=== PATIENT | male | born 1940 | race Caucasian/White ===

== ENCOUNTER 2016-11-15 20:25 | Inpatient (IN) ==
[2016-11-15] MEDS ORDERED: Ipratropium/Albuterol Neb 3 ML IH ONE (20:49)
[2016-11-15] MEDS: 0.9 % Sodium Chloride 1,000 ML IVC SCH ×2 (21:07→21:18)
[2016-11-15 21:12] LABS: Basophils % 0.3 %; Eosinophils # 0.1 K/mcL (0.0-0.6); Eosinophils % 0.6 %; Hematocrit 42.2 % (37.5-50.1); Hemoglobin 14.3 g/dL (12.9-16.9); Immature Granulocytes % 0.6 % (0-4); Lymphocytes # 1.2 K/mcL (0.6-4.6); Lymphocytes % 11.3 %; Mean Corpuscular HGB Conc 33.9 g/dL (31.6-35.5); Mean Corpuscular Hemoglobin 29.7 pg (28.0-33.3); Mean Corpuscular Volume 87.6 fL (83.0-100.0); Mean Platelet Volume 9.6 fL (9.4-12.4); Monocytes # 0.1 K/mcL (0.0-1.3); Monocytes % 0.8 %; Neutrophils # 9.4 K/mcL (1.6-8.9); Platelet Count 155 K/mcL (140-400); Red Blood Count 4.82 M/mcL (4.19-5.50); Red Cell Distribution Width 13.9 % (11.5-14.5); Segmented Neutrophils % 86.4 %
[2016-11-15 21:24] LABS: INR 1.1; Prothrombin Time 12.1 Seconds (9.4-12.1)
[2016-11-15 21:26] LABS: Activated Partial Thrombo Time 27.8 Seconds (26.0-36.0); Alanine Aminotransferase 39 Units/L (0-55); Albumin 3.9 g/dL (3.5-5.0); Alkaline Phosphatase 67 Units/L (38-126); Aspartate Amino Transferase 27 Units/L (5-34); BUN/Creatinine Ratio 23 (6-26); Bilirubin,Direct 0.2 mg/dL (0.0-0.5); Bilirubin,Indirect 0.4 mg/dL (0.0-1.2); Bilirubin,Total 0.6 mg/dL (0.2-1.2); Blood Urea Nitrogen 26 mg/dL (8-26); Calcium 10.2 mg/dL (8.6-10.8); Carbon Dioxide 22 mEq/L (19-29); Chloride 101 mEq/L (98-109); Globulin 3.9 g/dL (2.4-3.5); Glucose 197 mg/dL (70-99); Magnesium 1.2 mg/dL (1.6-2.6); Osmolality,Calculated 294 (280-300); Phosphorous 1.9 mg/dL (2.3-4.7); Potassium 4.6 mEq/L (3.5-4.5); Sodium 137 mEq/L (136-145); Total Protein 7.8 g/dL (6.0-8.3); eGFR For African Americans > 60 (> 60); eGFR For Non-African Americans > 60 (> 60)
[2016-11-15 21:27] LABS: Amylase 41 Units/L (25-125); Lipase 34 Units/L (8-78)
[2016-11-15 21:27] LABS: Bilirubin,Urine Negative (Negative); Blood,Urine Moderate (Negative); Clarity,Urine Turbid (Clear); Color,Urine Yellow (Yellow); Glucose,Urine (UA) >=1000 mg/dL (Normal); Ketones,Urine Trace mg/dL (Negative); Leukocyte Esterase,Urine Large (Negative); Nitrite,Urine Positive (Negative); PH,Urine 5.5 pH Units (5.0-8.0); Protein,Urine 100 mg/dL (Neg-Trace); Specific Gravity,Urine 1.026 (1.010-1.025); Urobilinogen,Urine Normal (Normal)
[2016-11-15 21:30] LABS: Bacteria,Urine Many per hpf (None-Few); Hyaline Casts,Urine None Seen per lpf (None-Few); Squamous Epithelial Cell,Urine Many per lpf (None-Few); WBC,Urine TNTC per hpf (0-3)
[2016-11-15] MEDS ORDERED: 0.9 % Sodium Chloride 1,000 ML IVC ONE (21:35)
--- NOTE | 2016-11-15 21:39 | Emergency Department Note ---
Disposition Clinical Impression: Sepsis Qualifiers: Sepsis type: sepsis due to unspecified organism Qualified Code(s): A41.9 - Sepsis, unspecified organism UTI (urinary tract infection) Qualifiers: Urinary tract infection type: acute cystitis Hematuria presence: without hematuria Qualified Code(s): N30.00 - Acute cystitis without hematuria Pneumonia Qualifiers: Pneumonia type: due to unspecified organism Laterality: left Lung location: lower lobe of lung Qualified Code(s): J18.1 - Lobar pneumonia, unspecified organism Disposition: Admitted As Inpatient Condition: Good Referrals: Unassigned,Provider [Primary Care Provider] - Time of Disposition: 21:38 General Adult HPI - General Chief complaint: ED Altered Mental Status Stated complaint: AMS Time Seen by Provider: 11/15/16 20:27 Source: patient, family, EMS Limitations: no limitations Nursing Notes Reviewed: Yes Vital Signs Reviewed: Yes - History of Present Illness HPI Narrative: Patient reporting to the emergency department with an altered mental status. states that he has had a foul-smelling urine for the past 2 weeks. She states she is complaining of chilling tonight. This started around 4:30. She states that he then went to the bathroom inserters taking. She had attempted to help him get off the toilet but he was too heavy and they both fell to the ground. She denies striking his head on anything and states that she helped ease him to the ground. Pain Scale: 0 - Related Data Home Medications Medication Instructions Recorded Confirmed Aspirin Enteric Coated [Aspirin EC] 81 mg PO DAILY 11/15/16 11/15/16 Gabapentin [Neurontin] 600 mg PO TID 11/15/16 11/15/16 Glimepiride [Amaryl] 4 mg PO QAM 11/15/16 11/15/16 Lisinopril [Zestril] 20 mg PO DAILY 11/15/16 11/15/16 [place]-3/Dha/Epa/Fish Oil [Fish Oil 1,000 mg PO TID 11/15/16 11/15/16 1,000 mg Softgel] Pravastatin Sodium 10 mg PO HS 11/15/16 11/15/16 metFORMIN [Glucophage] 1,000 mg PO BIDWM 11/15/16 11/15/16 Allergies Allergy/AdvReac Type Severity Reaction Status Date / Time codeine Allergy See Verified 11/15/16 20:29 [From Tylenol-Codeine #3] Comments Limitations: ROS unobtainable due to patients medical condition Past Medical History - Past Medical History Medical history: Reports: cancer, diabetes, hypertension - Social History Smoking Status: Never smoker Alcohol use: Reports: none Drug use: Reports: none Physical Exam - General Limitations: altered mental status (Knows His name and where he is unaware of the month or year.) General appearance: alert - Head Head exam: atraumatic, normocephalic - Eye Eye exam: Present: normal appearance, PERRL, EOMI. Absent: scleral icterus - ENT ENT exam: normal exam, normal oropharynx, mucous membranes moist - Neck Neck exam: Present: normal inspection, full ROM, trachea midline. Absent: tenderness, meningismus, lymphadenopathy - Chest Chest inspection: Present: normal inspection, symmetric chest wall rise. Absent : tenderness, rash - Respiratory Respiratory exam: Present: wheezes (Diffusely), other (Rhonchi left lower lobe.) . Absent: respiratory distress - Cardiovascular Cardiovascular exam: Present: normal rhythm, tachycardia, normal heart sounds - Abdominal Exam Abdominal exam: Present: soft, Non-Tender, normal bowel sounds. Absent: tenderness, distention, guarding - Extremities Exam Extremities exam: Present: normal inspection, full ROM, normal capillary refill. Absent: tenderness, pedal edema - Back Exam Back exam: Present: normal inspection, full ROM. Absent: tenderness - Neurological Exam Neurological exam: Present: alert - Skin Skin exam: Present: warm, dry, intact, normal color. Absent: rash, cyanosis Course Course Narrative: Confused male patient presenting to the emergency department by EMS. states that his urine has been dark over the past couple weeks and foul- smelling. She states tonight he went to get to the bathroom and sat down on the toilet and started shaking. She states that he was then confused and too weak to get off the toilet alone. They then Called EMS. He is a diabetic and his blood sugar was greater than 200. On arrival to emergency department patient does not appear in any distress however he is confused. He knows his name and where he has however he does not know the year or the month. The states that when she tried to help him off the toilet he felt to the floor. She states that she eased him to the ground she fell with him. She denies him striking his head or any other extremity during the fall. THey state he does not have a history of confusion dementia or Alzheimer's. Patient's states that when he was on the toilet shaking he said he was very cold. We will scan patient's head as well as get a chest x-ray a urinalysis and begin patient on a fluid bolus. He does meet sepsis criteria at this time. He has no focal deficits. He is confused but there is no weakness to one side or the other. His pupils are equal and reactive to light. We will scan patient's head and get lab work. Will also get a UA. - Reevaluation(s) Reevaluation #1: Patient has urosepsis and a left lower lobe pneumonia. His lactate is elevated. Blood cultures were drawn. We will treat this with Rocephin as well as azithromycin. He has had 3 L of fluid. It is the same. The patient for urosepsis as well as pneumonia. Time: 22:56 - Consultations Consultation #1: Dr Goldsmith accepted Pt in stable condition. Time: 22:55 Vital Signs Temperature 101 F H 11/15/16 20:40 Pulse Rate 102 11/15/16 20:40 Respiratory Rate 20 11/15/16 20:40 Blood Pressure 139/66 11/15/16 20:40 O2 Sat by Pulse Oximetry 95 11/15/16 20:40 Temperature 99.0 F 11/15/16 23:37 Pulse Rate 102 11/15/16 21:08 Respiratory Rate 20 11/15/16 23:37 Blood Pressure 131/76 11/15/16 23:37 O2 Sat by Pulse Oximetry 96 11/15/16 21:13 Oxygen Delivery Oxygen Delivery Nasal Cannula Medical Decision Making - Medical Records Medical records reviewed: Yes I reviewed the patient's medical records. - Lab Data Lab results reviewed: Yes I reviewed the patient's lab results. Result diagrams: 11/15/16 21:00 11/15/16 21:00 Lab Results 11/15/16 11/15/16 11/15/16 Range/Units 21:00 21:00 21:00 WBC 10.8 (4.3-11.1) K/mcL RBC 4.82 (4.19-5.50) M/mcL Hgb 14.3 (12.9-16.9) g/dL Hct 42.2 (37.5-50.1) % MCV 87.6 (83.0-100.0) fL MCH 29.7 (28.0-33.3) pg MCHC 33.9 (31.6-35.5) g/dL RDW 13.9 (11.5-14.5) % Plt Count 155 (140-400) K/mcL MPV 9.6 (9.4-12.4) fL Immature Gran % 0.6 (0-4) % Seg Neutrophils % 86.4 % Lymphocytes % 11.3 % Monocytes % 0.8 % Eosinophils % 0.6 % Basophils % 0.3 % Neutrophils # 9.4 H (1.6-8.9) K/mcL Lymphocytes # 1.2 (0.6-4.6) K/mcL Monocytes # 0.1 (0.0-1.3) K/mcL Eosinophils # 0.1 (0.0-0.6) K/mcL Basophils # 0.0 (0.0-0.2) K/mcL PT 12.1 (9.4-12.1) Seconds INR 1.1 APTT 27.8 (26.0-36.0) Seconds Sodium (136-145) mEq/L Potassium (3.5-4.5) mEq/L Chloride (98-109) mEq/L Carbon Dioxide (19-29) mEq/L BUN (8-26) mg/dL Creatinine (0.72-1.25) mg/dL Est GFR ( Amer) (> 60) Est GFR (Non-Af Amer) (> 60) BUN/Creatinine Ratio (6-26) Glucose (70-99) mg/dL Calculated Osmolality (280-300) Lactic Acid (0.5-2.2) mmol/L Calcium (8.6-10.8) mg/dL Phosphorus (2.3-4.7) mg/dL Magnesium (1.6-2.6) mg/dL Total Bilirubin (0.2-1.2) mg/dL Direct Bilirubin (0.0-0.5) mg/dL Indirect Bilirubin (0.0-1.2) mg/dL AST (5-34) Units/L ALT (0-55) Units/L Alkaline Phosphatase (38-126) Units/L Troponin I (0-0.03) ng/mL Serum Total Protein (6.0-8.3) g/dL Albumin (3.5-5.0) g/dL Globulin (2.4-3.5) g/dL Albumin/Globulin Ratio (1.1-2.2) Amylase 41 (25-125) Units/L Lipase 34 (8-78) Units/L Urine Color (Yellow) Urine Clarity (Clear) Urine pH (5.0-8.0) pH Units Ur Specific [place] (1.010-1.025) Urine Protein (Neg-Trace) mg/dL Urine Glucose (UA) (Normal) mg/dL Urine Ketones (Negative) mg/dL Urine Blood (Negative) Urine Nitrite (Negative) Urine Bilirubin (Negative) Urine Urobilinogen (Normal) mg/dL Ur Leukocyte Esterase (Negative) Urine Microscopic RBC (0-3) per hpf Urine Microscopic WBC (0-3) per hpf Ur Squamous Epith Cells (None-Few) per lpf Urine Bacteria (None-Few) per hpf Hyaline Casts (None-Few) per lpf Ur Culture Indicated? (NO) 11/15/16 11/15/16 11/15/16 Range/Units 21:00 21:00 21:00 WBC (4.3-11.1) K/mcL RBC (4.19-5.50) M/mcL Hgb (12.9-16.9) g/dL Hct (37.5-50.1) % MCV (83.0-100.0) fL MCH (28.0-33.3) pg MCHC (31.6-35.5) g/dL RDW (11.5-14.5) % Plt Count (140-400) K/mcL MPV (9.4-12.4) fL Immature Gran % (0-4) % Seg Neutrophils % % Lymphocytes % % Monocytes % % Eosinophils % % Basophils % % Neutrophils # (1.6-8.9) K/mcL Lymphocytes # (0.6-4.6) K/mcL Monocytes # (0.0-1.3) K/mcL Eosinophils # (0.0-0.6) K/mcL Basophils # (0.0-0.2) K/mcL PT (9.4-12.1) Seconds INR APTT (26.0-36.0) Seconds Sodium 137 (136-145) mEq/L Potassium 4.6 H (3.5-4.5) mEq/L Chloride 101 (98-109) mEq/L Carbon Dioxide 22 (19-29) mEq/L BUN 26 (8-26) mg/dL Creatinine 1.12 (0.72-1.25) mg/dL Est GFR ( Amer) > 60 (> 60) Est GFR (Non-Af Amer) > 60 (> 60) BUN/Creatinine Ratio 23 (6-26) Glucose 197 H (70-99) mg/dL Calculated Osmolality 294 (280-300) Lactic Acid 5.3 H* (0.5-2.2) mmol/L Calcium 10.2 (8.6-10.8) mg/dL Phosphorus 1.9 L (2.3-4.7) mg/dL Magnesium 1.2 L (1.6-2.6) mg/dL Total Bilirubin 0.6 (0.2-1.2) mg/dL Direct Bilirubin 0.2 (0.0-0.5) mg/dL Indirect Bilirubin 0.4 (0.0-1.2) mg/dL AST 27 (5-34) Units/L ALT 39 (0-55) Units/L Alkaline Phosphatase 67 (38-126) Units/L Troponin I 0.00 (0-0.03) ng/mL Serum Total Protein 7.8 (6.0-8.3) g/dL Albumin 3.9 (3.5-5.0) g/dL Globulin 3.9 H (2.4-3.5) g/dL Albumin/Globulin Ratio 1.0 L (1.1-2.2) Amylase (25-125) Units/L Lipase (8-78) Units/L Urine Color (Yellow) Urine Clarity (Clear) Urine pH (5.0-8.0) pH Units Ur Specific [place] (1.010-1.025) Urine Protein (Neg-Trace) mg/dL Urine Glucose (UA) (Normal) mg/dL Urine Ketones (Negative) mg/dL Urine Blood (Negative) Urine Nitrite (Negative) Urine Bilirubin (Negative) Urine Urobilinogen (Normal) mg/dL Ur Leukocyte Esterase (Negative) Urine Microscopic RBC (0-3) per hpf Urine Microscopic WBC (0-3) per hpf Ur Squamous Epith Cells (None-Few) per lpf Urine Bacteria (None-Few) per hpf Hyaline Casts (None-Few) per lpf Ur Culture Indicated? (NO) 11/15/16 11/15/16 Range/Units 21:18 22:56 WBC (4.3-11.1) K/mcL RBC (4.19-5.50) M/mcL Hgb (12.9-16.9) g/dL Hct (37.5-50.1) % MCV (83.0-100.0) fL MCH (28.0-33.3) pg MCHC (31.6-35.5) g/dL RDW (11.5-14.5) % Plt Count (140-400) K/mcL MPV (9.4-12.4) fL Immature Gran % (0-4) % Seg Neutrophils % % Lymphocytes % % Monocytes % % Eosinophils % % Basophils % % Neutrophils # (1.6-8.9) K/mcL Lymphocytes # (0.6-4.6) K/mcL Monocytes # (0.0-1.3) K/mcL Eosinophils # (0.0-0.6) K/mcL Basophils # (0.0-0.2) K/mcL PT (9.4-12.1) Seconds INR APTT (26.0-36.0) Seconds Sodium (136-145) mEq/L Potassium (3.5-4.5) mEq/L Chloride (98-109) mEq/L Carbon Dioxide (19-29) mEq/L BUN (8-26) mg/dL Creatinine (0.72-1.25) mg/dL Est GFR ( Amer) (> 60) Est GFR (Non-Af Amer) (> 60) BUN/Creatinine Ratio (6-26) Glucose (70-99) mg/dL Calculated Osmolality (280-300) Lactic Acid 4.1 H* (0.5-2.2) mmol/L Calcium (8.6-10.8) mg/dL Phosphorus (2.3-4.7) mg/dL Magnesium (1.6-2.6) mg/dL Total Bilirubin (0.2-1.2) mg/dL Direct Bilirubin (0.0-0.5) mg/dL Indirect Bilirubin (0.0-1.2) mg/dL AST (5-34) Units/L ALT (0-55) Units/L Alkaline Phosphatase (38-126) Units/L Troponin I (0-0.03) ng/mL Serum Total Protein (6.0-8.3) g/dL Albumin (3.5-5.0) g/dL Globulin (2.4-3.5) g/dL Albumin/Globulin Ratio (1.1-2.2) Amylase (25-125) Units/L Lipase (8-78) Units/L Urine Color Yellow (Yellow) Urine Clarity Turbid A (Clear) Urine pH 5.5 (5.0-8.0) pH Units Ur Specific [place] 1.026 H (1.010-1.025) Urine Protein 100 H (Neg-Trace) mg/dL Urine Glucose (UA) >=1000 H (Normal) mg/dL Urine Ketones Trace H (Negative) mg/dL Urine Blood Moderate H (Negative) Urine Nitrite Positive A (Negative) Urine Bilirubin Negative (Negative) Urine Urobilinogen Normal (Normal) mg/dL Ur Leukocyte Esterase Large H (Negative) Urine Microscopic RBC 5-15 H (0-3) per hpf Urine Microscopic WBC TNTC H (0-3) per hpf Ur Squamous Epith Cells Many H (None-Few) per lpf Urine Bacteria Many H (None-Few) per hpf Hyaline Casts None Seen (None-Few) per lpf Ur Culture Indicated? YES A (NO) - Radiology Data Radiology results reviewed: Yes I reviewed the patient's radiology results. Chest X-Ray 11/15/16 20:39 IMPRESSION: Cardiomegaly and bibasilar atelectasis. D/ / 11/15/2016 21:58:01 Jaden Cintron MD / [place] Interpreting Provider: Jaden Cintron MD Head CT 11/15/16 20:40 IMPRESSION: No acute intracranial abnormality. D/ / Luis Alberto Aldrich MD / Luis Alberto Aldrich MD Interpreting Provider: Luis Alberto Aldrich MD Critical Care Time Critical Care Time: Yes Total Critical Care Time: 35 Attestation: Critical care time spent and medical management, fluid resuscitation, antimicrobial therapy, and treatment of sepsis secondary to pneumonia and urinary tract infection. Attestation Statement - Attestation Attestation: I examined this patient and my medical decision-making was reviewed with the SUPERVISOR ROLLING ROOM/PA/Advanced Practice Nurse/Resident Physician. I agree with the documented findings, disposition and treatment plan as described except to the extent set forth below. +pneumonia +uti rocephin, zithromax, sepsis present. admit. iv fluids.
[2016-11-15] MEDS ORDERED: Azithromycin 500 MG in D5% in Water 250 ML IVPB ONE (21:51)
[2016-11-16] MEDS ORDERED: Magnesium Sulfate 2 GM in D5% in Water 100 ML IVPB ONE (02:07)
[2016-11-16] MEDS ORDERED: Sodium Phosphate 15 MMOL in D5% in Water 100 ML IVPB ONE (02:08)
--- NOTE | 2016-11-16 02:12 | Internal Med History&Physical ---
Date of Encounter: 11/16/16 Time of Encounter: 02:10 Assessment and Plan (1) Diabetes mellitus type 2 in obese Current visit: Yes Status: Acute Sliding scale insulin. (2) CAD (coronary artery disease) Current visit: Yes Status: Acute No active chest pain. Continue anti-ischemic medications Qualifiers: Qualified Code(s): I25.10 - Atherosclerotic heart disease of [place] coronary artery without angina pectoris (3) Sepsis Current visit: Yes Status: Acute Lactic acid improving with hydration. Repeat lactic acid is 4.1. Patient had received 2 L bolus of normal saline Continue hydration Qualifiers: Sepsis type: sepsis due to unspecified organism Qualified Code(s): A41.9 - Sepsis, unspecified organism (4) UTI (urinary tract infection) Current visit: Yes Status: Acute Ceftriaxone. Check urine and blood culture Qualifiers: Urinary tract infection type: acute cystitis Hematuria presence: without hematuria Qualified Code(s): N30.00 - Acute cystitis without hematuria Internal Medicine - H&P: HPI Chief complaint: AMS History of present illness: Mr. Bedolla is a 76 year old male with multiple medical problems including coronary artery disease status post cabg, diabetes mellitus, hypertension, history of colon cancer in 2004 status post surgery and chemotherapy presents to emergency room today because of confusion. Today afternoon patient started having fever and rigors. He has been confused. Work up in the emergency room shows evidence of urinary tract infection. Patient denies any urinary symptoms. No loin pain or tenderness. Patient denies any cough or expectoration. Patient had received fluids and antibiotic in the emergency room. During my interview patient is alert oriented times 3. Past Med Surg Social Fam HX - Past Medical History Medical history: cancer, diabetes, hypertension Psychiatric history: depression - Past Surgical History Surgical History: cancer surgery, coronary bypass (CABG) - Social History Smoking Status: Former smoker Smokeless Tobacco Status: No Alcohol use: none Drug use: none - Family History Mother Living Status: Hx Family Cardiac Disorders: No Hx Family Endocrine Disorder: Yes (Enlarged spleen) Father Living Status: Hx Family Cancer: Yes (Colon) Internal Medicine - H&P: Meds Aspirin Enteric Coated [Aspirin EC] 81 mg PO DAILY 11/15/16 [History] Gabapentin [Neurontin] 600 mg PO TID 11/15/16 [History] Glimepiride [Amaryl] 4 mg PO QAM 11/15/16 [History] Lisinopril [Zestril] 20 mg PO DAILY 11/15/16 [History] [place]-3/Dha/Epa/Fish Oil [Fish Oil 1,000 mg Softgel] 1,000 mg PO TID 11/15/16 [ History] Pravastatin Sodium 10 mg PO HS 11/15/16 [History] metFORMIN [Glucophage] 1,000 mg PO BIDWM 11/15/16 [History] Allergies codeine [From Tylenol-Codeine #3] Allergy (Verified 11/15/16 20:29) See Comments sweats All Systems PM: A 10-system review of systems was performed and is negative for pertinent findings except as documented above in the HPI. Review of systems: 10 point review of systems is negative except for HPI. - Constitutional Vitals: Temp Pulse Resp BP Pulse Ox 98.5 F 87 15 109/65 95 11/16/16 00:59 11/16/16 00:59 11/16/16 00:59 11/16/16 00:59 11/16/16 00:59 Exam: Gen.: patient is alert oriented times 3 not in distress. Cardiac: normal S1 S2 no additional sounds or murmurs chest: fair air entry. no active wheezing. No crackles or bronchial breathing. abdomen: soft nontender nondistended normal bowel sounds neuro: no focal deficit Back: No CVA tenderness Internal Med - H&P Results - Labs CBC & Chem 7: 11/15/16 21:00 11/15/16 21:00
[2016-11-16] MEDS: 0.9 % Sodium Chloride 1,000 ML IVC SCH ×3 (02:52→21:30)
[2016-11-16 05:54] LABS: Basophils % 0.2 %; Eosinophils % 0.2 %; Hematocrit 35.1 % (37.5-50.1); Immature Granulocytes % 0.6 % (0-4); Lymphocytes # 2.3 K/mcL (0.6-4.6); Lymphocytes % 13.3 %; Mean Corpuscular Hemoglobin 29.3 pg (28.0-33.3); Mean Corpuscular Volume 88.6 fL (83.0-100.0); Mean Platelet Volume 9.7 fL (9.4-12.4); Monocytes # 0.6 K/mcL (0.0-1.3); Monocytes % 3.7 %; Platelet Count 150 K/mcL (140-400); Red Blood Count 3.96 M/mcL (4.19-5.50); Red Cell Distribution Width 14.1 % (11.5-14.5)
[2016-11-16 05:58] LABS: Hemoglobin 11.6 g/dL (12.9-16.9); Neutrophils # 13.9 K/mcL (1.6-8.9)
[2016-11-16] MEDS ORDERED: *HR* Heparin 5,000 UNIT/ML VIAL SQ SCH (06:00)
[2016-11-16 06:21] LABS: BUN/Creatinine Ratio 25 (6-26); Blood Urea Nitrogen 26 mg/dL (8-26); C-Reactive Protein 62 mg/L (Less than 5); Carbon Dioxide 23 mEq/L (19-29); Chloride 103 mEq/L (98-109); Glucose 236 mg/dL (70-99); Magnesium 1.7 mg/dL (1.6-2.6); Osmolality,Calculated 292 (280-300); Potassium 4.3 mEq/L (3.5-4.5); Sodium 135 mEq/L (136-145); eGFR For African Americans > 60 (> 60); eGFR For Non-African Americans > 60 (> 60)
[2016-11-16 06:23] LABS: Calcium 8.6 mg/dL (8.6-10.8)
[2016-11-16] MEDS ORDERED: Famotidine 20 MG/2 ML VIAL IVP SCH (09:00)
[2016-11-16] MEDS ORDERED: (Omega-3/Dha/Epa/Fish Oil [Fish Oil 1,000 Mg Softgel]) PO SCH (09:00)
[2016-11-16] MEDS: Aspirin Enteric Coated 81 MG Tablet PO SCH (09:16)
[2016-11-16] MEDS: Insulin LISPRO 300 UNITS/3 ML VIAL SQ SCH ×4 (09:16→21:37)
[2016-11-16] MEDS: Piperacillin/Tazobactam 3.375 GM in D5% in Water (Mini-Bag+) 100 ML IVPB SCH ×2 (09:16→17:29)
[2016-11-16] MEDS ORDERED: Ondansetron 4 MG/2 ML VIAL IVP PRN (12:37)
[2016-11-16] MEDS ORDERED: D5% in Water 1,000 ML IVC PRN (12:58)
[2016-11-16] MEDS ORDERED: *HR* Dextrose 50 % in Water (Syg) 50 ML SYRINGE IVP PRN (12:58)
[2016-11-16] MEDS ORDERED: Dextrose Gel 15 GM PO PRN ×2 (12:58)
--- NOTE | 2016-11-16 13:02 | Electrocardiograph Report ---
[address] [address] Test Date: 2016-11-15 Pat Name: Javy Bedolla Department: 102 Room: 2A Gender: M Assessment Nurse Practitioner: Dominic : 1940 Requested By: Marianela Mcknight Order Number: [id number] Reading MD: Sabas Brown MD Measurements Intervals [place] Rate: 102 P: 82 ID: [id number] QRS: 57 QRSD: 90 T: 8 QT: 330 QTc: 389 Interpretive Statements SINUS TACHYCARDIA Electronically Signed On 11-16-2016 13:01:18 EDT by Sabas Brown MD
--- NOTE | 2016-11-16 13:05 | Internal Med Progress Note ---
Date of Encounter: 11/16/16 Time of Encounter: 13:04 - Subjective Interval history: Pt seen and examined with family present at bedside. Resting in bed and reports of feeling significantly better since admission. States the hematuria and dysuria persists but improved from previous day. Denies any other discomfort at this time. Assessment and Plan (1) UTI (urinary tract infection) Current visit: Yes Status: Acute Noted to have worsening leukocytosis changed to Zosyn and discontinued Ceftriaxone f/u urine and blood cultures continue IV fluids Lactate trending down and patient clinically improving Ceftriaxone. Check urine and blood culture Qualifiers: Urinary tract infection type: acute cystitis Hematuria presence: without hematuria Qualified Code(s): N30.00 - Acute cystitis without hematuria (2) Sepsis Current visit: Yes Status: Acute as listed above Qualifiers: Sepsis type: sepsis due to unspecified organism Qualified Code(s): A41.9 - Sepsis, unspecified organism (3) CAD (coronary artery disease) Current visit: Yes Status: Acute No acute signs of angina present at this time continue home medications Qualifiers: Qualified Code(s): I25.10 - Atherosclerotic heart disease of [place] coronary artery without angina pectoris (4)Diabetes mellitus type 2 in obese Current visit: Yes Status: Acute Adjusted insulin regimen continue sliding scale insulin algorithm monitor FS and BG will adjust therapy as needed (5) DVT ppx Current visit: Yes Status: Acute SCDs - Constitutional Vitals: Temp Pulse Resp BP Pulse Ox 98.0 F 75 18 132/61 93 11/16/16 12:18 11/16/16 12:18 11/16/16 12:18 11/16/16 12:18 11/16/16 12:18 General appearance: Present: A&O X 3, no acute distress, obese, answers questions appropriately - Head Head exam: Present: atraumatic, normocephalic - Eye Eye exam: Present: normal appearance, conjuntiva pink, sclera anicteric - Respiratory Respiratory exam: Present: CTAB. Absent: accessory muscle use, rales, rhonchi, wheezes - Cardiovascular Cardiovascular exam: Present: RRR, +S1, +S2. Absent: diastolic murmur, gallop, rubs, systolic murmur - GI/Abdominal GI/Abdominal exam: Present: normal bowel sounds, soft, no peritoneal signs. Absent: distended, tenderness - Extremities Exam Extremities exam: Present: warm, radial pulses palpable and symetrical. Absent : calf tenderness, cyanotic, pedal edema - Neurological Exam Neurological exam: Present: alert, oriented X3 - Psychiatric Psychiatric exam: Present: normal affect, normal mood Internal Medicine: Result - Labs CBC & Chem 7: 11/16/16 05:09 11/16/16 05:09 Labs: Short CBC 11/16/16 Range/Units 05:09 WBC 16.9 H D (4.3-11.1) K/mcL Hgb 11.6 L D (12.9-16.9) g/dL Hct 35.1 L (37.5-50.1) % Plt Count 150 (140-400) K/mcL Neutrophils # 13.9 H (1.6-8.9) K/mcL BMP 11/16/16 05:09 Sodium 135 L Potassium 4.3 Chloride 103 Carbon Dioxide 23 BUN 26 Creatinine 1.04 Glucose 236 H Calcium 8.6 D - ABG Interpretation ABG results: PT/INR, D-dimer PT 12.1 Seconds (9.4-12.1) 11/15/16 21:00 Consult Discharge Plan - Plan Referrals: Unassigned,Provider [Primary Care Provider] -
[2016-11-16 15:06] LABS: Acinetobacter baumannii by PCR Not Detected (Not Detect); Enterococcus by PCR Not Detected (Not Detect); Staphylococcus aureus by PCR Not Detected (Not Detect); Streptococcus agalactiae(B)PCR Not Detected (Not Detect); Streptococcus by PCR Not Detected (Not Detect); Streptococcus pneumoniae PCR Not Detected (Not Detect); Streptococcus pyogenes (A) PCR Not Detected (Not Detect); blaKPC Carbapenem-Resist Gene Not Detected (Not Detect); mecA Methicillin-Resist Gene Not Detected (Not Detect); vanA/B Vancomycin-Resist Genes Not Detected (Not Detect)
[2016-11-16 15:07] LABS: Candida albicans by PCR Not Detected (Not Detect); Candida glabrata by PCR Not Detected (Not Detect); Candida krusei by PCR Not Detected (Not Detect); Candida parapsilosis by PCR Not Detected (Not Detect); Candida tropicalis by PCR Not Detected (Not Detect); Escherichia coli by PCR ***DETECTED*** (Not Detect); Klebsiella oxytoca by PCR Not Detected (Not Detect); Klebsiella pneumoniae by PCR Not Detected (Not Detect); Pseudomonas aeruginosa by PCR Not Detected (Not Detect); Serratia marcescens by PCR Not Detected (Not Detect)
[2016-11-16] MEDS ORDERED: Famotidine 20 MG TABLET PO SCH (21:00)
[2016-11-17] MEDS: Piperacillin/Tazobactam 3.375 GM in D5% in Water (Mini-Bag+) 100 ML IVPB SCH ×4 (01:29→23:28)
[2016-11-17 05:38] LABS: Basophils % 0.1 %; Eosinophils # 0.1 K/mcL (0.0-0.6); Eosinophils % 0.8 %; Hematocrit 32.5 % (37.5-50.1); Hemoglobin 10.8 g/dL (12.9-16.9); Immature Granulocytes % 0.7 % (0-4); Lymphocytes % 23.5 %; Mean Corpuscular HGB Conc 33.2 g/dL (31.6-35.5); Mean Corpuscular Hemoglobin 29.3 pg (28.0-33.3); Mean Corpuscular Volume 88.3 fL (83.0-100.0); Mean Platelet Volume 9.8 fL (9.4-12.4); Monocytes # 0.7 K/mcL (0.0-1.3); Monocytes % 8.3 %; Neutrophils # 5.7 K/mcL (1.6-8.9); Platelet Count 113 K/mcL (140-400); Red Blood Count 3.68 M/mcL (4.19-5.50); Segmented Neutrophils % 66.6 %
[2016-11-17 05:53] LABS: BUN/Creatinine Ratio 23 (6-26); Blood Urea Nitrogen 20 mg/dL (8-26); Calcium 8.4 mg/dL (8.6-10.8); Carbon Dioxide 24 mEq/L (19-29); Chloride 103 mEq/L (98-109); Glucose 180 mg/dL (70-99); Magnesium 1.3 mg/dL (1.6-2.6); Osmolality,Calculated 285 (280-300); Phosphorous 2.1 mg/dL (2.3-4.7); Potassium 3.9 mEq/L (3.5-4.5); Sodium 134 mEq/L (136-145); eGFR For African Americans > 60 (> 60); eGFR For Non-African Americans > 60 (> 60)
[2016-11-17] MEDS ORDERED: Sodium Phosphate 30 MMOL in D5% in Water 100 ML IVPB ONE (07:28)
[2016-11-17] MEDS ORDERED: Magnesium Sulfate 2 GM in D5% in Water 100 ML IVPB ONE (07:28)
[2016-11-17] MEDS: Insulin LISPRO 300 UNITS/3 ML VIAL SQ SCH ×4 (08:35→21:15)
[2016-11-17] MEDS: Aspirin Enteric Coated 81 MG Tablet PO SCH (08:35)
--- NOTE | 2016-11-17 11:26 | Internal Med Progress Note ---
Date of Encounter: 11/17/16 Time of Encounter: 11:24 - Subjective Interval history: Pt seen and examined with family present at bedside. Resting in bed and reports of feeling better. Reports of complete resolution of hematuria with mild dysuria remaining. Overall reports of feeling significantly better. Discharge pending culture reports Assessment and Plan (1) UTI (urinary tract infection) Current visit: Yes Status: Acute Clinically improving Continue Zosyn f/u urine and blood cultures official reports continue IV fluids Lactate normalized Qualifiers: Urinary tract infection type: acute cystitis Hematuria presence: without hematuria Qualified Code(s): N30.00 - Acute cystitis without hematuria (2) Bacteremia Current visit: Yes Status: Acute Blood cultures preliminary results positive for gram negative rods Will continue Zosyn at this time follow up repeat blood cultures and official report of the current blood cultures pt will likely need 14 days of abx after first negative blood culture Qualifiers: Sepsis type: sepsis due to unspecified organism Qualified Code(s): A41.9 - Sepsis, unspecified organism (3) CAD (coronary artery disease) Current visit: Yes Status: Acute No acute signs of angina present at this time continue home medications Qualifiers: Qualified Code(s): I25.10 - Atherosclerotic heart disease of [place] coronary artery without angina pectoris (4)Diabetes mellitus type 2 in obese Current visit: Yes Status: Acute Adjusted insulin regimen continue sliding scale insulin algorithm monitor FS and BG will adjust therapy as needed (5) DVT ppx Current visit: Yes Status: Acute Heparin SQ (6) Electrolyte abnormality Current visit: Yes Status: Acute Hypomagnesemia, hyponatreamia, and hypophosphatemia Mg, NaPhos supplemented continue to monitor electrolytes and replace as needed - Constitutional Vitals: Temp Pulse Resp BP Pulse Ox 97.7 F 65 18 119/74 95 11/17/16 10:41 11/17/16 10:41 11/17/16 10:41 11/17/16 10:41 11/17/16 10:41 General appearance: Present: A&O X 3, no acute distress, obese, answers questions appropriately - Head Head exam: Present: atraumatic, normocephalic - Eye Eye exam: Present: normal appearance, conjuntiva pink, sclera anicteric - Respiratory Respiratory exam: Present: CTAB. Absent: accessory muscle use, rales, rhonchi, wheezes - Cardiovascular Cardiovascular exam: Present: RRR, +S1, +S2. Absent: diastolic murmur, gallop, rubs, systolic murmur - GI/Abdominal GI/Abdominal exam: Present: normal bowel sounds, soft, no peritoneal signs. Absent: distended, tenderness - Extremities Exam Extremities exam: Present: warm, radial pulses palpable and symetrical. Absent : calf tenderness, pedal edema - Neurological Exam Neurological exam: Present: alert, oriented X3 - Psychiatric Psychiatric exam: Present: normal affect, normal mood Internal Medicine: Result - Labs CBC & Chem 7: 11/17/16 05:08 11/17/16 05:08 Labs: Short CBC 11/17/16 Range/Units 05:08 WBC 8.5 (4.3-11.1) K/mcL Hgb 10.8 L (12.9-16.9) g/dL Hct 32.5 L (37.5-50.1) % Plt Count 113 L (140-400) K/mcL Neutrophils # 5.7 (1.6-8.9) K/mcL BMP 11/17/16 05:08 Sodium 134 L Potassium 3.9 Chloride 103 Carbon Dioxide 24 BUN 20 Creatinine 0.86 Glucose 180 H Calcium 8.4 L - ABG Interpretation ABG results: PT/INR, D-dimer PT 12.1 Seconds (9.4-12.1) 11/15/16 21:00 Consult Discharge Plan - Plan Referrals: Unassigned,Provider [Primary Care Provider] -
[2016-11-17] MEDS: Insulin DETEMIR 100 UNIT/ML X5UNITS SQ SCH (14:04)
[2016-11-17] MEDS: 0.9 % Sodium Chloride 1,000 ML IVC SCH (16:55)
[2016-11-17] MEDS: *HR* Heparin 5,000 UNIT/ML VIAL SQ SCH (17:05)
[2016-11-18 05:14] LABS: Hematocrit 32.5 % (37.5-50.1); Hemoglobin 11.3 g/dL (12.9-16.9); Mean Corpuscular HGB Conc 34.8 g/dL (31.6-35.5); Mean Corpuscular Hemoglobin 30.5 pg (28.0-33.3); Mean Corpuscular Volume 87.8 fL (83.0-100.0); Mean Platelet Volume 9.9 fL (9.4-12.4); Platelet Count 120 K/mcL (140-400); Red Cell Distribution Width 13.9 % (11.5-14.5)
[2016-11-18 05:27] LABS: BUN/Creatinine Ratio 21 (6-26); Blood Urea Nitrogen 18 mg/dL (8-26); Calcium 8.4 mg/dL (8.6-10.8); Carbon Dioxide 24 mEq/L (19-29); Chloride 105 mEq/L (98-109); Glucose 180 mg/dL (70-99); Magnesium 1.6 mg/dL (1.6-2.6); Osmolality,Calculated 286 (280-300); Phosphorous 2.9 mg/dL (2.3-4.7); Sodium 135 mEq/L (136-145); eGFR For African Americans > 60 (> 60); eGFR For Non-African Americans > 60 (> 60)
[2016-11-18 05:34] LABS: Lymphocytes # 1.5 K/mcL (0.6-4.6); Monocytes # 0.9 K/mcL (0.0-1.3); Neutrophils # 5.1 K/mcL (1.6-8.9); Platelet Estimate Slight Decrease (Normal); Polychromasia 1+ (Not Present); Reactive Lymphocytes Present (Not Present)
[2016-11-18] MEDS: *HR* Heparin 5,000 UNIT/ML VIAL SQ SCH ×2 (08:50→17:32)
[2016-11-18] MEDS: Insulin DETEMIR 100 UNIT/ML X5UNITS SQ SCH (08:51)
[2016-11-18] MEDS: Insulin LISPRO 300 UNITS/3 ML VIAL SQ SCH ×6 (08:51→21:40)
[2016-11-18] MEDS: Piperacillin/Tazobactam 3.375 GM in D5% in Water (Mini-Bag+) 100 ML IVPB SCH ×2 (08:51→17:31)
[2016-11-18] MEDS: Aspirin Enteric Coated 81 MG Tablet PO SCH (08:52)
--- NOTE | 2016-11-18 11:35 | Internal Med Progress Note ---
Date of Encounter: 11/18/16 Time of Encounter: 11:30 - Subjective Interval history: Pt seen and examined with family present at bedside. Resting in chair and reports of feeling significantly better. No overnight issues reported. Likely d.c in am Assessment and Plan (1) UTI (urinary tract infection) Current visit: Yes Status: Acute Clinically improving Continue Zosyn urine and blood cultures positive for E.coli will continue IV abx for one more day will switch to PO abx in am and likely d/c in am discontinue IV fluids Lactate normalized Qualifiers: Urinary tract infection type: acute cystitis Hematuria presence: without hematuria Qualified Code(s): N30.00 - Acute cystitis without hematuria (2) Bacteremia Current visit: Yes Status: Acute Blood cultures positive for Ecoli Will continue Zosyn at this time pt will likely need 14 days of abx after first negative blood culture Qualifiers: Sepsis type: sepsis due to unspecified organism Qualified Code(s): A41.9 - Sepsis, unspecified organism (3) CAD (coronary artery disease) Current visit: Yes Status: Acute No acute signs of angina present at this time continue home medications Qualifiers: Qualified Code(s): I25.10 - Atherosclerotic heart disease of [place] coronary artery without angina pectoris (4)Diabetes mellitus type 2 in obese Current visit: Yes Status: Acute Noted to require 30units additional insulin coverage in the last 24 hours Changed to Levemir 15units qHS and added Humalog 5units TIDAC continue sliding scale insulin algorithm monitor FS and BG will adjust therapy as needed (5) DVT ppx Current visit: Yes Status: Acute Heparin SQ (6) Electrolyte abnormality Current visit: Yes Status: Acute REsolved continue to monitor electrolytes and replace as needed - Constitutional Vitals: Temp Pulse Resp BP Pulse Ox 98.7 F 69 16 138/71 98 11/18/16 11:25 11/18/16 11:25 11/18/16 11:25 11/18/16 11:25 11/18/16 11:25 General appearance: Present: cooperative, A&O X 3, pleasant, no acute distress, obese, answers questions appropriately - Head Head exam: Present: atraumatic, normocephalic - Eye Eye exam: Present: normal appearance, conjuntiva pink, sclera anicteric - Respiratory Respiratory exam: Present: CTAB. Absent: accessory muscle use, rales, rhonchi, wheezes - Cardiovascular Cardiovascular exam: Present: RRR, +S1, +S2. Absent: diastolic murmur, gallop, rubs, systolic murmur - GI/Abdominal GI/Abdominal exam: Present: normal bowel sounds, soft, no peritoneal signs. Absent: distended, tenderness - Extremities Exam Extremities exam: Present: warm, radial pulses palpable and symetrical. Absent : calf tenderness, pedal edema - Neurological Exam Neurological exam: Present: alert, oriented X3 - Psychiatric Psychiatric exam: Present: normal affect, normal mood Internal Medicine: Result - Labs CBC & Chem 7: 11/18/16 04:57 11/18/16 04:57 Labs: Short CBC 11/18/16 Range/Units 04:57 WBC 7.7 (4.3-11.1) K/mcL Hgb 11.3 L (12.9-16.9) g/dL Hct 32.5 L (37.5-50.1) % Plt Count 120 L (140-400) K/mcL Neutrophils # 5.1 (1.6-8.9) K/mcL BMP 11/18/16 04:57 Sodium 135 L Potassium 4.0 Chloride 105 Carbon Dioxide 24 BUN 18 Creatinine 0.85 Glucose 180 H Calcium 8.4 L - ABG Interpretation ABG results: PT/INR, D-dimer PT 12.1 Seconds (9.4-12.1) 11/15/16 21:00 Consult Discharge Plan - Plan Referrals: Alison Nolasco [employer] [Other] (Please call first thing Sunday and make a hospital follow up for 5-7 day out. Thank you !!)
[2016-11-18] MEDS ORDERED: Insulin DETEMIR 100 UNIT/ML X5UNITS SQ SCH (21:00)
[2016-11-19] MEDS: Piperacillin/Tazobactam 3.375 GM in D5% in Water (Mini-Bag+) 100 ML IVPB SCH ×2 (00:44→08:20)
[2016-11-19 04:17] LABS: Basophils # 0.1 K/mcL (0.0-0.2); Basophils % 0.6 %; Eosinophils # 0.2 K/mcL (0.0-0.6); Hematocrit 34.5 % (37.5-50.1); Hemoglobin 11.6 g/dL (12.9-16.9); Immature Granulocytes % 1.8 % (0-4); Lymphocytes # 2.9 K/mcL (0.6-4.6); Lymphocytes % 32.6 %; Mean Corpuscular HGB Conc 33.6 g/dL (31.6-35.5); Mean Corpuscular Hemoglobin 29.9 pg (28.0-33.3); Mean Corpuscular Volume 88.9 fL (83.0-100.0); Mean Platelet Volume 9.6 fL (9.4-12.4); Monocytes # 0.8 K/mcL (0.0-1.3); Monocytes % 8.9 %; Neutrophils # 4.8 K/mcL (1.6-8.9); Platelet Count 128 K/mcL (140-400); Red Blood Count 3.88 M/mcL (4.19-5.50); Red Cell Distribution Width 13.9 % (11.5-14.5); Segmented Neutrophils % 54.1 %
[2016-11-19 04:31] LABS: BUN/Creatinine Ratio 16 (6-26); Blood Urea Nitrogen 14 mg/dL (8-26); Calcium 8.9 mg/dL (8.6-10.8); Carbon Dioxide 25 mEq/L (19-29); Chloride 104 mEq/L (98-109); Glucose 158 mg/dL (70-99); Magnesium 1.8 mg/dL (1.6-2.6); Osmolality,Calculated 288 (280-300); Sodium 137 mEq/L (136-145); eGFR For African Americans > 60 (> 60); eGFR For Non-African Americans > 60 (> 60)
[2016-11-19] MEDS: *HR* Heparin 5,000 UNIT/ML VIAL SQ SCH (05:26)
[2016-11-19 07:39] VITALS: BP 139/65
[2016-11-19] MEDS: Aspirin Enteric Coated 81 MG Tablet PO SCH (08:20)
[2016-11-19] MEDS: Insulin LISPRO 300 UNITS/3 ML VIAL SQ SCH ×2 (08:21)
--- NOTE | 2016-11-19 09:22 | Discharge Summary ---
Date of Encounter: 11/19/16 Time of Encounter: 08:45 - Discharge Diagnosis (1) Sepsis Priority: Primary Status: Resolved Qualifiers: Sepsis type: sepsis due to unspecified organism Qualified Code(s): A41.9 - Sepsis, unspecified organism (2) UTI (urinary tract infection) Priority: Primary Status: Acute Qualifiers: Urinary tract infection type: acute cystitis Hematuria presence: without hematuria Qualified Code(s): N30.00 - Acute cystitis without hematuria (3) Diabetes mellitus type 2 in obese Priority: Secondary Status: Chronic (4) CAD (coronary artery disease) Priority: Secondary Status: Chronic Qualifiers: Qualified Code(s): I25.10 - Atherosclerotic heart disease of [place] coronary artery without angina pectoris - Discharge Medications Prescriptions: Levofloxacin [Levaquin] 750 mg PO DAILY #8 tablet Home Medications: Aspirin Enteric Coated [Aspirin EC] 81 mg PO DAILY 11/15/16 [History] Gabapentin [Neurontin] 600 mg PO TID 11/15/16 [History] Glimepiride [Amaryl] 4 mg PO QAM 11/15/16 [History] Lisinopril [Zestril] 20 mg PO DAILY 11/15/16 [History] Martin-3/Dha/Epa/Fish Oil [Fish Oil 1,000 mg Softgel] 1,000 mg PO TID 11/15/16 [ History] Pravastatin Sodium 10 mg PO HS 11/15/16 [History] metFORMIN [Glucophage] 1,000 mg PO BIDWM 11/15/16 [History] Levofloxacin [Levaquin] 750 mg PO DAILY #8 tablet 11/19/16 [Rx] Allergies/Adverse Reactions: Allergies codeine [From Tylenol-Codeine #3] Allergy (Verified 11/15/16 20:29) See Comments sweats Date of admission: 11/16/16 04:35 Primary care physician: Provider Unassigned Discharging clinician: Pam Nagy Anticipated date of discharge: 11/19/16 - Patient Status Disposition: Home, Self-Care Condition: Good Functional capacity at discharge: independent ambulation Overall status at discharge: patient is back to baseline - Discharge Instructions Follow Up With: Alison Nolasco CNP [Other] (Please call first thing Sunday Morning and make a hospital follow up for 5-7 day out. Thank you !!) Additional Instructions: Please follow up with your primary care physician within one week after your discharge from the hospital. Please continue oral antibiotics as prescribed. You will continue abx for 7 more days. Please resume all your other home medications as prescribed by your primary care physician. - Diet and Activity Activity: resume usual activities as tolerated, wear oxygen at all times Diet: diabetic diet, low salt diet Hospital course: Mr. Bedolla is a 76 year old male with PMH of DM, hypertension,CAD who was admitted for sepsis secondary to UTI and bacteremia. He was empirically started on IV abx and IV fluids. He responded appropriately to empiric therapy. He was evaluated by physical therapy and outpatient rehab was recommended. His repeat blood cultures were obtained 24 hours after receiving abx therapy and have shown no growth to date. He is clinically asymptomatic and back to baseline. His abx will be switched to PO and he is to continue oral abx for 7 more days. Patient will be discharged to home with follow up with PCP. Patient and demonstrate understanding of his diagnosis and agree with the discharge care and plan. - Time Spent with Patient Total time spent providing and/or coordinating discharge services: Less than 30 minutes - Constitutional Vitals: Temp Pulse Resp BP Pulse Ox 98.0 F 63 17 139/65 93 11/19/16 07:31 11/19/16 07:31 11/19/16 07:31 11/19/16 07:31 11/19/16 07:31 General appearance: Present: cooperative, A&O X 3, pleasant, no acute distress, obese, answers questions appropriately - Head Head exam: Present: atraumatic, normocephalic - Eye Eye exam: Present: normal appearance, conjuntiva pink, sclera anicteric - Respiratory Respiratory exam: Present: CTAB. Absent: accessory muscle use, rales, rhonchi, wheezes - Cardiovascular Cardiovascular exam: Present: RRR, +S1, +S2. Absent: diastolic murmur, gallop, rubs, systolic murmur - GI/Abdominal GI/Abdominal exam: Present: normal bowel sounds, soft, no peritoneal signs. Absent: distended, tenderness - Extremities Exam Extremities exam: Present: warm, radial pulses palpable and symetrical. Absent : calf tenderness - Neurological Exam Neurological exam: Present: alert, oriented X3 - Psychiatric Psychiatric exam: Present: normal affect, normal mood
== END 2016-11-19 11:18 | disposition home or self-care (01) | DRG 871 ==
LOC: 2ANU 20:25 → EMEROO 20:25 → 2ANU 23:55
PROVIDERS: ADMIT Internal Medicine; ATTEND Internal Medicine

== ENCOUNTER 2016-11-20 12:43 | Inpatient (IN) ==
[2016-11-20] MEDS ORDERED: 0.9 % Sodium Chloride 1,000 ML IVC ONE (12:49)
[2016-11-20 13:06] LABS: Basophils # 0.1 K/mcL (0.0-0.2); Basophils % 0.5 %; Eosinophils # 0.1 K/mcL (0.0-0.6); Eosinophils % 1.1 %; Immature Granulocytes % 2.1 % (0-4); Lymphocytes # 2.5 K/mcL (0.6-4.6); Mean Corpuscular HGB Conc 33.6 g/dL (31.6-35.5); Mean Corpuscular Hemoglobin 29.2 pg (28.0-33.3); Mean Platelet Volume 9.5 fL (9.4-12.4); Monocytes # 0.7 K/mcL (0.0-1.3); Monocytes % 5.8 %; Neutrophils # 8.1 K/mcL (1.6-8.9); Platelet Count 177 K/mcL (140-400); Red Blood Count 5.06 M/mcL (4.19-5.50); Red Cell Distribution Width 13.7 % (11.5-14.5); Segmented Neutrophils % 69.5 %
[2016-11-20 13:08] LABS: Hemoglobin 14.8 g/dL (12.9-16.9)
[2016-11-20 13:11] LABS: INR 1.2; Prothrombin Time 12.9 Seconds (9.4-12.1)
[2016-11-20 13:14] LABS: Activated Partial Thrombo Time 30.7 Seconds (26.0-36.0)
--- NOTE | 2016-11-20 13:16 | Emergency Department Note ---
Disposition Clinical Impression: Pulmonary embolism on right, Atrial fibrillation with RVR, Bronchitis Disposition: Admitted As Inpatient Condition: Fair Time of Disposition: 14:05 SOB HPI - General Chief Complaint: ED Shortness of Breath/Dyspnea Stated Complaint: SOB Source: patient Limitations: no limitations - History of Present Illness Patient is a 76-year-old male with past medical history significant for__who presents to the hospital with complaint of shortness of breath and chest discomfort since approximately 11 AM. Patient awoke around 11 AM, had shortness of breath, and chest discomfort isolated to the sub-sternum. Patient states that chest dyscomfort that is rated 1/10. Patient states that when the chest discomfort and shortness of breath occur, he has diaphoresis, lightheadedness, and racing heart. Patient states that he had 3 episodes of near syncope today prior to presentation to the hospital. Patient was recently hospitalized due to sepsis secondary to UTI. He was sent home on by mouth Levaquin. Denies chest pain. Denies radiation of of pain to left shoulder, right shoulder, left neck, right neck, and back. Denies nausea, vomiting, abdominal pain. - Related Data Home Medications Medication Instructions Recorded Confirmed Aspirin Enteric Coated [Aspirin EC] 81 mg PO DAILY 11/15/16 11/20/16 Gabapentin [Neurontin] 600 mg PO QAM 11/15/16 11/20/16 Glimepiride [Amaryl] 4 mg PO BID 11/15/16 11/20/16 Griffin-3/Dha/Epa/Fish Oil [Fish Oil 1,000 mg PO TID 11/15/16 11/20/16 1,000 mg Softgel] Pravastatin Sodium 10 mg PO HS 11/15/16 11/20/16 metFORMIN [Glucophage] 1,000 mg PO BIDWM 11/15/16 11/20/16 Gabapentin [Neurontin] 300 mg PO HS 11/20/16 11/20/16 Ibuprofen [Motrin] 200 - 600 mg PO Q6HR PRN 11/20/16 11/20/16 Lisinopril/Hydrochlorothiazide 1 tab PO DAILY 11/20/16 11/20/16 [Zestoretic 20-25 mg Tablet] Metoprolol XL (24 HR) Succ [Toprol 50 mg PO DAILY 11/20/16 11/20/16 XL] Previous Rx's Medication Instructions Recorded Levofloxacin [Levaquin] 750 mg PO DAILY #8 tablet 11/19/16 Allergies Allergy/AdvReac Type Severity Reaction Status Date / Time codeine Allergy See Verified 11/15/16 20:29 [From Tylenol-Codeine #3] Comments All systems ED: reviewed and negative except as stated. Constitutional: Reports: as per HPI Eyes: Reports: as per HPI ENT ED: Reports: as per HPI Cardiovascular: Reports: as per HPI Respiratory: Reports: as per HPI Gastrointestinal: Reports: as per HPI Genitourinary: Reports: as per HPI Musculoskeletal: Reports: as per HPI Integumentary: Reports: as per HPI Neurological: Reports: as per HPI Psychiatric: Reports: as per HPI Endocrine: Reports: as per HPI Hematological/Lymphatic: Reports: as per HPI Allergic/Immunologic: Reports: as per HPI Past Medical History - Past Medical History Medical history: Reports: cancer, diabetes, hypertension Surgical history: Reports: cancer surgery, coronary bypass (CABG) Psychiatric history: Reports: depression - Social History Smoking Status: Former smoker Smokeless Tobacco Status: No Alcohol use: Reports: none Drug use: Reports: none Physical Exam - General Limitations: no limitations General appearance: alert, anxious - Head Head exam: atraumatic, normocephalic, normal inspection - Eye Eye exam: Present: normal appearance, EOMI - ENT ENT exam: normal exam, normal oropharynx - Neck Neck exam: Present: normal inspection, full ROM, trachea midline - Chest Chest inspection: Present: normal inspection, symmetric chest wall rise. Absent : tenderness - Respiratory Respiratory exam: Present: wheezes (Wheezing to left lung base. Otherwise, lung sounds are normal.) - Cardiovascular Cardiovascular exam: Present: tachycardia (At a rate of 220 bpm. Rhythm demonstrates A. fib with RVR.), irregular rhythm, other - Abdominal Exam Abdominal exam: Present: soft, Non-Tender, normal bowel sounds, scar (To midline lower abdomen), other (Diastases recti appreciated.). Absent: distention, guarding, rebound, rigidity - Extremities Exam Extremities exam: Present: normal inspection, full ROM - Expanded Upper Extremity Exam Vascular exam: Normal: capillary refill, radial pulse (2+) - Expanded Lower Extremity Exam Neurovascular/Tendon exam: Present: normal capillary refill (TP pulses 1+ and DP pulses 1+ bilaterally) - Back Exam Back exam: Present: normal inspection, full ROM. Absent: tenderness - Neurological Exam Neurological exam: Present: alert, oriented X3, CN II-XII intact - Psychiatric Psychiatric exam: Present: normal affect, normal mood - Skin Skin exam: Present: warm, dry, intact Course - Reevaluation(s) Reevaluation #1: Patient's chest x-ray demonstrated no acute cardiopulmonary process. Demonstrated was stable bibasilar scarring and atelectasis. Given patient's sudden dyspnea and atrial fibrillation with RVR we obtained a d-dimer which was elevated. CTA demonstrated an acute-appearing right lower lobe posterior basilar segmental branch pulmonary embolus. There were no findings of acute right heart strain or pulmonary infarction. Also demonstrated was minimal bronchial wall thickening with central airway secretions suggesting bronchitis. On reassessment, patient is stable at this time his heart rate 105 bpm. Patient states that he feels much better. He denies chest discomfort at this time. Given patient's acute onset A. fib with RVR and pulmonary embolism, patient will be admitted for further management. I have placed patient on a therapeutic heparin drip at this time. Time: 15:20 Vital Signs Temperature 98.3 F 11/20/16 12:47 Pulse Rate 220 11/20/16 12:47 Respiratory Rate 26 11/20/16 12:47 Blood Pressure 125/85 11/20/16 12:47 O2 Sat by Pulse Oximetry 96 11/20/16 12:47 Temperature 98.3 F 11/20/16 12:47 Pulse Rate 115 11/20/16 13:05 Respiratory Rate 20 11/20/16 13:05 Blood Pressure 108/81 11/20/16 13:05 O2 Sat by Pulse Oximetry 96 11/20/16 13:05 Oxygen Delivery Oxygen Delivery Room Air Shortness of Breath/Dyspnea - [facility] Narrative Medical decision making narrative: Patient is 76-year-old male who presents with A. fib RVR at a rate of 220 bpm. Patient did convert to a rate of 110 bpm without any intervention. However, he then climbed back up to a rate 200 bpm. Patient has been given 20 mg of Cardizem IV. We will obtain a cardiac workup for this patient. - Lab Data Result diagrams: 11/20/16 12:50 11/20/16 12:50 Lab Results 11/20/16 11/20/16 11/20/16 Range/Units 12:50 12:50 12:50 WBC 11.6 H (4.3-11.1) K/mcL RBC 5.06 (4.19-5.50) M/mcL Hgb 14.8 D (12.9-16.9) g/dL Hct 44.0 (37.5-50.1) % MCV 87.0 (83.0-100.0) fL MCH 29.2 (28.0-33.3) pg MCHC 33.6 (31.6-35.5) g/dL RDW 13.7 (11.5-14.5) % Plt Count 177 (140-400) K/mcL MPV 9.5 (9.4-12.4) fL Immature Gran % 2.1 (0-4) % Seg Neutrophils % 69.5 % Lymphocytes % 21.0 % Monocytes % 5.8 % Eosinophils % 1.1 % Basophils % 0.5 % Neutrophils # 8.1 (1.6-8.9) K/mcL Lymphocytes # 2.5 (0.6-4.6) K/mcL Monocytes # 0.7 (0.0-1.3) K/mcL Eosinophils # 0.1 (0.0-0.6) K/mcL Basophils # 0.1 (0.0-0.2) K/mcL PT 12.9 H (9.4-12.1) Seconds INR 1.2 APTT 30.7 (26.0-36.0) Seconds D-Dimer 3416 H (0-500) ng/mLFEU Sodium 138 (136-145) mEq/L Potassium 4.3 (3.5-4.5) mEq/L Chloride 103 (98-109) mEq/L Carbon Dioxide 21 (19-29) mEq/L BUN 18 (8-26) mg/dL Creatinine 0.99 (0.72-1.25) mg/dL Est GFR ( Amer) > 60 (> 60) Est GFR (Non-Af Amer) > 60 (> 60) BUN/Creatinine Ratio 18 (6-26) Glucose 244 H (70-99) mg/dL Calculated Osmolality 296 (280-300) Lactic Acid (0.5-2.2) mmol/L Calcium 10.0 (8.6-10.8) mg/dL Troponin I (0-0.03) ng/mL B-Natriuretic Peptide (0-100) pg/mL 11/20/16 11/20/16 11/20/16 Range/Units 12:50 12:50 13:04 WBC (4.3-11.1) K/mcL RBC (4.19-5.50) M/mcL Hgb (12.9-16.9) g/dL Hct (37.5-50.1) % MCV (83.0-100.0) fL MCH (28.0-33.3) pg MCHC (31.6-35.5) g/dL RDW (11.5-14.5) % Plt Count (140-400) K/mcL MPV (9.4-12.4) fL Immature Gran % (0-4) % Seg Neutrophils % % Lymphocytes % % Monocytes % % Eosinophils % % Basophils % % Neutrophils # (1.6-8.9) K/mcL Lymphocytes # (0.6-4.6) K/mcL Monocytes # (0.0-1.3) K/mcL Eosinophils # (0.0-0.6) K/mcL Basophils # (0.0-0.2) K/mcL PT (9.4-12.1) Seconds INR APTT (26.0-36.0) Seconds D-Dimer (0-500) ng/mLFEU Sodium (136-145) mEq/L Potassium (3.5-4.5) mEq/L Chloride (98-109) mEq/L Carbon Dioxide (19-29) mEq/L BUN (8-26) mg/dL Creatinine (0.72-1.25) mg/dL Est GFR ( Amer) (> 60) Est GFR (Non-Af Amer) (> 60) BUN/Creatinine Ratio (6-26) Glucose (70-99) mg/dL Calculated Osmolality (280-300) Lactic Acid 1.5 (0.5-2.2) mmol/L Calcium (8.6-10.8) mg/dL Troponin I 0.00 (0-0.03) ng/mL B-Natriuretic Peptide 193 H (0-100) pg/mL - EKG Data EKG attestation: Yes I reviewed and interpreted this EKG. EKG results narrative: EKG is A. fib with RVR at a rate of [address] segment depression is present in leads II, III, aVR, V2, V3, V4, V5, V6. Critical Care Time Critical Care Time: Yes Total Critical Care Time: 35 Attestation: Critical care time managing A. fib with RVR. Attestation Statement - Attestation Attestation: Patient was seen with resident physician. I reviewed the history, physical, assessment and plan, and agree with the findings. I also personally evaluated this patient and had [id number] time with this patient. 76 showed male presents to the emergency department with a chief complaint of shortness of breath and palpitations. Patient was just discharged from the hospital yesterday having been treated for urosepsis. He is on Levaquin. He states around 11:00 he woke up did not feel right was a little bit short of breath and had palpitations. These got significantly worse once he got to the emergency department. He denies fevers or chills. He says he has had normal urination and stool. He has not had chest pain with this. On examination initial heart rate was 220 which quickly converted to the 110s. Blood pressure was stable. Pulse ox was above 90. ENT is unremarkable. Heart was tachycardic. Lungs clear. Abdomen soft and nontender. Extremities mild swelling of the lower extremities bilaterally. Neurologically patient is intact. ED course on arrival patient had a markedly elevated heart rate which was A. fib with rapid ventricular response that was seen on EKG. He spontaneously converted into the low 100s which again was seen on EKG. There is no acute ischemic changes that could be noted. Patient was given Cardizem to further reduce his heart rate he did not have additional symptoms of palpitations. He said once his heart rate was below 100 he stopped having them. Of note the d-dimer was markedly elevated CT scan of the chest was obtained rule out PE. Results of the CT scan were right lower lobe pulmonary embolism. Patient was started on heparin per protocol. Hospitalist was notified as to need for admission. Readmission was arranged to the hospital for A. fib and RVR as well as PE. Hemodynamically the patient remained stable with a heart rate in the low 100s throughout his stay. Critical care time 35 minutes. Agree with the resident physician assessment plan.
[2016-11-20 13:21] LABS: BUN/Creatinine Ratio 18 (6-26); Blood Urea Nitrogen 18 mg/dL (8-26); Carbon Dioxide 21 mEq/L (19-29); Chloride 103 mEq/L (98-109); Glucose 244 mg/dL (70-99); Osmolality,Calculated 296 (280-300); Potassium 4.3 mEq/L (3.5-4.5); Sodium 138 mEq/L (136-145); eGFR For African Americans > 60 (> 60); eGFR For Non-African Americans > 60 (> 60)
[2016-11-20] MEDS ORDERED: *HR* Heparin 5,000 UNIT/ML VIAL IVP ONE (14:41)
[2016-11-20] MEDS ORDERED: *HR* Heparin 5,000 UNIT/ML VIAL IVP PRN ×2 (14:41)
[2016-11-20] MEDS: Heparin 25,000 UNIT/500 ML D5W 25,000 UNIT/500 ML MLS IVC SCH (15:09)
--- NOTE | 2016-11-20 15:13 | Event Note ---
Date of Encounter: 11/20/16 Time of Encounter: 15:10 1. Supraventricular tachycardia likely secondary to newly diagnosed pulmonary emboli in the right lower lobe Start heparin drip Increased dose of metoprolol (the patient takes metoprolol succinate 50 mg daily ), will give metoprolol tartrate 50 mg twice a day plus IV Lopressor as needed May consult cardiology Evaluate other anticoagulation therapy once SVTs properly controlled Order echocardiogram 2. Recently discharged for sepsis due to UTI with bacteremia with Escherichia coli pansensitive Ms. Continue Levaquin 3. Hypertension, stable 4. Neuropathy, stable next 5. Diabetes type 2 not insulin-dependent, use insulin sliding scale during this hospitalization The patient will be admitted as inpatient, expected stay more than 2 midnights. Full code. Time spent on this admission 40 minutes. High risk due to uncontrolled SVT
[2016-11-20] MEDS ORDERED: *HR* Metoprolol 5 MG/5 ML VIAL IVP PRN (15:15)
[2016-11-20] MEDS ORDERED: Naloxone 0.4 MG/ML INJ IVP PRN (15:16)
--- NOTE | 2016-11-20 15:29 | Internal Med History&Physical ---
<Nemesio Bautista - Last Filed: 11/20/16 16:28> Date of Encounter: 11/20/16 Time of Encounter: 15:00 Assessment and Plan (1) Supraventricular tachycardia Current visit: Yes Status: Acute Assess: Mr. Bedolla presents with chief complaint of an irregular heart rate and subsequent SOB. Patient states this has been taking place since this morning at 11:00 am. He also reports that he has been experiencing occasional bilateral pedal edema over the past three days. Patient states he has pressure in his chest, but no pain which he says is from the racing heart rate. He also states he becomes very diaphoretic and lightheaded during the episodes. CTA of chest shows PE in right lower lobe. Plan: Begin Heaparin drip Continuous cardiac monitoring ordered Repeat EKG EV echocardiogram ordered Evaluate anticoagulation therapy after control of current SVT is achieved Cardizem administered in ED Metoprolol tartrate 50 mg BID ordered IV Lopressor PRN Monitor patient and vital signs Falls precautions/Up with assist only Consider cardiology consult (2) Hypertension Current visit: Yes Status: Chronic Assess: Patient presents with history of chronic hypertension. Plan: Hold patient's Lopressor Metoprolol tartrate 50 mg ordered BID for current SVTs IV Lopressor PRN Monitor patient and vital signs Qualifiers: Hypertension type: essential hypertension Qualified Code(s): I10 - Essential (primary) hypertension (3) Diabetes Current visit: Yes Status: Chronic Assess: Patient presents with type 2 diabetes which currently controlled with oral medications. Patient is not insulin-dependent currently. 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 Plan: Lipid panel ordered Continue statin Qualifiers: Hyperlipidemia type: unspecified Qualified Code(s): E78.5 - Hyperlipidemia , unspecified (5) DVT prophylaxis Current visit: Yes Status: Acute Assess: Patient to receive DVT prophylaxis due to current SVTs and inpatient status protocol. Plan: Heparin drip ordered for SVT status Continue aspirin therapy Internal Medicine - H&P: HPI Chief complaint: Irregular HR and SOB Admitted From: Emergency Dept Plans for Post Hospital Care: Home History of present illness: Mr. Bedolla is a 76 year old male who presents from the ED with chief complaint of an irregular heart rate and subsequent SOB. Patient states this has been taking place since this morning at 11:00 am. He also reports that he has been experiencing occasional bilateral pedal edema over the past three days. Patient states he has pressure in his chest, but no pain which he says is from the racing heart rate. He also states he becomes very diaphoretic and lightheaded during the episodes. His reports he became pre-syncopal 3x before coming to the ED but did not pass out. Patient was recently admitted to the hospital for sepsis related to a UTI. Patient was discharged home on Levaquin which he states he has taken one dose PO. Mr. Bedolla denies chest pain that radiates, nausea, vomiting, abdominal pain, fever, chills, or syncope. Patient has a history of colon cancer which resulted in partial removal of 12" of colon approximately 15 years ago, diabetes, hypertension, and hyperlipidemia. Patient is to be admitted as inpatient status for 3 days due to episodes of tachycardia with possible cardiology consult, continuous cardiac telemetry, Heparin drip, increased dosing of metoprolol tartrate, IV Lopressor PRN, and continuation of levaquin for previous infection coverage. Patient to be monitored closely. Patient is high risk due to uncontrolled SVTs. Time spent with patient on this admission 45 minutes. Past Med Surg Social Fam HX - Past Medical History Source: patient Medical history: cancer (Colon), diabetes, hypertension Psychiatric history: depression - Past Surgical History Surgical History: cancer surgery, coronary bypass (CABG) - Social History Smoking Status: Former smoker Smokeless Tobacco Status: No Alcohol use: none Drug use: none Occupational status: retired Current living situation: Home, With Family Activity Level: Independent ambulation Recent Out of Country Travel Within the Last 8 Weeks: No Exposure or Possible Exposure to Illness During Travel: No - Family History Mother Race: Family Member Ethnicity: Non- Living Status: Age at : 68 Cause of : Leukemia Hx Family Cardiac Disorders: No Hx Family Cancer: Yes (Leukemia) Father Race: Family Member Ethnicity: Non- Living Status: Age at : 68 Cause of : Colon cancer Hx Family Cancer: Yes (Colon) Internal Medicine - H&P: Meds Aspirin Enteric Coated [Aspirin EC] 81 mg PO DAILY 11/15/16 [History] Gabapentin [Neurontin] 600 mg PO QAM 11/15/16 [History] Glimepiride [Amaryl] 4 mg PO BID 11/15/16 [History] [place]-3/Dha/Epa/Fish Oil [Fish Oil 1,000 mg Softgel] 1,000 mg PO TID 11/15/16 [ History] Pravastatin Sodium 10 mg PO HS 11/15/16 [History] metFORMIN [Glucophage] 1,000 mg PO BIDWM 11/15/16 [History] Levofloxacin [Levaquin] 750 mg PO DAILY #8 tablet 11/19/16 [Rx] Gabapentin [Neurontin] 300 mg PO HS 11/20/16 [History] Ibuprofen [Motrin] 200 - 600 mg PO Q6HR PRN 11/20/16 [History] Lisinopril/Hydrochlorothiazide [Zestoretic 20-25 mg Tablet] 1 tab PO DAILY 11/20 [History] Metoprolol XL (24 HR) Succ [Toprol XL] 50 mg PO DAILY 11/20/16 [History] Allergies codeine [From Tylenol-Codeine #3] Allergy (Verified 11/15/16 20:29) See Comments sweats All Systems PM: A 10-system review of systems was performed and is negative for pertinent findings except as documented above in the HPI. - Constitutional Constitutional: no chills, no fever(s), no night sweats - EENT Eyes: no change in vision, no discharge, no pain, no photophobia Ears: no ear discharge, no ear pain, no tinnitus Nose, mouth and throat: no dysphagia, no nasal discharge, no neck pain, no sore throat - Breasts Breasts: as per HPI - Cardiovascular Cardiovascular ROS IM: as per HPI, diaphoresis, dyspnea, edema, irregular heart rhythm, lightheadedness, palpitations - Respiratory Respiratory: as per HPI, dyspnea - Gastrointestinal Gastrointestinal: no abdominal pain, no diarrhea, no hematemesis, no hematochezia, no melena, no nausea, no vomiting - Genitourinary Genitourinary ROS male: as per HPI - Musculoskeletal Musculoskeletal ROS IM: no numbness, no tingling - Integumentary Integumentary IM: no rash, no unusual bruising - Neurological Neurological ROS: no confusion, no convulsions, no focal weakness, no numbness, no tingling, no tremor(s) - Psychiatric Psychiatric: as per HPI - Endocrine Endocrine IM: as per HPI - Hematologic/Lymphatic Hematologic/Lymphatic: no easy bruising - Allergic/Immunologic Allergic/Immunologic: as per HPI - Constitutional Vitals: Temp Pulse Resp BP Pulse Ox 98.3 F 115 20 108/81 96 11/20/16 12:47 11/20/16 13:05 11/20/16 13:05 11/20/16 13:05 11/20/16 13:05 General appearance: Present: cooperative, A&O X 3, pleasant, no acute distress, obese, answers questions appropriately - Head Head exam: Present: atraumatic, normocephalic - Eye Eye exam: Present: PERRL, conjuntiva pink, sclera anicteric Pupils: Present: PERRL - ENT ENT exam: Present: normal exam, normal external ear exam - Neck Neck exam general surgery: Present: supple, trachea midline. Absent: lymphadenopathy - Respiratory Respiratory exam: Present: wheezes (Left lower lobe) - Cardiovascular Cardiovascular exam: Present: irregular rhythm - GI/Abdominal GI/Abdominal exam: Present: normal bowel sounds, soft, no peritoneal signs. Absent: distended, tenderness - Rectal Rectal exam: Present: deferred - Additional comments: exam deferred. - Extremities Exam Extremities exam: Present: normal inspection, warm, radial pulses palpable and symetrical. Absent: calf tenderness, cyanotic, pedal edema - Back Exam Back exam: Present: normal inspection - Neurological Exam Neurological exam: Present: CN II-XII intact, oriented X3, no focal deficits. Absent: pronater drift, facial droop, speech deficit - Psychiatric Psychiatric exam: Present: normal affect, normal mood - Skin Skin exam: Present: dry, intact Internal Med - H&P Results - Labs CBC & Chem 7: 11/20/16 12:50 11/20/16 12:50 - EKG Data EKG shows normal: sinus rhythm Rate: tachycardia - EKG Data Prior EKG available for review: yes When compared to previous EKG: there are significant changes EKG comments: 11/20/16 15:57 EKG dated 11/15/16 shows sinus tachycardia. EKG dated 11/20/16 [12:50:19] shows Atrial fibrillation with rapid ventricular response, marked ST depression, consider subendocardial injury [0.2+ mV ST depression] EKG dated 11/20/16 [12:52:23] shows atrial flutter/tachycardia with rapid ventricular response with aberrant conduction or ventricular premature complexes. Non-specific ST & T-wave abnormality. - Diagnostic Studies Chest x-ray Additional comments: 1-View CXR of the chest dated 11/20/16 shows: The cardiomediastinal silhouette is stable in size and contour. Stable bibasilar scarring and atelectasis is present. No pleural effusion or pneumothorax. Overall Impression: Stable chest demonstrating stable atelectasis. CT scan - chest Additional comments: CTA of the chest dated 11/20/16 shows: Acute appearing right lower lobe posterior basilar segmental branch pulmonary embolus extends into an adjacent subsegmental branch. No associated findings of right heart strain or pulmonary infarction. Critical results were called by Dr. Yifan Melgar MD to Ronny Trujillo on 11/20/16 at 14:21. Minimal bronchial wall thickening with central airway secretions, suggesting bronchitis. <Koby Vilchis H - Last Filed: 11/20/16 17:32> Date of Encounter: 11/20/16 Internal Medicine - H&P: HPI History of present illness: Mr. Bedolla is a 76 year old male All Systems PM: A 10-system review of systems was performed and is negative for pertinent findings except as documented above in the HPI. - Constitutional Vitals: Temp Pulse Resp BP Pulse Ox 98.1 F 113 16 137/85 96 11/20/16 15:47 11/20/16 15:47 11/20/16 15:47 11/20/16 15:47 11/20/16 16:38 Internal Med - H&P Results - Labs CBC & Chem 7: 11/20/16 12:50 11/20/16 15:59 Labs: BMP 11/20/16 15:59 Creatinine 0.94 - Attending Attestation 1. Supraventricular tachycardia likely secondary to newly diagnosed pulmonary emboli in the right lower lobe Start heparin drip Increased dose of metoprolol (the patient takes metoprolol succinate 50 mg daily ), will give metoprolol tartrate 50 mg twice a day plus IV Lopressor as needed May consult cardiology Evaluate other anticoagulation therapy once SVTs properly controlled Order echocardiogram 2. Recently discharged for sepsis due to UTI with bacteremia with Escherichia coli pansensitive Continue Levaquin 3. Hypertension, stable 4. Neuropathy, stable next 5. Diabetes type 2 not insulin-dependent, use insulin sliding scale during this hospitalization The patient will be admitted as inpatient, expected stay more than 2 midnights. Full code. Time spent on this admission 40 minutes. High risk due to uncontrolled SVT I examined this patient and my medical decision-making was reviewed with the YARDER PUNCHER/PA/Advanced Practice Nurse/Resident Physician. I agree with the documented findings, disposition and treatment plan as described except to the extent set forth below.
[2016-11-20] MEDS ORDERED: Ibuprofen 200 MG TABLET PO PRN (16:16)
[2016-11-20] MEDS ORDERED: D5% in Water 1,000 ML IVC PRN (16:29)
[2016-11-20] MEDS ORDERED: *HR* Dextrose 50 % in Water (Syg) 50 ML SYRINGE IVP PRN (16:29)
[2016-11-20] MEDS ORDERED: Dextrose Gel 15 GM PO PRN ×2 (16:29)
[2016-11-20 16:37] LABS: Chol/HDL Ratio 8.1 (0-4.9); Cholesterol 145 mg/dL (< 200); HDL Cholesterol 18 mg/dL (40-59); LDL Cholesterol,Calculated 60 mg/dL (0-99); Triglycerides 336 mg/dL (< 150); eGFR For African Americans > 60 (> 60); eGFR For Non-African Americans > 60 (> 60)
[2016-11-20] MEDS: Insulin LISPRO 300 UNITS/3 ML VIAL SQ SCH ×2 (16:55→20:07)
[2016-11-20 18:30] LABS: Bilirubin,Urine Negative (Negative); Blood,Urine Negative (Negative); Clarity,Urine Clear (Clear); Color,Urine Yellow (Yellow); Glucose,Urine (UA) >=1000 mg/dL (Normal); Ketones,Urine 15 mg/dL (Negative); Leukocyte Esterase,Urine Moderate (Negative); Nitrite,Urine Negative (Negative); Protein,Urine Negative (Neg-Trace); Specific Gravity,Urine > 1.030 (1.010-1.025); Urobilinogen,Urine Normal (Normal)
[2016-11-20 18:31] LABS: Bacteria,Urine None Seen per hpf (None-Few); Hyaline Casts,Urine None Seen per lpf (None-Few); RBC,Urine 0-3 per hpf (0-3); Squamous Epithelial Cell,Urine Many per lpf (None-Few); WBC,Urine 15-30 per hpf (0-3)
[2016-11-20] MEDS: Gabapentin 300 MG CAPSULE PO SCH (20:06)
[2016-11-20] MEDS: (Omega-3/Dha/Epa/Fish Oil [Fish Oil 1,000 Mg Softgel] PO SCH (20:07)
[2016-11-21 05:14] LABS: Basophils # 0.1 K/mcL (0.0-0.2); Basophils % 0.5 %; Eosinophils # 0.2 K/mcL (0.0-0.6); Eosinophils % 1.3 %; Hematocrit 35.6 % (37.5-50.1); Immature Granulocytes % 4.2 % (0-4); Lymphocytes # 4.3 K/mcL (0.6-4.6); Lymphocytes % 30.4 %; Mean Corpuscular HGB Conc 33.1 g/dL (31.6-35.5); Mean Corpuscular Hemoglobin 29.4 pg (28.0-33.3); Mean Corpuscular Volume 88.8 fL (83.0-100.0); Mean Platelet Volume 9.8 fL (9.4-12.4); Monocytes # 0.9 K/mcL (0.0-1.3); Monocytes % 6.3 %; Neutrophils # 8.1 K/mcL (1.6-8.9); Platelet Count 173 K/mcL (140-400); Red Blood Count 4.01 M/mcL (4.19-5.50); Segmented Neutrophils % 57.3 %
[2016-11-21 05:21] LABS: Hemoglobin 11.8 g/dL (12.9-16.9)
[2016-11-21 05:34] LABS: Alanine Aminotransferase 43 Units/L (0-55); Albumin/Globulin Ratio 0.9 (1.1-2.2); Alkaline Phosphatase 42 Units/L (38-126); Aspartate Amino Transferase 26 Units/L (5-34); BUN/Creatinine Ratio 23 (6-26); Bilirubin,Total 0.3 mg/dL (0.2-1.2); Blood Urea Nitrogen 21 mg/dL (8-26); Carbon Dioxide 23 mEq/L (19-29); Chloride 104 mEq/L (98-109); Globulin 3.3 g/dL (2.4-3.5); Glucose 200 mg/dL (70-99); Magnesium 1.7 mg/dL (1.6-2.6); Osmolality,Calculated 293 (280-300); Potassium 3.8 mEq/L (3.5-4.5); Sodium 137 mEq/L (136-145); Total Protein 6.3 g/dL (6.0-8.3); eGFR For African Americans > 60 (> 60); eGFR For Non-African Americans > 60 (> 60)
[2016-11-21] MEDS: Insulin LISPRO 300 UNITS/3 ML VIAL SQ SCH ×4 (07:52→21:09)
[2016-11-21] MEDS: Aspirin Enteric Coated 81 MG Tablet PO SCH (07:54)
[2016-11-21] MEDS: Gabapentin 300 MG CAPSULE PO SCH ×2 (07:54→20:21)
[2016-11-21] MEDS: Heparin 25,000 UNIT/500 ML D5W 25,000 UNIT/500 ML MLS IVC SCH ×2 (07:56→23:35)
[2016-11-21] MEDS: (Omega-3/Dha/Epa/Fish Oil [Fish Oil 1,000 Mg Softgel] PO SCH (08:19)
[2016-11-21] MEDS ORDERED: Levofloxacin 750 MG/150 ML 750 MG/150 ML BAG IVPB SCH (09:00)
--- NOTE | 2016-11-21 09:28 | Cardiology Consult Note ---
Date of Encounter: 11/21/16 Time of Encounter: 09:23 Assessment and Plan (1) Supraventricular tachycardia Current Visit: Yes Status: Acute Presented in SVT. Likely secondary to PE. Resolved with IV cardizem. Continue BB. 24 hour telemetry review shows SR with PAC, there was a 13 beat run of SVT seen. Avg HR 58 bpm. TTE pending. We will follow with you. (2) CAD (coronary artery disease) Current Visit: No Status: Chronic H/o 3V CABG. Troponin negative. Now chest pain free. Continue asa, statin, and bb. Qualifiers: Coronary Disease-Associated Artery/Lesion type: [place] artery [place] vs. transplanted heart: [place] heart Associated angina: without angina Qualified Code(s): I25.10 - Atherosclerotic heart disease of [place] coronary artery without angina pectoris (3) Pulmonary embolism on right Current Visit: Yes Status: Acute CTA showed acute RLL posterior basilar segmental branch pulmonary emboli. On heparin gtt. Hospitalist following. Discussion w patient/family: The assessment and plan as outlined above was discussed with the patient and/or family members who expressed understanding and agreement. All questions were answered. Thank you for involving us in the care of your patient. Please call with any questions. History of Present Illness Consult date: 11/21/16 Consult reason: SVT Chief complaint: Chest discomfort, SOB, palpitations History of present illness: Mr. Bedolla is a 76 year old male with a history of 3V CABG in 2004, DM type II , HTN, and colon concer s/p resention who presented with chest tightness and palpitations. He also c/o increasing SOB for the past two days. He was found to be in SVT HR 220's. D-dimer elevated up to 6190. CTA of the chest was positive for RLL PE. Cardiology consulted for SVT. He was initially given IV cardizem with resolution of his SVT. He denies recurrent chest tightness or palpitations. He was recently hospitalized for UTI/ sepsis. He also recently traveled to [place] by car. Past Med Surg Social Fam HX - Past Medical History Attestation: Yes The following information was validated with the patient. Medical history: cancer (Colon), coronary artery disease, diabetes, hypertension Psychiatric history: depression - Past Surgical History Surgical History: cancer surgery, coronary bypass (CABG) - Social History Smoking Status: Former smoker Smokeless Tobacco Status: No Alcohol use: none Drug use: none - Family History Mother Race: Family Member Ethnicity: Non- Living Status: Age at : 68 Cause of : Leukemia Hx Family Cardiac Disorders: No Hx Family Cancer: Yes (Leukemia) Hx Family Endocrine Disorder: Yes (Enlarged spleen) Father Race: Family Member Ethnicity: Non- Living Status: Age at : 68 Cause of : Colon cancer Hx Family Cancer: Yes (Colon) Medications and Allergies Aspirin Enteric Coated [Aspirin EC] 81 mg PO DAILY 11/15/16 [History] Gabapentin [Neurontin] 600 mg PO QAM 11/15/16 [History] Glimepiride [Amaryl] 4 mg PO BID 11/15/16 [History] [place]-3/Dha/Epa/Fish Oil [Fish Oil 1,000 mg Softgel] 1,000 mg PO TID 11/15/16 [ History] Pravastatin Sodium 10 mg PO HS 11/15/16 [History] metFORMIN [Glucophage] 1,000 mg PO BIDWM 11/15/16 [History] Levofloxacin [Levaquin] 750 mg PO DAILY #8 tablet 11/19/16 [Rx] Gabapentin [Neurontin] 300 mg PO HS 11/20/16 [History] Ibuprofen [Motrin] 200 - 600 mg PO Q6HR PRN 11/20/16 [History] Lisinopril/Hydrochlorothiazide [Zestoretic 20-25 mg Tablet] 1 tab PO DAILY 11/20 [History] Metoprolol XL (24 HR) Succ [Toprol XL] 50 mg PO DAILY 11/20/16 [History] Allergies codeine [From Tylenol-Codeine #3] Allergy (Verified 11/15/16 20:29) See Comments sweats All Systems Review: A 10-system review of systems was performed and is negative for pertinent findings except as documented above in the HPI. Physical Examination Vital Signs, Last 4 Hours Temp Pulse Resp BP Pulse Ox 11/21/16 07:32 97.7 F 61 17 119/69 94 General: Conversant, No Apparent Distress HEENT: Atraumatic, Normocephaly, Mucus Membranes Moist Neck: No JVD, Normal carotid pulses Cardiac: Reg Rate and Rhythm, Normal S1 and S2, No Murmur Lungs: Normal Breath Sounds, No Wheeze, Rales, Rhonchi Neuro: Alert and responsive, No focal deficits noted Abdomen: Soft, Non-Tender Skin: No rashes noted on visualized skin Musculoskeletal: No Chest Wall Tenderness Extremities: No Clubbing, No Cyanosis, No Edema, Normal Pulses Results 11/21/16 04:18 11/21/16 04:18 Lab Results 11/20/16 11/20/16 11/20/16 15:59 15:59 15:59 WBC Hgb Hct Plt Count APTT D-Dimer 6190 H Sodium Potassium Chloride Carbon Dioxide BUN Creatinine 0.94 Glucose Calcium Magnesium Total Bilirubin AST ALT Alkaline Phosphatase Troponin I B-Natriuretic Peptide 181 H 11/20/16 11/20/16 11/21/16 18:31 20:58 00:42 WBC Hgb Hct Plt Count APTT 47.8 H D D-Dimer Sodium Potassium Chloride Carbon Dioxide BUN Creatinine Glucose Calcium Magnesium Total Bilirubin AST ALT Alkaline Phosphatase Troponin I 0.01 0.00 B-Natriuretic Peptide 11/21/16 11/21/16 11/21/16 04:18 04:18 04:18 WBC 14.2 H Hgb 11.8 L D Hct 35.6 L Plt Count 173 APTT 74.9 H D D-Dimer Sodium 137 Potassium 3.8 Chloride 104 Carbon Dioxide 23 BUN 21 Creatinine 0.93 Glucose 200 H Calcium 9.0 Magnesium 1.7 Total Bilirubin 0.3 AST 26 ALT 43 Alkaline Phosphatase 42 Troponin I B-Natriuretic Peptide Chest X-Ray 11/20/16 12:49 IMPRESSION: Stable chest, demonstrating stable atelectasis. D/ / 11/20/2016 13:22:45 Jaden Cintron MD / bcarter Interpreting Provider: Jaden Cintron MD Chest CTA 11/20/16 13:28 IMPRESSION: 1. Acute appearing right lower lobe posterior basilar segmental branch pulmonary embolus extends into an adjacent subsegmental branch. No associated findings of right heart strain or pulmonary infarction. Critical results were called by Dr. Yifan Melgar MD to Ronny Trujillo on 11/20/2016 at 14:21. 2. Minimal bronchial wall thickening with central airway secretions, suggesting bronchitis. D/ / Yifan Melgar MD / Yifan Melgar MD Interpreting Provider: Yifan Melgar MD - Imaging and Cardiology Echo: pending - EKG Interpretation EKG results cardiology: personally reviewed (SVT, HR 221 bm, diffuse ST depression.) Consult Discharge Plan - Plan Referrals: Alison Nolasco, [employer]ADER [Primary Care Provider] -
[2016-11-21] MEDS ORDERED: Acetaminophen 325 MG TABLET PO PRN (11:53)
--- NOTE | 2016-11-21 13:45 | Internal Med Progress Note ---
Date of Encounter: 11/21/16 Time of Encounter: 08:35 - Assessment and plan (1) Pulmonary embolism on right Current Visit: Yes Status: Acute Assessment and plan: CTA showed acute RLL posterior basilar segmental branch PE continue Heparin gtt Hematology consulted for [facility] anticoagulation f/u 2D echo and bilateral LE venous dopplers pt currently asymptomatic monitor O2 sat O2 supplementation as needed (2) Supraventricular tachycardia Current Visit: Yes Status: Acute Assessment and plan: resolved rate controlled Cardiology consultation appreciated (3) Diabetes mellitus type 2 in obese Current Visit: No Status: Chronic (4) CAD (coronary artery disease) Current Visit: No Status: Chronic Assessment and plan: continue home meds asa, statin, bb Qualifiers: Coronary Disease-Associated Artery/Lesion type: [place] artery [place] vs. transplanted heart: [place] heart Associated angina: without angina Qualified Code(s): I25.10 - Atherosclerotic heart disease of [place] coronary artery without angina pectoris (5) Hypertension Current Visit: Yes Status: Chronic Assessment and plan: BP within acceptable range continue home meds Qualifiers: Hypertension type: essential hypertension Qualified Code(s): I10 - Essential (primary) hypertension (6) DVT prophylaxis Current Visit: Yes Status: Acute Assessment and plan: anticoagulated with Heparin gtt (7) Bacteremia Current Visit: Yes Status: Resolved Assessment and plan: Pt was recently discharged after being treated for Sepsis/bacteremia secondary to UTI He is to continue oral abx for a total of 8 days will continue PO abx (Day 3/8), last dose: November 26, 2016. - Subjective Interval history: Patient seen and examined with present at bedside. Resting comfortably in bed and reports of feeling significantly better since hospitalization. Reports of recently traveling to [place] prior to his last hospitalization. Denies any discomfort or distress at this time. - Constitutional Vitals: Temp Pulse Resp BP Pulse Ox 97.7 F 58 16 102/56 97 11/21/16 11:00 11/21/16 11:00 11/21/16 11:00 11/21/16 11:11/21/16 11:00 General appearance: Present: cooperative, A&O X 3, pleasant, no acute distress, obese, answers questions appropriately - Head Head exam: Present: atraumatic, normocephalic - Eye Eye exam: Present: normal appearance, conjuntiva pink, sclera anicteric - Respiratory Respiratory exam: Present: CTAB. Absent: respiratory distress, wheezes - Cardiovascular Cardiovascular exam: Present: RRR, +S1, +S2. Absent: diastolic murmur, gallop, rubs, systolic murmur - GI/Abdominal GI/Abdominal exam: Present: normal bowel sounds, soft, no peritoneal signs. Absent: distended, tenderness - Extremities Exam Extremities exam: Present: warm, radial pulses palpable and symetrical. Absent : calf tenderness, pedal edema - Neurological Exam Neurological exam: Present: alert, oriented X3 - Psychiatric Psychiatric exam: Present: normal affect, normal mood Internal Medicine: Result - Labs CBC & Chem 7: 11/21/16 04:18 11/21/16 04:18 Labs: Short CBC 11/21/16 Range/Units 04:18 WBC 14.2 H (4.3-11.1) K/mcL Hgb 11.8 L D (12.9-16.9) g/dL Hct 35.6 L (37.5-50.1) % Plt Count 173 (140-400) K/mcL Neutrophils # 8.1 (1.6-8.9) K/mcL BMP 11/20/16 11/21/16 15:59 04:18 Sodium 137 Potassium 3.8 Chloride 104 Carbon Dioxide 23 BUN 21 Creatinine 0.94 0.93 Glucose 200 H Calcium 9.0 Cardiac Enzymes 11/20/16 11/21/16 Range/Units 18:31 00:42 Troponin I 0.01 0.00 (0-0.03) ng/mL Liver Function 11/21/16 Range/Units 04:18 Total Bilirubin 0.3 (0.2-1.2) mg/dL AST 26 (5-34) Units/L ALT 43 (0-55) Units/L Alkaline Phosphatase 42 (38-126) Units/L Albumin 3.0 L (3.5-5.0) g/dL Urine 11/20/16 Range/Units 18:25 Urine Color Yellow (Yellow) Urine Clarity Clear (Clear) Urine pH 6.0 (5.0-8.0) pH Units Ur Specific [place] > 1.030 H (1.010-1.025) Urine Protein Negative (Neg-Trace) mg/dL Urine Glucose (UA) >=1000 H (Normal) mg/dL - ABG Interpretation ABG results: PT/INR, D-dimer PT 12.9 Seconds (9.4-12.1) H 11/20/16 12:50 D-Dimer 6190 ng/mLFEU (0-500) H 11/20/16 15:59 Consult Discharge Plan - Plan Referrals: Alison Nolasco, CONSULTING SERVICES ASSOCIATE [Primary Care Provider] - (Please call office at discharge. Office will not schedule until order is placed into the system)
--- NOTE | 2016-11-21 17:02 | Oncology Inp Consult Note ---
<Etelvina Jefferson E - Last Filed: 11/21/16 16:48> Date of Encounter: 11/21/16 Time of Encounter: 16:00 Assessment and Plan (1) Pulmonary embolism on right Status: Acute Assessment and plan: Dr Alan will see patient with recommedation for long tern anticoagulation - Data of Consult Patient: new to practice Consult date: 11/21/16 Requesting Physician: Pam Nagy MD Primary Care Provider: Alison Nolasco CNP - Consult Narrative Reason for consult: PE- recommendation for long tern anticoagulation History of present illness: Mr. Bedolla is a 76 year old male who was recently admitted through the ED with shortness of breath, tachycardia and chest discomfort. He was discharged the previous day secondary to urosepsis. He has a CTA of chest what demonstrated pulmonary embolism in RLL. He was started on heparin drip. He was also found to have SVT- given metroprolol. Is seeing cardiology. Most recent D-dimer 6190. He denies having previous thrombus or pulmonary embolism. He states his sister has had blood clots. Denies other family history of clots. He does have history of colon cancer Stage IIa . S/P colectomy in 2004. He also received 6 months of 5FU/Leucovorin treatment. He continues to see Dr Elise regarding colonsocopies. Does not recall exactly when next scope is due. He also has history of quadruple cardiac bypass in 2004, hypertension, diabetes and diabetic neuropathy. Patient seen and examined at bedside. Denies shortness of breath, chest discomfort, palpitations, bowel or urinary symptoms, musculoskeletal symptoms. Reports having edema in bilateral lower legs that is greater than normal, and peripheral neuropathy. We were asked to see him regarding recommendation for halfway anticoagulation. He will be seen later today by Dr Alan. Past Med Surg Social Fam HX - Past Medical History Medical history: cancer (Colon), coronary artery disease (S/p 4 way bypass in 2004), diabetes, hypertension, other (diabetic peripheral neuropathy) Psychiatric history: depression - Past Surgical History Surgical History: cancer surgery, coronary bypass (CABG) - Social History Smoking Status: Former smoker Smokeless Tobacco Status: No Alcohol use: none Drug use: none Occupational status: retired (from [employer]) Current living situation: Home - Family History Mother Race: Family Member Ethnicity: Non- Living Status: Age at : 68 Cause of : Leukemia Hx Family Cardiac Disorders: No Hx Family Cancer: Yes (Leukemia) Hx Family Endocrine Disorder: Yes (Enlarged spleen) Father Race: Family Member Ethnicity: Non- Living Status: Age at : 68 Cause of : Colon cancer Hx Family Cancer: Yes (Colon) Medications and Allergies Aspirin Enteric Coated [Aspirin EC] 81 mg PO DAILY 11/15/16 [History] Gabapentin [Neurontin] 600 mg PO QAM 11/15/16 [History] Glimepiride [Amaryl] 4 mg PO BID 11/15/16 [History] [place]-3/Dha/Epa/Fish Oil [Fish Oil 1,000 mg Softgel] 1,000 mg PO TID 11/15/16 [ History] Pravastatin Sodium 10 mg PO HS 11/15/16 [History] metFORMIN [Glucophage] 1,000 mg PO BIDWM 11/15/16 [History] Levofloxacin [Levaquin] 750 mg PO DAILY #8 tablet 11/19/16 [Rx] Gabapentin [Neurontin] 300 mg PO HS 11/20/16 [History] Ibuprofen [Motrin] 200 - 600 mg PO Q6HR PRN 11/20/16 [History] Lisinopril/Hydrochlorothiazide [Zestoretic 20-25 mg Tablet] 1 tab PO DAILY 11/20 [History] Metoprolol XL (24 HR) Succ [Toprol XL] 50 mg PO DAILY 11/20/16 [History] Allergies codeine [From Tylenol-Codeine #3] Allergy (Verified 11/15/16 20:29) See Comments sweats All systems: reviewed and no additional remarkable complaints except as stated Cardiovascular: Present: edema (bilatral lower extremities.) Respiratory: Present: as per HPI Gastrointestinal: Present: as per HPI Musculoskeletal: Present: as per HPI Neurological: Present: numbness, tingling (bilateral lower extremities) Oncology - Exam - Constitutional Vitals: Temp Pulse Resp BP Pulse Ox 97.7 F 58 16 102/56 97 11/21/16 11:00 11/21/16 11:00 11/21/16 11:00 11/21/16 11:00 11/21/16 11:00 General appearance: cooperative, no acute distress - Head Head exam: Present: normal inspection - ENT ENT exam: Present: mucous membranes moist - Neck Neck exam: Present: normal inspection - Respiratory Respiratory exam: Present: CTAB - Cardiovascular Cardiovascular exam: Present: RRR - GI/Abdominal GI/Abdominal exam: Present: soft ( nontender) - Extremities Exam Extremities exam: Present: normal capillary refill, pedal edema - Neurological Exam Neurological exam: Present: alert, oriented X3 Oncology - Results - Labs Labs: Short CBC 11/21/16 Range/Units 04:18 WBC 14.2 H (4.3-11.1) K/mcL Hgb 11.8 L D (12.9-16.9) g/dL Hct 35.6 L (37.5-50.1) % Plt Count 173 (140-400) K/mcL Neutrophils # 8.1 (1.6-8.9) K/mcL BMP 11/21/16 04:18 Sodium 137 Potassium 3.8 Chloride 104 Carbon Dioxide 23 BUN 21 Creatinine 0.93 Glucose 200 H Calcium 9.0 Cardiac Enzymes 11/20/16 11/21/16 Range/Units 18:31 00:42 Troponin I 0.01 0.00 (0-0.03) ng/mL Liver Function 11/21/16 Range/Units 04:18 Total Bilirubin 0.3 (0.2-1.2) mg/dL AST 26 (5-34) Units/L ALT 43 (0-55) Units/L Alkaline Phosphatase 42 (38-126) Units/L Albumin 3.0 L (3.5-5.0) g/dL Urine 11/20/16 Range/Units 18:25 Urine Color Yellow (Yellow) Urine Clarity Clear (Clear) Urine pH 6.0 (5.0-8.0) pH Units Ur Specific [place] > 1.030 H (1.010-1.025) Urine Protein Negative (Neg-Trace) mg/dL Urine Glucose (UA) >=1000 H (Normal) mg/dL Consult Discharge Plan - Plan Referrals: Alison Nolasco, EMPLOYEE ADVISER [Primary Care Provider] - (Please call office at discharge. Office will not schedule until order is placed into the system) <Ranji Alna S - Last Filed: 11/21/16 20:08> Date of Encounter: 11/21/16 - Data of Consult Requesting Physician: Pam Nagy MD Primary Care Provider: Alison Nolasco CNP - Consult Narrative History of present illness: Mr. Bedolla is a 76 year old male Oncology - Exam - Constitutional Vitals: Temp Pulse Resp BP Pulse Ox 98.8 F 60 16 126/70 95 11/21/16 17:59 11/21/16 17:59 11/21/16 17:59 11/21/16 17:59 11/21/16 17:59 Oncology - Results - Labs Labs: Short CBC 11/21/16 Range/Units 04:18 WBC 14.2 H (4.3-11.1) K/mcL Hgb 11.8 L D (12.9-16.9) g/dL Hct 35.6 L (37.5-50.1) % Plt Count 173 (140-400) K/mcL Neutrophils # 8.1 (1.6-8.9) K/mcL BMP 11/21/16 04:18 Sodium 137 Potassium 3.8 Chloride 104 Carbon Dioxide 23 BUN 21 Creatinine 0.93 Glucose 200 H Calcium 9.0 Cardiac Enzymes 11/21/16 Range/Units 00:42 Troponin I 0.00 (0-0.03) ng/mL Liver Function 11/21/16 Range/Units 04:18 Total Bilirubin 0.3 (0.2-1.2) mg/dL AST 26 (5-34) Units/L ALT 43 (0-55) Units/L Alkaline Phosphatase 42 (38-126) Units/L Albumin 3.0 L (3.5-5.0) g/dL - Attending Attestation 1. Right lower quadrant acute PE with elevated d-dimer 6190. Alvino with echocardiogram and lower extremity Dopplers 2. SVT likely aggravated by PE. Cardiology involved. Patient on beta marquise and aspirin 81 mg a day She would need anticoagulation for minimum of one year. Would evaluate the need for long-term anticoagulation as an outpatient Renal function normal. Would recommend Elequis 5 mg by mouth twice a day 3. Coronary artery disease status post CABG 4. History of colon cancer diagnosed and treated in 2004. He gets colonoscopies through Dr. Deal
--- NOTE | 2016-11-21 18:16 | Electrocardiograph Report ---
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
[2016-11-22 04:21] LABS: Basophils # 0.1 K/mcL (0.0-0.2); Basophils % 0.5 %; Eosinophils # 0.2 K/mcL (0.0-0.6); Eosinophils % 1.4 %; Hematocrit 34.5 % (37.5-50.1); Hemoglobin 11.8 g/dL (12.9-16.9); Immature Granulocytes % 5.4 % (0-4); Immature Platelets 4.2 % (1.1-6.1); Lymphocytes # 4.6 K/mcL (0.6-4.6); Lymphocytes % 34.9 %; Mean Corpuscular HGB Conc 34.2 g/dL (31.6-35.5); Mean Corpuscular Hemoglobin 30.3 pg (28.0-33.3); Mean Corpuscular Volume 88.5 fL (83.0-100.0); Mean Platelet Volume 10.1 fL (9.4-12.4); Monocytes # 0.7 K/mcL (0.0-1.3); Monocytes % 5.1 %; Platelet Count 196 K/mcL (140-400); Red Cell Distribution Width 14.2 % (11.5-14.5); Segmented Neutrophils % 52.7 %
[2016-11-22 04:44] LABS: BUN/Creatinine Ratio 23 (6-26); Blood Urea Nitrogen 22 mg/dL (8-26); Calcium 9.7 mg/dL (8.6-10.8); Carbon Dioxide 23 mEq/L (19-29); Chloride 104 mEq/L (98-109); Glucose 227 mg/dL (70-99); Magnesium 1.8 mg/dL (1.6-2.6); Osmolality,Calculated 296 (280-300); Phosphorous 4.2 mg/dL (2.3-4.7); Potassium 4.2 mEq/L (3.5-4.5); Sodium 138 mEq/L (136-145); eGFR For African Americans > 60 (> 60); eGFR For Non-African Americans > 60 (> 60)
[2016-11-22 04:52] LABS: Platelet Estimate Normal (Normal); Polychromasia 1+ (Not Present)
[2016-11-22] MEDS: Gabapentin 300 MG CAPSULE PO SCH (07:41)
[2016-11-22] MEDS: Aspirin Enteric Coated 81 MG Tablet PO SCH (07:41)
[2016-11-22] MEDS: Insulin LISPRO 300 UNITS/3 ML VIAL SQ SCH ×2 (07:42→11:50)
[2016-11-22 08:18] LABS: Hemoglobin A1C 8.5 %
[2016-11-22] MEDS ORDERED: Lactobacillus 1 EACH CAP.SPRINK PO SCH (09:00)
[2016-11-22] MEDS ORDERED: APIXABAN 5 MG TABLET PO SCH (09:00)
[2016-11-22] MEDS ORDERED: levoFLOXacin 750 MG TABLET PO SCH (09:00)
[2016-11-22 11:22] VITALS: BP 115/58
--- NOTE | 2016-11-22 11:26 | Cardiology Progress Note ---
Date of Encounter: 11/22/16 Time of Encounter: 11:17 Assessment and Plan (1) Supraventricular tachycardia Current Visit: Yes Status: Acute Presented in SVT. Likely secondary to PE. Resolved with IV cardizem. Continue home dose of beta-marquise. 24 hour telemetry review shows SR with PAC, there was no recurrent SVT. Avg HR 59 bpm. TTE : preserved LV EF, normal RV size and function. Mildly dilated RA. no significant valvular disease. No further cardiac testing indicated. Patient would like to follow with [facility] . 2-3 week f/u with Dr. Curiel will be made. Cardiology signing off. Call with questions. (2) CAD (coronary artery disease) Current Visit: No Status: Chronic H/o 3V CABG. Troponin negative. Now chest pain free. Continue asa, statin, and bb. Qualifiers: Coronary Disease-Associated Artery/Lesion type: [place] artery [place] vs. transplanted heart: [place] heart Associated angina: without angina Qualified Code(s): I25.10 - Atherosclerotic heart disease of [place] coronary artery without angina pectoris (3) Pulmonary embolism on right Current Visit: Yes Status: Acute CTA showed acute RLL posterior basilar segmental branch pulmonary emboli. Hospitalist following with hematology consult. Patient now on eliquis. Discussion w patient/family: The assessment and plan as outlined above was discussed with the patient and/or family members who expressed understanding and agreement. All questions were answered. Thank you for involving us in the care of your patient. Please call with any questions. Subjective Principal diagnosis: PE, SVT Interval history: No new complaints. Denies chest pain or SOB. Objective Vital Signs Temp Pulse Resp BP Pulse Ox 11/22/16 11:18 97.8 F 56 15 115/58 95 11/22/16 06:51 98.3 F 55 16 129/71 94 11/22/16 05:26 97.9 F 57 16 127/68 94 11/22/16 00:07 98.2 F 56 16 111/68 91 11/21/16 20:38 97.9 F 67 16 81/49 90 11/21/16 17:59 98.8 F 60 16 126/70 95 Intake and Output 11/21/16 11/22/16 11/22/16 23:59 07:59 15:59 Intake Total 0 / 0 120 / 120 Output Total 300 / 300 Balance -300 / -300 120 / 120 Intake: IV Fluids 0 / 0 Heparin 25,000 UNIT/500 0 / 0 ML D5W 25,000 unit In 500 ml @ 14 UNIT/KG/HR 29. 211 mls/hr IVC .[id number] DONTRELL Rx#:[id number] Oral 120 / 120 Output: Urine 300 / 300 Other: Meal Breakfast Percent of Meal Consumed 100% # Voids 2 Weight 104.2 kg Blood Glucose* 320 240 Patient Weight 11/22/16 23:59 Weight 104.2 kg General: Conversant, No Apparent Distress HEENT: Atraumatic, Normocephaly, Mucus Membranes Moist Neck: No JVD, Normal carotid pulses Cardiac: Reg Rate and Rhythm, Normal S1 and S2, No Murmur Lungs: Normal Breath Sounds, No Wheeze, Rales, Rhonchi Neuro: Alert and responsive, No focal deficits noted Abdomen: Soft, Non-Tender Skin: No rashes noted on visualized skin Musculoskeletal: No Chest Wall Tenderness Extremities: No Clubbing, No Cyanosis, No Edema, Normal Pulses Results 11/22/16 04:04 11/22/16 04:04 Lab Results 11/21/16 11/22/16 11/22/16 11:02 04:04 04:04 WBC 13.2 H Hgb 11.8 L Hct 34.5 L Plt Count 196 APTT 69.4 H Sodium 138 Potassium 4.2 Chloride 104 Carbon Dioxide 23 BUN 22 Creatinine 0.96 Glucose 227 H Calcium 9.7 Magnesium 1.8 - Imaging and Cardiology Echo: report reviewed - EKG Interpretation EKG results cardiology: other (24 hour telemetry review completed.) Consult Discharge Plan - Plan Referrals: Alison Nolasco, NUMEROLOGIST [Primary Care Provider] - (Please call office at discharge. Office will not schedule until order is placed into the system)
--- NOTE | 2016-11-22 13:41 | Venous Imaging Report ---
LE Venous Duplex Patient Name:Javy Bedolla Order Number:[id number] Procedure Date:11/21/2016 Date:1940ge:76 yrs Gender:Male Location:[facility] Room #: 2A31 Automotive Professional:Falguni Espinoza Referring MD:Pam Nagy MD cotton candy maker:Alison Nolasco, CAREER COORDINATOR Reading MD:Jose Noriega MD Primary Indications:PE diagnosis Secondary Indications: Risk Factors Yes/No Anticoagulants Yes Impressions: Bilateral lower extremity: normal deep exam.Lower extremity abnormal superficial exam: left great saphenousvein demonstrates acute thrombosis. Recommendations: After imaging the patient returned to their room. Gave vascular perliminary results to 2A31 nurse, Lashonda SHAHID on 11/21/2016 at 17:45. Test completed on 11/21/2016 at 4:43:00 pm. Critical findings reported to Lashonda SHAHID 2A31 in person at 5:45:00 pm on 11/21/2016 by Falguni Espinoza. Findings Venous Duplex Results: Right: Venous imaging of the lower extremity reveals full patency and normal vessel compressibility of the right distal iliac, right common femoral, right superficial femoral, right popliteal, right posterior tibial, right peroneal, right great saphenous and right lesser saphenous. Doppler signals in the evaluated veins were normal. Left: Venous imaging of the lower extremity reveals full patency and normal vessel compressibility of the left distal iliac, left common femoral, left superficial femoral, left popliteal, left posterior tibial, left peroneal, left great saphenous above knee and left lesser saphenous. Doppler signals in the evaluated veins were normal. The left great saphenous below knee demonstrates an incompressible vein. Flow was absent and it did not augment. Prior Study: No prior study available for comparison. Lower Extremity Venous Duplex Side Vein Compress Spontaneous Flow Augment Diameter (cm) Depth (cm) Right Distal Iliac Normal yes Phasic yes Right Common Femoral Normal yes Phasic yes Right Superficial Femoral Normal yes Phasic yes Right Popliteal Normal yes Phasic yes Right Posterior Tibial Normal yes Phasic yes Right Peroneal Normal yes Phasic yes Right Great Saphenous Normal yes Phasic yes Right Lesser Saphenous Normal yes Phasic yes Left Distal Iliac Normal yes Phasic yes Left Common Femoral Normal yes Phasic yes Left Superficial Femoral Normal yes Phasic yes Left Popliteal Normal yes Phasic yes Left Posterior Tibial Normal yes Phasic yes Left Peroneal Normal yes Phasic yes Left Great Saphenous AK Normal yes Phasic yes Left Great Saphenous BK None no Absent no Left Lesser Saphenous Normal yes Phasic yes Updated by Jose Noriega MD on 11/22/2016 1:34:28 PM electronically signed on 11/22/2016 1:34:39 PM with status of Final
--- NOTE | 2016-11-22 13:50 | Discharge Summary ---
Date of Encounter: 11/22/16 Time of Encounter: 09:15 - Discharge Diagnosis (1) Pulmonary embolism on right Priority: Primary Status: Acute (2) Supraventricular tachycardia Priority: Secondary Status: Resolved (3) Diabetes mellitus type 2 in obese Priority: Secondary Status: Chronic (4) CAD (coronary artery disease) Priority: Secondary Status: Chronic Qualifiers: Coronary Disease-Associated Artery/Lesion type: [place] artery [place] vs. transplanted heart: [place] heart Associated angina: without angina Qualified Code(s): I25.10 - Atherosclerotic heart disease of [place] coronary artery without angina pectoris (5) Hypertension Priority: Secondary Status: Chronic Qualifiers: Hypertension type: essential hypertension Qualified Code(s): I10 - Essential (primary) hypertension (6) DVT prophylaxis Priority: Secondary Status: Acute (7) Bacteremia Priority: Secondary Status: Resolved - Discharge Medications Prescriptions: Rivaroxaban [Xarelto] 15 mg PO BID #42 tablet Home Medications: Aspirin Enteric Coated [Aspirin EC] 81 mg PO DAILY 11/15/16 [History] Gabapentin [Neurontin] 600 mg PO QAM 11/15/16 [History] Glimepiride [Amaryl] 4 mg PO BID 11/15/16 [History] [place]-3/Dha/Epa/Fish Oil [Fish Oil 1,000 mg Softgel] 1,000 mg PO TID 11/15/16 [ History] Pravastatin Sodium 10 mg PO HS 11/15/16 [History] metFORMIN [Glucophage] 1,000 mg PO BIDWM 11/15/16 [History] Levofloxacin [Levaquin] 750 mg PO DAILY #8 tablet 11/19/16 [Rx] Gabapentin [Neurontin] 300 mg PO HS 11/20/16 [History] Ibuprofen [Motrin] 200 - 600 mg PO Q6HR PRN 11/20/16 [History] Lisinopril/Hydrochlorothiazide [Zestoretic 20-25 mg Tablet] 1 tab PO DAILY 11/20 [History] Metoprolol XL (24 HR) Succ [Toprol Xl] 50 mg PO DAILY 11/20/16 [History] Rivaroxaban [Xarelto] 15 mg PO BID #42 tablet 11/22/16 [Rx] Allergies/Adverse Reactions: Allergies codeine [From Tylenol-Codeine #3] Allergy (Verified 11/15/16 20:29) See Comments sweats Procedures/tests Complete & Pending: Procedures Performed prior 72 hours Category Date Time Status EV echocardiogram Stat Y 11/21/16 15:17 Completed Venous Doppler [EV venous imaging LE BI] Routine Y 11/21/16 10:05 Completed Date of admission: 11/20/16 15:16 Primary care physician: Alison Nolasco CNP Consults: 11/20/16 17:32 Consult to Cardiology [CONS] Routine Comment: Consulting Provider: Cardiology Porsche Reason for Consult: Patient has SVTs and PE of right lower lobe of lung Call Completed: Yes 11/21/16 08:15 Consult to Oncology Hematology [CONS] Routine Consulting Provider: Rajni Alan Reason for Consult: acute PE Call Completed: Yes Discharging clinician: Pam Nagy Anticipated date of discharge: 11/22/16 - Patient Status Disposition: Home, Self-Care Condition: Good Functional capacity at discharge: independent ambulation Overall status at discharge: patient is back to baseline - Discharge Instructions Instructions: Atrial Fibrillation (DC), Pulmonary Embolism (DC), Rivaroxaban ( By mouth) Follow Up With: Alison Nolasco CNP [Primary Care Provider] - (Please call office at discharge. Office will not schedule until order is placed into the system) Additional Instructions: PLease follow up with your primary care physician within five days after your discharge from the hospital. Please follow up with your enroller and electric wheelchair repairer within one to two weeks after your discharge from the hospital. Xarelto has been added to your home medications. Please take Xarelto 15mg twice a day for the first 21 days. First dose this evening (11/22/16). Please continue Xarelto 20mg once a day after. Continue oral antibiotics. Last day of antibiotics will be November. Resume all other home medications prescribed by your primary care physician If you experience any acute bleeding episode, please seek medical help immediately. - Diet and Activity Activity: increase activity as tolerated Diet: diabetic diet, low salt diet Hospital course: Mr. Bedolla is a 76 year old male PMH of DM, hypertension,CAD who was admitted for tachycardia secondary to acute PE. Patient was started on IV heparin gtt and cardiology was consulted for SVT. Pt responded appropriately to therapy with complete resolution of his SVT. He was followed by cardiology throughout the course of the admission. 2D echo was done. Pt's HR has been controlled with his home dose of BB. Siene Maker was consulted for laborer marine terminal anticoagulation. Eliquis was recommended however due to cost issues, Xarelto was preferred. Siene Maker in agreement with continuation of Xarelto. Pt is hemodynamically stable and will be discharged to home with follow up with PCP, cardio, and hematology. Patient and demonstrate understanding of his diagnosis and agree with the discharge care and plan. - Time Spent with Patient Total time spent providing and/or coordinating discharge services: Greater than 30 minutes - Constitutional Vitals: Temp Pulse Resp BP Pulse Ox 97.8 F 56 15 115/58 95 11/22/16 11:18 11/22/16 11:18 11/22/16 11:18 11/22/16 11:18 11/22/16 11:18 General appearance: Present: cooperative, A&O X 3, pleasant, no acute distress, obese, answers questions appropriately - Head Head exam: Present: atraumatic, normocephalic - Eye Eye exam: Present: normal appearance, conjuntiva pink, sclera anicteric - Respiratory Respiratory exam: Present: CTAB. Absent: accessory muscle use, rales, rhonchi, wheezes - Cardiovascular Cardiovascular exam: Present: RRR, +S1, +S2. Absent: diastolic murmur, gallop, rubs, systolic murmur - GI/Abdominal GI/Abdominal exam: Present: normal bowel sounds, soft, no peritoneal signs. Absent: distended, tenderness - Extremities Exam Extremities exam: Present: warm, radial pulses palpable and symetrical. Absent : calf tenderness, pedal edema - Neurological Exam Neurological exam: Present: alert, oriented X3 - Psychiatric Psychiatric exam: Present: normal affect, normal mood
[2016-11-29] MEDS ORDERED: APIXABAN 5 MG TABLET PO SCH (09:00)
== END 2016-11-22 15:10 | disposition home or self-care (01) | DRG 176 ==
LOC: EMEROO 12:43 → 2ANU 12:43
PROVIDERS: ADMIT Internal Medicine; ATTEND Internal Medicine

== ENCOUNTER 2017-01-06 00:25 | Inpatient (IN) ==
--- NOTE | 2017-01-06 01:08 | Emergency Department Note ---
Disposition Clinical Impression: Community acquired pneumonia Disposition: Admitted As Inpatient Condition: Fair Referrals: NO,PCP [Non-Partnered Physician] - Forms: ED Satisfaction Letter Time of Disposition: 03:35 SOB HPI - General Chief Complaint: ED Shortness of Breath/Dyspnea Stated Complaint: williams had pneumonia Time Seen by Provider: 01/06/17 00:59 Source: patient Limitations: no limitations Nursing Notes Reviewed: Yes Vital Signs Reviewed: Yes - History of Present Illness Alert and oriented nontoxic appearing 76-year-old male presents for evaluation of shortness of breath and "a rattly cough". The patient states symptoms began at approximately 1930 hrs. yesterday evening and it gradually worsened. He denies any fever, chills, nausea, vomiting, abdominal pain, diarrhea, chest pain , or pain with inspiration. He was treated at this facility 2 months ago for pneumonia as an inpatient. He states that the day after he was discharged, he made a return trip here, where he was diagnosed with a pulmonary embolism. He was placed on Xarelto so for this. He denies any palpitations, or swelling of the lower extremities. He denies any pain in his lower extremities. Pt Subjective Complaint: shortness of breath, cough Onset (ago): hour(s) (Approximately 1930 hrs. yesterday evening) Severity: mild Consistency/Duration: gradually worsening Improves with: nothing Worsens with: nothing Known history of: PE Associated symptoms: Reports: cough, sputum production (Unable to describe the characteristics). Denies: chest pain, pain with inspiration, fever, wheezing, orthopnea, lower extremity pain, palpitations, nausea/vomiting, abdominal pain Treatment prior to arrival: none Cough Description: Involuntary, Rattling - Related Data Home Medications Medication Instructions Recorded Confirmed Aspirin Enteric Coated [Aspirin EC] 81 mg PO DAILY 11/15/16 12/11/16 Gabapentin [Neurontin] 600 mg PO QAM 11/15/16 12/11/16 Glimepiride [Amaryl] 4 mg PO BID 11/15/16 12/11/16 [place]-3/Dha/Epa/Fish Oil [Fish Oil 1,000 mg PO TID 11/15/16 12/11/16 1,000 mg Softgel] Pravastatin Sodium 10 mg PO HS 11/15/16 12/11/16 metFORMIN [Glucophage] 1,000 mg PO BIDWM 11/15/16 12/11/16 Gabapentin [Neurontin] 300 mg PO HS 11/20/16 12/11/16 Ibuprofen [Motrin] 200 - 600 mg PO Q6HR PRN 11/20/16 12/11/16 Lisinopril/Hydrochlorothiazide 1 tab PO DAILY 11/20/16 12/11/16 [Zestoretic 20-25 mg Tablet] Metoprolol XL (24 HR) Succ [Toprol 50 mg PO DAILY 11/20/16 12/11/16 Xl] Previous Rx's Medication Instructions Recorded Levofloxacin [Levaquin] 750 mg PO DAILY #8 tablet 11/19/16 Rivaroxaban [Xarelto] 20 mg PO DAILY #30 tablet 12/11/16 Allergies Allergy/AdvReac Type Severity Reaction Status Date / Time codeine Allergy See Verified 01/06/17 00:32 [From Tylenol-Codeine #3] Comments All systems ED: reviewed and negative except as stated. Constitutional: Denies: fever, chills, weakness, weight change Eyes: Denies: eye pain, eye discharge, vision change ENT ED: Denies: ear pain, throat pain, dental pain, hearing loss, epistaxis, congestion, dysphagia Cardiovascular: Denies: chest pain, palpitations, dyspnea on exertion, edema, syncope Respiratory: Reports: as per HPI, cough, dyspnea, sputum production. Denies: wheezes, hemoptysis, stridor Gastrointestinal: Denies: abdominal pain, nausea, vomiting, diarrhea, constipation, hematemesis, melena, hematochezia Genitourinary: Denies: urgency, dysuria, frequency, hematuria Musculoskeletal: Denies: back pain, neck pain, arthralgia, myalgia Integumentary: Denies: rash, abrasion, lesions Neurological: Denies: headache, weakness, numbness, paresthesias, confusion, abnormal gait, vertigo Psychiatric: Denies: anxiety, depression, suicidal thoughts, homicidal thoughts , auditory hallucinations, visual hallucinations Endocrine: Denies: fatigue Hematological/Lymphatic: Denies: easy bleeding, easy bruising Allergic/Immunologic: Denies: facial swelling, urticaria Past Medical History - Past Medical History Attestation: Yes The following information was validated with the patient. Source: patient, nursing notes reviewed Medical history: Reports: cancer, coronary artery disease, diabetes, hypertension, other Surgical history: Reports: cancer surgery, coronary bypass (CABG) Psychiatric history: Reports: depression - Social History Smoking Status: Former smoker Smokeless Tobacco Status: No Alcohol use: Reports: none Drug use: Reports: none Physical Exam - General Limitations: no limitations General appearance: alert, in no apparent distress - Head Head exam: atraumatic, normocephalic, normal inspection - Eye Eye exam: Present: normal appearance, PERRL, EOMI. Absent: nystagmus - ENT ENT exam: mucous membranes moist - Neck Neck exam: Present: normal inspection, full ROM, trachea midline - Chest Chest inspection: Present: normal inspection, symmetric chest wall rise - Respiratory Respiratory exam: Absent: respiratory distress, wheezes, stridor, accessory muscle use, prolonged expiratory phase - Expanded Respiratory Exam Location: rhonchi: Right, Upper - Cardiovascular Cardiovascular exam: Present: regular rate, normal rhythm, normal heart sounds - Abdominal Exam Abdominal exam: Present: soft, Non-Tender, normal bowel sounds. Absent: tenderness, distention, guarding, rebound, rigidity - Extremities Exam Extremities exam: Present: normal inspection, full ROM. Absent: tenderness, pedal edema - Neurological Exam Neurological exam: Present: alert, oriented X3 - Psychiatric Psychiatric exam: Present: normal affect, normal mood - Skin Skin exam: Present: warm, dry, intact, normal color Course Course Narrative: I have discussed this patient's case with Dr. Eduardo. Dr. Eduardo has had a [id number] evaluation with patient. [id number]: I have spoken with Dr. James, the hospitalist service who has accepted the patient under care of the hospitalist. Vital Signs Temperature 98.3 F 01/06/17 00:32 Pulse Rate 86 01/06/17 00:32 Respiratory Rate 18 01/06/17 00:32 Blood Pressure 175/91 01/06/17 00:32 O2 Sat by Pulse Oximetry 89 01/06/17 00:32 Temperature 98.3 F 01/06/17 00:32 Pulse Rate 86 01/06/17 00:32 Respiratory Rate 18 01/06/17 00:32 Blood Pressure 175/91 01/06/17 00:32 O2 Sat by Pulse Oximetry 92 01/06/17 01:19 Oxygen Delivery Oxygen Delivery Room Air Shortness of Breath/Dyspnea - Medical Records Medical records reviewed: Yes I reviewed the patient's medical records. - Lab Data Lab results reviewed: Yes I reviewed the patient's lab results. Result diagrams: 01/06/17 01:10 01/06/17 01:10 Lab Results 01/06/17 01/06/17 01/06/17 Range/Units 01:10 01:10 01:10 WBC 9.2 (4.3-11.1) K/mcL RBC 4.76 (4.19-5.50) M/mcL Hgb 14.1 (12.9-16.9) g/dL Hct 41.9 (37.5-50.1) % MCV 88.0 (83.0-100.0) fL MCH 29.6 (28.0-33.3) pg MCHC 33.7 (31.6-35.5) g/dL RDW 13.8 (11.5-14.5) % Plt Count 187 (140-400) K/mcL MPV 9.7 (9.4-12.4) fL Immature Gran % 0.7 (0-4) % Seg Neutrophils % 53.5 % Lymphocytes % 37.6 % Monocytes % 6.3 % Eosinophils % 1.6 % Basophils % 0.3 % Neutrophils # 4.9 (1.6-8.9) K/mcL Lymphocytes # 3.4 (0.6-4.6) K/mcL Monocytes # 0.6 (0.0-1.3) K/mcL Eosinophils # 0.2 (0.0-0.6) K/mcL Basophils # 0.0 (0.0-0.2) K/mcL Immature Plt Fraction 3.2 (1.1-6.1) % PT 19.5 H (9.4-12.1) Seconds INR 1.8 APTT 43.8 H (26.0-36.0) Seconds Sodium 139 (136-145) mEq/L Potassium 4.2 (3.5-4.5) mEq/L Chloride 103 (98-109) mEq/L Carbon Dioxide 27 (19-29) mEq/L BUN 21 (8-26) mg/dL Creatinine 1.06 (0.72-1.25) mg/dL Est GFR ( Amer) > 60 (> 60) Est GFR (Non-Af Amer) > 60 (> 60) BUN/Creatinine Ratio 20 (6-26) Glucose 182 H (70-99) mg/dL Calculated Osmolality 296 (280-300) Lactic Acid (0.5-2.2) mmol/L Calcium 9.9 (8.6-10.8) mg/dL Troponin I (0-0.03) ng/mL B-Natriuretic Peptide (0-100) pg/mL 01/06/17 01/06/17 01/06/17 Range/Units 01:10 01:10 01:10 WBC (4.3-11.1) K/mcL RBC (4.19-5.50) M/mcL Hgb (12.9-16.9) g/dL Hct (37.5-50.1) % MCV (83.0-100.0) fL MCH (28.0-33.3) pg MCHC (31.6-35.5) g/dL RDW (11.5-14.5) % Plt Count (140-400) K/mcL MPV (9.4-12.4) fL Immature Gran % (0-4) % Seg Neutrophils % % Lymphocytes % % Monocytes % % Eosinophils % % Basophils % % Neutrophils # (1.6-8.9) K/mcL Lymphocytes # (0.6-4.6) K/mcL Monocytes # (0.0-1.3) K/mcL Eosinophils # (0.0-0.6) K/mcL Basophils # (0.0-0.2) K/mcL Immature Plt Fraction (1.1-6.1) % PT (9.4-12.1) Seconds INR APTT (26.0-36.0) Seconds Sodium (136-145) mEq/L Potassium (3.5-4.5) mEq/L Chloride (98-109) mEq/L Carbon Dioxide (19-29) mEq/L BUN (8-26) mg/dL Creatinine (0.72-1.25) mg/dL Est GFR ( Amer) (> 60) Est GFR (Non-Af Amer) (> 60) BUN/Creatinine Ratio (6-26) Glucose (70-99) mg/dL Calculated Osmolality (280-300) Lactic Acid 2.6 H (0.5-2.2) mmol/L Calcium (8.6-10.8) mg/dL Troponin I 0.01 (0-0.03) ng/mL B-Natriuretic Peptide 69 (0-100) pg/mL - Radiology Data Radiology results reviewed: Yes I reviewed the patient's radiology results. - EKG Data EKG attestation: Yes I reviewed and interpreted this EKG. EKG results narrative: EKG shows a sinus rhythm with first-degree AV block and nonspecific T wave abnormality at a rate of 74 bpm. AR interval 221, QRS duration 90, QT/QTc interval 401/49. No ectopy noted. No STEMI. Attestation Statement - Attestation Attestation: I, Maykel Eduardo DO have provided [id number] time during the care of this patient. Detailed review the presentation, symptoms, medical history were discussed and reviewed with the mid-level provider ( ) VAN-C/WELDING TESTER. Medical intervention labs and imaging studies were reviewed in detail. See full documentation of physical exam and course of care in the mid-level provider's note. I agree with the determined course of care, medical interventio,n and disposition put forth by the mid-level provider. See below documentation for changes or alterations in documentation. 76-year-old male presents emergency room with cough that felt worse today. Patient was just discharged from the hospital after being treated for pneumonia. Patient does require oxygen on presentation. Detailed laboratory workup including CT imaging of the chest was completed. Patient did have known clot in the right lung during previous evaluation was started on some relative. Patient today has new consolidation in the right lung that appears to be stable. The imaging done previously by chest x-ray did not show this acute consolidation. Symptoms appear to be consistent with pneumonia is refractory to outpatient management. Discussed the findings with the patient and family. Dillon Villafana is evaluated during well as the treatment course. Recommendation for admission completed this time. Antibiotics within the realm of previous treatment course to be started this time. Patient is otherwise stable resting in the bed at this point. See detailed documentation.
[2017-01-06 01:22] LABS: Basophils % 0.3 %; Eosinophils # 0.2 K/mcL (0.0-0.6); Eosinophils % 1.6 %; Hematocrit 41.9 % (37.5-50.1); Hemoglobin 14.1 g/dL (12.9-16.9); Immature Granulocytes % 0.7 % (0-4); Immature Platelets 3.2 % (1.1-6.1); Lymphocytes # 3.4 K/mcL (0.6-4.6); Lymphocytes % 37.6 %; Mean Corpuscular HGB Conc 33.7 g/dL (31.6-35.5); Mean Corpuscular Hemoglobin 29.6 pg (28.0-33.3); Mean Platelet Volume 9.7 fL (9.4-12.4); Monocytes # 0.6 K/mcL (0.0-1.3); Monocytes % 6.3 %; Neutrophils # 4.9 K/mcL (1.6-8.9); Platelet Count 187 K/mcL (140-400); Red Blood Count 4.76 M/mcL (4.19-5.50); Red Cell Distribution Width 13.8 % (11.5-14.5); Segmented Neutrophils % 53.5 %
[2017-01-06 01:26] LABS: INR 1.8; Prothrombin Time 19.5 Seconds (9.4-12.1)
[2017-01-06 01:28] LABS: Activated Partial Thrombo Time 43.8 Seconds (26.0-36.0)
[2017-01-06 01:33] LABS: BUN/Creatinine Ratio 20 (6-26); Blood Urea Nitrogen 21 mg/dL (8-26); Calcium 9.9 mg/dL (8.6-10.8); Carbon Dioxide 27 mEq/L (19-29); Chloride 103 mEq/L (98-109); Glucose 182 mg/dL (70-99); Osmolality,Calculated 296 (280-300); Potassium 4.2 mEq/L (3.5-4.5); Sodium 139 mEq/L (136-145); eGFR For African Americans > 60 (> 60); eGFR For Non-African Americans > 60 (> 60)
[2017-01-06] MEDS ORDERED: Levofloxacin 500 MG/100 ML 500 MG/100 ML BAG IVPB ONE (03:06)
--- NOTE | 2017-01-06 04:28 | Internal Med History&Physical ---
Date of Encounter: 01/06/17 Time of Encounter: 04:25 Assessment and Plan (1) Acute hypoxemic respiratory failure Current visit: Yes Status: Acute Likely secondary to infectious process: PNA vs. bronchitis He does have mild consolidation in RML as demonstrated on CTA; currently on Zosyn Will support with supplemental oxygen, breathing treatments, and Robittusin Obtain sputum culture/gram stain if possible Given lactic acidosis and recent contrast with CTA, will start on maintenance IVF for renal protection (2) Pneumonia Current visit: No Status: Acute Since he was recently admitted to the hospital within 2 months, we will start on him Zosyn He was discharged at time with Levaquin and received one dose today in the ED Blood cultures have been collected, await result sensitivities prior to de- escalation of antibiotics Qualifiers: Pneumonia type: due to unspecified organism Laterality: right Lung location: middle lobe of lung Qualified Code(s): J18.1 - Lobar pneumonia, unspecified organism (3) History of pulmonary embolus (PE) Current visit: Yes Status: Chronic Continue on patient's Xarelto dose CTA performed today did not show clot (4) Non-insulin dependent type 2 diabetes mellitus Current visit: Yes Status: Chronic Start on low dose SSI ACHS accuchecks Holding home anti-diabetic medication while inpatient A1c checked in October was 8.5 (5) CAD (coronary artery disease) of artery bypass graft Current visit: Yes Status: Chronic No chest pain at this time and initial troponins negative Continue home ASA, Statin, BB Qualifiers: Qualified Code(s): I25.810 - Atherosclerosis of coronary artery bypass graft( s) without angina pectoris (6) Hypertension Current visit: No Status: Chronic Blood pressure stable upon admission Continue home Lisinopril/HCTZ, BB Qualifiers: Hypertension type: essential hypertension Qualified Code(s): I10 - Essential (primary) hypertension (7) DVT prophylaxis Current visit: No Status: Acute Continue home Xarelto Internal Medicine - H&P: HPI Chief complaint: SOB, rattling cough Admitted From: Home Plans for Post Hospital Care: Home History of present illness: Mr. Bedolla is a 76 year old male who presents with sores of breath and rattling cough that started last night around 9 PM. Patient states that he was not overexerting himself and was only playing card games with his when the symptoms started. Of note, patient was hospitalized one half months ago with sepsis secondary to UTI and pneumonia. He was discharged with one week of Levaquin. He also developed a right-sided pulmonary embolism shortly after being discharged and is currently on Xarelto. He denies any hemoptysis but states that he did cough up sputum but is on sure of the characteristics. He denies any significant pulmonary history other than the blood clot, and is not on any breathing treatments or oxygen at home. At this point, patient denies any chest pain, nausea, vomiting, fever, constipation. He claims that after being started on oxygen in the ED, he feels his breathing is slightly better, although he is unable to cough up sputum. Past Med Surg Social Fam HX - Past Medical History Medical history: cancer, coronary artery disease, diabetes, hypertension, other Psychiatric history: depression - Past Surgical History Surgical History: cancer surgery, coronary bypass (CABG) - Social History Smoking Status: Former smoker Smokeless Tobacco Status: No Alcohol use: none Drug use: none - Family History Mother Family Member Ethnicity: Non- Living Status: Hx Family Cardiac Disorders: No Hx Family Cancer: Yes (Leukemia) Hx Family Endocrine Disorder: Yes (Enlarged spleen) Father Family Member Ethnicity: Non- Living Status: Hx Family Cancer: Yes (Colon) Internal Medicine - H&P: Meds Aspirin Enteric Coated [Aspirin EC] 81 mg PO DAILY 11/15/16 [History] Gabapentin [Neurontin] 600 mg PO QAM 11/15/16 [History] Glimepiride [Amaryl] 4 mg PO BID 11/15/16 [History] [place]-3/Dha/Epa/Fish Oil [Fish Oil 1,000 mg Softgel] 1,000 mg PO TID 11/15/16 [ History] Pravastatin Sodium 10 mg PO HS 11/15/16 [History] metFORMIN [Glucophage] 1,000 mg PO BIDWM 11/15/16 [History] Gabapentin [Neurontin] 300 mg PO HS 11/20/16 [History] Ibuprofen [Motrin] 200 - 600 mg PO Q6HR PRN 11/20/16 [History] Lisinopril/Hydrochlorothiazide [Zestoretic 20-25 mg Tablet] 1 tab PO DAILY 11/20 [History] Metoprolol XL (24 HR) Succ [Toprol Xl] 50 mg PO DAILY 11/20/16 [History] Rivaroxaban [Xarelto] 20 mg PO DAILY #30 tablet 12/11/16 [Rx] Allergies codeine [From Tylenol-Codeine #3] Allergy (Verified 01/06/17 00:32) See Comments sweats All Systems PM: A 10-system review of systems was performed and is negative for pertinent findings except as documented above in the HPI. - Constitutional Constitutional: no chills, no fever(s), no night sweats - EENT Eyes: no change in vision, no discharge, no pain, no photophobia Ears: no ear discharge, no ear pain, no tinnitus Nose, mouth and throat: no dysphagia, no nasal discharge, no neck pain, no sore throat - Cardiovascular Cardiovascular ROS IM: dyspnea, irregular heart rhythm, no chest pain, no diaphoresis, no lightheadedness, no palpitations, no syncope - Respiratory Respiratory: cough, no dyspnea, no wheezing, no excessive phlegm production, no pain with cough - Gastrointestinal Gastrointestinal: diarrhea, no abdominal pain, no hematemesis, no hematochezia, no melena, no nausea, no vomiting - Musculoskeletal Musculoskeletal ROS IM: no numbness, no tingling - Integumentary Integumentary IM: no rash, no unusual bruising - Neurological Neurological ROS: no confusion, no convulsions, no focal weakness, no numbness, no tingling, no tremor(s) - Hematologic/Lymphatic Hematologic/Lymphatic: easy bruising - Constitutional Vitals: Temp Pulse Resp BP Pulse Ox 0 F L 84 18 136/84 95 01/06/17 04:11 01/06/17 03:45 01/06/17 04:11 01/06/17 04:11 01/06/17 03:45 General appearance: Present: cooperative, pleasant, no acute distress, answers questions appropriately - Head Head exam: Present: atraumatic, normocephalic - Eye Eye exam: Present: PERRL, conjuntiva pink, sclera anicteric - Neck Neck exam general surgery: Present: supple, trachea midline. Absent: lymphadenopathy - Respiratory Respiratory exam: Present: rhonchi (right sided). Absent: accessory muscle use , rales, wheezes - Cardiovascular Cardiovascular exam: Present: irregular rhythm (regular rate), +S1, +S2. Absent : diastolic murmur, gallop, rubs, systolic murmur - GI/Abdominal GI/Abdominal exam: Present: normal bowel sounds, soft, no peritoneal signs. Absent: distended, tenderness - Extremities Exam Extremities exam: Present: pedal edema (trace pitting, chronic), warm, radial pulses palpable and symetrical. Absent: calf tenderness, cyanotic - Neurological Exam Neurological exam: Present: alert, oriented X3, no focal deficits. Absent: facial droop, speech deficit - Skin Skin exam: Present: dry, intact Internal Med - H&P Results - Labs CBC & Chem 7: 01/06/17 01:10 01/06/17 01:10 Labs: Short CBC 01/06/17 Range/Units 01:10 WBC 9.2 (4.3-11.1) K/mcL Hgb 14.1 (12.9-16.9) g/dL Hct 41.9 (37.5-50.1) % Plt Count 187 (140-400) K/mcL Neutrophils # 4.9 (1.6-8.9) K/mcL BMP 01/06/17 01:10 Sodium 139 Potassium 4.2 Chloride 103 Carbon Dioxide 27 BUN 21 Creatinine 1.06 Glucose 182 H Calcium 9.9 Cardiac Enzymes 01/06/17 Range/Units 01:10 Troponin I 0.01 (0-0.03) ng/mL - Impressions ITS Impressions Chest X-Ray 01/06/17 01:00 IMPRESSION: No acute pulmonary process. D/ / Farooq Ndiaye MD / Farooq Ndiaye MD Interpreting Provider: Farooq Ndiaye MD Chest CTA 01/06/17 01:50 IMPRESSION: 1. No evidence of pulmonary embolism or acute pulmonary abnormality. 2. Mild right middle lobe atelectasis or consolidation. D/ / Harsh Mercado MD / Harsh Mercado MD Interpreting Provider: Harsh Mercado MD
[2017-01-06] MEDS ORDERED: Dextrose Gel 15 GM PO PRN ×2 (04:42)
[2017-01-06] MEDS ORDERED: Acetaminophen 325 MG TABLET PO PRN (04:42)
[2017-01-06] MEDS ORDERED: Naloxone 0.4 MG/ML INJ IVP PRN (04:42)
[2017-01-06] MEDS ORDERED: D5% in Water 1,000 ML IVC PRN (04:42)
[2017-01-06] MEDS ORDERED: *HR* Dextrose 50 % in Water (Syg) 50 ML SYRINGE IVP PRN (04:42)
[2017-01-06] MEDS ORDERED: Ondansetron ODT 4 MG TAB.RAPDIS SL PRN (04:42)
[2017-01-06] MEDS ORDERED: 0.9 % Sodium Chloride 1,000 ML IVC SCH (04:45)
[2017-01-06] MEDS ORDERED: Ipratropium/Albuterol Neb 3 ML IH PRN (04:52)
[2017-01-06 06:07] LABS: Bilirubin,Urine Negative (Negative); Blood,Urine Negative (Negative); Clarity,Urine Clear (Clear); Color,Urine Yellow (Yellow); Glucose,Urine (UA) Normal (Normal); Ketones,Urine Negative (Negative); Leukocyte Esterase,Urine Small (Negative); Nitrite,Urine Negative (Negative); Protein,Urine Negative (Neg-Trace); Specific Gravity,Urine > 1.030 (1.010-1.025); Urobilinogen,Urine Normal (Normal)
[2017-01-06 06:17] LABS: RBC,Urine 0-3 per hpf (0-3)
[2017-01-06] MEDS: Gabapentin 300 MG CAPSULE PO SCH ×2 (08:09→20:25)
[2017-01-06] MEDS: Aspirin Enteric Coated 81 MG Tablet PO SCH (08:10)
[2017-01-06] MEDS: *HR* Rivaroxaban 10 MG TABLET PO SCH (08:10)
[2017-01-06] MEDS: Metoprolol XL (24 HR) Succ 50 MG TAB.ER.24H PO SCH (08:10)
[2017-01-06] MEDS: Piperacillin/Tazobactam 3.375 GM in D5% in Water (Mini-Bag+) 100 ML IVPB SCH ×3 (08:11→23:31)
[2017-01-06] MEDS: Insulin LISPRO 300 UNITS/3 ML VIAL SQ SCH ×4 (08:12→20:26)
[2017-01-06] MEDS ORDERED: Albuterol 2.5 MG/3 ML NEBULIZER IH PRN (11:06)
[2017-01-06] MEDS: Ipratropium/Albuterol Neb 3 ML IH SCH ×4 (11:49→23:50)
[2017-01-06] MEDS: 0.9 % Sodium Chloride 1,000 ML IVC SCH ×2 (14:54→23:35)
--- NOTE | 2017-01-06 15:19 | Event Note ---
Date of Encounter: 01/06/17 Time of Encounter: 13:00 76-year-old male with past medical history of diabetes mellitus, CAD, hypertension, and prior PE. Not oxygen dependent. He presented with a chief complaint of progressive shortness of breath and cough. Visit examination reveals right lower lung rhonchi. No wheezes. CTA of chest revealed right median lobe consolidation, centrilobular emphysematous changes in the apices, no PE. a/p 1. Acute respiratory failure secondary to pneumonia. 2. bacterial PNA. Continue empiric antibiotics with IV Zosyn, 3. suspected COPD. former smoker with emphysematous changes in CT chest. add nebulizations, and Robitussin. 4. DM. ISS. diabetic diet. 5. prior PE. home dose Xarelto
[2017-01-07] MEDS: Ipratropium/Albuterol Neb 3 ML IH SCH ×5 (03:47→20:51)
[2017-01-07 04:35] LABS: Basophils % 0.3 %; Eosinophils # 0.1 K/mcL (0.0-0.6); Hematocrit 34.9 % (37.5-50.1); Immature Granulocytes % 0.5 % (0-4); Lymphocytes # 3.7 K/mcL (0.6-4.6); Lymphocytes % 29.7 %; Mean Corpuscular HGB Conc 34.1 g/dL (31.6-35.5); Mean Corpuscular Hemoglobin 30.1 pg (28.0-33.3); Mean Corpuscular Volume 88.1 fL (83.0-100.0); Mean Platelet Volume 9.9 fL (9.4-12.4); Monocytes # 0.8 K/mcL (0.0-1.3); Monocytes % 6.4 %; Neutrophils # 7.7 K/mcL (1.6-8.9); Platelet Count 139 K/mcL (140-400); Red Blood Count 3.96 M/mcL (4.19-5.50); Red Cell Distribution Width 14.1 % (11.5-14.5); Segmented Neutrophils % 62.1 %
[2017-01-07 04:40] LABS: Hemoglobin 11.9 g/dL (12.9-16.9)
[2017-01-07 04:47] LABS: BUN/Creatinine Ratio 21 (6-26); Blood Urea Nitrogen 23 mg/dL (8-26); Calcium 8.9 mg/dL (8.6-10.8); Carbon Dioxide 23 mEq/L (19-29); Chloride 102 mEq/L (98-109); Glucose 193 mg/dL (70-99); Magnesium 1.5 mg/dL (1.6-2.6); Osmolality,Calculated 289 (280-300); Phosphorous 3.5 mg/dL (2.3-4.7); Potassium 3.9 mEq/L (3.5-4.5); Sodium 135 mEq/L (136-145); eGFR For African Americans > 60 (> 60); eGFR For Non-African Americans > 60 (> 60)
[2017-01-07] MEDS: Metoprolol XL (24 HR) Succ 50 MG TAB.ER.24H PO SCH (08:15)
[2017-01-07] MEDS: *HR* Rivaroxaban 10 MG TABLET PO SCH (08:15)
[2017-01-07] MEDS: Piperacillin/Tazobactam 3.375 GM in D5% in Water (Mini-Bag+) 100 ML IVPB SCH (08:15)
[2017-01-07] MEDS: Gabapentin 300 MG CAPSULE PO SCH ×2 (08:15→19:57)
[2017-01-07] MEDS: Aspirin Enteric Coated 81 MG Tablet PO SCH (08:15)
[2017-01-07] MEDS: Insulin LISPRO 300 UNITS/3 ML VIAL SQ SCH ×4 (08:16→21:15)
[2017-01-07] MEDS ORDERED: Magnesium Sulfate 1 GM in D5% in Water 100 ML IVPB ONE (10:21)
--- NOTE | 2017-01-07 13:29 | Internal Med Progress Note ---
Date of Encounter: 01/07/17 Time of Encounter: 11:45 - Assessment and plan (1) Acute hypoxemic respiratory failure Current Visit: Yes Status: Acute Assessment and plan: Secondary to pneumonia and suspected COPD. Required 2 L of oxygen on admission. Clinically improving. Tolerating well room air. Continue nebs (2) Pneumonia Current Visit: No Status: Acute Assessment and plan: Bacterial pneumonia. Urine and blood cultures are negative. Stop Zosyn. Start IV Levaquin. Slowly improving. Qualifiers: Pneumonia type: due to unspecified organism Laterality: right Lung location: middle lobe of lung Qualified Code(s): J18.1 - Lobar pneumonia, unspecified organism (3) Diabetes Current Visit: No Status: Chronic Assessment and plan: Fasting glucose is 187. Diabetic diet. Sliding scale insulin. Qualifiers: Diabetes mellitus type: type 2 Diabetes mellitus complication status: with unspecified complications Diabetes mellitus usp insulin use: without rat exterminator use Qualified Code(s): E11.8 - Type 2 diabetes mellitus with unspecified complications (4) Pulmonary embolism on right Current Visit: No Status: Chronic Assessment and plan: Prior PE. Continue home dose of xarelto (5) Hypomagnesemia Current Visit: Yes Status: Acute Assessment and plan: Replete. - Subjective Interval history: Patient reports improvement in shortness of breath. Dry cough. - Constitutional Vitals: Temp Pulse Resp BP Pulse Ox 98.0 F 69 16 120/61 93 01/07/17 11:43 01/07/17 11:43 01/07/17 11:43 01/07/17 11:43 01/07/17 11:43 General appearance: Present: cooperative, pleasant, no acute distress, answers questions appropriately - Eye Eye exam: Present: PERRL, sclera anicteric - Neck Neck exam general surgery: Present: supple, trachea midline. Absent: lymphadenopathy - Respiratory Respiratory exam: Present: rhonchi - Cardiovascular Cardiovascular exam: Present: RRR - GI/Abdominal GI/Abdominal exam: Present: normal bowel sounds, soft. Absent: distended, tenderness - Extremities Exam Extremities exam: Absent: pedal edema - Back Exam Back exam: Absent: CVA tenderness (L), CVA tenderness (R) - Neurological Exam Neurological exam: Present: alert, oriented X3, no focal deficits, strengths equal and symetr throughout. Absent: facial droop, speech deficit - Skin Skin exam: Absent: rash Internal Medicine: Result - Labs CBC & Chem 7: 01/07/17 04:19 01/07/17 04:19 Labs: Short CBC 01/07/17 Range/Units 04:19 WBC 12.3 H (4.3-11.1) K/mcL Hgb 11.9 L D (12.9-16.9) g/dL Hct 34.9 L (37.5-50.1) % Plt Count 139 L (140-400) K/mcL Neutrophils # 7.7 (1.6-8.9) K/mcL BMP 01/07/17 04:19 Sodium 135 L Potassium 3.9 Chloride 102 Carbon Dioxide 23 BUN 23 Creatinine 1.12 Glucose 193 H Calcium 8.9 - ABG Interpretation ABG results: PT/INR, D-dimer PT 19.5 Seconds (9.4-12.1) H 01/06/17 01:10 - VTE Reasons for not Prescribing Prophylaxis: Not indicated-Anticoagulated or INR therapeutic Consult Discharge Plan - Plan Referrals: Alison Nolasco, STENCILER [Primary Care Provider] -
[2017-01-07] MEDS ORDERED: Levofloxacin 500 MG/100 ML 500 MG/100 ML BAG IVPB SCH (16:00)
[2017-01-08] MEDS: Ipratropium/Albuterol Neb 3 ML IH SCH ×3 (00:26→08:06)
[2017-01-08 05:48] LABS: Basophils # 0.1 K/mcL (0.0-0.2); Basophils % 0.5 %; Eosinophils # 0.1 K/mcL (0.0-0.6); Eosinophils % 1.5 %; Hematocrit 34.9 % (37.5-50.1); Hemoglobin 11.9 g/dL (12.9-16.9); Lymphocytes # 3.3 K/mcL (0.6-4.6); Lymphocytes % 34.6 %; Mean Corpuscular HGB Conc 34.1 g/dL (31.6-35.5); Mean Corpuscular Hemoglobin 30.2 pg (28.0-33.3); Mean Corpuscular Volume 88.6 fL (83.0-100.0); Mean Platelet Volume 10.4 fL (9.4-12.4); Monocytes # 0.6 K/mcL (0.0-1.3); Monocytes % 6.2 %; Neutrophils # 5.3 K/mcL (1.6-8.9); Platelet Count 136 K/mcL (140-400); Red Blood Count 3.94 M/mcL (4.19-5.50); Red Cell Distribution Width 13.9 % (11.5-14.5); Segmented Neutrophils % 56.2 %
[2017-01-08 06:14] LABS: BUN/Creatinine Ratio 24 (6-26); Blood Urea Nitrogen 21 mg/dL (8-26); Calcium 8.8 mg/dL (8.6-10.8); Carbon Dioxide 28 mEq/L (19-29); Chloride 105 mEq/L (98-109); Glucose 177 mg/dL (70-99); Magnesium 1.5 mg/dL (1.6-2.6); Osmolality,Calculated 293 (280-300); Potassium 4.2 mEq/L (3.5-4.5); Sodium 138 mEq/L (136-145); eGFR For African Americans > 60 (> 60); eGFR For Non-African Americans > 60 (> 60)
[2017-01-08] MEDS ORDERED: Magnesium Sulfate 1 GM in D5% in Water 100 ML IVPB ONE (07:25)
--- NOTE | 2017-01-08 07:50 | Discharge Summary ---
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 use Qualified Code(s): E11.8 - Type 2 diabetes mellitus with unspecified complications (4) Pulmonary embolism on right Priority: Secondary Status: Chronic (5) Hypomagnesemia Priority: Primary Status: Acute - Discharge Medications Prescriptions: Albuterol Sulfate [Albuterol Inhaler] 1 puff IH Q4HR PRN #1 hfa.aer.ad PRN Reason: Shortness Of Breath/Wheezing GuaiFENesin/Dextromethorphan [Robitussin/Dm] 5 ml PO TID PRN #60 PRN Reason: Cough levoFLOXacin [Levaquin] 500 mg PO DAILY #3 tablet Magnesium Oxide [Mag-Ox] 400 mg PO BID #60 tab Home Medications: Aspirin Enteric Coated [Aspirin EC] 81 mg PO DAILY 11/15/16 [History] Gabapentin [Neurontin] 600 mg PO QAM 11/15/16 [History] Glimepiride [Amaryl] 4 mg PO BID 11/15/16 [History] [place]-3/Dha/Epa/Fish Oil [Fish Oil 1,000 mg Softgel] 1,000 mg PO TID 11/15/16 [ History] Pravastatin Sodium 10 mg PO HS 11/15/16 [History] metFORMIN [Glucophage] 1,000 mg PO BIDWM 11/15/16 [History] Gabapentin [Neurontin] 300 mg PO HS 11/20/16 [History] Ibuprofen [Motrin] 200 - 600 mg PO Q6HR PRN 11/20/16 [History] Lisinopril/Hydrochlorothiazide [Zestoretic 20-25 mg Tablet] 1 tab PO DAILY 11/20 [History] Metoprolol XL (24 HR) Succ [Toprol Xl] 50 mg PO DAILY 11/20/16 [History] Rivaroxaban [Xarelto] 20 mg PO DAILY #30 tablet 12/11/16 [Rx] Albuterol Sulfate [Albuterol Inhaler] 1 puff IH Q4HR PRN #1 hfa.aer.ad 01/08/17 [Rx] GuaiFENesin/Dextromethorphan [Robitussin/Dm] 5 ml PO TID PRN #60 01/08/17 [Rx] Magnesium Oxide [Mag-Ox] 400 mg PO BID #60 tab 01/08/17 [Rx] levoFLOXacin [Levaquin] 500 mg PO DAILY #3 tablet 01/08/17 [Rx] Allergies/Adverse Reactions: Allergies codeine [From Tylenol-Codeine #3] Allergy (Verified 01/06/17 00:32) See Comments sweats Date of admission: 01/06/17 05:01 Primary care physician: Alison Nolasco CNP - Patient Status Disposition: Home, Self-Care Condition: Good Functional capacity at discharge: independent ambulation Overall status at discharge: patient is progressing back to baseline - Discharge Instructions Instructions: Albuterol (By breathing), Dextromethorphan (By mouth), Levofloxacin (By mouth), Magnesium Oxide (By mouth), Diabetic Foot Care (DC), Pneumonia, Senior Behavioral Scientist (GEN) Follow Up With: Alison Nolasco CNP [Primary Care Provider] - 01/22/17 9:20 am () Additional Instructions: check your blood pressure twice daily, same time in the morning and evening. write down numbers and bring record to doctor's appointment. Follow-up appointments: If there is not an appointment listed below, please call your physician and schedule a follow-up appointment. If you have congestive heart failure and your symptoms return, make an appointment with your physician. Medication List: Carry an up to date list of medications you are taking at all time. We have given you an updated medication list including any new medications that you have been prescribed. Please provide that list to your primary provider Symptoms: If your condition changes or you experience any of the following symptoms, notify your physician immediately: Unusual or worsening pain, fever, persistent nausea and vomiting, bleeding, increase in swelling (especially in your legs), sudden weight gain, extreme dizziness, chest pain, increased drainage or redness from a wound or incision. Go to the emergency department if you experience a problem with breathing. Weights: If you have a history of swelling or shortness of breath, weigh yourself daily and notify your physician if you have a weight gain of two or more pounds in one day or 5 or more pounds in a week. If you experience any of the warning signs for stroke: Sudden numbness or weakness of the face, arm or leg; especially on one side of the body, sudden confusion, trouble speaking or understanding, sudden trouble seeing in one or both eyes, sudden trouble walking, dizziness, loss of balance or coordination, sudden sever headache with no cause; Call 911 or go to the emergency room. Stroke is a medical emergency. Some risk factors for stroke: Age, cigarette smoking, diabetes, excessive alcohol consumption, family history , high blood pressure, overweight, physical inactivity, prior stroke, heart attack, diagnosis of carotid artery stenosis or other artery disease. If you smoke, STOP: Smoking or tobacco use significantly increases your risk of heart and lung disease. Your chance of disease greatly increases if you continue to smoke. For more information, call the [employer] tobacco quit line for smoking cessation 9-847 QUIT-NOW ( ) - Diet and Activity Activity: resume usual activities as tolerated Diet: diabetic diet, low fat, low cholesterol, low salt diet Interval History: Patient feels better. No shortness of breath. He is eager to go home. Hospital course: Mr. Bedolla is a 76 year old male with past medical history of diabetes, right PE on xarelto, and hypertension who presented with a chief complaint of shortness of breath and productive cough. CTA chest showed no PE, right middle lobe consolidation. He was started on Zosyn and then the escalated after negative cultures to Levaquin. Initially he required oxygen but this was weaned off at discharge. His magnesium was low and he was started on oral magnesium supplementation. Plan: Repeat chest x-ray in 4-6 weeks. Recheck magnesium in 1 week. - Time Spent with Patient Total time spent providing and/or coordinating discharge services: - Constitutional Vitals: Temp Pulse Resp BP Pulse Ox 98.3 F 74 14 128/69 96 01/08/17 07:12 01/08/17 07:12 01/08/17 07:12 01/08/17 07:12 01/08/17 07:12 General appearance: Present: cooperative, pleasant, no acute distress, answers questions appropriately - Eye Eye exam: Present: PERRL, sclera anicteric - Neck Neck exam general surgery: Present: supple, trachea midline. Absent: lymphadenopathy - Respiratory Respiratory exam: Present: CTAB - Cardiovascular Cardiovascular exam: Present: RRR - GI/Abdominal GI/Abdominal exam: Present: normal bowel sounds, soft. Absent: distended, tenderness - Extremities Exam Extremities exam: Absent: pedal edema - Neurological Exam Neurological exam: Present: alert, oriented X3, no focal deficits, strengths equal and symetr throughout. Absent: facial droop, speech deficit - Skin Skin exam: Absent: rash - VTE Reasons for not Prescribing Prophylaxis: Not indicated-Anticoagulated or INR therapeutic
[2017-01-08] MEDS: Aspirin Enteric Coated 81 MG Tablet PO SCH (08:17)
[2017-01-08] MEDS: *HR* Rivaroxaban 10 MG TABLET PO SCH (08:17)
[2017-01-08] MEDS: Metoprolol XL (24 HR) Succ 50 MG TAB.ER.24H PO SCH (08:18)
[2017-01-08] MEDS: Insulin LISPRO 300 UNITS/3 ML VIAL SQ SCH (08:18)
[2017-01-08] MEDS: Gabapentin 300 MG CAPSULE PO SCH (08:18)
[2017-01-08 08:30] VITALS: BP 128/68
[2017-01-08] MEDS ORDERED: Magnesium Oxide 400 MG TABLET PO SCH (09:00)
--- NOTE | 2017-01-08 10:09 | Electrocardiograph Report ---
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
== END 2017-01-08 10:15 | disposition home or self-care (01) | DRG 193 ==
LOC: 3BNU 00:25 → EMEROO 00:25 → 3BNU 04:34 → SUATTDRO 05:01
PROVIDERS: ADMIT Internal Medicine; ATTEND Internal Medicine

== ENCOUNTER 2018-05-19 21:25 | Inpatient (IN) ==
[2018-05-19] MEDS ORDERED: Cefepime HCl 2,000 MG in Water for inj. (sterile) 20 ML 20 ML IVP ONE (21:32)
[2018-05-19] MEDS ORDERED: Isovue-370 500 ML INFUS..BTL IV ONE ×2 (21:34→22:32)
--- NOTE | 2018-05-19 21:37 | Emergency Department Note ---
Disposition Clinical Impression: Lower extremity edema, Diabetic foot infection Disposition: Still a Patient Condition: Good Referrals: Alison Nolasco, [facility] APPRENTICE [Non-Partnered Physician] - Time of Disposition: 23:06 General Adult HPI - General Stated complaint: fall, toe injury, Urinary problem Time Seen by Provider: 05/19/18 21:32 Source: patient, EMS Mode of arrival: EMS Limitations: no limitations Nursing Notes Reviewed: Yes Vital Signs Reviewed: Yes - History of Present Illness HPI Narrative: Patient presenting to emergency department by EMS for sliding off the edge of his bed. States he got his toe stuck and was concerned that he averages toenail off. Patient is a diabetic. He denies striking his head he denies any syncope. Patient denies any shortness of breath and he does have history of COPD he wears oxygen intermittently at home. However EMS reports initial oxygen saturation was in the low 90s and is present over the placed on 2 L of oxygen. Patient denies a cough or shortness of breath. He denies any chest pain nausea vomiting or diarrhea. He does report some dysuria. Also follow odor to his urine. He also reports a foot wound to his right foot that he has been seeing wound care for. He reports that it did get a foul smell for the past 3 days. Patient patient states that he stepped on something possibly a nail approximately 2 weeks ago. - Related Data Home Medications Medication Instructions Recorded Confirmed Aspirin Enteric Coated [Aspirin EC] 81 mg PO DAILY 11/15/16 10/31/17 Gabapentin [Neurontin] 600 mg PO QAM 11/15/16 10/31/17 Glimepiride [Amaryl] 4 mg PO BID 11/15/16 10/31/17 [place]-3/Dha/Epa/Fish Oil [Fish Oil 1,000 mg PO TID 11/15/16 10/31/17 1,000 mg Softgel] Pravastatin Sodium 10 mg PO HS 11/15/16 10/31/17 metFORMIN [Glucophage] 1,000 mg PO BIDWM 11/15/16 10/31/17 Gabapentin [Neurontin] 300 mg PO HS 11/20/16 10/31/17 Ibuprofen [Motrin] 200 - 600 mg PO Q6HR PRN 11/20/16 10/31/17 Lisinopril/Hydrochlorothiazide 1 tab PO DAILY 11/20/16 10/31/17 [Zestoretic 20-25 mg Tablet] Metoprolol XL (24 HR) Succ [Toprol 50 mg PO DAILY 11/20/16 10/31/17 Xl] Previous Rx's Medication Instructions Recorded Albuterol Sulfate [Albuterol 1 puff IH Q4HR PRN #1 hfa.aer.ad 01/08/17 Inhaler] GuaiFENesin/Dextromethorphan 5 ml PO TID PRN #60 01/08/17 [Robitussin/Dm] Rivaroxaban [Xarelto] 20 mg PO DAILY #30 tablet 09/20/17 Allergies Allergy/AdvReac Type Severity Reaction Status Date / Time codeine Allergy See Verified 10/31/17 11:48 [From Tylenol-Codeine #3] Comments All systems ED: reviewed and negative except as stated. Review of Systems: As Per HPI Constitutional: Denies: fever, chills Cardiovascular: Denies: chest pain, syncope Respiratory: Denies: cough, dyspnea Gastrointestinal: Denies: abdominal pain, nausea, vomiting, diarrhea Genitourinary: Reports: dysuria. Denies: urgency Musculoskeletal: Reports: other (right foot pain and injury from slipping out of bed). Denies: back pain, neck pain Integumentary: Reports: lesions (to bottom of right foot). Denies: rash Past Medical History - Past Medical History Attestation: Yes The following information was validated with the patient. Source: patient Medical history: Reports: cancer, coronary artery disease, diabetes, hypertension, other Surgical history: Reports: cancer surgery, coronary bypass (CABG) Psychiatric history: Reports: no psych history - Social History Smoking Status: Former smoker Smokeless Tobacco Status: No Alcohol use: Reports: none Drug use: Reports: none Physical Exam - General Limitations: no limitations General appearance: alert, in no apparent distress - Head Head exam: atraumatic, normocephalic, normal inspection - Eye Eye exam: Present: normal appearance, PERRL, EOMI - ENT ENT exam: normal exam, normal oropharynx, mucous membranes moist - Neck Neck exam: Present: normal inspection, full ROM, trachea midline - Chest Chest inspection: Present: normal inspection, symmetric chest wall rise - Respiratory Respiratory exam: Present: normal lung sounds bilaterally. Absent: respiratory distress, accessory muscle use - Cardiovascular Cardiovascular exam: Present: regular rate, normal rhythm, normal heart sounds - Abdominal Exam Abdominal exam: Present: soft, Non-Tender. Absent: tenderness, distention, guarding, rebound, rigidity, organomegaly, Bliss's sign, Rovsing's sign, tende [facility]ness at [facility] - Expanded Upper Extremity Exam Shoulder exam: Present: normal inspection, full ROM Arm exam: Present: normal inspection, full ROM Elbow exam: Present: normal inspection, full ROM Forearm/Wrist exam: Present: normal inspection, full ROM Hand exam: Present: normal inspection, full ROM Vascular exam: Normal: capillary refill, radial pulse - Expanded Lower Extremity Exam Hip/Pelvis exam: Present: normal inspection, full ROM Upper leg exam: Present: normal inspection, full ROM Knee exam: Present: normal inspection, full ROM Lower leg exam: Present: normal inspection, full ROM Ankle exam: Present: normal inspection, full ROM Foot/toe exam: Present: other (Necrotic fourth toe to the right foot. Also nonhealing wound to the ball of the right foot. Does have purulent drainage. Erythema and warmth as well as swelling and edema to the right lower extremity to around mid calf.) Neurovascular/Tendon exam: Absent: motor deficit, sensory deficit, tendon deficit - Back Exam Back exam: Present: normal inspection, full ROM. Absent: tenderness - Neurological Exam Neurological exam: Present: alert, oriented X3 - Psychiatric Psychiatric exam: Present: normal affect, normal mood - Skin Skin exam: Present: warm, dry. Absent: rash Course Course Narrative: Patient has foul odor to right lower extremity as well as cellulitic changes to his mid tibia area. Necrotic appearing fourth toe on the right as well. Patient has an ulcerated lesion to the bottom of his right foot. Does have a purulent discharge. Patient is well-appearing and does not appear to be in any distress. He states that he did just fly off the edge of the bed. No syncope. He states he is in the floor for approximately 25 minutes. We will get a CT of patient's right lower extremity with IV contrast basic labs including a CK level and a UA. We will get a chest x-ray secondary to his hypoxia and an EKG as well. We will place patient on vancomycin and cefepime for Pseudomonas coverage admit to the hospital. Of note we did do a CT with contrast so the patient's metformin will need to be help for the next 48 hours. Vital Signs Temperature 100.2 F H 05/19/18 21:34 Pulse Rate 92 05/19/18 21:34 Respiratory Rate 22 05/19/18 21:34 Blood Pressure 138/65 05/19/18 21:34 O2 Sat by Pulse Oximetry 98 05/19/18 21:34 Temperature 100.2 F H 05/19/18 21:34 Pulse Rate 92 05/19/18 21:34 Respiratory Rate 22 05/19/18 21:34 Blood Pressure 138/65 05/19/18 21:34 O2 Sat by Pulse Oximetry 99 05/19/18 21:41 Oxygen Delivery Oxygen Delivery Nasal Cannula Medical Decision Making - Medical Records Medical records reviewed: Yes I reviewed the patient's medical records. - Lab Data Lab results reviewed: Yes I reviewed the patient's lab results. Result diagrams: 05/19/18 21:55 05/19/18 21:55 Lab Results 05/19/18 05/19/18 05/19/18 Range/Units 21:55 21:55 21:55 WBC 17.4 H (4.3-11.1) K/mcL RBC 4.32 (4.19-5.50) M/mcL Hgb 12.9 (12.9-16.9) g/dL Hct 38.9 (37.5-50.1) % MCV 90.0 (83.0-100.0) fL MCH 29.9 (28.0-33.3) pg MCHC 33.2 (31.6-35.5) g/dL RDW 13.2 (11.5-14.5) % Plt Count 202 (140-400) K/mcL MPV 9.5 (9.4-12.4) fL Immature Gran % 0.7 (0-4) % Seg Neutrophils % 82.6 % Lymphocytes % 12.7 % Monocytes % 3.7 % Eosinophils % 0.1 % Basophils % 0.2 % Neutrophils # 14.4 H (1.6-8.9) K/mcL Lymphocytes # 2.2 (0.6-4.6) K/mcL Monocytes # 0.7 (0.0-1.3) K/mcL Eosinophils # 0.0 (0.0-0.6) K/mcL Basophils # 0.0 (0.0-0.2) K/mcL PT 14.6 H (9.4-12.1) Seconds INR 1.3 APTT 32.0 (26.0-36.0) Seconds Sodium 135 L (136-145) mEq/L Potassium 4.5 (3.5-5.1) mEq/L Chloride 99 (98-107) mEq/L Carbon Dioxide 26 (23-29) mEq/L BUN 22 (8-23) mg/dL Creatinine 1.02 (0.70-1.30) mg/dL Est GFR ( Amer) > 60 (> 60) Est GFR (Non-Af Amer) > 60 (> 60) BUN/Creatinine Ratio 22 (6-26) Glucose 173 H (70-105) mg/dL Calculated Osmolality 287 (280-300) Lactic Acid (0.5-2.2) mmol/L Calcium 9.7 (8.6-10.3) mg/dL Phosphorus 1.6 L (2.7-4.5) mg/dL Magnesium 1.4 L (1.6-2.6) mg/dL Total Bilirubin 0.7 (0.3-1.0) mg/dL Direct Bilirubin 0.2 (0.0-0.2) mg/dL Indirect Bilirubin 0.5 (0.0-1.2) mg/dL AST 11 L (13-39) Units/L ALT 14 (7-52) Units/L Alkaline Phosphatase 49 (34-104) Units/L Creatine Kinase 49 (30-223) Units/L Troponin I < 0.03 (< 0.04) ng/mL Serum Total Protein 7.6 (6.4-8.9) g/dL Albumin 4.0 (3.5-5.7) g/dL Globulin 3.6 H (2.4-3.5) g/dL Albumin/Globulin Ratio 1.1 (1.1-2.2) Urine Color (Yellow) Urine Clarity (Clear) Urine pH (5.0-8.0) pH Units Ur Specific [place] (1.010-1.025) Urine Protein (Neg-Trace) mg/dL Urine Glucose (UA) (Normal) mg/dL Urine Ketones (Negative) mg/dL Urine Blood (Negative) Urine Nitrite (Negative) Urine Bilirubin (Negative) Urine Urobilinogen (Normal) mg/dL Ur Leukocyte Esterase (Negative) Urine Microscopic RBC (0-3) per hpf Urine Microscopic WBC (0-3) per hpf Ur Squamous Epith Cells (None-Few) per lpf Urine Bacteria (None-Few) per hpf Hyaline Casts (None-Few) per lpf Ur Culture Indicated? (NO) 05/19/18 05/19/18 Range/Units 21:55 22:27 WBC (4.3-11.1) K/mcL RBC (4.19-5.50) M/mcL Hgb (12.9-16.9) g/dL Hct (37.5-50.1) % MCV (83.0-100.0) fL MCH (28.0-33.3) pg MCHC (31.6-35.5) g/dL RDW (11.5-14.5) % Plt Count (140-400) K/mcL MPV (9.4-12.4) fL Immature Gran % (0-4) % Seg Neutrophils % % Lymphocytes % % Monocytes % % Eosinophils % % Basophils % % Neutrophils # (1.6-8.9) K/mcL Lymphocytes # (0.6-4.6) K/mcL Monocytes # (0.0-1.3) K/mcL Eosinophils # (0.0-0.6) K/mcL Basophils # (0.0-0.2) K/mcL PT (9.4-12.1) Seconds INR APTT (26.0-36.0) Seconds Sodium (136-145) mEq/L Potassium (3.5-5.1) mEq/L Chloride (98-107) mEq/L Carbon Dioxide (23-29) mEq/L BUN (8-23) mg/dL Creatinine (0.70-1.30) mg/dL Est GFR ( Amer) (> 60) Est GFR (Non-Af Amer) (> 60) BUN/Creatinine Ratio (6-26) Glucose (70-105) mg/dL Calculated Osmolality (280-300) Lactic Acid 2.8 H (0.5-2.2) mmol/L Calcium (8.6-10.3) mg/dL Phosphorus (2.7-4.5) mg/dL Magnesium (1.6-2.6) mg/dL Total Bilirubin (0.3-1.0) mg/dL Direct Bilirubin (0.0-0.2) mg/dL Indirect Bilirubin (0.0-1.2) mg/dL AST (13-39) Units/L ALT (7-52) Units/L Alkaline Phosphatase (34-104) Units/L Creatine Kinase (30-223) Units/L Troponin I (< 0.04) ng/mL Serum Total Protein (6.4-8.9) g/dL Albumin (3.5-5.7) g/dL Globulin (2.4-3.5) g/dL Albumin/Globulin Ratio (1.1-2.2) Urine Color Yellow (Yellow) Urine Clarity Turbid A (Clear) Urine pH 5.5 (5.0-8.0) pH Units Ur Specific [place] 1.012 (1.010-1.025) Urine Protein 30 H (Neg-Trace) mg/dL Urine Glucose (UA) 100 H (Normal) mg/dL Urine Ketones Trace H (Negative) mg/dL Urine Blood Small H (Negative) Urine Nitrite Positive A (Negative) Urine Bilirubin Negative (Negative) Urine Urobilinogen Normal (Normal) mg/dL Ur Leukocyte Esterase Large H (Negative) Urine Microscopic RBC 5-15 H (0-3) per hpf Urine Microscopic WBC TNTC H (0-3) per hpf Ur Squamous Epith Cells Moderate H (None-Few) per lpf Urine Bacteria Many H (None-Few) per hpf Hyaline Casts None Seen (None-Few) per lpf Ur Culture Indicated? YES A (NO) - EKG Data EKG #1 EKG attestation: Yes I reviewed and interpreted this EKG. EKG results narrative: Normal sinus rhythm at a rate of 92. ND interval is 145. QRS duration is 101. QT is 346. QTC is 428. No signs of acute ischemia. Good R-wave progression. No signs of Brugada or WPW. No significant change from previous EKG dated 01/06/2017. Critical Care Time Critical Care Time: Yes Total Critical Care Time: 35 Attestation: Critical care time 35 minutes managing patient's multiple medical problems. Attestation Statement - Attestation Attestation: Patient was seen with resident physician. I reviewed the history, physical, assessment and plan, and agree with the findings. I also personally evaluated this patient and had [id number] time with this patient. 77-year-old male presents to the emergency department via EMS chief complaint of sliding out of bed and damaging his toenails on the right foot. Patient family also notes he is had foul-smelling urine and thinks he might have a urinary tract infection. Patient notes that approximately 2 weeks ago he stepped on a nail of some sort says he has been seen but has not been started on antibiotics. He notes that his foot has been get an redder and more swollen through that time. And also a foul smell has started to appear the last 3 days. Denies fevers. No vomiting or diarrhea. Review of systems as above remainder negative. Physical exam. Vital signs are stable he is slightly febrile. ENT is unremarkable. Heart regular rhythm and rate. Lungs clear. Abdomen is soft obese nontender. Extremities patient has a nickel-sized hole in the bottom of his right foot which is a nonhealing ulcer likely where he stepped on something. Patient also has erythematous changes consistent with cellulitis of the anterior tibia of the right foot and more concerning he has what appears to be necrotic fourth toe as well as infection generally in the in the right foot as well. Pulses are intact. Neurologically he is alert and oriented. Skin as noted on the right lower extremity. Psych normal. ED course patient is given need a workup for sepsis. He is got a nonhealing diabetic foot ulcer were concerned about osteo-. We will get a CTA of the right lower extremity to determine extent of his disease. We will also check labs and urine. We will start him on antibiotics with pseudomonas coverage. Patient will be admitted to the hospitalist service for further evaluation and treatment when his workup is complete. However the workup was not completed time of shift change. Labs did not indicate a elevated white blood cell count as well as a u rinary tract infection. He was given antibiotics which should cover that. Patient was signed out to Dr. Hager for final disposition with the plan on admission I once a CT scan of the foot is available for review. Critical care time 35 minutes.
[2018-05-19 22:05] LABS: Basophils % 0.2 %; Eosinophils % 0.1 %; Hematocrit 38.9 % (37.5-50.1); Hemoglobin 12.9 g/dL (12.9-16.9); Immature Granulocytes % 0.7 % (0-4); Lymphocytes # 2.2 K/mcL (0.6-4.6); Lymphocytes % 12.7 %; Mean Corpuscular HGB Conc 33.2 g/dL (31.6-35.5); Mean Corpuscular Hemoglobin 29.9 pg (28.0-33.3); Mean Platelet Volume 9.5 fL (9.4-12.4); Monocytes # 0.7 K/mcL (0.0-1.3); Monocytes % 3.7 %; Neutrophils # 14.4 K/mcL (1.6-8.9); Platelet Count 202 K/mcL (140-400); Red Blood Count 4.32 M/mcL (4.19-5.50); Red Cell Distribution Width 13.2 % (11.5-14.5); Segmented Neutrophils % 82.6 %
[2018-05-19 22:14] LABS: INR 1.3
[2018-05-19 22:27] LABS: Troponin I < 0.03 ng/mL (< 0.04)
[2018-05-19 22:28] LABS: Alanine Aminotransferase 14 Units/L (7-52); Albumin/Globulin Ratio 1.1 (1.1-2.2); Alkaline Phosphatase 49 Units/L (34-104); Aspartate Amino Transferase 11 Units/L (13-39); BUN/Creatinine Ratio 22 (6-26); Bilirubin,Direct 0.2 mg/dL (0.0-0.2); Bilirubin,Indirect 0.5 mg/dL (0.0-1.2); Bilirubin,Total 0.7 mg/dL (0.3-1.0); Blood Urea Nitrogen 22 mg/dL (8-23); Calcium 9.7 mg/dL (8.6-10.3); Carbon Dioxide 26 mEq/L (23-29); Chloride 99 mEq/L (98-107); Creatine Kinase 49 Units/L (30-223); Globulin 3.6 g/dL (2.4-3.5); Glucose 173 mg/dL (70-105); Magnesium 1.4 mg/dL (1.6-2.6); Osmolality,Calculated 287 (280-300); Phosphorous 1.6 mg/dL (2.7-4.5); Potassium 4.5 mEq/L (3.5-5.1); Sodium 135 mEq/L (136-145); Total Protein 7.6 g/dL (6.4-8.9); eGFR For Non-African Americans > 60 (> 60)
[2018-05-19 22:38] LABS: Bilirubin,Urine Negative (Negative); Blood,Urine Small (Negative); Clarity,Urine Turbid (Clear); Color,Urine Yellow (Yellow); Glucose,Urine (UA) 100 mg/dL (Normal); Ketones,Urine Trace mg/dL (Negative); Leukocyte Esterase,Urine Large (Negative); Nitrite,Urine Positive (Negative); PH,Urine 5.5 pH Units (5.0-8.0); Protein,Urine 30 mg/dL (Neg-Trace); Specific Gravity,Urine 1.012 (1.010-1.025); Urobilinogen,Urine Normal (Normal)
[2018-05-19 22:40] LABS: Bacteria,Urine Many per hpf (None-Few); Hyaline Casts,Urine None Seen per lpf (None-Few); Squamous Epithelial Cell,Urine Moderate per lpf (None-Few); WBC,Urine TNTC per hpf (0-3)
[2018-05-19 22:52] LABS: Prothrombin Time 14.6 Seconds (9.4-12.1)
--- NOTE | 2018-05-19 23:38 | Emergency Department Note ---
Disposition Clinical Impression: Lower extremity edema, Diabetic foot infection Leukocytosis Qualifiers: Leukocytosis type: unspecified Qualified Code(s): D72.829 - Elevated white blood cell count, unspecified UTI (urinary tract infection) Qualifiers: Urinary tract infection type: site unspecified Hematuria presence: with hematuria Qualified Code(s): N39.0 - Urinary tract infection, site not specified; R31.9 - Hematuria, unspecified Disposition: Admitted As Inpatient Condition: Fair Referrals: Alison Nolasco CNP [Primary Care Provider] - Time of Disposition: 04:17 General Adult HPI - General Chief complaint: ED Extremity Problem,Nontraumatic Stated complaint: fall, toe injury, Urinary problem Time Seen by Provider: 05/19/18 21:32 Source: patient, EMS Mode of arrival: EMS Limitations: no limitations - History of Present Illness Pain Scale: 0 - Related Data Home Medications Medication Instructions Recorded Confirmed Aspirin Enteric Coated [Aspirin EC] 81 mg PO DAILY 11/15/16 10/31/17 Gabapentin [Neurontin] 600 mg PO QAM 11/15/16 10/31/17 Glimepiride [Amaryl] 4 mg PO BID 11/15/16 10/31/17 [place]-3/Dha/Epa/Fish Oil [Fish Oil 1,000 mg PO TID 11/15/16 10/31/17 1,000 mg Softgel] Pravastatin Sodium 10 mg PO HS 11/15/16 10/31/17 metFORMIN [Glucophage] 1,000 mg PO BIDWM 11/15/16 10/31/17 Gabapentin [Neurontin] 300 mg PO HS 11/20/16 10/31/17 Ibuprofen [Motrin] 200 - 600 mg PO Q6HR PRN 11/20/16 10/31/17 Lisinopril/Hydrochlorothiazide 1 tab PO DAILY 11/20/16 10/31/17 [Zestoretic 20-25 mg Tablet] Metoprolol XL (24 HR) Succ [Toprol 50 mg PO DAILY 11/20/16 10/31/17 Xl] Previous Rx's Medication Instructions Recorded Albuterol Sulfate [Albuterol 1 puff IH Q4HR PRN #1 hfa.aer.ad 01/08/17 Inhaler] GuaiFENesin/Dextromethorphan 5 ml PO TID PRN #60 01/08/17 [Robitussin/Dm] Rivaroxaban [Xarelto] 20 mg PO DAILY #30 tablet 09/20/17 Allergies Allergy/AdvReac Type Severity Reaction Status Date / Time codeine Allergy See Verified 10/31/17 11:48 [From Tylenol-Codeine #3] Comments Constitutional: Denies: fever, chills Cardiovascular: Denies: chest pain, syncope Respiratory: Denies: cough, dyspnea Gastrointestinal: Denies: abdominal pain, nausea, vomiting, diarrhea Genitourinary: Reports: dysuria. Denies: urgency Musculoskeletal: Reports: other (right foot pain and injury from slipping out of bed). Denies: back pain, neck pain Integumentary: Reports: lesions (to bottom of right foot). Denies: rash Past Medical History - Past Medical History Medical history: Reports: cancer, coronary artery disease, diabetes, hypertension, other Surgical history: Reports: cancer surgery, coronary bypass (CABG) Psychiatric history: Reports: no psych history - Social History Smoking Status: Former smoker Smokeless Tobacco Status: No Alcohol use: Reports: none Drug use: Reports: none Physical Exam - General Limitations: no limitations General appearance: alert, in no apparent distress Course Vital Signs Temperature 100.2 F H 05/19/18 21:34 Pulse Rate 92 05/19/18 21:34 Respiratory Rate 22 05/19/18 21:34 Blood Pressure 138/65 05/19/18 21:34 O2 Sat by Pulse Oximetry 98 05/19/18 21:34 Temperature 100.2 F H 05/19/18 21:34 Pulse Rate 78 05/20/18 01:00 Respiratory Rate 18 05/20/18 01:00 Blood Pressure 108/52 05/20/18 01:00 O2 Sat by Pulse Oximetry 100 05/20/18 01:00 Oxygen Delivery Oxygen Delivery Room Air Medical Decision Making - [facility] Narrative Medical decision making narrative: Patient was received in signout from Dr. Trujillo and Dr. Mcknight. Please see their documentation for history of presenting illness, physical exam and initial medical decision making. The CT scan of the patient's right lower extremity did show evidence of gas within the foot. There is ulceration and what appears to be a necrotic fourth toe on the right foot. I did call and speak to Dr. Tuttle the on-call nurse coordinator due to there being concerned for possible necrotizing fasciitis. There is gas in the foot on the radiology read. Patient does have a ulceration in the right foot was a necrotic fourth digit on the right foot. Patient has no sensation to the foot however this is chronic due to the patient having diabetic neuropathy. Dr. Tuttle recommended the patient be admitted to the medical service with a podiatry consult. Podiatry will see this patient and recommended that we also add Zosyn for additional anaerobic coverage. This was done at the request of the nurse coordinator. I called and spoke with the admitting hospitalist Dr. Johnson and he has accepted the patient to their service. Patient will be admitted to the hospital at this time for further evaluation and management. - Medical Records Medical records reviewed: Yes I reviewed the patient's medical records. - Lab Data Lab results reviewed: Yes I reviewed the patient's lab results. Result diagrams: 05/19/18 21:55 05/19/18 21:55 Lab Results 05/19/18 05/19/18 05/19/18 Range/Units 21:55 21:55 21:55 WBC 17.4 H (4.3-11.1) K/mcL RBC 4.32 (4.19-5.50) M/mcL Hgb 12.9 (12.9-16.9) g/dL Hct 38.9 (37.5-50.1) % MCV 90.0 (83.0-100.0) fL MCH 29.9 (28.0-33.3) pg MCHC 33.2 (31.6-35.5) g/dL RDW 13.2 (11.5-14.5) % Plt Count 202 (140-400) K/mcL MPV 9.5 (9.4-12.4) fL Immature Gran % 0.7 (0-4) % Seg Neutrophils % 82.6 % Lymphocytes % 12.7 % Monocytes % 3.7 % Eosinophils % 0.1 % Basophils % 0.2 % Neutrophils # 14.4 H (1.6-8.9) K/mcL Lymphocytes # 2.2 (0.6-4.6) K/mcL Monocytes # 0.7 (0.0-1.3) K/mcL Eosinophils # 0.0 (0.0-0.6) K/mcL Basophils # 0.0 (0.0-0.2) K/mcL PT 14.6 H (9.4-12.1) Seconds INR 1.3 APTT 32.0 (26.0-36.0) Seconds Sodium 135 L (136-145) mEq/L Potassium 4.5 (3.5-5.1) mEq/L Chloride 99 (98-107) mEq/L Carbon Dioxide 26 (23-29) mEq/L BUN 22 (8-23) mg/dL Creatinine 1.02 (0.70-1.30) mg/dL Est GFR ( Amer) > 60 (> 60) Est GFR (Non-Af Amer) > 60 (> 60) BUN/Creatinine Ratio 22 (6-26) Glucose 173 H (70-105) mg/dL Calculated Osmolality 287 (280-300) Lactic Acid (0.5-2.2) mmol/L Calcium 9.7 (8.6-10.3) mg/dL Phosphorus 1.6 L (2.7-4.5) mg/dL Magnesium 1.4 L (1.6-2.6) mg/dL Total Bilirubin 0.7 (0.3-1.0) mg/dL Direct Bilirubin 0.2 (0.0-0.2) mg/dL Indirect Bilirubin 0.5 (0.0-1.2) mg/dL AST 11 L (13-39) Units/L ALT 14 (7-52) Units/L Alkaline Phosphatase 49 (34-104) Units/L Creatine Kinase 49 (30-223) Units/L Troponin I < 0.03 (< 0.04) ng/mL Serum Total Protein 7.6 (6.4-8.9) g/dL Albumin 4.0 (3.5-5.7) g/dL Globulin 3.6 H (2.4-3.5) g/dL Albumin/Globulin Ratio 1.1 (1.1-2.2) Urine Color (Yellow) Urine Clarity (Clear) Urine pH (5.0-8.0) pH Units Ur Specific [place] (1.010-1.025) Urine Protein (Neg-Trace) mg/dL Urine Glucose (UA) (Normal) mg/dL Urine Ketones (Negative) mg/dL Urine Blood (Negative) Urine Nitrite (Negative) Urine Bilirubin (Negative) Urine Urobilinogen (Normal) mg/dL Ur Leukocyte Esterase (Negative) Urine Microscopic RBC (0-3) per hpf Urine Microscopic WBC (0-3) per hpf Ur Squamous Epith Cells (None-Few) per lpf Urine Bacteria (None-Few) per hpf Hyaline Casts (None-Few) per lpf Ur Culture Indicated? (NO) 05/19/18 05/19/18 05/20/18 Range/Units 21:55 22:27 02:43 WBC (4.3-11.1) K/mcL RBC (4.19-5.50) M/mcL Hgb (12.9-16.9) g/dL Hct (37.5-50.1) % MCV (83.0-100.0) fL MCH (28.0-33.3) pg MCHC (31.6-35.5) g/dL RDW (11.5-14.5) % Plt Count (140-400) K/mcL MPV (9.4-12.4) fL Immature Gran % (0-4) % Seg Neutrophils % % Lymphocytes % % Monocytes % % Eosinophils % % Basophils % % Neutrophils # (1.6-8.9) K/mcL Lymphocytes # (0.6-4.6) K/mcL Monocytes # (0.0-1.3) K/mcL Eosinophils # (0.0-0.6) K/mcL Basophils # (0.0-0.2) K/mcL PT (9.4-12.1) Seconds INR APTT (26.0-36.0) Seconds Sodium (136-145) mEq/L Potassium (3.5-5.1) mEq/L Chloride (98-107) mEq/L Carbon Dioxide (23-29) mEq/L BUN (8-23) mg/dL Creatinine (0.70-1.30) mg/dL Est GFR ( Amer) (> 60) Est GFR (Non-Af Amer) (> 60) BUN/Creatinine Ratio (6-26) Glucose (70-105) mg/dL Calculated Osmolality (280-300) Lactic Acid 2.8 H 1.5 (0.5-2.2) mmol/L Calcium (8.6-10.3) mg/dL Phosphorus (2.7-4.5) mg/dL Magnesium (1.6-2.6) mg/dL Total Bilirubin (0.3-1.0) mg/dL Direct Bilirubin (0.0-0.2) mg/dL Indirect Bilirubin (0.0-1.2) mg/dL AST (13-39) Units/L ALT (7-52) Units/L Alkaline Phosphatase (34-104) Units/L Creatine Kinase (30-223) Units/L Troponin I (< 0.04) ng/mL Serum Total Protein (6.4-8.9) g/dL Albumin (3.5-5.7) g/dL Globulin (2.4-3.5) g/dL Albumin/Globulin Ratio (1.1-2.2) Urine Color Yellow (Yellow) Urine Clarity Turbid A (Clear) Urine pH 5.5 (5.0-8.0) pH Units Ur Specific [place] 1.012 (1.010-1.025) Urine Protein 30 H (Neg-Trace) mg/dL Urine Glucose (UA) 100 H (Normal) mg/dL Urine Ketones Trace H (Negative) mg/dL Urine Blood Small H (Negative) Urine Nitrite Positive A (Negative) Urine Bilirubin Negative (Negative) Urine Urobilinogen Normal (Normal) mg/dL Ur Leukocyte Esterase Large H (Negative) Urine Microscopic RBC 5-15 H (0-3) per hpf Urine Microscopic WBC TNTC H (0-3) per hpf Ur Squamous Epith Cells Moderate H (None-Few) per lpf Urine Bacteria Many H (None-Few) per hpf Hyaline Casts None Seen (None-Few) per lpf Ur Culture Indicated? YES A (NO) - Radiology Data Radiology results reviewed: Yes I reviewed the patient's radiology results. Chest X-Ray 05/19/18 21:33 IMPRESSION: No acute cardiopulmonary findings. D/ / Harsh Bobby / Harsh Bobby Interpreting Provider: Harsh Bobby Chest CTA 05/20/18 00:01 IMPRESSION: Negative for acute pulmonary embolism. Postsurgical changes of CABG without evidence of heart failure. Mild centrilobular emphysema and central airway thickening/inflammation. D/ / Harsh Bobby / Harsh Bobby Interpreting Provider: Harhs Bobby Lower Extremity CT 05/20/18 00:01 IMPRESSION: Plantar surface soft tissue ulceration underneath the 4th toe with soft tissue gas extending into the interspace between the 3rd and 4th toes into the dorsal foot. No drainable fluid collection or rim enhancing abscess however this is concerning for necrotizing fasciitis. Phlegmonous changes along the right 5th ray. No osseous destruction to suggest osteomyelitis. MRI with contrast is more sensitive. Critical results were called by Dr. Harsh Bobby to Marianela Mcknight on 05/20/2018 at 03:52. D/ / Harsh Bobby / Harsh Bobby Interpreting Provider: Harsh Bobby
--- NOTE | 2018-05-20 01:37 | Emergency Department Note ---
Disposition Clinical Impression: Lower extremity edema, Diabetic foot infection Leukocytosis Qualifiers: Leukocytosis type: unspecified Qualified Code(s): D72.829 - Elevated white blood cell count, unspecified UTI (urinary tract infection) Qualifiers: Urinary tract infection type: site unspecified Hematuria presence: with hematuria Qualified Code(s): N39.0 - Urinary tract infection, site not specified Disposition: Admitted As Inpatient Condition: Serious General Adult HPI - General Chief complaint: ED Extremity Problem,Nontraumatic Stated complaint: fall, toe injury, Urinary problem Time Seen by Provider: 05/19/18 21:32 Source: patient, EMS Mode of arrival: EMS Limitations: no limitations Nursing Notes Reviewed: Yes Vital Signs Reviewed: Yes - History of Present Illness Pain Scale: 0 - Related Data Home Medications Medication Instructions Recorded Confirmed Aspirin Enteric Coated [Aspirin EC] 81 mg PO DAILY 11/15/16 10/31/17 Gabapentin [Neurontin] 600 mg PO QAM 11/15/16 10/31/17 Glimepiride [Amaryl] 4 mg PO BID 11/15/16 10/31/17 [place]-3/Dha/Epa/Fish Oil [Fish Oil 1,000 mg PO TID 11/15/16 10/31/17 1,000 mg Softgel] Pravastatin Sodium 10 mg PO HS 11/15/16 10/31/17 metFORMIN [Glucophage] 1,000 mg PO BIDWM 11/15/16 10/31/17 Gabapentin [Neurontin] 300 mg PO HS 11/20/16 10/31/17 Ibuprofen [Motrin] 200 - 600 mg PO Q6HR PRN 11/20/16 10/31/17 Lisinopril/Hydrochlorothiazide 1 tab PO DAILY 11/20/16 10/31/17 [Zestoretic 20-25 mg Tablet] Metoprolol XL (24 HR) Succ [Toprol 50 mg PO DAILY 11/20/16 10/31/17 Xl] Previous Rx's Medication Instructions Recorded Albuterol Sulfate [Albuterol 1 puff IH Q4HR PRN #1 hfa.aer.ad 01/08/17 Inhaler] GuaiFENesin/Dextromethorphan 5 ml PO TID PRN #60 01/08/17 [Robitussin/Dm] Rivaroxaban [Xarelto] 20 mg PO DAILY #30 tablet 09/20/17 Allergies Allergy/AdvReac Type Severity Reaction Status Date / Time codeine Allergy See Verified 10/31/17 11:48 [From Tylenol-Codeine #3] Comments Constitutional: Denies: fever, chills Cardiovascular: Denies: chest pain, syncope Respiratory: Denies: cough, dyspnea Gastrointestinal: Denies: abdominal pain, nausea, vomiting, diarrhea Genitourinary: Reports: dysuria. Denies: urgency Musculoskeletal: Reports: other (right foot pain and injury from slipping out of bed). Denies: back pain, neck pain Integumentary: Reports: lesions (to bottom of right foot). Denies: rash Past Medical History - Past Medical History Medical history: Reports: cancer, coronary artery disease, diabetes, hypertension, other Surgical history: Reports: cancer surgery, coronary bypass (CABG) Psychiatric history: Reports: no psych history - Social History Smoking Status: Former smoker Smokeless Tobacco Status: No Alcohol use: Reports: none Drug use: Reports: none Physical Exam - General Limitations: no limitations General appearance: alert, in no apparent distress Course Vital Signs Temperature 100.2 F H 05/19/18 21:34 Pulse Rate 92 05/19/18 21:34 Respiratory Rate 22 05/19/18 21:34 Blood Pressure 138/65 05/19/18 21:34 O2 Sat by Pulse Oximetry 98 05/19/18 21:34 Temperature 100.2 F H 05/20/18 04:14 Pulse Rate 86 05/20/18 04:29 Respiratory Rate 16 05/20/18 04:29 Blood Pressure 102/54 05/20/18 04:29 O2 Sat by Pulse Oximetry 98 05/20/18 04:29 Oxygen Delivery Oxygen Delivery Nasal Cannula Medical Decision Making - Medical Records Medical records reviewed: Yes I reviewed the patient's medical records. - Lab Data Lab results reviewed: Yes I reviewed the patient's lab results. Result diagrams: 05/19/18 21:55 05/19/18 21:55 Lab Results 05/19/18 05/19/18 05/19/18 Range/Units 21:55 21:55 21:55 WBC 17.4 H (4.3-11.1) K/mcL RBC 4.32 (4.19-5.50) M/mcL Hgb 12.9 (12.9-16.9) g/dL Hct 38.9 (37.5-50.1) % MCV 90.0 (83.0-100.0) fL MCH 29.9 (28.0-33.3) pg MCHC 33.2 (31.6-35.5) g/dL RDW 13.2 (11.5-14.5) % Plt Count 202 (140-400) K/mcL MPV 9.5 (9.4-12.4) fL Immature Gran % 0.7 (0-4) % Seg Neutrophils % 82.6 % Lymphocytes % 12.7 % Monocytes % 3.7 % Eosinophils % 0.1 % Basophils % 0.2 % Neutrophils # 14.4 H (1.6-8.9) K/mcL Lymphocytes # 2.2 (0.6-4.6) K/mcL Monocytes # 0.7 (0.0-1.3) K/mcL Eosinophils # 0.0 (0.0-0.6) K/mcL Basophils # 0.0 (0.0-0.2) K/mcL PT 14.6 H (9.4-12.1) Seconds INR 1.3 APTT 32.0 (26.0-36.0) Seconds Sodium 135 L (136-145) mEq/L Potassium 4.5 (3.5-5.1) mEq/L Chloride 99 (98-107) mEq/L Carbon Dioxide 26 (23-29) mEq/L BUN 22 (8-23) mg/dL Creatinine 1.02 (0.70-1.30) mg/dL Est GFR ( Amer) > 60 (> 60) Est GFR (Non-Af Amer) > 60 (> 60) BUN/Creatinine Ratio 22 (6-26) Glucose 173 H (70-105) mg/dL Calculated Osmolality 287 (280-300) Lactic Acid (0.5-2.2) mmol/L Calcium 9.7 (8.6-10.3) mg/dL Phosphorus 1.6 L (2.7-4.5) mg/dL Magnesium 1.4 L (1.6-2.6) mg/dL Total Bilirubin 0.7 (0.3-1.0) mg/dL Direct Bilirubin 0.2 (0.0-0.2) mg/dL Indirect Bilirubin 0.5 (0.0-1.2) mg/dL AST 11 L (13-39) Units/L ALT 14 (7-52) Units/L Alkaline Phosphatase 49 (34-104) Units/L Creatine Kinase 49 (30-223) Units/L Troponin I < 0.03 (< 0.04) ng/mL Serum Total Protein 7.6 (6.4-8.9) g/dL Albumin 4.0 (3.5-5.7) g/dL Globulin 3.6 H (2.4-3.5) g/dL Albumin/Globulin Ratio 1.1 (1.1-2.2) Urine Color (Yellow) Urine Clarity (Clear) Urine pH (5.0-8.0) pH Units Ur Specific [place] (1.010-1.025) Urine Protein (Neg-Trace) mg/dL Urine Glucose (UA) (Normal) mg/dL Urine Ketones (Negative) mg/dL Urine Blood (Negative) Urine Nitrite (Negative) Urine Bilirubin (Negative) Urine Urobilinogen (Normal) mg/dL Ur Leukocyte Esterase (Negative) Urine Microscopic RBC (0-3) per hpf Urine Microscopic WBC (0-3) per hpf Ur Squamous Epith Cells (None-Few) per lpf Urine Bacteria (None-Few) per hpf Hyaline Casts (None-Few) per lpf Ur Culture Indicated? (NO) 05/19/18 05/19/18 05/20/18 Range/Units 21:55 22:27 02:43 WBC (4.3-11.1) K/mcL RBC (4.19-5.50) M/mcL Hgb (12.9-16.9) g/dL Hct (37.5-50.1) % MCV (83.0-100.0) fL MCH (28.0-33.3) pg MCHC (31.6-35.5) g/dL RDW (11.5-14.5) % Plt Count (140-400) K/mcL MPV (9.4-12.4) fL Immature Gran % (0-4) % Seg Neutrophils % % Lymphocytes % % Monocytes % % Eosinophils % % Basophils % % Neutrophils # (1.6-8.9) K/mcL Lymphocytes # (0.6-4.6) K/mcL Monocytes # (0.0-1.3) K/mcL Eosinophils # (0.0-0.6) K/mcL Basophils # (0.0-0.2) K/mcL PT (9.4-12.1) Seconds INR APTT (26.0-36.0) Seconds Sodium (136-145) mEq/L Potassium (3.5-5.1) mEq/L Chloride (98-107) mEq/L Carbon Dioxide (23-29) mEq/L BUN (8-23) mg/dL Creatinine (0.70-1.30) mg/dL Est GFR ( Amer) (> 60) Est GFR (Non-Af Amer) (> 60) BUN/Creatinine Ratio (6-26) Glucose (70-105) mg/dL Calculated Osmolality (280-300) Lactic Acid 2.8 H 1.5 (0.5-2.2) mmol/L Calcium (8.6-10.3) mg/dL Phosphorus (2.7-4.5) mg/dL Magnesium (1.6-2.6) mg/dL Total Bilirubin (0.3-1.0) mg/dL Direct Bilirubin (0.0-0.2) mg/dL Indirect Bilirubin (0.0-1.2) mg/dL AST (13-39) Units/L ALT (7-52) Units/L Alkaline Phosphatase (34-104) Units/L Creatine Kinase (30-223) Units/L Troponin I (< 0.04) ng/mL Serum Total Protein (6.4-8.9) g/dL Albumin (3.5-5.7) g/dL Globulin (2.4-3.5) g/dL Albumin/Globulin Ratio (1.1-2.2) Urine Color Yellow (Yellow) Urine Clarity Turbid A (Clear) Urine pH 5.5 (5.0-8.0) pH Units Ur Specific [place] 1.012 (1.010-1.025) Urine Protein 30 H (Neg-Trace) mg/dL Urine Glucose (UA) 100 H (Normal) mg/dL Urine Ketones Trace H (Negative) mg/dL Urine Blood Small H (Negative) Urine Nitrite Positive A (Negative) Urine Bilirubin Negative (Negative) Urine Urobilinogen Normal (Normal) mg/dL Ur Leukocyte Esterase Large H (Negative) Urine Microscopic RBC 5-15 H (0-3) per hpf Urine Microscopic WBC TNTC H (0-3) per hpf Ur Squamous Epith Cells Moderate H (None-Few) per lpf Urine Bacteria Many H (None-Few) per hpf Hyaline Casts None Seen (None-Few) per lpf Ur Culture Indicated? YES A (NO) - Radiology Data Radiology results reviewed: Yes I reviewed the patient's radiology results. Chest X-Ray 05/19/18 21:33 IMPRESSION: No acute cardiopulmonary findings. D/ / Harsh Bobby / Harsh Bobby Interpreting Provider: Harsh Bobby Chest CTA 05/20/18 00:01 IMPRESSION: Negative for acute pulmonary embolism. Postsurgical changes of CABG without evidence of heart failure. Mild centrilobular emphysema and central airway thickening/inflammation. D/ / Harsh Bobby / Harsh Bobby Interpreting Provider: Harsh Bobby Lower Extremity CT 05/20/18 00:01 IMPRESSION: Plantar surface soft tissue ulceration underneath the 4th toe with soft tissue gas extending into the interspace between the 3rd and 4th toes into the dorsal foot. No drainable fluid collection or rim enhancing abscess however this is concerning for necrotizing fasciitis. Phlegmonous changes along the right 5th ray. No osseous destruction to suggest osteomyelitis. MRI with contrast is more sensitive. Critical results were called by Dr. Harsh Bobby to Marianela Mcknight on 05/20/2018 at 03:52. D/ / Harsh Bobby / Harsh Bobby Interpreting Provider: Harsh Bobby Critical Care Time Critical Care Time: Yes Total Critical Care Time: 45 Attestation: Critical care performed: Time is exclusive of separately billable procedures. Time includes: direct patient care, patient reassessment, coordination of patient care, interpretation of data (laboratory data, radiology data, and respiratory data), review of patient's medical records, medical consultation and documentation of patient care. Procedures included in critical care time: Procedures excluded from critical care time: Attestation Statement - Attestation Attestation: I, Collins Hager MD, personally evaluated this patient and discussed their management with the resident physician. I reviewed the resident's note and agree with the documented findings, medical decision making, and plan of care. This patient was signed out at shift change from Dr. Mcknight and Dr. Trujillo. Please refer to their notes for complete details of history and physical examination. At shift change patient is awaiting a CTA of the chest as well as a CT of the lower extremity prior to consult during the hospitalist for admission. CTA of the chest showed no evidence of pulmonary embolism. CT of the lower extremities showed an ulceration with gas within the tissues of the distal foot. On examination patient is a well-developed well-nourished elderly male in no acute distress. He is alert and oriented 3. There is no cyanosis or diaphoresis. Breath sounds are clear and equal bilaterally. Heart regular rate and rhythm. The right foot is swollen and erythematous and warm to touch. There is very foul odor coming from the foot. Large ulceration to the plantar aspect of the distal foot. The fourth toe is necrotic. The entire foot is nontender because patient has severe peripheral neuropathy and has no feeling in his feet. Patient already had antibiotics initiated earlier. Dr. Patel discussed the case with the animal hospital clerk on-call, Dr. Bae, and he recommended medical admission and he will follow-up with the patient this morning in the hospital. The hospitalist, Dr. [place], was consulted and accepted admission of the patient.
[2018-05-20] MEDS ORDERED: Piperacillin/Tazobactam 3.375 GM in 0.9 % Sodium Chloride Mini Bag 100 ML IVPB ONE (04:12)
--- NOTE | 2018-05-20 05:21 | Podiatry Consult Note ---
Date of Encounter: 05/20/18 Time of Encounter: 04:45 Assessment and Plan (1) Gas gangrene Current visit: Yes Status: Acute gas gangrene right foot foot, DM foot ulcer right foot I had a thorough review with the patient and his regarding his condition, my findings, and recommendations for treatment. We discussed the severe gas- forming infection which the patient has and his CT scan as well as lab results. Patient emergently being brought to the operating room for incision and drainage and partial right foot amputation. Nature of the procedure, risks versus benefits potential complications consequences of surgery and his condition discussed at length including but not limited to infection bleeding swelling numbness tingling heart attack blood clot pulmonary embolism loss of leg wound healing loss of functionality lack of procedure to produce desired outcome need to wear a brace problems need for further surgery etc. it was discussed with him that he is high risk for limb loss and despite having surgery he could still lose his leg. We discussed this is a staged procedure and he will likely require multiple trips to the operating room in an effort to try to save his foot and even then he could still lose all or part of his foot with this severe infection. All of his questions were answered and informed consent was signed. Patient emergently being brought to the operating room. History of Present Illness HPI: Mr. Bedolla is a 77 year old diabetic male who saw Dr. Whyte a few weeks ago and has been soaking his foot in epsom salts says this last week his foot turned worse and his with him says his right foot started smelling on Sunday and the ulcer on the bottom of the foot turned black. Over the weekend he also says he banged his right foot and he thought that is why his 4th toe was turning black. He reports chills. Denies fever, nausea, vomiting, shortness of breath, chest pain. Called by the emergency room for patient with gas gangrene extending into the foot and concern for necrotizing infection. Came to the hospital to evaluate the patient. Past Med Surg Social Fam HX - Past Medical History Medical history: cancer, coronary artery disease, diabetes, hypertension, other Additional medical history: colon CA Psychiatric history: no psych history - Past Surgical History Surgical History: cancer surgery, coronary bypass (CABG) Additional surgical history: colon cancer - Social History Smoking Status: Former smoker Smokeless Tobacco Status: No Alcohol use: none Drug use: none - Family History Mother Family Member Ethnicity: Non- Living Status: Hx Family Cardiac Disorders: No Hx Family Cancer: Yes (Leukemia) Hx Family Endocrine Disorder: Yes (Enlarged spleen) Father Adopted: No Family Member Ethnicity: Non- Living Status: Hx Family Cardiac Disorders: No Hx Family Respiratory Disorders: No Hx Family Cancer: Yes Hx Family GI Disorders: No Hx Family Endocrine Disorder: No Hx Family Neuromuscular Disorders: No Hx Family Neurologic Disorders: No Hx Family HEENT Disorders: No Hx Family Autoimmune Disorders: No Medications and Allergies Aspirin Enteric Coated [Aspirin EC] 81 mg PO DAILY 11/15/16 [History] Gabapentin [Neurontin] 600 mg PO QAM 11/15/16 [History] Glimepiride [Amaryl] 4 mg PO BID 11/15/16 [History] [place]-3/Dha/Epa/Fish Oil [Fish Oil 1,000 mg Softgel] 1,000 mg PO TID 11/15/16 [History] Pravastatin Sodium 10 mg PO HS 11/15/16 [History] metFORMIN [Glucophage] 1,000 mg PO BIDWM 11/15/16 [History] Gabapentin [Neurontin] 300 mg PO HS 11/20/16 [History] Ibuprofen [Motrin] 200 - 600 mg PO Q6HR PRN 11/20/16 [History] Lisinopril/Hydrochlorothiazide [Zestoretic 20-25 mg Tablet] 1 tab PO DAILY [History] Metoprolol XL (24 HR) Succ [Toprol Xl] 50 mg PO DAILY 11/20/16 [History] Albuterol Sulfate [Albuterol Inhaler] 1 puff IH Q4HR PRN #1 [id number] 01/08/17 [Rx] GuaiFENesin/Dextromethorphan [Robitussin/Dm] 5 ml PO TID PRN #60 01/08/17 [Rx] Rivaroxaban [Xarelto] 20 mg PO DAILY #30 tablet 09/20/17 [Rx] Allergy/AdvReac Type Severity Reaction Status Date / Time codeine Allergy See Verified 10/31/17 11:48 [From Tylenol-Codeine #3] Comments All Systems Reviewed: The remainder of the systems were reviewed and are negative - Constitutional Constitutional: no fever(s) - Cardiovascular Cardiovascular: no chest pain, no dyspnea - Respiratory Respiratory: no cough - Musculoskeletal Musculoskeletal: no numbness Physical Exam - Constitutional Vitals: Temp Pulse Resp BP Pulse Ox 100.2 F H 86 16 102/54 98 05/20/18 04:14 05/20/18 04:29 05/20/18 04:29 05/20/18 04:29 05/20/18 04:29 Exam: Well developed obese male in no acute distress Right foot is warm to touch. There is moderate edema of the right foot. There is erythema on the plantar and dorsal aspect of the foot. Lanter foot ulceration as necrotic tissue and measures 1.5 cm x 1.5 cm x 0.4 cm. Does not probe to bone. Purulence is able to be expressed between the third and the fourth toe with compression of the forefoot. There is crepitus present. there is necrosis of the right 4th digit. Absent protective sensation. Squeezing his foot does cause pain. CT right foot: Abscess with subcutaneous gas extending from the dorsal and plantar aspect of the forefoot in the region of the fourth toe and metatarsal Results - Labs Result Diagrams: 05/19/18 21:55 05/19/18 21:55 Labs: Abnormal lab results WBC 17.4 K/mcL (4.3-11.1) H 05/19/18 21:55 Neutrophils # 14.4 K/mcL (1.6-8.9) H 05/19/18 21:55 PT 14.6 Seconds (9.4-12.1) H 05/19/18 21:55 Sodium 135 mEq/L (136-145) L 05/19/18 21:55 Glucose 173 mg/dL (70-105) H 05/19/18 21:55 Phosphorus 1.6 mg/dL (2.7-4.5) L 05/19/18 21:55 Magnesium 1.4 mg/dL (1.6-2.6) L 05/19/18 21:55 AST 11 Units/L (13-39) L 05/19/18 21:55 Globulin 3.6 g/dL (2.4-3.5) H 05/19/18 21:55 Urine Clarity Turbid (Clear) A 05/19/18 22: Urine Protein 30 mg/dL (Neg-Trace) H 05/19/18 22:27 Urine Glucose (UA) 100 mg/dL (Normal) H 05/19/18 22:27 Urine Ketones Trace mg/dL (Negative) H 05/19/18 22: Urine Blood Small (Negative) H 05/19/18 22:27 Urine Nitrite Positive (Negative) A 05/19/18 22:27 Ur Leukocyte Esterase Large (Negative) H 05/19/18 22:27 Urine Microscopic RBC 5-15 per hpf (0-3) H 05/19/18 22: Urine Microscopic WBC TNTC per hpf (0-3) H 05/19/18 22:27 Ur Squamous Epith Cells Moderate per lpf (None-Few) H 05/19/18 22: Urine Bacteria Many per hpf (None-Few) H 05/19/18 22:27 Ur Culture Indicated? YES (NO) A 05/19/18 22:27 H & H 05/19/18 Range/Units 21:55 Hgb 12.9 (12.9-16.9) g/dL Hct 38.9 (37.5-50.1) % All other labs normal. Consult Discharge Plan - Plan Referrals: Alison Nolasco, ADJ[employer]CT FACULTY INSTRUCTOR [Primary Care Provider] -
--- NOTE | 2018-05-20 05:29 | Anesthesia Evaluation PreOp ---
Date of Encounter: 05/20/18 Time of Encounter: 05:53 - Past History Planned Operation: RIGHT FOOT PARTIAL AMPUTATION Cardiac History: HTN, Hyperlipidemia, Cardiac Surgery (CABG 2004), Other (DVT, PE 2016, NORMAL EF) Pulmonary History: Former smoker, COPD [place] History: Denies Any Significant HX Other Medical History: Diabetes Type II, Other (INFECTED, GANGRENOUS RIGHT FOOT, COLON CA, POST COLECTOMY 2004) Anesthesia History: No Prior Anesthetic Complications, Past Anesthesia Alcohol Use: none Drug use: none Medications and Allergies Aspirin Enteric Coated [Aspirin EC] 81 mg PO DAILY 11/15/16 [History] Gabapentin [Neurontin] 600 mg PO QAM 11/15/16 [History] Glimepiride [Amaryl] 4 mg PO BID 11/15/16 [History] [place]-3/Dha/Epa/Fish Oil [Fish Oil 1,000 mg Softgel] 1,000 mg PO TID 11/15/16 [History] Pravastatin Sodium 10 mg PO HS 11/15/16 [History] metFORMIN [Glucophage] 1,000 mg PO BIDWM 11/15/16 [History] Gabapentin [Neurontin] 300 mg PO HS 11/20/16 [History] Ibuprofen [Motrin] 200 - 600 mg PO Q6HR PRN 11/20/16 [History] Lisinopril/Hydrochlorothiazide [Zestoretic 20-25 mg Tablet] 1 tab PO DAILY 11/20/16 [History] Metoprolol XL (24 HR) Succ [Toprol Xl] 50 mg PO DAILY 11/20/16 [History] Allergy/AdvReac Type Severity Reaction Status Date / Time codeine Allergy See Verified 10/31/17 11:48 [From Tylenol-Codeine #3] Comments - Meds/Allergy Pre-op Review Medications Reviewed: Yes Allergies Reviewed: Yes Beta Blockers on Current Med List: Yes Anesthesia Results - Labs 05/19/18 21:55 05/19/18 21:55 Laboratory Tests 05/19/18 05/19/18 05/19/18 21:55 21:55 21:55 PT 14.6 H INR 1.3 APTT 32.0 Lactic Acid 2.8 H Calcium 9.7 Phosphorus 1.6 L Magnesium 1.4 L Troponin I < 0.03 Serum Total Protein 7.6 Albumin 4.0 11/26/18 02:43 PT INR APTT Lactic Acid 1.5 Calcium Phosphorus Magnesium Troponin I Serum Total Protein Albumin Anesthesia Exam Vital Signs/O2 Sat/Glucose, Most Recent Temp Pulse Resp BP Pulse Ox 100.2 F H 86 16 102/54 98 05/20/18 04:14 05/20/18 04:29 05/20/18 04:29 05/20/18 04:29 05/20/18 04:29 Weight: 103 KG - BMI 31 NPO (# of Hours): 17 HRS, SIPS OF COFFEE 5 HRS - HEENT Mallampati: I Teeth: Edentulous Oral Opening: Greater than 3 - Cardiac Rhythm: Regular - Pulmonary Breath Sounds: bilateral Clear Respiratory Effort: Symmetrical Anesthesia Assess/Plan ASA Score: 4, E Anesthetic Plan: General, MAC Monitoring Plan: Standard Monitors Recovery Plan: PACU
[2018-05-20] MEDS ORDERED: Vancomycin 1,000 MG VIAL ONE (05:38)
[2018-05-20] MEDS ORDERED: Lidocaine 1% 20 ML MDV ONE (05:38)
[2018-05-20] MEDS ORDERED: *HR* FentaNYL (PF) 100 MCG/2 ML VIAL ONE (05:41)
[2018-05-20] MEDS ORDERED: Propofol 500 MG/50 ML INFUS..BTL ONE (05:42)
[2018-05-20] MEDS ORDERED: *HR* Midazolam HCl 2 MG/2 ML VIAL ONE (05:42)
--- NOTE | 2018-05-20 05:55 | Operative Note ---
Date of procedure: 05/20/18 Pre-op diagnosis: right foot gas gangrene Post-op diagnosis: same Procedure: Incision and drainage right foot right 4th partial ray amputation Implants: none Complications: none Anesthesia: MAC Local Anesthetics: 1% Lidocaine HCL SubQ (cc) Surgeon: Vargas Bae Was there an dietetic assistant present: No Estimated blood loss (cc): 25 Specimen: none Condition: stable Disposition: PACU Procedure in Detail: Indications: Right diabetic foot infection with gas gangrene being emergently brought to the operating room. The right lower extremity was scrubbed prepped and draped in the usual sterile fashion. 1% lidocaine plain was injected into the patient's right foot. Tourniquet was applied with not inflated during the entire procedure. The following procedures then began. Right foot incision and drainage and partial right fourth ray amputation. Attention was directed to the patient's right foot #15 blade used to make an incision over the fourth metatarsal and purulent drainage was expressed. Purulent drainage was cultured and tissue was sent to microbiology. Extensive devitalized tissue was present the dorsal aspect of the foot. Incision was also made on the plantar aspect of the foot underneath the fourth metatarsal in the area of the ulceration and devitalized tissue was present there as well. #15 blade was used to excise devitalized tissue. The sagittal saw was used to resect to the fourth ray at the level of the mid shaft of the metatarsal. Bone was sent to pathology and microbiology. The extensor and flexor tendons were traced as far proximal as possible and cut. The site was irrigated with saline and vancomycin using the pulse lavage. Adequate hemostasis was present. The areas were probed and explored and no further purulence could be expressed. Retention sutures placed plantar and dorsal aspect of right foot. No devitalized tissue was present upon further reinspection. Iodoform packing was placed and sterile bandage consisting of 4 x 4 gauze, ABD, Kerlix and an Marcelo wrap. Patient admitted to the floor where he will continue IV antibiotics.
[2018-05-20] MEDS ORDERED: *HR* PHENYLEPHRINE 1,000 MCG/10 ML SYRINGE IVP ONE (06:32)
[2018-05-20] MEDS ORDERED: *HR* OxyCODONE Immed Rel 5 MG TABLET PO PRN (06:33)
[2018-05-20] MEDS ORDERED: *HR* HYDROmorphone (PF) 1 MG/ML SYRINGE IVP PRN (06:33)
[2018-05-20] MEDS ORDERED: Vancomycin 1,000 MG, 0.9 % Sodium Chloride 1,000 ML IR ONE (07:00)
[2018-05-20] MEDS ORDERED: Naloxone 0.4 MG/ML INJ IVP PRN (09:33)
[2018-05-20] MEDS ORDERED: *HR* Dextrose 50 % in Water (Syg) 50 ML SYRINGE IVP PRN (09:36)
[2018-05-20] MEDS ORDERED: D5% in Water 1,000 ML IVC PRN (09:36)
[2018-05-20] MEDS ORDERED: Dextrose Gel 15 GM/37.5 ML TUBE PO PRN ×2 (09:36)
[2018-05-20] MEDS ORDERED: Ibuprofen 200 MG TABLET PO PRN (09:36)
--- NOTE | 2018-05-20 10:41 | Infectious Disease Consult ---
Date of Encounter: 05/20/18 Time of Encounter: 10:39 Assessment and Plan (1) Sepsis Status: Resolved Assessment and plan: The patient had the SIRS criteria plus lactic acidosis on admission. Likely secondary to right foot infection and UTI. Blood cultures drawn 05/19/18 are pending x 2 sets. Recommendations: - Repeat labs (CBC and BMP). - Check ESR and CRP. - Await cultures (blood and surgery). - Wound care per the podiatry team. - Strict glucose control per the primary team. - Continue Vancomycin IV. Pharmacy to dose. Goal trough ~15. - Continue Zosyn 3.375 grams IV Q8H. - Duration of treatment depends on the clinical picture. - Monitor renal function and for drug toxicity and dose-adjust antibiotics. Qualifiers: Sepsis type: Escherichia coli Qualified Code(s): A41.51 - Sepsis due to Escherichia coli [E. coli] (2) Diabetic foot infection Status: Acute Assessment and plan: Location: Right foot. Likely secondary to recent puncture wound to the foot. Causative organism: Unclear. Podiatry consulted and following. 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 Bae. Operative note reviewed. Purulence noted intra-op. Cultures and pathology are pending. Antibiotic recommendations as above. (3) Gas gangrene Status: Acute (4) UTI (urinary tract infection) Status: Acute Assessment and plan: Causative organism unclear. Urinalysis positive for pyuria. Culture is pending. Antibiotic recommendations as above. Qualifiers: Urinary tract infection type: site unspecified Hematuria presence: with hematuria Qualified Code(s): N39.0 - Urinary tract infection, site not specified; R31.9 - Hematuria, unspecified (5) Non-insulin dependent type 2 diabetes mellitus Status: Chronic Assessment and plan: Strict glucose control. (6) CAD (coronary artery disease) of artery bypass graft Status: Chronic Qualifiers: Qualified Code(s): I25.810 - Atherosclerosis of coronary artery bypass graft(s) without angina pectoris Infectious Disease HPI - Data of Consult Patient: new to practice Consult date: 05/20/18 Requesting Physician: Evelyn Birmingham MD Primary Care Provider: Alison Nolasco CNP - Consult Narrative Reason for consult: Right foot infection History of present illness: Mr. Bedolla is a 77 year old male with a past medical history of CAD, diabetes, hypertension, and chronic right foot wound. The patient was admitted to the hospital 05/19/18 for leukocytosis, UTI, and diabetic foot infection. We are consulted 05/20/18 for antibiotic recommendations for diabetic foot infection. Briefly, the patient is a 77-year-old male with past medical history as stated above. The patient presented to the emergency department on the day of admission with complaints of weakness, falling out of bed and dysuria. Upon arrival, the patient had a low-grade fever with a MAXIMUM TEMPERATURE of 100.2. Tachycardic and tachypneic. Laboratory studies revealed leukocytosis with neutrophilic predominance and lactic acidosis. Renal function, LFTs, and troponin were normal. Urinalysis was positive for nitrites, leukocyte esterase, and white cells. Urine culture is pending. Blood cultures were obtained 2 sets. Chest x-ray was negative for acute process. He did undergo a CTA of the chest that was negative for PE as well as a lower extremity CT scan that showed plantar surface soft tissue ulceration underneath the fourth toe with soft tissue gas extending into the interspace between the third and fourth toes into the dorsal foot with no drainable fluid collection or rim-enhancing abscess noted, however the findings were concerning for necrotizing fasciitis. There were phlegmonous changes along the fifth ray, but no osseous destruction to suggest osteomyelitis. Podiatry was consulted in the emergency department who recommended IV antibiotic therapy and admission to the hospitalist service. He was started on Vanco and Zosyn and admitted to the hospital for further evaluation. Since admission, the patient's labs have not been repeated. He was evaluated by podiatry this morning and took emergently to the operating room and underwent an I&D of the right foot with right fourth ray partial amputation. Reviewed the operative note indicates that there was purulence intra-op. Cultures and pathology are pending. Currently, the patient is on IV vancomycin and Zosyn. We have asked to evaluate and make further recommendations. During my exam today, the patient endorses a history as stated above. He states he stepped on a nail about 3 weeks [address] Whyte in the clinic. States she has not been treated with any antibiotics since then. He states that over the past couple of days he noticed increased redness and swelling of the foot with purulent drainage from the ulceration. He states that the redness is now spreading up his leg. He denies any fevers, but does report chills and rigors. Denies any headache or neck pain. Denies any chest pain or shortness of breath, but does report a cough productive of yellow/green sputum. Denies any nausea, vomiting, diarrhea, or constipation. He reported dysuria on admission and tells me that he has urinary frequency at night. He denies any changes in his ap petite. He denies any pain in his joints or extremities. He denies any oral thrush or other skin lesions. He states he had a tetanus shot within the past 5 years. The patient lives at home with his and daughter. He denies any tobacco, alcohol, or illicit drug use. He is retired from the local [employer]. He states he traveled to [place] about a month ago. Denies any prolonged exposur e to water. Denies any pet or animal exposures. Denies any chronic infectious diseases. CC: Evelyn Birmingham MD Past Med Surg Social Fam HX - Past Medical History Attestation: Yes The following information was validated with the patient. Source: patient, old records reviewed, nursing notes reviewed Medical history: cancer, coronary artery disease, diabetes, hypertension, other Additional medical history: colon CA Psychiatric history: no psych history - Past Surgical History Surgical History: cancer surgery, coronary bypass (CABG) Additional surgical history: colon cancer - Social History Smoking Status: Former smoker Smokeless Tobacco Status: No Alcohol use: none Drug use: none Occupational status: retired Current living situation: Home, With Family Activity Level: Independent ambulation Recent Out of Country Travel Within the Last 8 Weeks: No Exposure or Possible Exposure to Illness During Travel: No - Family History Father Adopted: No Family Member Ethnicity: Non- Living Status: Hx Family Cardiac Disorders: No Hx Family Respiratory Disorders: No Hx Family Cancer: Yes Hx Family GI Disorders: No Hx Family Endocrine Disorder: No Hx Family Neuromuscular Disorders: No Hx Family Neurologic Disorders: No Hx Family HEENT Disorders: No Hx Family Autoimmune Disorders: No Mother Family Member Ethnicity: Non- Living Status: Hx Family Cardiac Disorders: No Hx Family Cancer: Yes (Leukemia) Hx Family Endocrine Disorder: Yes (Enlarged spleen) Infectious Disease-CN:Meds RX: Aspirin Enteric Coated [Aspirin EC] 81 mg PO DAILY 11/15/16 [History] RX: Gabapentin [Neurontin] 600 mg PO QAM 11/15/16 [History] RX: Glimepiride [Amaryl] 4 mg PO BID 11/15/16 [History] RX: [place]-3/Dha/Epa/Fish Oil [Fish Oil 1,000 mg Softgel] 1,000 mg PO TID 11/15/16 [History] RX: Pravastatin Sodium 10 mg PO HS 11/15/16 [History] RX: metFORMIN [Glucophage] 1,000 mg PO BIDWM 11/15/16 [History] RX: Gabapentin [Neurontin] 300 mg PO HS 11/20/16 [History] RX: Ibuprofen [Motrin] 200 - 600 mg PO Q6HR PRN 11/20/16 [History] RX: Lisinopril/Hydrochlorothiazide [Zestoretic 20-25 mg Tablet] 1 tab PO DAILY 0 11/20/16 [History] RX: Metoprolol XL (24 HR) Succ [Toprol Xl] 50 mg PO DAILY 11/20/16 [History] Allergy/AdvReac Type Severity Reaction Status Date / Time codeine Allergy See Verified 10/31/17 11:48 [From Tylenol-Codeine #3] Comments All systems: reviewed and no additional remarkable complaints except as stated Exam - Constitutional Vitals: Temp Pulse Resp BP Pulse Ox 100.2 F H 86 16 102/54 98 05/20/18 04:14 05/20/18 04:29 05/20/18 04:29 05/20/18 04:29 05/20/18 04:29 General appearance: cooperative, no acute distress, obese - Head Head exam: Present: atraumatic, normal inspection, normocephalic - Eye Eye exam: Present: EOMI, normal appearance, PERRL Pupils: Present: normal accommodation - ENT ENT exam: Present: mucous membranes moist - Neck Neck exam: Present: normal inspection - Respiratory Respiratory exam: Present: CTAB. Absent: rales, respiratory distress, rhonchi, wheezes - Cardiovascular Cardiovascular exam: Present: RRR, +S1, +S2 - GI/Abdominal GI/Abdominal exam: Present: distended (obese), normal bowel sounds, soft. Absent: tenderness - Extremities Exam Extremities exam: Absent: normal inspection (Right foot postop dressing with small amount shattered drainage noted. Erythema noted to the right lower extremity to the middle colón), pedal edema, tenderness - Neurological Exam Neurological exam: Present: alert, oriented X3, no focal deficits - Psychiatric Psychiatric exam: Present: normal affect, normal mood - Skin Skin exam: Present: dry, intact, normal color, warm Infectious Disease CN: Results - Labs CBC & Chem 7: 05/21/18 06:09 05/21/18 06:09 Cultures: Cultures 05/20/18 06:45 Gram Stain - Final Right Foot 05/20/18 06:45 Surgical Biopsy Culture - Preliminary Right Fourth Toe 05/20/18 06:45 Surgical Biopsy Culture - Preliminary Right Fourth Toe 05/19/18 21:46 Blood Culture - Preliminary Peripheral Venipuncture Culture is incubating and being continuously monitored for growth. Final report to follow. 05/19/18 21:55 Blood Culture - Preliminary Peripheral Venipuncture Culture is incubating and being continuously monitored for growth. Final report to follow. Serology: Serology 05/19/18 Range/Units 22:27 Urine Color Yellow (Yellow) Urine Clarity Turbid A (Clear) Urine pH 5.5 (5.0-8.0) pH Units Ur Specific [place] 1.012 (1.010-1.025) Urine Protein 30 H (Neg-Trace) mg/dL Urine Glucose (UA) 100 H (Normal) mg/dL Urine Ketones Trace H (Negative) mg/dL Urine Blood Small H (Negative) Urine Nitrite Positive A (Negative) Urine Bilirubin Negative (Negative) Urine Urobilinogen Normal (Normal) mg/dL Ur Leukocyte Esterase Large H (Negative) Urine Microscopic RBC 5-15 H (0-3) per hpf Urine Microscopic WBC TNTC H (0-3) per hpf Ur Squamous Epith Cells Moderate H (None-Few) per lpf Urine Bacteria Many H (None-Few) per hpf Hyaline Casts None Seen (None-Few) per lpf Ur Culture Indicated? YES A (NO) Consult Discharge Plan - Plan Referrals: Alison Nolasco FITNESS CENTRE MANAGER [Primary Care Provider] - - Attending Attestation I examined this patient and my medical decision-making was reviewed with the Resident Physician. I agree with the documented findings, disposition and treatment plan as described except to the extent set forth below. This is an addendum to original report dictated by Silvina Mcginnis CNP. Please refer to Silvina's note for full detail. Patient is a 77-year-old gentleman who presented to [facility] on 05/19/2018 for leukocytosis, UTI and diabetic foot infection. We are consulted for antibiotics recommendation. Currently patient laying in bed appears comfortable. Review of system unremarkable. He is awake alert oriented daughter is at bedside. Assessment and plan: Sepsis Diabetic foot infection Gas gangrene UTI Status post right foot surgery I&D with fourth right partial amputation on May 20 with thousand [address] Bae. Intra-Op cultures are pending. Recommendations: - Repeat labs (CBC and BMP). - Check ESR and CRP. - Await cultures (blood and surgery). - Wound care per the podiatry team. - Strict glucose control per the primary team. - Continue Vancomycin IV. Pharmacy to dose. Goal trough ~15. - Continue Zosyn 3.375 grams IV Q8H. - Duration of treatment depends on the clinical picture. - Monitor renal function and for drug toxicity and dose-adjust antibiotics.
[2018-05-20] MEDS: Insulin LISPRO 300 UNITS/3 ML VIAL SQ SCH ×2 (12:09→16:48)
[2018-05-20] MEDS: Piperacillin/Tazobactam 3.375 GM in 0.9 % Sodium Chloride Mini Bag 100 ML IVPB SCH ×2 (12:24→20:53)
--- NOTE | 2018-05-20 16:40 | Internal Med History&Physical ---
Date of Encounter: 05/20/18 Time of Encounter: 11:00 Internal Medicine - H&P: HPI Chief complaint: Right foot drainage Admitted From: Home History of present illness: Patient is a 77-year-old male with past medical history significant for CABG X 4, history of pulmonary embolism, history of colon cancer status post colectomy in 2004, hypertension, hyperlipidemia and diabetes who presents to ER due to right foot drainage. Patient is a very poor historian and family at the bedside not much help but per EMR records and some information from family, apparently patient has had drainage from right foot with a foul smell recently and was concerned so they brought him into the ER for evaluation. Podiatry was consulted from the ER and patient was taken straight to the OR for incision and drainage of right foot with right 4th partial ray amputation. Patient has been admitted to the medical surgical floor for IV antibiotics and infectious disease has been consulted for recommendations. Past Med Surg Social Fam HX - Past Medical History Medical history: cancer, coronary artery disease, diabetes, hypertension, other Additional medical history: colon CA Psychiatric history: no psych history - Past Surgical History Surgical History: cancer surgery, coronary bypass (CABG) Additional surgical history: colon cancer - Social History Smoking Status: Former smoker Smokeless Tobacco Status: No Alcohol use: none Drug use: none - Family History Mother Family Member Ethnicity: Non- Living Status: Hx Family Cardiac Disorders: No Hx Family Cancer: Yes (Leukemia) Hx Family Endocrine Disorder: Yes (Enlarged spleen) Father Adopted: No Family Member Ethnicity: Non- Living Status: Hx Family Cardiac Disorders: No Hx Family Respiratory Disorders: No Hx Family Cancer: Yes Hx Family GI Disorders: No Hx Family Endocrine Disorder: No Hx Family Neuromuscular Disorders: No Hx Family Neurologic Disorders: No Hx Family HEENT Disorders: No Hx Family Autoimmune Disorders: No Internal Medicine - H&P: Meds Aspirin Enteric Coated [Aspirin EC] 81 mg PO DAILY 11/15/16 [History] Gabapentin [Neurontin] 600 mg PO QAM 11/15/16 [History] Glimepiride [Amaryl] 4 mg PO BID 11/15/16 [History] [place]-3/Dha/Epa/Fish Oil [Fish Oil 1,000 mg Softgel] 1,000 mg PO TID 11/15/16 [History] Pravastatin Sodium 10 mg PO HS 11/15/16 [History] metFORMIN [Glucophage] 1,000 mg PO BIDWM 11/15/16 [History] Gabapentin [Neurontin] 300 mg PO HS 11/20/16 [History] Ibuprofen [Motrin] 200 - 600 mg PO Q6HR PRN 11/20/16 [History] Lisinopril/Hydrochlorothiazide [Zestoretic 20-25 mg Tablet] 1 tab PO DAILY 11/20/16 [History] Metoprolol XL (24 HR) Succ [Toprol Xl] 50 mg PO DAILY 11/20/16 [History] Allergy/AdvReac Type Severity Reaction Status Date / Time codeine Allergy See Verified 10/31/17 11:48 [From Tylenol-Codeine #3] Comments All Systems PM: A 10-system review of systems was performed and is negative for pertinent findings except as documented above in the HPI. - Constitutional Vitals: Temp Pulse Resp BP Pulse Ox 99.9 F H 91 18 101/62 95 05/20/18 14:05 05/20/18 14:05 05/20/18 14:05 05/20/18 14:05 05/20/18 14:05 General appearance: Present: A&O X 3, no acute distress Exam: As above - Eye Eye exam: Present: normal appearance Pupils: Present: PERRL - ENT ENT exam: Present: mucous membranes moist - Respiratory Respiratory exam: Present: CTAB. Absent: accessory muscle use, rales, rhonchi, wheezes - Cardiovascular Cardiovascular exam: Present: RRR, +S1, +S2. Absent: diastolic murmur, gallop, rubs, systolic murmur - GI/Abdominal GI/Abdominal exam: Present: normal bowel sounds, soft, no peritoneal signs. Absent: distended, tenderness - Extremities Exam Extremities exam: Absent: pedal edema - Neurological Exam Neurological exam: Present: oriented X3 - Psychiatric Psychiatric exam: Present: normal mood - Skin Skin exam: Present: normal color Internal Med - H&P Results - Labs CBC & Chem 7: 05/19/18 21:55 05/19/18 21:55 Labs: Short CBC 05/19/18 Range/Units 21:55 WBC 17.4 H (4.3-11.1) K/mcL Hgb 12.9 (12.9-16.9) g/dL Hct 38.9 (37.5-50.1) % Plt Count 202 (140-400) K/mcL Neutrophils # 14.4 H (1.6-8.9) K/mcL BMP 05/19/18 21:55 Sodium 135 L Potassium 4.5 Chloride 99 Carbon Dioxide 26 BUN 22 Creatinine 1.02 Glucose 173 H Calcium 9.7 Cardiac Enzymes 05/19/18 Range/Units 21:55 Troponin I < 0.03 (< 0.04) ng/mL Liver Function 05/19/18 Range/Units 21:55 Total Bilirubin 0.7 (0.3-1.0) mg/dL Direct Bilirubin 0.2 (0.0-0.2) mg/dL AST 11 L (13-39) Units/L ALT 14 (7-52) Units/L Alkaline Phosphatase 49 (34-104) Units/L Albumin 4.0 (3.5-5.7) g/dL Urine 05/19/18 Range/Units 22:27 Urine Color Yellow (Yellow) Urine Clarity Turbid A (Clear) Urine pH 5.5 (5.0-8.0) pH Units Ur Specific [place] 1.012 (1.010-1.025) Urine Protein 30 H (Neg-Trace) mg/dL Urine Glucose (UA) 100 H (Normal) mg/dL - Impressions ITS Impressions Chest X-Ray 05/19/18 21:33 IMPRESSION: No acute cardiopulmonary findings. D/ / Harsh Bobby / Harsh Bobby Interpreting Provider: Harsh Bobby Chest CTA 05/20/18 00:01 IMPRESSION: Negative for acute pulmonary embolism. Postsurgical changes of CABG without evidence of heart failure. Mild centrilobular emphysema and central airway thickening/inflammation. D/ / Harsh Bobby / Harsh Bobby Interpreting Provider: Harsh Bobby Lower Extremity CT 05/20/18 00:01 IMPRESSION: Plantar surface soft tissue ulceration underneath the 4th toe with soft tissue gas extending into the interspace between the 3rd and 4th toes into the dorsal foot. No drainable fluid collection or rim enhancing abscess however this is concerning for necrotizing fasciitis. Phlegmonous changes along the right 5th ray. No osseous destruction to suggest osteomyelitis. MRI with contrast is more sensitive. Critical results were called by Dr. Harsh Bobby to Marianela Mcknight on 05/20/2018 at 03:52. D/ / Harsh Bobby / Harsh Bobby Interpreting Provider: Harsh Bobby - Assessment and plan (1) Gas gangrene Current Visit: Yes Status: Acute Assessment and plan: CT of the foot showed plantar surface soft tissue ulceration underneath the fourth toe with soft tissue gas extending into the interspace between the third and fourth toes into the dorsal foot Podiatry consulted and patient was taken to the OR for Incision and drainage right foot right 4th partial ray amputation (2) Diabetic foot infection Current Visit: Yes Status: Acute Assessment and plan: Patient with reported foul drainage of foot Podiatry consulted and patient taken to the ER for incision and drainage and cultures pending Continue IV vancomycin and IV Zosyn Infectious disease following and appreciate recommendations (3) Sepsis Current Visit: No Status: Resolved Assessment and plan: Patient met SIRS criteria on admission with low-grade fever, tachypnea and leukocytosis with a source of infection. Patient also had an elevated lactic acid which is now resolved. Continue IV fluids and IV antibiotics as above Qualifiers: Sepsis type: Escherichia coli Qualified Code(s): A41.51 - Sepsis due to Escherichia coli [E. coli] (4) CAD (coronary artery disease) of artery bypass graft Current Visit: No Status: Chronic Assessment and plan: Patient with history of CABG 4 vessels Continue beta marquise, MARCELINA inhibitor, statin and aspirin Qualifiers: Qualified Code(s): I25.810 - Atherosclerosis of coronary artery bypass graft(s) without angina pectoris (5) History of pulmonary embolus (PE) Current Visit: No Status: Chronic Assessment and plan: Patient with past medical history of pulmonary embolism and has finished course of oral anticoagulation (6) Hyperlipidemia Current Visit: No Status: Chronic Assessment and plan: Continue statin Qualifiers: Hyperlipidemia type: unspecified Qualified Code(s): E78.5 - Hyperlipidemia, unspecified (7) Hypertension Current Visit: No Status: Chronic Assessment and plan: Continue lisinopril/HCTZ and beta marquise Qualifiers: Hypertension type: essential hypertension Qualified Code(s): I10 - Essential (primary) hypertension (8) Non-insulin dependent type 2 diabetes mellitus Current Visit: No Status: Chronic Assessment and plan: Will hold patient's metformin and glimepiride and cover with slight scale in sulin (9) DVT prophylaxis Current Visit: No Status: Acute Assessment and plan: Subcutaneous heparin - Time Spent With Patient Total time spent is greater than 50% in coordination of care (as documented) at patient's floor/unit and/or counseling patient:
[2018-05-20] MEDS: (Omega-3/Dha/Epa/Fish Oil [Fish Oil 1,000 Mg Softgel]) PO SCH ×2 (16:46→21:08)
[2018-05-20] MEDS: Gabapentin 300 MG CAPSULE PO SCH (20:53)
[2018-05-21] MEDS: Piperacillin/Tazobactam 3.375 GM in 0.9 % Sodium Chloride Mini Bag 100 ML IVPB SCH ×3 (04:15→20:20)
[2018-05-21 06:48] LABS: Basophils % 0.2 %; Eosinophils # 0.1 K/mcL (0.0-0.6); Eosinophils % 0.4 %; Immature Granulocytes % 0.8 % (0-4); Lymphocytes % 21.9 %; Mean Corpuscular Hemoglobin 30.4 pg (28.0-33.3); Mean Corpuscular Volume 89.3 fL (83.0-100.0); Mean Platelet Volume 9.7 fL (9.4-12.4); Monocytes # 1.1 K/mcL (0.0-1.3); Monocytes % 7.9 %; Neutrophils # 9.3 K/mcL (1.6-8.9); Platelet Count 169 K/mcL (140-400); Red Blood Count 3.36 M/mcL (4.19-5.50); Red Cell Distribution Width 13.1 % (11.5-14.5); Segmented Neutrophils % 68.8 %
[2018-05-21 06:56] LABS: BUN/Creatinine Ratio 25 (6-26); Blood Urea Nitrogen 26 mg/dL (8-23); Calcium 8.4 mg/dL (8.6-10.3); Carbon Dioxide 25 mEq/L (23-29); Chloride 101 mEq/L (98-107); Glucose 168 mg/dL (70-105); Osmolality,Calculated 287 (280-300); Potassium 3.7 mEq/L (3.5-5.1); Sodium 134 mEq/L (136-145); eGFR For Non-African Americans > 60 (> 60)
[2018-05-21 07:03] LABS: Hemoglobin 10.2 g/dL (12.9-16.9)
[2018-05-21] MEDS: Aspirin Enteric Coated 81 MG Tablet PO SCH (08:07)
[2018-05-21] MEDS: Gabapentin 300 MG CAPSULE PO SCH ×2 (08:07→20:20)
[2018-05-21] MEDS: Metoprolol XL (24 HR) Succ 50 MG TAB.ER.24H PO SCH (08:08)
[2018-05-21] MEDS: (Omega-3/Dha/Epa/Fish Oil [Fish Oil 1,000 Mg Softgel]) PO SCH (08:08)
[2018-05-21] MEDS: Insulin LISPRO 300 UNITS/3 ML VIAL SQ SCH ×4 (08:08→20:53)
--- NOTE | 2018-05-21 09:50 | Internal Med Progress Note ---
Hospitalist Progress Note - Encounter Date of Encounter: 05/21/18 Time of Encounter: 09:49 - Exam Vitals: Temp Pulse Resp BP Pulse Ox 98.5 F 73 16 96/58 93 05/21/18 08:02 05/21/18 08:02 05/21/18 08:02 05/21/18 08:02 05/21/18 08:02 - Assessment and Plan (1) Sepsis Current Visit: No Status: Resolved (2) Hypertension Current Visit: No Status: Chronic (3) Hyperlipidemia Current Visit: No Status: Chronic (4) DVT prophylaxis Current Visit: No Status: Acute (5) History of pulmonary embolus (PE) Current Visit: No Status: Chronic (6) Non-insulin dependent type 2 diabetes mellitus Current Visit: No Status: Chronic (7) CAD (coronary artery disease) of artery bypass graft Current Visit: No Status: Chronic (8) Diabetic foot infection Current Visit: Yes Status: Acute (9) Gas gangrene Current Visit: Yes Status: Acute - Time Spent with Patient Total time spent is greater than 50% in coordination of care (as documented) at patient's floor/unit and/or counseling patient: Internal Medicine: Result - Labs CBC & Chem 7: 05/21/18 06:09 05/21/18 06:09 Labs: Short CBC 05/21/18 Range/Units 06:09 WBC 13.5 H (4.3-11.1) K/mcL Hgb 10.2 L D (12.9-16.9) g/dL Hct 30.0 L (37.5-50.1) % Plt Count 169 (140-400) K/mcL Neutrophils # 9.3 H (1.6-8.9) K/mcL BMP 05/21/18 06:09 Sodium 134 L Potassium 3.7 Chloride 101 Carbon Dioxide 25 BUN 26 H Creatinine 1.05 Glucose 168 H Calcium 8.4 L - ABG Interpretation ABG results: PT/INR, D-dimer PT 14.6 Seconds (9.4-12.1) H 05/19/18 21:55 Consult Discharge Plan - Plan Referrals: Alison Nolasco, LOGISTICS INTERN [Primary Care Provider] - (1) Sepsis Qualifiers: Sepsis type: Escherichia coli Qualified Code(s): A41.51 - Sepsis due to Escherichia coli [E. coli] (2) Hypertension Qualifiers: Hypertension type: essential hypertension Qualified Code(s): I10 - Essential (primary) hypertension (3) Hyperlipidemia Qualifiers: Hyperlipidemia type: unspecified Qualified Code(s): E78.5 - Hyperlipidemia, unspecified (7) CAD (coronary artery disease) of artery bypass graft Qualifiers: Qualified Code(s): I25.810 - Atherosclerosis of coronary artery bypass graft(s) without angina pectoris
--- NOTE | 2018-05-21 13:21 | Podiatry Progress Note ---
Date of Encounter: 05/21/18 Time of Encounter: 12:00 - Assessment and Plan (1) Diabetic foot infection Current Visit: Yes Status: Acute s/p Dressing removed, packing removed, wound flushed, painted with skin prep, repacked and bulk dressing replaced at bedside Continue current antibiotic therapy- ID on board- blood and surgical cultures pending Preliminary wound cultures showing group B strep Per ID Continue Vancomycin IV. Pharmacy to dose. Goal trough ~15. - Continue Zosyn 3.375 grams IV Q8H. Will plan for return to OR with on for re-washout and possible closure of surgical wound Discussed plan with patient-verbalized understanding Patient will be NPO after midnight on Sunday Elevate RLE, NWB to RLE at this time, limited pivot to heel only if patient unstable Tight glucose control to promote healing and limit complications. (2) Gas gangrene Current Visit: Yes Status: Acute Subjective Interval history: POD #1 s/p Incision and drainage right foot right 4th partial ray amputation per Patient resting comfortably in bed on arrival. Family at bedside Denies any pain- patient is neuropathic Denies any fevers, chills, n/v or fls Dressing to LLE CDI Patient denies any calf pain or sob Objective - Vital Signs Vital Signs: Vital Signs Temp Pulse Resp BP Pulse Ox 05/21/18 10:39 98.5 F 86 16 113/53 95 05/21/18 08:02 98.5 F 73 16 96/58 93 05/21/18 04:37 97/62 05/21/18 03:49 98.4 F 73 15 78/44 95 05/20/18 19:24 99.3 F 86 15 102/58 93 05/20/18 14:05 99.9 F H 91 18 101/62 95 Intake and Output 05/20/18 05/21/18 05/21/18 23:59 07:59 15:59 Intake Total 340 / 340 100 / 100 710 / 710 Output Total 0 / 0 150 / 150 350 / 350 Balance 340 / 340 -50 / -50 360 / 360 Intake: IV Fluids 100 / 100 100 / 100 350 / 350 Zosyn 3.375 GM In 0.9 % Sodium 100 / 100 100 / 100 100 / 100 Chloride (Mini-Bag +) 100 ML @ 25 mls/hr IVPB Q8H [facility] Rx#: [id number] Vancocin 1,500 MG In 0.9 % 250 / 250 Sodium Chloride 250 ML @ 166.67 mls/hr IVPB Q24H [facility] Rx#: [id number] Oral 240 / 240 0 / 0 360 / 360 Output: Urine 0 / 0 150 / 150 350 / 350 Other: Meal Dinner Breakfast Percent of Meal Consumed 100% 50% Weight 103.3 kg Blood Glucose* 253 175 Patient Weight 05/21/18 23:59 Weight 103.3 kg - Exam Exam: Awake alert and oriented Pulses palpable DP/PT Warm toes to tibia No calf pain with manual compression Edema, erythema and warmth remain consistent with cellulitis of the right foot, dorsal aspect S/p I&D right foot and amputation of 4th digit Packing removed Retention sutures in place scant bloody drainage noted on packing No purulent drainage No odor Appears to be healing as expected Will need closure at a later date There is slight maceration surrounding surgical incision of the plantar aspect of the foot No necrosis of tissue noted Muscle strength4/5 patient has minimal dorsalflexion of the right foot- reports it has been that way for years Patient is neuropathic- no sensation to light or moderate touch - Lab Result Diagrams: 05/23/18 09:51 05/23/18 09:51 Labs: Abnormal lab results WBC 13.5 K/mcL (4.3-11.1) H 05/21/18 06:09 RBC 3.36 M/mcL (4.19-5.50) L 05/21/18 06:09 Hgb 10.2 g/dL (12.9-16.9) L D 05/21/18 06:09 Hct 30.0 % (37.5-50.1) L 05/21/18 06:09 Neutrophils # 9.3 K/mcL (1.6-8.9) H 05/21/18 06:09 PT 14.6 Seconds (9.4-12.1) H 05/19/18 21:55 Sodium 134 mEq/L (136-145) L 05/21/18 06:09 BUN 26 mg/dL (8-23) H 05/21/18 06:09 Glucose 168 mg/dL (70-105) H 05/21/18 06:09 POC Glucose 253 mg/dL (70-99) H 05/20/18 20:50 Calcium 8.4 mg/dL (8.6-10.3) L 05/21/18 06:09 Phosphorus 1.6 mg/dL (2.7-4.5) L 05/19/18 21:55 Magnesium 1.4 mg/dL (1.6-2.6) L 05/19/18 21:55 AST 11 Units/L (13-39) L 05/19/18 21:55 Globulin 3.6 g/dL (2.4-3.5) H 05/19/18 21:55 Urine Clarity Turbid (Clear) A 05/19/18 22: Urine Protein 30 mg/dL (Neg-Trace) H 05/19/18 22: Urine Glucose (UA) 100 mg/dL (Normal) H 05/19/18 22: Urine Ketones Trace mg/dL (Negative) H 05/19/18 22:27 Urine Blood Small (Negative) H 05/19/18 22:27 Urine Nitrite Positive (Negative) A 05/19/18 22:27 Ur Leukocyte Esterase Large (Negative) H 05/19/18 22:27 Urine Microscopic RBC 5-15 per hpf (0-3) H 05/19/18 22:27 Urine Microscopic WBC TNTC per hpf (0-3) H 05/19/18 22:27 Ur Squamous Epith Cells Moderate per lpf (None-Few) H 05/19/18 22:27 Urine Bacteria Many per hpf (None-Few) H 05/19/18 22:27 Ur Culture Indicated? YES (NO) A 05/19/18 22:27 Microbiology, Last 48 Hours 05/20/18 06:45 Surgical Biopsy Culture - Preliminary Right Fourth Toe Strep agalactiae - (Group B) 05/20/18 06:45 Wound Culture - Preliminary Right Foot Strep agalactiae - (Group B) 05/20/18 06:45 Surgical Biopsy Culture - Preliminary Right Fourth Toe Strep agalactiae - (Group B) 05/19/18 22:27 Urine Culture - Preliminary Urine,Clean Catch Gram Negative Antonio 05/20/18 06:45 Gram Stain - Final Right Foot 05/19/18 21:46 Blood Culture - Preliminary Peripheral Venipuncture Culture is incubating and being continuously monitored for growth. Final report to follow. 11/25/18 21:55 Blood Culture - Preliminary Peripheral Venipuncture Culture is incubating and being continuously monitored for growth. Final report to follow. Consult Discharge Plan - Plan Referrals: Alison Nolasco CNP [Primary Care Provider] -
[2018-05-21 13:52] LABS: Acinetobacter baumannii by PCR Not Detected (Not Detect); Candida albicans by PCR Not Detected (Not Detect); Candida glabrata by PCR Not Detected (Not Detect); Candida krusei by PCR Not Detected (Not Detect); Candida parapsilosis by PCR Not Detected (Not Detect); Candida tropicalis by PCR Not Detected (Not Detect); Enterobacter cloacae Cmplx PCR Not Detected (Not Detect); Enterobacteriaceae by PCR Not Detected (Not Detect); Enterococcus by PCR Not Detected (Not Detect); Escherichia coli by PCR Not Detected (Not Detect); Klebsiella oxytoca by PCR Not Detected (Not Detect); Klebsiella pneumoniae by PCR Not Detected (Not Detect); Proteus by PCR Not Detected (Not Detect); Pseudomonas aeruginosa by PCR Not Detected (Not Detect); Serratia marcescens by PCR Not Detected (Not Detect); Staphylococcus aureus by PCR Not Detected (Not Detect); Staphylococcus by PCR Not Detected (Not Detect); Streptococcus agalactiae(B)PCR Not Detected (Not Detect); Streptococcus by PCR Not Detected (Not Detect); Streptococcus pneumoniae PCR Not Detected (Not Detect); Streptococcus pyogenes (A) PCR Not Detected (Not Detect)
--- NOTE | 2018-05-21 14:17 | Internal Med Progress Note ---
<Jodi Yeager - Last Filed: 05/21/18 14:37> Hospitalist Progress Note - Encounter Date of Encounter: 05/21/18 Time of Encounter: 09:25 - Exam Vitals: Temp Pulse Resp BP Pulse Ox 98.5 F 86 16 113/53 95 05/21/18 10:39 05/21/18 10:39 05/21/18 10:39 05/21/18 10:39 05/21/18 10:39 - Assessment and Plan (1) Sepsis Current Visit: No Status: Resolved (2) Hypertension Current Visit: No Status: Chronic (3) Hyperlipidemia Current Visit: No Status: Chronic (4) DVT prophylaxis Current Visit: No Status: Acute (5) History of pulmonary embolus (PE) Current Visit: No Status: Chronic (6) Non-insulin dependent type 2 diabetes mellitus Current Visit: No Status: Chronic (7) CAD (coronary artery disease) of artery bypass graft Current Visit: No Status: Chronic (8) Diabetic foot infection Current Visit: Yes Status: Acute (9) Gas gangrene Current Visit: Yes Status: Acute - Time Spent with Patient Total time spent is greater than 50% in coordination of care (as documented) at patient's floor/unit and/or counseling patient: Internal Medicine: Result - Labs CBC & Chem 7: 05/21/18 06:09 05/21/18 06:09 Labs: Short CBC 05/21/18 Range/Units 06:09 WBC 13.5 H (4.3-11.1) K/mcL Hgb 10.2 L D (12.9-16.9) g/dL Hct 30.0 L (37.5-50.1) % Plt Count 169 (140-400) K/mcL Neutrophils # 9.3 H (1.6-8.9) K/mcL BMP 05/21/18 06:09 Sodium 134 L Potassium 3.7 Chloride 101 Carbon Dioxide 25 BUN 26 H Creatinine 1.05 Glucose 168 H Calcium 8.4 L - ABG Interpretation ABG results: PT/INR, D-dimer PT 14.6 Seconds (9.4-12.1) H 05/19/18 21:55 Consult Discharge Plan - Plan Referrals: Alison Nolasco, [employer]ANCH OFFICE MANAGER [Primary Care Provider] - - Attending Attestation I saw evaluated and examined this patient and my medical decision-making was reviewed with the Resident Physician, Yelena Vargas. I agree with the documented findings, disposition and treatment plan as described except to any changes set forth below. We independently had [id number] contact with the patient. Patient is sitting up in bed. Feels better overall. Pain is controlled in right foot. Underwent surgery with right fourth partial ray amputation yesterday. No fevers or chills reported overnight. No other new complaints reported. Patient is awake and alert and oriented 3. S1 and S2 normal. Abdomen is soft, nontender. Breath sounds are normal. Right foot is currently bandaged. 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 Postop day 1. Wound cultures growing group B strep. One set of blood culture also positive for gram-positive cocci. Urine culture positive for gram-negative rods. Patient is on Zosyn and vancomycin at this time. We will repeat blood cultures. Follow infectious disease and podiatry recommendations. Patient may need echocardiogram prior to discharge. Diabetes mellitus type 2: Blood sugars are better controlled. Continue current insulin regimen and diabetic diet. Coronary artery disease status post bypass graft: Continue aspirin, metoprolol and Zocor. Moderate risk for complications. <Yelena Vargas P - Last Filed: 05/21/18 16:36> Hospitalist Progress Note - Encounter Date of Encounter: 05/21/18 Time of Encounter: 10:00 - Subjective Interval History: This 77 years old male with past medical history of hypertension, diabetes, hyperlipidemia stay up for CABG x4, post colectomy admitted to our facility yesterday for discharging right foot ulcer. Today is of 2nd day of admission. The patient was taken to the OR for incision and drainage of infected and tyrese grenous foot, partial Ray amputation of right 4th digit was done and admitted with IV antibiotics. During my bedside visit today, this and was lying comfortably on the bed, he stated that the pain is most less than before, he does not have fresh complaints today. He admitted swelling, redness and pain in right foot but it has been better than before. He is on Zosyn and vancomycin, we will review our antibiotic after receive of pus c/s report. The patient will undergo debridement on coming by podiatric doctor. His today's vital signs temperature 98.4, blood pressure 96/58, pulse 73 His latest lab reports WBC 13.5 and neutrophil 9.3( it was 17.4 and 14.4 respectively yesterday), sodium 134, potassium 4.4, lactic acid 1.5, glucose 168, calcium 8.4, lactate 1.5, The wound culture/ pus culture report shows Streptococcus agalactie. The sensitivity report has been awaited. - Exam Vitals: Temp Pulse Resp BP Pulse Ox 98.5 F 86 16 113/53 95 05/21/18 10:39 05/21/18 10:39 05/21/18 10:39 05/21/18 10:39 05/21/18 10:39 Exam: General appearance: cooperative, no acute distress, obese - Head Head exam: Present: atraumatic, normal inspection, normocephalic - Eye Eye exam: Present: EOMI, normal appearance, PERRL Pupils: Present: normal accommodation - ENT ENT exam: Present: mucous membranes moist - Neck Neck exam: Present: normal inspection - Respiratory Respiratory exam: Present: CTAB. Absent: rales, respiratory distress, rhonchi, wheezes - Cardiovascular Cardiovascular exam: Present: RRR, +S1, +S2 - GI/Abdominal GI/Abdominal exam: Present: distended (obese), normal bowel sounds, soft. Absent: tenderness - Extremities Exam Extremities exam: Absent: normal inspection (Right foot postop dressing with small amount shattered drainage noted. Erythema noted to the right lower extremity to the middle colón), pedal edema, tenderness - Neurological Exam Neurological exam: Present: alert, oriented X3, no focal deficits - Psychiatric Psychiatric exam: Present: normal affect, normal mood - Skin Skin exam: Present: dry, intact, normal color, warm - Assessment and Plan (1) Diabetic foot infection Current Visit: Yes Status: Acute Assessment and Plan: Patient with reported foul drainage of foot , he is a patient of diabetes for long time. Podiatry consulted and patient was taken to the OR for incision and drainage and cultures pending The podiatric doctor did partial ray amputation of fourth digit right foot. Continue IV vancomycin and IV Zosyn, we will follow-up pulse culture report and will revise antibiotic is per culture sensitivity report and infectious disease opinion. Infectious disease following and appreciate recommendations Revision debridement surgery by podiatric doctor has been planned for . The wound culture report shows Streptococcus agalactie an sensitivity awaited. (2) Sepsis Current Visit: No Status: Resolved Assessment and Plan: Patient met SIRS criteria on admission with low-grade fever, tachypnea and leukocytosis with a source of infection. Patient also had an elevated lactic acid which is now resolved. His lactate level is 1.5, leukocyte count has been dropped to 13.5, pulse 73, temperature 98.4. Continue IV fluids and IV antibiotics as above He is not septic after admission. (3) Non-insulin dependent type 2 diabetes mellitus Current Visit: No Status: Chronic Assessment and Plan: Will hold patient's metformin and glimepiride and cover with slight scale insulin We are closely monitoring his blood sugar level with insulin. His latest blood sugar is 168, POC glucose 287. He is on detemir and Humalog insulin. (4) Hypertension Current Visit: No Status: Chronic Assessment and Plan: Continue lisinopril/HCTZ and beta marquise The latest blood pressure is 96 /58 We will hold blood pressure medication if blood pressures drops to below 90. (5) Hyperlipidemia Current Visit: No Status: Chronic (6) DVT prophylaxis Current Visit: No Status: Acute (7) History of pulmonary embolus (PE) Current Visit: No Status: Chronic (8) CAD (coronary artery disease) of artery bypass graft Current Visit: No Status: Chronic (9) Gas gangrene Current Visit: Yes Status: Acute - Time Spent with Patient Total time spent is greater than 50% in coordination of care (as documented) at patient's floor/unit and/or counseling patient: Internal Medicine: Result - Labs CBC & Chem 7: 05/21/18 06:09 05/21/18 06:09 Labs: Short CBC 05/21/18 Range/Units 06:09 WBC 13.5 H (4.3-11.1) K/mcL Hgb 10.2 L D (12.9-16.9) g/dL Hct 30.0 L (37.5-50.1) % Plt Count 169 (140-400) K/mcL Neutrophils # 9.3 H (1.6-8.9) K/mcL BMP 05/21/18 06:09 Sodium 134 L Potassium 3.7 Chloride 101 Carbon Dioxide 25 BUN 26 H Creatinine 1.05 Glucose 168 H Calcium 8.4 L - ABG Interpretation ABG results: PT/INR, D-dimer PT 14.6 Seconds (9.4-12.1) H 05/19/18 21:55 <Jodi Yeager - Last Filed: 05/21/18 14:37> (1) Sepsis Qualifiers: Sepsis type: Escherichia coli Qualified Code(s): A41.51 - Sepsis due to Escherichia coli [E. coli] (2) Hypertension Qualifiers: Hypertension type: essential hypertension Qualified Code(s): I10 - Essential (primary) hypertension (3) Hyperlipidemia Qualifiers: Hyperlipidemia type: unspecified Qualified Code(s): E78.5 - Hyperlipidemia, unspecified (7) CAD (coronary artery disease) of artery bypass graft Qualifiers: Qualified Code(s): I25.810 - Atherosclerosis of coronary artery bypass graft(s) without angina pectoris <Yelena Vargas - Last Filed: 05/21/18 16:36> (2) Sepsis Qualifiers: Sepsis type: Escherichia coli Qualified Code(s): A41.51 - Sepsis due to Escherichia coli [E. coli] (4) Hypertension Qualifiers: Hypertension type: essential hypertension Qualified Code(s): I10 - Essential (primary) hypertension (5) Hyperlipidemia Qualifiers: Hyperlipidemia type: unspecified Qualified Code(s): E78.5 - Hyperlipidemia, unspecified (8) CAD (coronary artery disease) of artery bypass graft Qualifiers: Qualified Code(s): I25.810 - Atherosclerosis of coronary artery bypass graft(s) without angina pectoris
[2018-05-21 17:32] LABS: BUN/Creatinine Ratio 23 (6-26); Blood Urea Nitrogen 26 mg/dL (8-23); Calcium 8.4 mg/dL (8.6-10.3); Carbon Dioxide 27 mEq/L (23-29); Chloride 102 mEq/L (98-107); Glucose 308 mg/dL (70-105); Osmolality,Calculated 296 (280-300); Potassium 4.2 mEq/L (3.5-5.1); Sodium 135 mEq/L (136-145); eGFR For Non-African Americans > 60 (> 60)
--- NOTE | 2018-05-21 17:35 | Infectious Disease Progress No ---
Date of Encounter: 05/21/18 Time of Encounter: 17:33 - Assessment and Plan (1) Sepsis Current Visit: No Status: Resolved he patient had the SIRS criteria plus lactic acidosis on admission. Likely secondary to right foot infection and UTI. Blood cultures drawn 05/19/18 are pending x 2 sets. Recommendations: - Repeat labs (CBC and BMP). - Check ESR and CRP. - Await cultures (blood and surgery). - Wound care per the podiatry team. - Strict glucose control per the primary team. - Continue Vancomycin IV. Pharmacy to dose. Goal trough ~15. - Continue Zosyn 3.375 grams IV Q8H. - Duration of treatment depends on the clinical picture. - Monitor renal function and for drug toxicity and dose-adjust antibiotics. Qualifiers: Sepsis type: Escherichia coli Qualified Code(s): A41.51 - Sepsis due to Escherichia coli [E. coli] (2) Diabetic foot infection Current Visit: Yes Status: Acute Location: Right foot. Likely secondary to recent puncture wound to the foot. Causative organism: Unclear. Podiatry consulted and following. 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 Bae. Operative note reviewed. Purulence noted intra-op. Cultures growing group B streptococcus from 3 different sites right foot right fourth toe. Tomorrow if cultures do not change, consider switching the patient to penicillin or Rocephin. Antibiotic recommendations as above. (3) Gas gangrene Current Visit: Yes Status: Acute (4) UTI (urinary tract infection) Current Visit: Yes Status: Acute Cultures revealing gram-negative rods final ID pending. Qualifiers: Urinary tract infection type: site unspecified Hematuria presence: with hematuria Qualified Code(s): N39.0 - Urinary tract infection, site not sp ecified; R31.9 - Hematuria, unspecified (5) Non-insulin dependent type 2 diabetes mellitus Current Visit: No Status: Chronic (6) CAD (coronary artery disease) of artery bypass graft Current Visit: No Status: Chronic Qualifiers: Qualified Code(s): I25.810 - Atherosclerosis of coronary artery bypass graft(s) without angina pectoris (7) Bacteremia due to Gram-positive bacteria Current Visit: Yes Status: Acute 1 out of 2 sets from 05/19/2018 PCR did not medicinal plant picker any organisms so I am not sure if this is a contaminant Await cultures to finalize - Subjective Interval history: patient seen and examined. doing well clinically No chest pain no shortness of breath no cough. No diarrhea. No urinary symptoms good appetite. Had small bowel movement today. Vital signs reviewed afebrile and not tachycardic labs reviewed WBC continues to improve Infect Dis PN-Objective Data - Labs CBC & Chem 7: 05/21/18 06:09 05/21/18 16:50 Labs: Laboratory Results - last 24 hr 05/19/18 05/20/18 05/21/18 21:46 20:50 06:09 WBC 13.5 H RBC 3.36 L Hgb 10.2 L D Hct 30.0 L MCV 89.3 MCH 30.4 MCHC 34.0 RDW 13.1 Plt Count 169 MPV 9.7 Immature Gran % 0.8 Seg Neutrophils % 68.8 Lymphocytes % 21.9 Monocytes % 7.9 Eosinophils % 0.4 Basophils % 0.2 Neutrophils # 9.3 H Lymphocytes # 3.0 Monocytes # 1.1 Eosinophils # 0.1 Basophils # 0.0 Sodium Potassium Chloride Carbon Dioxide BUN Creatinine Est GFR ( Amer) Est GFR (Non-Af Amer) BUN/Creatinine Ratio Glucose POC Glucose 253 H Calculated Osmolality Calcium A. baumannii (PCR) Not Detected Clarissa albicans (PCR) Not Detected C. glabrata (PCR) Not Detected C. krusei (PCR) Not Detected C. parapsilosis (PCR) Not Detected C. tropicalis (PCR) Not Detected Enterobacteriac sp PCR Not Detected E. cloacae complex PCR Not Detected Enterococcus sp PCR Not Detected E. coli (PCR) Not Detected H. influenzae (PCR) Not Detected Klebsiella oxytoca PCR Not Detected Klebsiella pneumoniae Not Detected List. monocytogenes PCR Not Detected N. meningitidis (PCR) Not Detected Proteus species (PCR) Not Detected Serratia marcescens PCR Not Detected Staphylococcus sp PCR Not Detected Staph aureus (PCR) Not Detected mecA-Methicil Res Gene N/A Streptococcus sp PCR Not Detected Group A Strep DNA Not Detected Group B Strep (PCR) Not Detected Strep pneumoniae (PCR) Not Detected P. aeruginosa (PCR) Not Detected Catia/B-Vanco Res Genes N/A KPC (blaKPC) Detect PCR N/A 05/21/18 05/21/18 06:09 16:50 WBC RBC Hgb Hct MCV MCH MCHC RDW Plt Count MPV Immature Gran % Seg Neutrophils % Lymphocytes % Monocytes % Eosinophils % Basophils % Neutrophils # Lymphocytes # Monocytes # Eosinophils # Basophils # Sodium 134 L 135 L Potassium 3.7 4.2 Chloride 101 102 Carbon Dioxide 25 27 BUN 26 H 26 H Creatinine 1.05 1.11 Est GFR ( Amer) > 60 > 60 Est GFR (Non-Af Amer) > 60 > 60 BUN/Creatinine Ratio 25 23 Glucose 168 H 308 H POC Glucose Calculated Osmolality 287 296 Calcium 8.4 L 8.4 L A. baumannii (PCR) Clarissa albicans (PCR) C. glabrata (PCR) C. krusei (PCR) C. parapsilosis (PCR) C. tropicalis (PCR) Enterobacteriac sp PCR E. cloacae complex PCR Enterococcus sp PCR E. coli (PCR) H. influenzae (PCR) Klebsiella oxytoca PCR Klebsiella pneumoniae List. monocytogenes PCR N. meningitidis (PCR) Proteus species (PCR) Serratia marcescens PCR Staphylococcus sp PCR Staph aureus (PCR) mecA-Methicil Res Gene Streptococcus sp PCR Group A Strep DNA Group B Strep (PCR) Strep pneumoniae (PCR) P. aeruginosa (PCR) Catia/B-Vanco Res Genes KPC (blaKPC) Detect PCR Cultures: Cultures 05/21/18 15:21 Blood Culture - Preliminary Peripheral Venipuncture Culture is incubating and being continuously monitored for growth. Final report to follow. 05/21/18 15:24 Blood Culture - Preliminary Peripheral Venipuncture Culture is incubating and being continuously monitored for growth. Final report to follow. 05/19/18 21:46 Blood Culture - Preliminary Peripheral Venipuncture Gram Positive Cocci 05/19/18 21:55 Blood Culture - Preliminary Peripheral Venipuncture Culture is incubating and being continuously monitored for growth. Final report to follow. 05/20/18 06:45 Surgical Biopsy Culture - Preliminary Right Fourth Toe Strep agalactiae - (Group B) 05/20/18 06:45 Wound Culture - Preliminary Right Foot Strep agalactiae - (Group B) 05/20/18 06:45 Surgical Biopsy Culture - Preliminary Right Fourth Toe Strep agalactiae - (Group B) 05/19/18 22:27 Urine Culture - Preliminary Urine,Clean Catch Gram Negative Antonio 05/20/18 06:45 Gram Stain - Final Right Foot Serology 05/19/18 05/19/18 Range/Units 22:27 21:46 Urine Color Yellow (Yellow) Urine Clarity Turbid A (Clear) Urine pH 5.5 (5.0-8.0) pH Units Ur Specific [place] 1.012 (1.010-1.025) Urine Protein 30 H (Neg-Trace) mg/dL Urine Glucose (UA) 100 H (Normal) mg/dL Urine Ketones Trace H (Negative) mg/dL Urine Blood Small H (Negative) Urine Nitrite Positive A (Negative) Urine Bilirubin Negative (Negative) Urine Urobilinogen Normal (Normal) mg/dL Ur Leukocyte Esterase Large H (Negative) Urine Microscopic RBC 5-15 H (0-3) per hpf Urine Microscopic WBC TNTC H (0-3) per hpf Ur Squamous Epith Cells Moderate H (None-Few) per lpf Urine Bacteria Many H (None-Few) per hpf Hyaline Casts None Seen (None-Few) per lpf Ur Culture Indicated? YES A (NO) A. baumannii (PCR) Not Detected (Not Detect) Clarissa albicans (PCR) Not Detected (Not Detect) C. glabrata (PCR) Not Detected (Not Detect) C. krusei (PCR) Not Detected (Not Detect) C. parapsilosis (PCR) Not Detected (Not Detect) C. tropicalis (PCR) Not Detected (Not Detect) Enterobacteriac sp PCR Not Detected (Not Detect) E. cloacae complex PCR Not Detected (Not Detect) Enterococcus sp PCR Not Detected (Not Detect) E. coli (PCR) Not Detected (Not Detect) H. influenzae (PCR) Not Detected (Not Detect) Klebsiella oxytoca PCR Not Detected (Not Detect) Klebsiella pneumoniae Not Detected (Not Detect) List. monocytogenes PCR Not Detected (Not Detect) N. meningitidis (PCR) Not Detected (Not Detect) Proteus species (PCR) Not Detected (Not Detect) Serratia marcescens PCR Not Detected (Not Detect) Staphylococcus sp PCR Not Detected (Not Detect) Staph aureus (PCR) Not Detected (Not Detect) mecA-Methicil Res Gene N/A (Not Detect) Streptococcus sp PCR Not Detected (Not Detect) Group A Strep DNA Not Detected (Not Detect) Group B Strep (PCR) Not Detected (Not Detect) Strep pneumoniae (PCR) Not Detected (Not Detect) P. aeruginosa (PCR) Not Detected (Not Detect) Catia/B-Vanco Res Genes N/A (Not Detect) KPC (blaKPC) Detect PCR N/A (Not Detect) Exam - Constitutional Vitals: Temp Pulse Resp BP Pulse Ox 98.7 F 88 15 109/62 95 05/21/18 15:37 05/21/18 15:37 05/21/18 15:37 05/21/18 15:37 05/21/18 15:37 General appearance: no acute distress, no febrile - Head Head exam: Present: atraumatic, normocephalic - Cardiovascular Cardiovascular exam: Present: RRR, +S1 - GI/Abdominal GI/Abdominal exam: Present: normal bowel sounds, soft. Absent: tenderness - Extremities Exam Extremities exam: Present: normal inspection - Neurological Exam Neurological exam: Present: alert, oriented X3 - Skin Skin exam: Present: normal color. Absent: rash Consult Discharge Plan - Plan Referrals: Ailson Nolasco, FREIGHT ASSOCIATE [Primary Care Provider] -
[2018-05-22] MEDS: Piperacillin/Tazobactam 3.375 GM in 0.9 % Sodium Chloride Mini Bag 100 ML IVPB SCH ×3 (04:28→20:03)
[2018-05-22] MEDS: Gabapentin 300 MG CAPSULE PO SCH ×2 (08:41→21:11)
[2018-05-22] MEDS: Metoprolol XL (24 HR) Succ 50 MG TAB.ER.24H PO SCH (08:41)
[2018-05-22] MEDS: Aspirin Enteric Coated 81 MG Tablet PO SCH (08:41)
--- NOTE | 2018-05-22 08:44 | Internal Med Progress Note ---
<Jodi Yeager - Last Filed: 05/22/18 10:21> Hospitalist Progress Note - Encounter Date of Encounter: 05/22/18 Time of Encounter: 09:25 - Exam Vitals: Temp Pulse Resp BP Pulse Ox 98.0 F 83 18 110/63 94 05/22/18 10:08 05/22/18 10:08 05/22/18 10:08 05/22/18 10:08 05/22/18 10:08 - Assessment and Plan (1) Hypertension Current Visit: No Status: Chronic (2) Hyperlipidemia Current Visit: No Status: Chronic (3) DVT prophylaxis Current Visit: No Status: Acute (4) History of pulmonary embolus (PE) Current Visit: No Status: Chronic (5) Non-insulin dependent type 2 diabetes mellitus Current Visit: No Status: Chronic (6) CAD (coronary artery disease) of artery bypass graft Current Visit: No Status: Chronic (7) Diabetic foot infection Current Visit: Yes Status: Acute (8) Gas gangrene Current Visit: Yes Status: Acute - Time Spent with Patient Total time spent is greater than 50% in coordination of care (as documented) at patient's floor/unit and/or counseling patient: Internal Medicine: Result - Labs CBC & Chem 7: 05/22/18 08:55 05/22/18 08:55 Labs: Short CBC 05/22/18 Range/Units 08:55 WBC 11.6 H (4.3-11.1) K/mcL Hgb 11.1 L (12.9-16.9) g/dL Hct 32.4 L (37.5-50.1) % Plt Count 194 (140-400) K/mcL Neutrophils # 7.6 (1.6-8.9) K/mcL BMP 05/21/18 05/22/18 16:50 08:55 Sodium 135 L 134 L Potassium 4.2 4.2 Chloride 102 102 Carbon Dioxide 27 24 BUN 26 H 21 Creatinine 1.11 0.88 Glucose 308 H 246 H Calcium 8.4 L 9.0 - ABG Interpretation ABG results: PT/INR, D-dimer PT 14.6 Seconds (9.4-12.1) H 05/19/18 21:55 Consult Discharge Plan - Plan Referrals: Alison Nolasco, SHIPPING CLERK [Primary Care Provider] - - Attending Attestation I saw evaluated and examined this patient and my medical decision-making was reviewed with the Resident Physician, Yelena Vargas. I agree with the documented findings, disposition and treatment plan as described except to any changes set forth below. We independently had [id number] contact with the patient. Patient is lying down in bed. Denies any new complaints. Right foot pain is well controlled. No fevers or chills reported overnight. Tolerating diet well. Patient is awake and alert and oriented 3. S1 and S2 normal. Abdomen is soft, nontender. Breath sounds are normal. Right foot is currently bandaged. No. 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 Postop day 2. Wound cultures growing strep group B and also staph aureus presumed to be MRSA. 2 sets of blood cultures are positive for gram-positive cocci. Serology not positive. Continue Zosyn and vancomycin. Will get 2-D echocardiogram. Infectious diseases and podiatry following. Plan for repeat washout tomorrow in the OR. Repeat blood cultures have been sent yesterday. Acute urinary tract infection: Continue Zosyn. Urine cultures positive for gram-negative rods. Diabetes mellitus type 2: Blood sugars remain elevated. Placed patient on long- acting insulin. Continue to monitor closely. Coronary artery disease status post bypass graft: Continue aspirin, metoprolol and Zocor. Moderate risk for complications. <Yelena Vargas P - Last Filed: 05/22/18 14:49> Hospitalist Progress Note - Encounter Date of Encounter: 05/22/18 - Subjective Interval History: This 77 years old male with past medical history of hypertension, diabetes, hyperlipidemia stay up for CABG x4, post colectomy admitted to our facility yesterday for discharging right foot ulcer. Today is of 2nd day of admission. The patient was taken to the OR for incision and drainage of infected and gangrenous foot, partial Ray amputation of right 4th digit was done and admitted with IV antibiotics on 05/20/2018 . During my bedside visit today, this and was lying comfortably on the bed, he stated that the pain is less than before, he does not have any fresh complaints today. He admitted swelling, redness and pain in right foot but it has been better than before. He is on Zosyn and vancomycin on 3rd day . The patient will undergo debridement on coming by podiatric doctor. He will be on nothing by mouth by today's midnight. His today's vital signs temperature 99.2 blood pressure 121/66, pulse 77 His latest lab reports WBC 13.5 and neutrophil 9.3( it was 17.4 and 14.4 respectively yesterday), sodium 154, potassium 4.2, lactic acid 1.5, glucose 308, calcium 8.4, lactate 1.5. The wound culture/ pus culture report shows Streptococcus agalactie and MRSA . The sensitivity report has been awaited. - Exam Vitals: Temp Pulse Resp BP Pulse Ox 99.2 F 77 15 121/66 95 05/22/18 03:23 05/22/18 03:23 05/22/18 03:23 05/22/18 03:23 05/22/18 03:23 Exam: General appearance: cooperative, no acute distress, obese - Head Head exam: Present: atraumatic, normal inspection, normocephalic - Eye Eye exam: Present: EOMI, normal appearance, PERRL Pupils: Present: normal accommodation - ENT ENT exam: Present: mucous membranes moist - Neck Neck exam: Present: normal inspection - Respiratory Respiratory exam: Present: CTAB. Absent: rales, respiratory distress, rhonchi, wheezes - Cardiovascular Cardiovascular exam: Present: RRR, +S1, +S2 - GI/Abdominal GI/Abdominal exam: Present: distended (obese), normal bowel sounds, soft. Absent: tenderness - Extremities Exam Extremities exam: Absent: normal inspection (Right foot postop dressing with small amount shattered drainage noted. Erythema noted to the right lower extremity to the middle colón), pedal edema, tenderness - Neurological Exam Neurological exam: Present: alert, oriented X3, no focal deficits - Psychiatric Psychiatric exam: Present: normal affect, normal mood - Skin Skin exam: Present: dry, intact, normal color, warm - Assessment and Plan (1) Diabetic foot infection Current Visit: Yes Status: Acute Assessment and Plan: Patient with reported foul drainage of foot , he is a patient of diabetes for long time. Podiatry consulted and patient was taken to the OR for incision and drainage and cultures pending The podiatric doctor did partial ray amputation of fourth digit right foot. Continue IV vancomycin and IV Zosyn day . Wound culture report shows streptococcus atelectatic and will revise antibiotic is per culture sensitivity report and infectious disease opinion. Infectious disease following up him and appreciate recommendations Revision debridement surgery by podiatric doctor has been planned for . The wound culture report shows Streptococcus agalactie an sensitivity awaited. (2) Non-insulin dependent type 2 diabetes mellitus Current Visit: No Status: Chronic Assessment and Plan: Will hold patient's metformin and glimepiride and cover with slight scale insulin We are closely monitoring his blood sugar level with insulin. His latest blood sugar is 308, POC glucose 348. He is on detemir and Humalog insulin. We will adjust the dose of an insulin according to his blood sugar level today. (3) Hypertension Current Visit: No Status: Chronic Assessment and Plan: Continue lisinopril/HCTZ and beta marquise The latest blood pressure is 121/66 We will hold blood pressure medication if blood pressures drops to below 90. We will resume blood pressure medication after monitoring his blood pressure (4) Hyperlipidemia Current Visit: No Status: Chronic (5) DVT prophylaxis Current Visit: No Status: Acute Assessment and Plan: He is on Levonox 40 mg (6) History of pulmonary embolus (PE) Current Visit: No Status: Chronic (7) CAD (coronary artery disease) of artery bypass graft Current Visit: No Status: Chronic (8) Gas gangrene Current Visit: Yes Status: Acute - Time Spent with Patient Total time spent is greater than 50% in coordination of care (as documented) at patient's floor/unit and/or counseling patient: Internal Medicine: Result - Labs CBC & Chem 7: 05/22/18 08:55 05/22/18 08:55 Labs: BMP 05/21/18 16:50 Sodium 135 L Potassium 4.2 Chloride 102 Carbon Dioxide 27 BUN 26 H Creatinine 1.11 Glucose 308 H Calcium 8.4 L - ABG Interpretation ABG results: PT/INR, D-dimer PT 14.6 Seconds (9.4-12.1) H 05/19/18 21:55 <ShobhaJodi - Last Filed: 05/22/18 10:21> (1) Hypertension Qualifiers: Hypertension type: essential hypertension Qualified Code(s): I10 - Essential (primary) hypertension (2) Hyperlipidemia Qualifiers: Hyperlipidemia type: unspecified Qualified Code(s): E78.5 - Hyperlipidemia, unspecified (6) CAD (coronary artery disease) of artery bypass graft Qualifiers: Qualified Code(s): I25.810 - Atherosclerosis of coronary artery bypass graft(s) without angina pectoris <Yelena Vargas - Last Filed: 05/22/18 14:49> (3) Hypertension Qualifiers: Hypertension type: essential hypertension Qualified Code(s): I10 - Essential (primary) hypertension (4) Hyperlipidemia Qualifiers: Hyperlipidemia type: unspecified Qualified Code(s): E78.5 - Hyperlipidemia, unspecified (7) CAD (coronary artery disease) of artery bypass graft Qualifiers: Qualified Code(s): I25.810 - Atherosclerosis of coronary artery bypass graft(s) without angina pectoris
[2018-05-22] MEDS: Insulin LISPRO 300 UNITS/3 ML VIAL SQ SCH ×4 (08:45→21:12)
[2018-05-22 09:08] LABS: Basophils % 0.3 %; Eosinophils # 0.2 K/mcL (0.0-0.6); Eosinophils % 1.6 %; Hematocrit 32.4 % (37.5-50.1); Hemoglobin 11.1 g/dL (12.9-16.9); Lymphocytes # 2.7 K/mcL (0.6-4.6); Lymphocytes % 23.4 %; Mean Corpuscular HGB Conc 34.3 g/dL (31.6-35.5); Mean Corpuscular Hemoglobin 29.8 pg (28.0-33.3); Mean Corpuscular Volume 87.1 fL (83.0-100.0); Mean Platelet Volume 9.4 fL (9.4-12.4); Monocytes # 0.9 K/mcL (0.0-1.3); Monocytes % 8.1 %; Neutrophils # 7.6 K/mcL (1.6-8.9); Platelet Count 194 K/mcL (140-400); Red Blood Count 3.72 M/mcL (4.19-5.50); Red Cell Distribution Width 13.2 % (11.5-14.5); Segmented Neutrophils % 65.6 %
[2018-05-22 09:27] LABS: BUN/Creatinine Ratio 24 (6-26); Blood Urea Nitrogen 21 mg/dL (8-23); Carbon Dioxide 24 mEq/L (23-29); Chloride 102 mEq/L (98-107); Glucose 246 mg/dL (70-105); Osmolality,Calculated 289 (280-300); Potassium 4.2 mEq/L (3.5-5.1); Sodium 134 mEq/L (136-145); eGFR For Non-African Americans > 60 (> 60)
[2018-05-22] MEDS: Insulin DETEMIR 100 UNIT/ML X5UNITS SQ SCH ×2 (10:02→21:11)
[2018-05-22] MEDS: *HR* Enoxaparin 40 MG/0.4 ML SYRINGE SQ SCH (12:28)
--- NOTE | 2018-05-22 13:42 | Electrocardiograph Report ---
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
--- NOTE | 2018-05-22 14:18 | Podiatry Progress Note ---
Date of Encounter: 05/22/18 Time of Encounter: 12:00 - Assessment and Plan (1) Diabetic foot infection Current Visit: Yes Status: Acute s/p Dressing removed, packing removed, wound flushed, painted with skin prep, repacked and bulk dressing replaced at bedside Continue current antibiotic therapy- ID on board- blood and surgical cultures pending Preliminary wound cultures showing group B strep, MRSA and another gram positive cocci Patient has been placed in contact isolation Per ID Continue Vancomycin IV. Pharmacy to dose. Goal trough ~15. - Continue Zosyn 3.375 grams IV Q8H. Will plan for return to OR with on for re-washout and possible closure of surgical wound Discussed plan with patient-verbalized understanding Patient will be NPO after midnight on Sunday Elevate RLE, NWB to RLE at this time, limited pivot to heel only if patient unstable Tight glucose control to promote healing and limit complications. (2) Gas gangrene Current Visit: Yes Status: Acute Subjective Interval history: POD #2 s/p Incision and drainage right foot right 4th partial ray amputation per Patient resting comfortably in bed on arrival. Family at bedside Denies any pain- patient is neuropathic Denies any fevers, chills, n/v or fls Dressing to LLE CDI Patient denies any calf pain or sob Objective - Vital Signs Vital Signs: Vital Signs Temp Pulse Resp BP Pulse Ox 05/22/18 10:08 98.0 F 83 18 110/63 94 05/22/18 03:23 99.2 F 77 15 121/66 95 05/21/18 23:45 99.4 F 82 16 115/68 94 05/21/18 19:35 99 F 88 14 121/68 96 05/21/18 15:37 98.7 F 88 15 109/62 95 Intake and Output 05/21/18 05/22/18 05/22/18 23:59 07:59 15:59 Intake Total 720 / 720 100 / 100 760 / 760 Output Total 850 / 850 0 / 0 350 / 350 Balance -130 / -130 100 / 100 410 / 410 Intake: IV Fluids 100 / 100 100 / 100 Zosyn 3.375 GM In 0.9 % Sodium 100 / 100 100 / 100 Chloride (Mini-Bag +) 100 ML @ 25 mls/hr IVPB Q8H [facility] Rx#: [id number] Oral 720 / 720 0 / 0 660 / 660 Output: Urine 850 / 850 0 / 0 350 / 350 Other: Meal Dinner Lunch Percent of Meal Consumed 100% 85% # Bowel Movements 0 0 Weight 103.7 kg Blood Glucose* 348 330 Patient Weight 05/22/18 23:59 Weight 103.7 kg - Exam Exam: Awake alert and oriented Pulses palpable DP/PT Warm toes to tibia No calf pain with manual compression Edema, erythema and warmth remain consistent with cellulitis of the right foot, dorsal aspect however there is improvement in appearance of foot. S/p I&D right foot and amputation of 4th digit Packing removed Retention sutures in place scant bloody drainage noted on packing No purulent drainage No odor Appears to be healing as expected Will need closure pending surgical intervention tomorrow There is slight maceration surrounding surgical incision of the plantar aspect of the foot No necrosis of tissue noted Muscle strength4/5 patient has minimal dorsalflexion of the right foot- reports it has been that way for years Patient is neuropathic- no sensation to light or moderate touch - Lab Result Diagrams: 05/23/18 09:51 05/23/18 09:51 Labs: Abnormal lab results WBC 11.6 K/mcL (4.3-11.1) H 05/22/18 08:55 RBC 3.72 M/mcL (4.19-5.50) L 05/22/18 08:55 Hgb 11.1 g/dL (12.9-16.9) L 05/22/18 08:55 Hct 32.4 % (37.5-50.1) L 05/22/18 08:55 PT 14.6 Seconds (9.4-12.1) H 05/19/18 21:55 Sodium 134 mEq/L (136-145) L 05/22/18 08:55 Glucose 246 mg/dL (70-105) H 05/22/18 08:55 POC Glucose 210 mg/dL (70-99) H 05/22/18 08:39 Phosphorus 1.6 mg/dL (2.7-4.5) L 05/19/18 21:55 Magnesium 1.4 mg/dL (1.6-2.6) L 05/19/18 21:55 AST 11 Units/L (13-39) L 05/19/18 21:55 Globulin 3.6 g/dL (2.4-3.5) H 05/19/18 21:55 Urine Clarity Turbid (Clear) A 05/19/18 22: Urine Protein 30 mg/dL (Neg-Trace) H 05/19/18 22:27 Urine Glucose (UA) 100 mg/dL (Normal) H 05/19/18 22:27 Urine Ketones Trace mg/dL (Negative) H 05/19/18 22: Urine Blood Small (Negative) H 05/19/18 22: Urine Nitrite Positive (Negative) A 05/19/18 22:27 Ur Leukocyte Esterase Large (Negative) H 05/19/18 22:27 Urine Microscopic RBC 5-15 per hpf (0-3) H 05/19/18 22: Urine Microscopic WBC TNTC per hpf (0-3) H 05/19/18 22:27 Ur Squamous Epith Cells Moderate per lpf (None-Few) H 05/19/18 22: Urine Bacteria Many per hpf (None-Few) H 05/19/18 22:27 Ur Culture Indicated? YES (NO) A 05/19/18 22:27 Microbiology, Last 48 Hours 05/20/18 06:45 Surgical Biopsy Culture - Preliminary Right Fourth Toe Strep agalactiae - (Group B) Staphylococcus aureus Gram Positive Cocci 05/20/18 06:45 Wound Culture - Preliminary Right Foot Strep agalactiae - (Group B) Staphylococcus aureus Gram Positive Cocci 05/20/18 06:45 Surgical Biopsy Culture - Preliminary Right Fourth Toe Strep agalactiae - (Group B) Staphylococcus aureus Gram Positive Cocci 05/19/18 22:27 Urine Culture - Preliminary Urine,Clean Catch Escherichia coli 05/19/18 21:46 Blood Culture - Preliminary Peripheral Venipuncture Gram Positive Cocci 05/19/18 21:55 Blood Culture - Preliminary Peripheral Venipuncture Gram Positive Cocci 05/21/18 15:21 Blood Culture - Preliminary Peripheral Venipuncture Culture is incubating and being continuously monitored for growth. Final report to follow. 05/21/18 15:24 Blood Culture - Preliminary Peripheral Venipuncture Culture is incubating and being continuously monitored for growth. Final report to follow. 05/20/18 06:45 Gram Stain - Final Right Foot Consult Discharge Plan - Plan Referrals: Alison Nolasco, ENTRY REP [Primary Care Provider] -
[2018-05-22 17:00] LABS: BUN/Creatinine Ratio 20 (6-26); Blood Urea Nitrogen 21 mg/dL (8-23); Calcium 8.6 mg/dL (8.6-10.3); Carbon Dioxide 28 mEq/L (23-29); Chloride 102 mEq/L (98-107); Glucose 318 mg/dL (70-105); Osmolality,Calculated 299 (280-300); Potassium 4.4 mEq/L (3.5-5.1); Sodium 137 mEq/L (136-145); eGFR For Non-African Americans > 60 (> 60)
--- NOTE | 2018-05-22 17:13 | Infectious Disease Progress No ---
Date of Encounter: 05/22/18 Time of Encounter: 17:12 - Assessment and Plan (1) Sepsis Current Visit: No Status: Resolved he patient had the SIRS criteria plus lactic acidosis on admission. Likely secondary to right foot infection and UTI. Blood cultures drawn 05/19/18 are pending x 2 sets. Recommendations: - Repeat labs (CBC and BMP). - Check ESR and CRP. - Await cultures (blood and surgery). Blood cultures noted. I called Dr. aleman and they said that it is likely growing in the anaerobic culture Wound culture reviewed susceptibilities pending Urine culture reviewed - Wound care per the podiatry team. - Strict glucose control per the primary team. - Continue Vancomycin IV. Pharmacy to dose. Goal trough ~15. - Continue Zosyn 3.375 grams IV Q8H. - Duration of treatment depends on the clinical picture. - Monitor renal function and for drug toxicity and dose-adjust antibiotics. Qualifiers: Sepsis type: Escherichia coli Qualified Code(s): A41.51 - Sepsis due to Escherichia coli [E. coli] (2) Diabetic foot infection Current Visit: Yes Status: Acute Location: Right foot. Likely secondary to recent puncture wound to the foot. Causative organism: Unclear. Podiatry consulted and following. 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 Bae. Operative note reviewed. Purulence noted intra-op. Cultures growing group B streptococcus from 3 different sites right foot right fourth toe. Tomorrow if cultures do not change, consider switching the patient to penicillin or Rocephin. Antibiotic recommendations as above. (3) Gas gangrene Current Visit: Yes Status: Acute (4) UTI (urinary tract infection) Current Visit: Yes Status: Acute Cultures revealing gram-negative rods final ID pending. Qualifiers: Urinary tract infection type: site unspecified Hematuria presence: with hematuria Qualified Code(s): N39.0 - Urinary tract infection, site not specified; R31.9 - Hematuria, unspecified (5) Non-insulin dependent type 2 diabetes mellitus Current Visit: No Status: Chronic (6) CAD (coronary artery disease) of artery bypass graft Current Visit: No Status: Chronic Qualifiers: Qualified Code(s): I25.810 - Atherosclerosis of coronary artery bypass graft(s) without angina pectoris (7) Bacteremia due to Gram-positive bacteria Current Visit: Yes Status: Acute 1 out of 2 sets from 05/19/2018 PCR did not sisal picker any organisms so I am not sure if this is a contaminant Await cultures to finalize - Subjective Interval history: patient seen and examined. doing well clinically No chest pain no shortness of breath no cough. No diarrhea. No urinary symptoms good appetite. at bedside. Patient was transferred to get cleaned up. Vital signs reviewed afebrile and not tachycardic labs reviewed WBC continues to improve Blood cultures noted. I called Dr. aleman and they said that it is likely growing in the anaerobic culture Wound culture reviewed susceptibilities pending Urine culture reviewed Infect Dis PN-Objective Data - Labs CBC & Chem 7: 05/22/18 08:55 05/22/18 16:19 Labs: Laboratory Results - last 24 hr 05/20/18 05/21/18 05/21/18 16:12 08:04 11:21 WBC RBC Hgb Hct MCV MCH MCHC RDW Plt Count MPV Immature Gran % Seg Neutrophils % Lymphocytes % Monocytes % Eosinophils % Basophils % Neutrophils # Lymphocytes # Monocytes # Eosinophils # Basophils # Sodium Potassium Chloride Carbon Dioxide BUN Creatinine Est GFR ( Amer) Est GFR (Non-Af Amer) BUN/Creatinine Ratio Glucose POC Glucose 295 H 175 H 275 H Calculated Osmolality Calcium Vancomycin Trough 05/21/18 05/21/18 05/22/18 16:50 20:00 08:39 WBC RBC Hgb Hct MCV MCH MCHC RDW Plt Count MPV Immature Gran % Seg Neutrophils % Lymphocytes % Monocytes % Eosinophils % Basophils % Neutrophils # Lymphocytes # Monocytes # Eosinophils # Basophils # Sodium 135 L Potassium 4.2 Chloride 102 Carbon Dioxide 27 BUN 26 H Creatinine 1.11 Est GFR ( Amer) > 60 Est GFR (Non-Af Amer) > 60 BUN/Creatinine Ratio 23 Glucose 308 H POC Glucose 348 H 210 H Calculated Osmolality 296 Calcium 8.4 L Vancomycin Trough 05/22/18 05/22/18 05/22/18 08:55 08:55 08:55 WBC 11.6 H RBC 3.72 L Hgb 11.1 L Hct 32.4 L MCV 87.1 MCH 29.8 MCHC 34.3 RDW 13.2 Plt Count 194 MPV 9.4 Immature Gran % 1.0 Seg Neutrophils % 65.6 Lymphocytes % 23.4 Monocytes % 8.1 Eosinophils % 1.6 Basophils % 0.3 Neutrophils # 7.6 Lymphocytes # 2.7 Monocytes # 0.9 Eosinophils # 0.2 Basophils # 0.0 Sodium 134 L Potassium 4.2 Chloride 102 Carbon Dioxide 24 BUN 21 Creatinine 0.88 Est GFR ( Amer) > 60 Est GFR (Non-Af Amer) > 60 BUN/Creatinine Ratio 24 Glucose 246 H POC Glucose Calculated Osmolality 289 Calcium 9.0 Vancomycin Trough 8 05/22/18 16:19 WBC RBC Hgb Hct MCV MCH MCHC RDW Plt Count MPV Immature Gran % Seg Neutrophils % Lymphocytes % Monocytes % Eosinophils % Basophils % Neutrophils # Lymphocytes # Monocytes # Eosinophils # Basophils # Sodium 137 Potassium 4.4 Chloride 102 Carbon Dioxide 28 BUN 21 Creatinine 1.03 Est GFR ( Amer) > 60 Est GFR (Non-Af Amer) > 60 BUN/Creatinine Ratio 20 Glucose 318 H POC Glucose Calculated Osmolality 299 Calcium 8.6 Vancomycin Trough Cultures: Cultures 05/19/18 22:27 Urine Culture - Final Urine,Clean Catch Escherichia coli Strep agalactiae - (Group B) 05/20/18 06:45 Surgical Biopsy Culture - Preliminary Right Fourth Toe Strep agalactiae - (Group B) Staphylococcus aureus Gram Positive Cocci 05/20/18 06:45 Wound Culture - Preliminary Right Foot Strep agalactiae - (Group B) Staphylococcus aureus Gram Positive Cocci 05/20/18 06:45 Surgical Biopsy Culture - Preliminary Right Fourth Toe Strep agalactiae - (Group B) Staphylococcus aureus Gram Positive Cocci 05/19/18 21:46 Blood Culture - Preliminary Peripheral Venipuncture Gram Positive Cocci 05/19/18 21:55 Blood Culture - Preliminary Peripheral Venipuncture Gram Positive Cocci 05/21/18 15:21 Blood Culture - Preliminary Peripheral Venipuncture Culture is incubating and being continuously monitored for growth. Final report to follow. 05/21/18 15:24 Blood Culture - Preliminary Peripheral Venipuncture Culture is incubating and being continuously monitored for growth. Final report to follow. 05/20/18 06:45 Gram Stain - Final Right Foot Serology 05/19/18 05/19/18 Range/Units 22:27 21:46 Urine Color Yellow (Yellow) Urine Clarity Turbid A (Clear) Urine pH 5.5 (5.0-8.0) pH Units Ur Specific [place] 1.012 (1.010-1.025) Urine Protein 30 H (Neg-Trace) mg/dL Urine Glucose (UA) 100 H (Normal) mg/dL Urine Ketones Trace H (Negative) mg/dL Urine Blood Small H (Negative) Urine Nitrite Positive A (Negative) Urine Bilirubin Negative (Negative) Urine Urobilinogen Normal (Normal) mg/dL Ur Leukocyte Esterase Large H (Negative) Urine Microscopic RBC 5-15 H (0-3) per hpf Urine Microscopic WBC TNTC H (0-3) per hpf Ur Squamous Epith Cells Moderate H (None-Few) per lpf Urine Bacteria Many H (None-Few) per hpf Hyaline Casts None Seen (None-Few) per lpf Ur Culture Indicated? YES A (NO) A. baumannii (PCR) Not Detected (Not Detect) Clarissa albicans (PCR) Not Detected (Not Detect) C. glabrata (PCR) Not Detected (Not Detect) C. krusei (PCR) Not Detected (Not Detect) C. parapsilosis (PCR) Not Detected (Not Detect) C. tropicalis (PCR) Not Detected (Not Detect) Enterobacteriac sp PCR Not Detected (Not Detect) E. cloacae complex PCR Not Detected (Not Detect) Enterococcus sp PCR Not Detected (Not Detect) E. coli (PCR) Not Detected (Not Detect) H. influenzae (PCR) Not Detected (Not Detect) Klebsiella oxytoca PCR Not Detected (Not Detect) Klebsiella pneumoniae Not Detected (Not Detect) List. monocytogenes PCR Not Detected (Not Detect) N. meningitidis (PCR) Not Detected (Not Detect) Proteus species (PCR) Not Detected (Not Detect) Serratia marcescens PCR Not Detected (Not Detect) Staphylococcus sp PCR Not Detected (Not Detect) Staph aureus (PCR) Not Detected (Not Detect) mecA-Methicil Res Gene N/A (Not Detect) Streptococcus sp PCR Not Detected (Not Detect) Group A Strep DNA Not Detected (Not Detect) Group B Strep (PCR) Not Detected (Not Detect) Strep pneumoniae (PCR) Not Detected (Not Detect) P. aeruginosa (PCR) Not Detected (Not Detect) Catia/B-Vanco Res Genes N/A (Not Detect) KPC (blaKPC) Detect PCR N/A (Not Detect) - Impressions Impressions Echocardiogram 05/22/18 09:20 Impressions: Technically sub-optimal due to poor echocardiographic windows. LVEF 55%. Normal LV chamber size, wall thickness and function. Normal right ventricular structure and function. Indeterminate diastolic function. No evidence of pulmonary hypertension. No obvious significant valvular dysfunction. Left Ventricular Wall Motion: Rest Echo Findings All wall segments showed normal motion. Findings: Study Quality * Technically sub-optimal due to poor echocardiographic windows. ECG Findings * Atrial fibrillation. Left Ventricle * LVEF 55%. * Normal LV chamber size, wall thickness and function. * Indeterminate diastolic function. Right Ventricle * Normal right ventricular structure and function. Left Atrium * Mildly dilated left atrium. Right Atrium * Mildly dilated right atrium. Aortic Valve * Aortic valve not well visualized. * No aortic regurgitation. * No aortic stenosis. Mitral Valve * Mildly thickened mitral valve leaflets. * No mitral regurgitation. * No mitral stenosis. Tricuspid Valve * Normal tricuspid valve structure and function. * Trace tricuspid regurgitation. * No evidence of pulmonary hypertension. Pulmonic Valve * Pulmonic valve not well visualized. Aorta * Normally sized aortic root. Pericardium * The pericardium appears normal. IVC * Normal IVC dimensions and inspiratory collapse. Pulmonary Artery * Pulmonary artery not well visualized. Foot X-Ray 05/22/18 14:44 IMPRESSION: Interval amputation of the 4th metatarsal. D/ / Abhay Feng MD / Abhay Feng MD Interpreting Provider: Abhay Feng MD Exam - Constitutional Vitals: Temp Pulse Resp BP Pulse Ox 98.0 F 69 20 126/65 95 05/22/18 14:10 05/22/18 14:10 05/22/18 14:10 05/22/18 14:10 05/22/18 14:10 General appearance: cooperative, no acute distress, no febrile - Respiratory Respiratory exam: Present: CTAB. Absent: wheezes - Cardiovascular Cardiovascular exam: Present: RRR, +S1, +S2 - GI/Abdominal GI/Abdominal exam: Present: normal bowel sounds, soft. Absent: tenderness - Extremities Exam Extremities exam: Present: normal inspection. Absent: pedal edema Consult Discharge Plan - Plan Referrals: Alison Nolasco, CONTENT DEVELOPER [Primary Care Provider] -
[2018-05-23] MEDS: Piperacillin/Tazobactam 3.375 GM in 0.9 % Sodium Chloride Mini Bag 100 ML IVPB SCH ×3 (04:40→19:41)
[2018-05-23] MEDS: *HR* Enoxaparin 40 MG/0.4 ML SYRINGE SQ SCH (05:00)
[2018-05-23] MEDS ORDERED: Insulin DETEMIR 100 UNIT/ML X5UNITS SQ ONE (08:39)
[2018-05-23] MEDS: Metoprolol XL (24 HR) Succ 50 MG TAB.ER.24H PO SCH (08:55)
[2018-05-23] MEDS: Gabapentin 300 MG CAPSULE PO SCH ×2 (08:55→21:08)
[2018-05-23] MEDS: Aspirin Enteric Coated 81 MG Tablet PO SCH (08:55)
[2018-05-23] MEDS ORDERED: Insulin DETEMIR 100 UNIT/ML X5UNITS SQ SCH ×2 (09:00→21:00)
--- NOTE | 2018-05-23 09:28 | Infectious Disease Progress No ---
Date of Encounter: 05/23/18 Time of Encounter: 09:24 (.) - Assessment and Plan (1) Sepsis Current Visit: No Status: Resolved The patient had three SIRS criteria plus lactic acidosis on admission. Likely secondary to right foot infection and UTI. Blood cultures drawn 05/19/18 are positive x 2 sets for GPC, but PCR negative. Repeat blood cultures drawn 05/21/18 are NGTD x 2 sets. Recommendations: - Repeat labs (CBC and BMP). - Check ESR and CRP. - Await repeat blood cultures. - Await intra-op cultures to finalize. - Wound care per the podiatry team. - Strict glucose control per the primary team. - Continue Vancomycin IV. Pharmacy to dose. Goal trough ~15. - Continue Zosyn 3.375 grams IV Q8H. - Duration of treatment depends on the clinical picture. - Monitor renal function and for drug toxicity and dose-adjust antibiotics. - Contact precautions per protocol. - Consider bowel regimen since the patient has not had a BM since admission. Qualifiers: Sepsis type: Escherichia coli Qualified Code(s): A41.51 - Sepsis due to Escherichia coli [E. coli] (2) Bacteremia due to Gram-positive bacteria Current Visit: Yes Status: Acute Causative organism: Unclear. Blood cultures drawn 05/19/18 are positive 2/2 sets for GPC, but the PCR did not pickling grader anything. Likely anaerobic. Repeat blood cultures drawn 05/21/18 are NGTD. Continue antibiotics as above. (3) Diabetic foot infection Current Visit: Yes Status: Acute Location: Right foot. Likely secondary to recent puncture wound to the foot. Causative organism: MRSA, GBS, and GPC (pending identification). Podiatry consulted and following. 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 Bae. Operative note reviewed. Purulence noted intra-op. Planning for repeat washout today. Antibiotic recommendations as above. (4) Gas gangrene Current Visit: Yes Status: Acute (5) UTI (urinary tract infection) Current Visit: Yes Status: Acute Culture positive for E. coli and GBS. Antibiotic recommendations as above. Qualifiers: Urinary tract infection type: site unspecified Hematuria presence: with hematuria Qualified Code(s): N39.0 - Urinary tract infection, site not specified; R31.9 - Hematuria, unspecified (6) Non-insulin dependent type 2 diabetes mellitus Current Visit: No Status: Chronic (7) CAD (coronary artery disease) of artery bypass graft Current Visit: No Status: Chronic Qualifiers: Qualified Code(s): I25.810 - Atherosclerosis of coronary artery bypass graft(s) without angina pectoris - Subjective Interval history: Patient seen and examined. No acute events noted overnight. Patient is postop day 3 from I&D of the right foot and partial fourth ray amputation. Per the patient, he is going back to the operating room later today for repeat washout. He denies any acute complaints. Denies any fevers or chills or rigors. Denies chest pain, shortness of breath, or cough. Denies nausea, vomiting, diarrhea. He does report that he has not had a bowel movement since admission 4 days ago. He denies any abdominal pain or urinary complaints. States overall his appetite is good, but he is nothing by mouth at this time for surgery. He denies any pain at the surgical site or in his other joints or extremities. He denies any oral thrush or new skin lesions. Infect Dis PN-Objective Data - Labs CBC & Chem 7: 05/24/18 07:46 05/23/18 09:51 Labs: Laboratory Results - last 24 hr 05/21/18 05/22/18 05/22/18 15:47 08:55 08:55 Sodium 134 L Potassium 4.2 Chloride 102 Carbon Dioxide 24 BUN 21 Creatinine 0.88 Est GFR ( Amer) > 60 Est GFR (Non-Af Amer) > 60 BUN/Creatinine Ratio 24 Glucose 246 H POC Glucose 333 H Calculated Osmolality 289 Calcium 9.0 Vancomycin Trough 8 05/22/18 05/22/18 05/22/18 11:30 16:09 16:19 Sodium 137 Potassium 4.4 Chloride 102 Carbon Dioxide 28 BUN 21 Creatinine 1.03 Est GFR ( Amer) > 60 Est GFR (Non-Af Amer) > 60 BUN/Creatinine Ratio 20 Glucose 318 H POC Glucose 330 H 311 H Calculated Osmolality 299 Calcium 8.6 Vancomycin Trough Cultures: Cultures 05/19/18 21:55 Blood Culture - Preliminary Peripheral Venipuncture Gram Positive Cocci 05/19/18 21:46 Blood Culture - Preliminary Peripheral Venipuncture Gram Positive Cocci 05/20/18 06:45 Surgical Biopsy Culture - Preliminary Right Fourth Toe Strep agalactiae - (Group B) Staphylococcus aureus Gram Positive Cocci 05/19/18 22:27 Urine Culture - Final Urine,Clean Catch Escherichia coli Strep agalactiae - (Group B) 05/20/18 06:45 Surgical Biopsy Culture - Preliminary Right Fourth Toe Strep agalactiae - (Group B) Staphylococcus aureus Gram Positive Cocci 05/20/18 06:45 Wound Culture - Preliminary Right Foot Strep agalactiae - (Group B) Staphylococcus aureus Gram Positive Cocci 05/21/18 15:21 Blood Culture - Preliminary Peripheral Venipuncture Culture is incubating and being continuously monitored for growth. Final report to follow. 05/21/18 15:24 Blood Culture - Preliminary Peripheral Venipuncture Culture is incubating and being continuously monitored for growth. Final report to follow. 05/20/18 06:45 Gram Stain - Final Right Foot Serology 05/19/18 05/19/18 Range/Units 22:27 21:46 Urine Color Yellow (Yellow) Urine Clarity Turbid A (Clear) Urine pH 5.5 (5.0-8.0) pH Units Ur Specific [place] 1.012 (1.010-1.025) Urine Protein 30 H (Neg-Trace) mg/dL Urine Glucose (UA) 100 H (Normal) mg/dL Urine Ketones Trace H (Negative) mg/dL Urine Blood Small H (Negative) Urine Nitrite Positive A (Negative) Urine Bilirubin Negative (Negative) Urine Urobilinogen Normal (Normal) mg/dL Ur Leukocyte Esterase Large H (Negative) Urine Microscopic RBC 5-15 H (0-3) per hpf Urine Microscopic WBC TNTC H (0-3) per hpf Ur Squamous Epith Cells Moderate H (None-Few) per lpf Urine Bacteria Many H (None-Few) per hpf Hyaline Casts None Seen (None-Few) per lpf Ur Culture Indicated? YES A (NO) A. baumannii (PCR) Not Detected (Not Detect) Clarissa albicans (PCR) Not Detected (Not Detect) C. glabrata (PCR) Not Detected (Not Detect) C. krusei (PCR) Not Detected (Not Detect) C. parapsilosis (PCR) Not Detected (Not Detect) C. tropicalis (PCR) Not Detected (Not Detect) Enterobacteriac sp PCR Not Detected (Not Detect) E. cloacae complex PCR Not Detected (Not Detect) Enterococcus sp PCR Not Detected (Not Detect) E. coli (PCR) Not Detected (Not Detect) H. influenzae (PCR) Not Detected (Not Detect) Klebsiella oxytoca PCR Not Detected (Not Detect) Klebsiella pneumoniae Not Detected (Not Detect) List. monocytogenes PCR Not Detected (Not Detect) N. meningitidis (PCR) Not Detected (Not Detect) Proteus species (PCR) Not Detected (Not Detect) Serratia marcescens PCR Not Detected (Not Detect) Staphylococcus sp PCR Not Detected (Not Detect) Staph aureus (PCR) Not Detected (Not Detect) mecA-Methicil Res Gene N/A (Not Detect) Streptococcus sp PCR Not Detected (Not Detect) Group A Strep DNA Not Detected (Not Detect) Group B Strep (PCR) Not Detected (Not Detect) Strep pneumoniae (PCR) Not Detected (Not Detect) P. aeruginosa (PCR) Not Detected (Not Detect) Catia/B-Vanco Res Genes N/A (Not Detect) KPC (blaKPC) Detect PCR N/A (Not Detect) - Impressions Impressions Echocardiogram 05/22/18 09:20 Impressions: Technically sub-optimal due to poor echocardiographic windows. LVEF 55%. Normal LV chamber size, wall thickness and function. Normal right ventricular structure and function. Indeterminate diastolic function. No evidence of pulmonary hypertension. No obvious significant valvular dysfunction. Left Ventricular Wall Motion: Rest Echo Findings All wall segments showed normal motion. Findings: Study Quality * Technically sub-optimal due to poor echocardiographic windows. ECG Findings * Atrial fibrillation. Left Ventricle * LVEF 55%. * Normal LV chamber size, wall thickness and function. * Indeterminate diastolic function. Right Ventricle * Normal right ventricular structure and function. Left Atrium * Mildly dilated left atrium. Right Atrium * Mildly dilated right atrium. Aortic Valve * Aortic valve not well visualized. * No aortic regurgitation. * No aortic stenosis. Mitral Valve * Mildly thickened mitral valve leaflets. * No mitral regurgitation. * No mitral stenosis. Tricuspid Valve * Normal tricuspid valve structure and function. * Trace tricuspid regurgitation. * No evidence of pulmonary hypertension. Pulmonic Valve * Pulmonic valve not well visualized. Aorta * Normally sized aortic root. Pericardium * The pericardium appears normal. IVC * Normal IVC dimensions and inspiratory collapse. Pulmonary Artery * Pulmonary artery not well visualized. Foot X-Ray 05/22/18 14:44 IMPRESSION: Interval amputation of the 4th metatarsal. D/ / Abhay Feng MD / Abhay Feng MD Interpreting Provider: Abhay Feng MD Exam - Constitutional Vitals: Temp Pulse Resp BP Pulse Ox 98.1 F 64 16 104/68 95 05/23/18 06:41 05/23/18 06:41 05/23/18 06:41 05/23/18 06:41 05/23/18 06:41 General appearance: average body habitus, cooperative, no acute distress - Head Head exam: Present: atraumatic, normal inspection, normocephalic - Eye Eye exam: Present: EOMI, normal appearance, PERRL Pupils: Present: normal accommodation - ENT ENT exam: Present: mucous membranes moist - Neck Neck exam: Present: normal inspection - Respiratory Respiratory exam: Present: CTAB. Absent: rales, respiratory distress, rhonchi, wheezes - Cardiovascular Cardiovascular exam: Present: RRR, +S1, +S2 - GI/Abdominal GI/Abdominal exam: Present: normal bowel sounds, soft. Absent: distended, tenderness - Extremities Exam Extremities exam: Absent: joint swelling, normal inspection (Right foot dressing is clean, dry, and intact.), pedal edema, tenderness - Neurological Exam Neurological exam: Present: alert, oriented X3, no focal deficits - Psychiatric Psychiatric exam: Present: normal affect, normal mood - Skin Skin exam: Present: dry, intact, normal color, warm Consult Discharge Plan - Plan Referrals: Alison Nolasco, COMMISSION[employer]ICE OFFICER [Primary Care Provider] - - Attending Attestation I examined this patient and my medical decision-making was reviewed with the Resident Physician. I agree with the documented findings, disposition and treatment plan as described except to the extent set forth below.
--- NOTE | 2018-05-23 09:47 | Internal Med Progress Note ---
<Jodi Yeager - Last Filed: 05/23/18 14:00> Hospitalist Progress Note - Encounter Date of Encounter: 05/23/18 Time of Encounter: 08:45 - Exam Vitals: Temp Pulse Resp BP Pulse Ox 98.0 F 80 16 98/52 95 05/23/18 10:11 05/23/18 10:11 05/23/18 10:11 05/23/18 10:11 05/23/18 10:11 - Assessment and Plan (1) Hypertension Current Visit: No Status: Chronic (2) Hyperlipidemia Current Visit: No Status: Chronic (3) DVT prophylaxis Current Visit: No Status: Acute (4) History of pulmonary embolus (PE) Current Visit: No Status: Chronic (5) Non-insulin dependent type 2 diabetes mellitus Current Visit: No Status: Chronic (6) CAD (coronary artery disease) of artery bypass graft Current Visit: No Status: Chronic (7) Diabetic foot infection Current Visit: Yes Status: Acute (8) Gas gangrene Current Visit: Yes Status: Acute - Time Spent with Patient Total time spent is greater than 50% in coordination of care (as documented) at patient's floor/unit and/or counseling patient: Internal Medicine: Result - Labs CBC & Chem 7: 05/23/18 09:51 05/23/18 09:51 Labs: Short CBC 05/23/18 Range/Units 09:51 WBC 12.1 H (4.3-11.1) K/mcL Hgb 10.5 L (12.9-16.9) g/dL Hct 31.5 L (37.5-50.1) % Plt Count 235 (140-400) K/mcL Neutrophils # 7.8 (1.6-8.9) K/mcL BMP 05/22/18 05/23/18 16:19 09:51 Sodium 137 138 Potassium 4.4 4.0 Chloride 102 104 Carbon Dioxide 28 27 BUN 21 18 Creatinine 1.03 0.84 Glucose 318 H 126 H Calcium 8.6 8.6 - ABG Interpretation ABG results: PT/INR, D-dimer PT 14.6 Seconds (9.4-12.1) H 05/19/18 21:55 - Impressions Impressions Echocardiogram 05/22/18 09:20 Impressions: Technically sub-optimal due to poor echocardiographic windows. LVEF 55%. Normal LV chamber size, wall thickness and function. Normal right ventricular structure and function. Indeterminate diastolic function. No evidence of pulmonary hypertension. No obvious significant valvular dysfunction. Left Ventricular Wall Motion: Rest Echo Findings All wall segments showed normal motion. Findings: Study Quality * Technically sub-optimal due to poor echocardiographic windows. ECG Findings * Atrial fibrillation. Left Ventricle * LVEF 55%. * Normal LV chamber size, wall thickness and function. * Indeterminate diastolic function. Right Ventricle * Normal right ventricular structure and function. Left Atrium * Mildly dilated left atrium. Right Atrium * Mildly dilated right atrium. Aortic Valve * Aortic valve not well visualized. * No aortic regurgitation. * No aortic stenosis. Mitral Valve * Mildly thickened mitral valve leaflets. * No mitral regurgitation. * No mitral stenosis. Tricuspid Valve * Normal tricuspid valve structure and function. * Trace tricuspid regurgitation. * No evidence of pulmonary hypertension. Pulmonic Valve * Pulmonic valve not well visualized. Aorta * Normally sized aortic root. Pericardium * The pericardium appears normal. IVC * Normal IVC dimensions and inspiratory collapse. Pulmonary Artery * Pulmonary artery not well visualized. Foot X-Ray 05/22/18 14:44 IMPRESSION: Interval amputation of the 4th metatarsal. D/ / Abhay Feng MD / Abhay Feng MD Interpreting Provider: Abhay Feng MD Consult Discharge Plan - Plan Referrals: Alison Nolasco, TAILOR APPRENTICE [Primary Care Provider] - - Attending Attestation I saw evaluated and examined this patient and my medical decision-making was reviewed with the Resident Physician, Yelena Vargas. I agree with the documented findings, disposition and treatment plan as described except to any changes set forth below. We independently had [id number] contact with the patient. Patient is awake and alert. No new complaints at this time tolerating diet well but is nothing by mouth for planned surgery later today. No fevers or chills reported overnight. No nausea or vomiting. On exam, S1 and S2 normal. Abdomen is soft, nontender. Breath sounds are normal. Right foot is currently bandaged. No pedal edema. 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 Postop day 3. Scheduled for repeat washout today. Wound cultures growing MRSA, group B strep and another gram-positive cocci. Repeat blood cultures so far have not shown any growth. Initial set of blood cultures growing gram-positive cocci. Sero logy negative. Acute urinary tract infection: Urine culture growing Escherichia coli. Patient is currently on Zosyn. Diabetes mellitus type 2: Blood sugars remained elevated yesterday. We will inc rease insulin regimen. Continue diabetic diet after surgery. Coronary artery disease status post bypass graft: Continue aspirin, metoprolol and Zocor. Moderate risk for complications. <Yelena Vargas P - Last Filed: 05/23/18 14:39> Hospitalist Progress Note - Encounter Date of Encounter: 05/23/18 Time of Encounter: 09:00 - Subjective Interval History: This 77 years old male was admitted on 05/20/2018 for discharging right foot ulcer, he is patient of diabetes mellitus under insulin from long time. The podiatric doctor did partial ray amputation of right foot fourth digit. He is on Zyosin and vancomycin IV antibiotics x 4th day. The pus culture was positive for group B streptococci, Staphylococcus MRSA. The blood culture was positive for group B streptococci, the urine was positive for group B streptococci and gram-negative kavin. We have received culture and sensitivity report. Echocardiography done yesterday didn't show vegetation and valvular diseases, the ejection fraction was 55%. During my bedside visit just today, the patient was lying comfortably on the bed. He stated that he has been improved symptomatically, the pain is less, the swelling is less, no fever, no chest pain, no nausea and vomiting, no bowel or bladder problem. His vitals are stable: Blood pressure 104/68, temperature 98.1, pulse 95 His latest lab report: WBC 11.6, hemoglobin 11.1, sodium 137, potassium 4.4, BUN 21, creatinine 1.03, blood glucose 318, lactate 1.6. The podiatric doctor has planned to do revision debridement surgery at today evening. The infectious disease is on board. - Exam Vitals: Temp Pulse Resp BP Pulse Ox 98.1 F 64 16 104/68 95 05/23/18 06:41 05/23/18 06:41 05/23/18 06:41 05/23/18 06:41 05/23/18 06:41 Exam: General appearance: cooperative, no acute distress, obese - Head Head exam: Present: atraumatic, normal inspection, normocephalic - Eye Eye exam: Present: EOMI, normal appearance, PERRL Pupils: Present: normal accommodation - ENT ENT exam: Present: mucous membranes moist - Neck Neck exam: Present: normal inspection - Respiratory Respiratory exam: Present: CTAB. Absent: rales, respiratory distress, rhonchi, wheezes - Cardiovascular Cardiovascular exam: Present: RRR, +S1, +S2 - GI/Abdominal GI/Abdominal exam: Present: distended (obese), normal bowel sounds, soft. Absent: tenderness - Extremities Exam Extremities exam: Absent: normal inspection (Right foot postop dressing with small amount shattered drainage noted. Erythema noted to the right lower extremity to the middle colón), pedal edema, tenderness - Neurological Exam Neurological exam: Present: alert, oriented X3, no focal deficits - Psychiatric Psychiatric exam: Present: normal affect, normal mood - Skin Skin exam: Present: dry, intact, normal color, warm - Assessment and Plan (1) Diabetic foot infection Current Visit: Yes Status: Acute Assessment and Plan: Patient with reported foul drainage of foot , he is a patient of diabetes for long time. Podiatry consulted and patient was taken to the OR for incision and drainage The podiatric doctor did partial ray amputation of fourth digit right foot05/20 Continue IV vancomycin and IV Zosyn day Wound culture report shows streptococcus atelectatic and Staphylococcus /MRSA :will revise antibiotic is per infectious disease opinion. Other culture and sensitivity reports including anaerobic are still awaited. Infectious disease following up him and appreciate recommendations Revision debridement surgery by podiatric doctor has been planned for today. We have received culture sensitivity report, the antibiotic we are using is sensitive to organism. (2) Non-insulin dependent type 2 diabetes mellitus Current Visit: No Status: Chronic Assessment and Plan: Will hold patient's metformin and glimepiride and cover with slight scale insulin We are closely monitoring his blood sugar level with insulin. His latest blood sugar is 318, POC glucose 311. He is on detemir 30 BID and Humalog insulin. We will adjust the dose of an insulin according to his blood sugar level today. (3) Hypertension Current Visit: No Status: Chronic Assessment and Plan: Continue lisinopril/HCTZ and beta marquise The latest blood pressure is 104/68 We will hold blood pressure medication if blood pressures drops to below 90. We will resume blood pressure medication after monitoring his blood pressure (4) Hyperlipidemia Current Visit: No Status: Chronic (5) DVT prophylaxis Current Visit: No Status: Acute (6) History of pulmonary embolus (PE) Current Visit: No Status: Chronic (7) CAD (coronary artery disease) of artery bypass graft Current Visit: No Status: Chronic (8) Gas gangrene Current Visit: Yes Status: Acute - Time Spent with Patient Total time spent is greater than 50% in coordination of care (as documented) at patient's floor/unit and/or counseling patient: Internal Medicine: Result - Labs CBC & Chem 7: 05/23/18 09:51 05/23/18 09:51 Labs: BMP 05/22/18 16:19 Sodium 137 Potassium 4.4 Chloride 102 Carbon Dioxide 28 BUN 21 Creatinine 1.03 Glucose 318 H Calcium 8.6 - ABG Interpretation ABG results: PT/INR, D-dimer PT 14.6 Seconds (9.4-12.1) H 05/19/18 21:55 - Impressions Impressions Echocardiogram 05/22/18 09:20 Impressions: Technically sub-optimal due to poor echocardiographic windows. LVEF 55%. Normal LV chamber size, wall thickness and function. Normal right ventricular structure and function. Indeterminate diastolic function. No evidence of pulmonary hypertension. No obvious significant valvular dysfunction. Left Ventricular Wall Motion: Rest Echo Findings All wall segments showed normal motion. Findings: Study Quality * Technically sub-optimal due to poor echocardiographic windows. ECG Findings * Atrial fibrillation. Left Ventricle * LVEF 55%. * Normal LV chamber size, wall thickness and function. * Indeterminate diastolic function. Right Ventricle * Normal right ventricular structure and function. Left Atrium * Mildly dilated left atrium. Right Atrium * Mildly dilated right atrium. Aortic Valve * Aortic valve not well visualized. * No aortic regurgitation. * No aortic stenosis. Mitral Valve * Mildly thickened mitral valve leaflets. * No mitral regurgitation. * No mitral stenosis. Tricuspid Valve * Normal tricuspid valve structure and function. * Trace tricuspid regurgitation. * No evidence of pulmonary hypertension. Pulmonic Valve * Pulmonic valve not well visualized. Aorta * Normally sized aortic root. Pericardium * The pericardium appears normal. IVC * Normal IVC dimensions and inspiratory collapse. Pulmonary Artery * Pulmonary artery not well visualized. Foot X-Ray 05/22/18 14:44 IMPRESSION: Interval amputation of the 4th metatarsal. D/ / Abhay Feng MD / Abhay Feng MD Interpreting Provider: Abhay Feng MD <Jodi Yeager - Last Filed: 05/23/18 14:00> (1) Hypertension Qualifiers: Hypertension type: essential hypertension Qualified Code(s): I10 - Essential (primary) hypertension (2) Hyperlipidemia Qualifiers: Hyperlipidemia type: unspecified Qualified Code(s): E78.5 - Hyperlipidemia, unspecified (6) CAD (coronary artery disease) of artery bypass graft Qualifiers: Qualified Code(s): I25.810 - Atherosclerosis of coronary artery bypass graft(s) without angina pectoris <Yelena Vargas P - Last Filed: 05/23/18 14:39> (3) Hypertension Qualifiers: Hypertension type: essential hypertension Qualified Code(s): I10 - Essential (primary) hypertension (4) Hyperlipidemia Qualifiers: Hyperlipidemia type: unspecified Qualified Code(s): E78.5 - Hyperlipidemia, unspecified (7) CAD (coronary artery disease) of artery bypass graft Qualifiers: Qualified Code(s): I25.810 - Atherosclerosis of coronary artery bypass graft(s) without angina pectoris
[2018-05-23 10:18] LABS: Basophils % 0.2 %; Eosinophils # 0.3 K/mcL (0.0-0.6); Eosinophils % 2.1 %; Hematocrit 31.5 % (37.5-50.1); Hemoglobin 10.5 g/dL (12.9-16.9); Immature Granulocytes % 1.7 % (0-4); Lymphocytes # 2.9 K/mcL (0.6-4.6); Lymphocytes % 23.8 %; Mean Corpuscular HGB Conc 33.3 g/dL (31.6-35.5); Mean Corpuscular Hemoglobin 29.7 pg (28.0-33.3); Mean Platelet Volume 9.6 fL (9.4-12.4); Monocytes # 0.9 K/mcL (0.0-1.3); Monocytes % 7.5 %; Neutrophils # 7.8 K/mcL (1.6-8.9); Platelet Count 235 K/mcL (140-400); Red Blood Count 3.54 M/mcL (4.19-5.50); Red Cell Distribution Width 13.2 % (11.5-14.5); Segmented Neutrophils % 64.7 %
[2018-05-23 10:21] LABS: BUN/Creatinine Ratio 21 (6-26); Blood Urea Nitrogen 18 mg/dL (8-23); C-Reactive Protein 99 mg/L (Less than 10); Calcium 8.6 mg/dL (8.6-10.3); Carbon Dioxide 27 mEq/L (23-29); Chloride 104 mEq/L (98-107); Glucose 126 mg/dL (70-105); Osmolality,Calculated 289 (280-300); Sodium 138 mEq/L (136-145); eGFR For Non-African Americans > 60 (> 60)
[2018-05-23] MEDS ORDERED: Insulin LISPRO 300 UNITS/3 ML VIAL SQ SCH ×2 (12:00→18:00)
[2018-05-23] MEDS ORDERED: *HR* FentaNYL (PF) 100 MCG/2 ML VIAL ONE (14:27)
[2018-05-23] MEDS ORDERED: *HR* Propofol 200 MG/20 ML VIAL IVP ONE ×2 (14:28)
[2018-05-23] MEDS ORDERED: Lidocaine -MPF 2% 2 ML VIAL ONE (14:30)
[2018-05-23] MEDS ORDERED: Vancomycin 1,000 MG, 0.9 % Sodium Chloride 1,000 ML IR ONE ×2 (14:40→16:42)
--- NOTE | 2018-05-23 14:43 | Anesthesia Evaluation PreOp ---
Date of Encounter: 05/23/18 Time of Encounter: 14:45 - Past History Planned Operation: Rt Foot Washout/Closure Cardiac History: HTN, Hyperlipidemia, Cardiac Surgery (CABG 2004), Other (DVT PE 2016) Pulmonary History: Former smoker, COPD EHS SPECIALIST History: Denies Any Significant HX Other Medical History: Diabetes Type II Anesthesia History: No Prior Anesthetic Complications Alcohol Use: none Drug use: none Medications and Allergies Aspirin Enteric Coated [Aspirin EC] 81 mg PO DAILY 11/15/16 [History] Gabapentin [Neurontin] 600 mg PO QAM 11/15/16 [History] Glimepiride [Amaryl] 4 mg PO BID 11/15/16 [History] [place]-3/Dha/Epa/Fish Oil [Fish Oil 1,000 mg Softgel] 1,000 mg PO TID 11/15/16 [History] Pravastatin Sodium 10 mg PO HS 11/15/16 [History] metFORMIN [Glucophage] 1,000 mg PO BIDWM 11/15/16 [History] Gabapentin [Neurontin] 300 mg PO HS 11/20/16 [History] Ibuprofen [Motrin] 200 - 600 mg PO Q6HR PRN 11/20/16 [History] Lisinopril/Hydrochlorothiazide [Zestoretic 20-25 mg Tablet] 1 tab PO DAILY 11/20/16 [History] Metoprolol XL (24 HR) Succ [Toprol Xl] 50 mg PO DAILY 11/20/16 [History] Allergy/AdvReac Type Severity Reaction Status Date / Time codeine Allergy See Verified 10/31/17 11:48 [From Tylenol-Codeine #3] Comments - Meds/Allergy Pre-op Review Medications Reviewed: Yes Allergies Reviewed: Yes Beta Blockers on Current Med List: Yes (Metoprolol today 0855) Anesthesia Results - Labs 05/23/18 09:51 05/23/18 09:51 - Imaging EKG: report reviewed (SR) Additional studies: ECHO EF 55% Anesthesia Exam Height: 6'0 Weight: 227 lbs NPO (# of Hours): MN Pain Scale: 0 - HEENT Pupil (Motor): Pupils equal, EOMI Mallampati: II Teeth: Edentulous - EHS SPECIALIST LOC: Oriented EHS SPECIALIST Motor: Normal RUE, Normal LUE, Normal RLE, Normal LLE, Normal Face EHS SPECIALIST Sensory: Normal: RUE, LUE, RLE, LLE, Face - Cardiac Rhythm: Regular Murmur: None JVD: No Carotid Bruit: No - Pulmonary Breath Sounds: bilateral Clear Respiratory Effort: Symmetrical Anesthesia Assess/Plan ASA Score: 4 Level of consciousness: Cooperative Anesthetic Plan: MAC Autologous Blood: No Recovery Plan: PACU (Discussed MAC, possible GA, agrees to proceed)
[2018-05-23] MEDS ORDERED: *HR* Succinylcholine 200 MG/10 ML VIAL IVP ONE (15:16)
--- NOTE | 2018-05-23 16:14 | Operative Note ---
Date of procedure: 05/23/18 Pre-op diagnosis: right foot wound [id number] Post-op diagnosis: same Procedure: Repair of right foot wound washout of right foot wound application of PRP Implants: none Complications: none Anesthesia: MAC Surgeon: Vargas Bae Was there an delivery assistant present: No Estimated blood loss (cc): 20 Specimen: none Condition: stable Disposition: PACU Procedure in Detail: Indications: 77-year-old diabetic male who previously underwent incision and drainage of the right foot and partial right fourth ray amputation for gas gangrene being brought back to the operating room for washout and repair of ri ght foot surgical wound after having the nature of the procedure, risks versus benefits potential complications consequences of surgery and his condition. No guarantees made as to the outcome of any procedure or that he would not have a wound to heal. All of his questions have been answered and informed consent was signed patient was taken to the preoperative area to the operating room pleasant operating room table in supine position. No tourniquet was utilized during the entire procedure. Patient has neuropathy and no local anesthetic was required. The following procedure began after the right foot was scrubbed prepped and draped in the usual sterile fashion. Wash out of right foot, intermediate repair of right foot wound, application of PRP. Attention was directed to the patient's right foot where the pulse lavage with vancomycin in normal sterile saline was used to irrigate the right foot wound. A curet was then taken to debride the right foot wound until the internal base was completely granular. The site was irrigated again with the pulse lavage and upon reinspection no devitalized tissue was present. No purulence could be expressed, the patient's cellulitis had resolved and the wound was deemed adequate for closure. 2-0 Vicryl was used to close the subcutaneous and deep tissue and 0 Prolene and 2-0 Prolene was used to reapproximate the skin along the wound. PRP was injected into the right foot. The patient tolerated the anesthesia and the procedure well. Vital signs were stable and capillary refill time is intact to the remaining digits of the right foot. Xeroform placed over the closure and 4 x 4 in the interspace between the third and fifth digit. Sterile bandage was also applied and a loosely applied Marcelo wrap. Dorsum of the foot was adequately padded with an ABD and 4 x 4 gauze. Patient will return to the floor where he will continue IV antibiotics.
[2018-05-23] MEDS ORDERED: D5% in Water 1,000 ML IVC PRN (16:42)
[2018-05-23] MEDS ORDERED: Naloxone 0.4 MG/ML INJ IVP PRN (16:42)
[2018-05-23] MEDS ORDERED: Dextrose Gel 15 GM/37.5 ML TUBE PO PRN ×2 (16:42)
[2018-05-23] MEDS ORDERED: *HR* Dextrose 50 % in Water (Syg) 50 ML SYRINGE IVP PRN (16:42)
[2018-05-23] MEDS ORDERED: Lidocaine -MPF 1% 5 ML AMPUL INFILT ONE (16:57)
[2018-05-23] MEDS: Insulin DETEMIR 100 UNIT/ML X5UNITS SQ SCH (21:08)
[2018-05-23] MEDS: Insulin LISPRO 300 UNITS/3 ML VIAL SQ SCH (21:08)
[2018-05-24] MEDS: Piperacillin/Tazobactam 3.375 GM in 0.9 % Sodium Chloride Mini Bag 100 ML IVPB SCH ×3 (05:05→21:01)
[2018-05-24] MEDS: *HR* Enoxaparin 40 MG/0.4 ML SYRINGE SQ SCH (05:06)
[2018-05-24] MEDS ORDERED: Bacitracin 50,000 UNIT, Sodium Chloride IRRigation 1,000 ML IR ONE ×2 (06:00)
[2018-05-24] MEDS: Insulin LISPRO 300 UNITS/3 ML VIAL SQ SCH ×4 (08:10→20:51)
[2018-05-24 08:28] LABS: Basophils # 0.1 K/mcL (0.0-0.2); Basophils % 0.5 %; Eosinophils # 0.3 K/mcL (0.0-0.6); Eosinophils % 2.1 %; Hematocrit 31.3 % (37.5-50.1); Hemoglobin 10.3 g/dL (12.9-16.9); Immature Granulocytes % 1.9 % (0-4); Lymphocytes # 3.3 K/mcL (0.6-4.6); Lymphocytes % 24.1 %; Mean Corpuscular HGB Conc 32.9 g/dL (31.6-35.5); Mean Corpuscular Hemoglobin 29.7 pg (28.0-33.3); Mean Corpuscular Volume 90.2 fL (83.0-100.0); Mean Platelet Volume 9.4 fL (9.4-12.4); Monocytes % 7.5 %; Neutrophils # 8.6 K/mcL (1.6-8.9); Platelet Count 261 K/mcL (140-400); Red Blood Count 3.47 M/mcL (4.19-5.50); Red Cell Distribution Width 13.2 % (11.5-14.5); Segmented Neutrophils % 63.9 %
--- NOTE | 2018-05-24 08:39 | Internal Med Progress Note ---
<Shine Diggs - Last Filed: 05/24/18 08:37> Hospitalist Progress Note - Encounter Date of Encounter: 05/24/18 Time of Encounter: 08:37 - Subjective Interval History: 77-year-old male evaluated at bedside. Upon my examination, he was laying in bed comfortably sleeping. He denies nausea, vomiting, diarrhea, fever, chills, chest pain, shortness of breath. He denies any pain today. - Exam Vitals: Temp Pulse Resp BP Pulse Ox 98.4 F 67 18 103/65 95 05/24/18 07:12 05/24/18 07:12 05/24/18 07:12 05/24/18 07:12 05/24/18 07:12 Exam: General: alert and oriented x3, pleasant, no acute distress. answers questions appropriately. patient was laying in bed comfortably sleeping. CV: RRR, no murmurs, rubs, gallops. S1, S2 noted. No pedal edema. Respiratory: clear to auscultation bilaterally. no rales, wheezing, rhonchi noted. ABdomen: soft, non distended, non tender. bowel sounds present. patient has abdominal scars from prior surgeries. Extremities: Right lower extremity wrapped and bandaged. Left lower extremity shows no signs of cyanosis or edema. Skin: no rashes, lesions, or scars noted. - Assessment and Plan (1) Sepsis Current Visit: No Status: Resolved Assessment and Plan: low grade fever, HR>90, leukocytosis, lactic acid 2.8. Source of infection likely secondary to right foot infection, UTI. 05/19 B.C. x2 positive for GPC. 05/19 U.C. positive for E.Coli, Group B strep. 05/20 right foot wound culture positive for group B strep, staph aureus, MRSA. Repeat Blood culture from 05/21: no growth to date. On 05/20/18, patient underwent incision and drainage of right foot, right forth partial Ray amputation. On 05/23, patient went back to OR for right foot wound washout, application of PRP. Plan: intraop culttures from 05/23 pending appreciate infectious disease recommendations. wound care per podiatry team. continue vancomycin and zosyn per ID recommendations. discussed case with vascular access team: plan for PICC line today. possible discharge over weekend pending ID recs. (2) Bacteremia due to Gram-positive bacteria Current Visit: Yes Status: Acute Assessment and Plan: Plan as above (3) Diabetic foot infection Current Visit: Yes Status: Acute Assessment and Plan: Suspect secondary to puncture wound of the right foot. Plan as above. (4) Gas gangrene Current Visit: Yes Status: Acute Assessment and Plan: CT of the foot showed plantar surface soft tissue ulceration underneath the 4th toe with soft tissue gas extending into the interspace between 3rd and 4th toes into the dorsal foot. Plan as above (5) UTI (urinary tract infection) Current Visit: Yes Status: Acute Assessment and Plan: urine culture positive for E.Coli, GBS. Plan: continue with antibiotics as above. (6) Hypertension Current Visit: No Status: Chronic Assessment and Plan: Continue lisinopril/HCTZ and beta marquise (7) Hyperlipidemia Current Visit: No Status: Chronic Assessment and Plan: Continue statin (8) History of pulmonary embolus (PE) Current Visit: No Status: Chronic Assessment and Plan: Patient with past medical history of pulmonary embolism and has finished course of oral anticoagulation (9) Non-insulin dependent type 2 diabetes mellitus Current Visit: No Status: Chronic Assessment and Plan: Blood glucose with an acceptable range at this time. Continue basal Levemir SQ b.i.d. with low-dose sliding scale sugars within acceptable limits at this time. Will continue tight glycemic control in setting of bacteremia and foot infection. (10) CAD (coronary artery disease) of artery bypass graft Current Visit: No Status: Chronic Assessment and Plan: Hx of CAD with CABG x4. continue ASA, statin, BB. (11) DVT prophylaxis Current Visit: No Status: Acute Assessment and Plan: Lovenox SQ (12) History of colon cancer Current Visit: Yes Status: Acute Assessment and Plan: Hx of colon cancer, s/p colectomy in 2004. - Time Spent with Patient Total time spent is greater than 50% in coordination of care (as documented) at patient's floor/unit and/or counseling patient: Internal Medicine: Result - Labs CBC & Chem 7: 05/24/18 07:46 05/23/18 09:51 Labs: Short CBC 05/23/18 05/24/18 Range/Units 09:51 07:46 WBC 12.1 H 13.5 H (4.3-11.1) K/mcL Hgb 10.5 L 10.3 L (12.9-16.9) g/dL Hct 31.5 L 31.3 L (37.5-50.1) % Plt Count 235 261 (140-400) K/mcL Neutrophils # 7.8 8.6 (1.6-8.9) K/mcL BMP 05/23/18 09:51 Sodium 138 Potassium 4.0 Chloride 104 Carbon Dioxide 27 BUN 18 Creatinine 0.84 Glucose 126 H Calcium 8.6 - ABG Interpretation ABG results: PT/INR, D-dimer PT 14.6 Seconds (9.4-12.1) H 05/19/18 21:55 Consult Discharge Plan - Plan Referrals: Alison Nolasco, [employer] [Primary Care Provider] - <Jodi Yeager - Last Filed: 05/24/18 11:36> Hospitalist Progress Note - Encounter Date of Encounter: 05/24/18 Time of Encounter: 08:40 - Exam Vitals: Temp Pulse Resp BP Pulse Ox 97.9 F 77 18 107/46 95 05/24/18 11:19 05/24/18 11:19 05/24/18 11:19 05/24/18 11:19 05/24/18 11:19 - Assessment and Plan (1) Sepsis Current Visit: No Status: Resolved (2) UTI (urinary tract infection) Current Visit: Yes Status: Acute (3) Hypertension Current Visit: No Status: Chronic (4) Hyperlipidemia Current Visit: No Status: Chronic (5) DVT prophylaxis Current Visit: No Status: Acute (6) History of pulmonary embolus (PE) Current Visit: No Status: Chronic (7) Non-insulin dependent type 2 diabetes mellitus Current Visit: No Status: Chronic (8) CAD (coronary artery disease) of artery bypass graft Current Visit: No Status: Chronic (9) Diabetic foot infection Current Visit: Yes Status: Acute (10) Gas gangrene Current Visit: Yes Status: Acute (11) Bacteremia due to Gram-positive bacteria Current Visit: Yes Status: Acute (12) History of colon cancer Current Visit: Yes Status: Acute - Time Spent with Patient Total time spent is greater than 50% in coordination of care (as documented) at patient's floor/unit and/or counseling patient: Internal Medicine: Result - Labs CBC & Chem 7: 05/24/18 07:46 05/23/18 09:51 Labs: Short CBC 05/24/18 Range/Units 07:46 WBC 13.5 H (4.3-11.1) K/mcL Hgb 10.3 L (12.9-16.9) g/dL Hct 31.3 L (37.5-50.1) % Plt Count 261 (140-400) K/mcL Neutrophils # 8.6 (1.6-8.9) K/mcL - ABG Interpretation ABG results: PT/INR, D-dimer PT 14.6 Seconds (9.4-12.1) H 05/19/18 21:55 - Attending Attestation I saw evaluated and examined this patient and my medical decision-making was reviewed with the Resident Physician, Yelena Vargas. I agree with the documented findings, disposition and treatment plan as described except to any changes set forth below. We independently had [id number] contact with the patient. Patient is awake and alert. Underwent surgery yesterday without any complications for repair and washout of right foot wound. Denies any pain in his right foot. No fevers or chills reported overnight. Tolerating diet well. No other complaints at this time. On exam, S1 and S2 normal. No murmur. Abdomen is soft, nontender. Breath sounds are normal. Right foot is currently bandaged. No pedal edema. Normal strength and range of motion in all extremities. 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 Postop day 4. Also underwent washout and repair of right foot wound with application of PRP yesterday. Wound cultures growing MRSA, group B strep and another gram-positive cocci. Initial set of blood cultures growing gram-positive cocci. Repeat blood cultures remain negative. Serology negative. Infectious disease following. Patient will need at least 4-6 weeks of IV antibiotics. PICC line to be placed today. Acute urinary tract infection: Urine culture growing Escherichia coli. Patient has completed 5 days of IV antibiotic therapy with Zosyn. He will continue to receive Zosyn for his wound infection. Diabetes mellitus type 2: Improved control. We will continue current insulin regimen. Diabetic diet. Coronary artery disease status post bypass graft: Continue aspirin, metoprolol and Zocor. Moderate risk for complications. <Shine Diggs - Last Filed: 05/24/18 08:37> (1) Sepsis Qualifiers: Sepsis type: Escherichia coli Qualified Code(s): A41.51 - Sepsis due to Escherichia coli [E. coli] (5) UTI (urinary tract infection) Qualifiers: Urinary tract infection type: site unspecified Hematuria presence: with hematuria Qualified Code(s): N39.0 - Urinary tract infection, site not specified; R31.9 - Hematuria, unspecified (6) Hypertension Qualifiers: Hypertension type: essential hypertension Qualified Code(s): I10 - Essential (primary) hypertension (7) Hyperlipidemia Qualifiers: Hyperlipidemia type: unspecified Qualified Code(s): E78.5 - Hyperlipidemia, unspecified (10) CAD (coronary artery disease) of artery bypass graft Qualifiers: Qualified Code(s): I25.810 - Atherosclerosis of coronary artery bypass graft(s) without angina pectoris <Jodi Yeager - Last Filed: 05/24/18 11:36> (1) Sepsis Qualifiers: Sepsis type: Escherichia coli Qualified Code(s): A41.51 - Sepsis due to Esch erichia coli [E. coli] (2) UTI (urinary tract infection) Qualifiers: Urinary tract infection type: site unspecified Hematuria presence: with he maturia Qualified Code(s): N39.0 - Urinary tract infection, site not specified; R31.9 - Hematuria, unspecified (3) Hypertension Qualifiers: Hypertension type: essential hypertension Qualified Code(s): I10 - Essential (primary) hypertension (4) Hyperlipidemia Qualifiers: Hyperlipidemia type: unspecified Qualified Code(s): E78.5 - Hyperlipidemia, unspecified (8) CAD (coronary artery disease) of artery bypass graft Qualifiers: Qualified Code(s): I25.810 - Atherosclerosis of coronary artery bypass graft(s) without angina pectoris
[2018-05-24] MEDS: Aspirin Enteric Coated 81 MG Tablet PO SCH (11:27)
[2018-05-24] MEDS: Gabapentin 300 MG CAPSULE PO SCH ×2 (11:27→20:50)
[2018-05-24] MEDS: Metoprolol XL (24 HR) Succ 50 MG TAB.ER.24H PO SCH (11:28)
[2018-05-24] MEDS: Insulin DETEMIR 100 UNIT/ML X5UNITS SQ SCH ×2 (15:00→20:53)
--- NOTE | 2018-05-24 16:15 | Podiatry Progress Note ---
Date of Encounter: 05/24/18 Time of Encounter: 12:00 - Assessment and Plan (1) Diabetic foot infection Current Visit: Yes Status: Acute Assessment: Dressing removed with moderate amount of serosanginous drainage. Surgery on 05/23 for Repair of right foot wound, washout of right foot wound, and application of PRP Sutures noted to dorsal and plantar aspect of foot in tact, well approximated, ulceration noted to plantar aspect of foot. Maceration noted around ulcer. Plan: Cleansed wound with 0.9 NS. Applied skin prep to maceration. Covered wound and incision with adaptic, 4x4 dry gauze, ABD pad, and kerlex. Secured with MARCELINA bandage. ID managing ATB Wear diabetic boot when ambulating. Follow up in wound care with Dr. Bae 1 week post op. Continue tight glycemic control to promote wound healing. Can d/c home once ATB management arranged (2) Gas gangrene Current Visit: Yes Status: Acute s/p surgery. See previous plan Subjective Interval history: Patient awake in bed. Denies any chest pain, calf pain, or shortness of breath. Reports dressing has not been changed since surgery. States he does not want to wear diabetic boot because it is so bulky. Objective - Vital Signs Vital Signs: Vital Signs Temp Pulse Resp BP Pulse Ox 05/24/18 14:32 97.8 F 69 18 95/48 94 05/24/18 11:19 97.9 F 77 18 107/46 95 05/24/18 07:12 98.4 F 67 18 103/65 95 05/24/18 03:17 98.0 F 67 15 118/70 95 05/23/18 23:41 97.7 F 73 15 117/69 94 05/23/18 19:51 98.2 F 64 18 109/57 95 05/23/18 18:25 98.0 F 75 18 125/81 92 05/23/18 17:30 97.9 F 71 16 124/80 97 05/23/18 17:22 98.0 F 74 18 111/57 95 05/23/18 16:49 95 05/23/18 16:44 97.8 F 62 16 121/61 95 Intake and Output 05/24/18 05/24/18 05/24/18 07:59 15:59 23:59 Intake Total 590 / 590 1050 / 1050 Output Total 775 / 775 300 / 300 Balance -185 / -185 750 / 750 Intake: IV Fluids 350 / 350 450 / 450 Zosyn 3.375 GM In 0.9 % Sodium 100 / 100 200 / 200 Chloride (Mini-Bag +) 100 ML @ 25 mls/hr IVPB Q8H [facility] Rx#: [id number] Vancocin 1,000 MG In 0.9 % 250 / 250 250 / 250 Sodium Chloride 250 ML @ 167 mls/hr IVPB Q12H [facility] Rx#: [id number] Oral 240 / 240 600 / 600 Output: Urine 775 / 775 300 / 300 Other: Meal Lunch Percent of Meal Consumed 100% # Voids 1 Weight 97 kg Blood Glucose* 72 194 Patient Weight 05/24/18 23:59 Weight 97 kg - Lab Result Diagrams: 05/24/18 07:46 05/23/18 09:51 Labs: Abnormal lab results WBC 13.5 K/mcL (4.3-11.1) H 05/24/18 07:46 RBC 3.47 M/mcL (4.19-5.50) L 05/24/18 07:46 Hgb 10.3 g/dL (12.9-16.9) L 05/24/18 07:46 Hct 31.3 % (37.5-50.1) L 05/24/18 07:46 ESR 106 mm/hr (0-10) H 05/23/18 09:51 PT 14.6 Seconds (9.4-12.1) H 05/19/18 21:55 Glucose 126 mg/dL (70-105) H 05/23/18 09:51 POC Glucose 194 mg/dL (70-99) H 05/24/18 11:25 Phosphorus 1.6 mg/dL (2.7-4.5) L 05/19/18 21:55 Magnesium 1.4 mg/dL (1.6-2.6) L 05/19/18 21:55 AST 11 Units/L (13-39) L 05/19/18 21:55 C-Reactive Protein 99 mg/L (Less than 10) H 05/23/18 09:51 Globulin 3.6 g/dL (2.4-3.5) H 05/19/18 21:55 Urine Clarity Turbid (Clear) A 05/19/18 22:27 Urine Protein 30 mg/dL (Neg-Trace) H 05/19/18 22:27 Urine Glucose (UA) 100 mg/dL (Normal) H 05/19/18 22: Urine Ketones Trace mg/dL (Negative) H 05/19/18 22:27 Urine Blood Small (Negative) H 05/19/18 22:27 Urine Nitrite Positive (Negative) A 05/19/18 22:27 Ur Leukocyte Esterase Large (Negative) H 05/19/18 22:27 Urine Microscopic RBC 5-15 per hpf (0-3) H 05/19/18 22:27 Urine Microscopic WBC TNTC per hpf (0-3) H 05/19/18 22:27 Ur Squamous Epith Cells Moderate per lpf (None-Few) H 05/19/18 22: Urine Bacteria Many per hpf (None-Few) H 05/19/18 22:27 Ur Culture Indicated? YES (NO) A 05/19/18 22:27 Vancomycin Trough 14 mcg/mL (5-10) H 05/23/18 21:56 Microbiology, Last 48 Hours 05/20/18 06:45 Wound Culture - Final Right Foot Strep agalactiae - (Group B) Methicillin Resistant S.aureus Streptococcus mitis/S.oralis 05/20/18 06:45 Surgical Biopsy Culture - Final Right Fourth Toe Strep agalactiae - (Group B) Methicillin Resistant S.aureus Streptococcus mitis/S.oralis 05/20/18 06:45 Surgical Biopsy Culture - Final Right Fourth Toe Strep agalactiae - (Group B) Methicillin Resistant S.aureus Streptococcus mitis/S.oralis 05/19/18 21:55 Blood Culture - Preliminary Peripheral Venipuncture Gram Positive Cocci 05/19/18 21:46 Blood Culture - Preliminary Peripheral Venipuncture Gram Positive Cocci 05/19/18 22:27 Urine Culture - Final Urine,Clean Catch Escherichia coli Strep agalactiae - (Group B) Consult Discharge Plan - Plan Additional Instructions: Follow up with Dr. Bae in wound clinic 1 week post d/c. Referrals: Alison Nolasco CNP [Primary Care Provider] - Vargas Bae DPM [Partnered Physician] - Prescriptions: Vancomycin/0.9 % Sod Chloride [Vanco 1 Gram/250 ml-0.9% NaCl] 1 gm IV Q12H 38 Days #76 plast..bag
--- NOTE | 2018-05-24 19:49 | Infectious Disease Progress No ---
Date of Encounter: 05/24/18 Time of Encounter: 19:46 - Assessment and Plan (1) Sepsis Current Visit: No Status: Resolved The patient had three SIRS criteria plus lactic acidosis on admission. Likely secondary to right foot infection and UTI. Blood cultures drawn 05/19/18 are positive x 2 sets for GPC, but PCR negative. Repeat blood cultures drawn 05/21/18 are NGTD x 2 sets. Recommendations: - Repeat labs (CBC and BMP). - Check ESR and CRP. - Await repeat blood cultures. - Await intra-op cultures to finalize. - Wound care per the podiatry team. - Strict glucose control per the primary team. - Continue Vancomycin IV. Pharmacy to dose. Goal trough ~15. - duration of treatment 6 weeks. - follow up with me in clinic in 2 weeks - weekly cbc, bmp, esr, crp and vancomycin trough - Duration of treatment depends on the clinical picture. - Monitor renal function and for drug toxicity and dose-adjust antibiotics. - Contact precautions per protocol. - Consider bowel regimen since the patient has not had a BM since admission. Qualifiers: Sepsis type: Escherichia coli Qualified Code(s): A41.51 - Sepsis due to Escherichia coli [E. coli] (2) Bacteremia due to Gram-positive bacteria Current Visit: Yes Status: Acute Causative organism: Unclear. Blood cultures drawn 05/19/18 are positive 2/2 sets for GPC, but the PCR did not garbage pick up worker anything. Likely anaerobic. Repeat blood cultures drawn 05/21/18 are NGTD. Continue antibiotics as above. (3) Diabetic foot infection Current Visit: Yes Status: Acute Location: Right foot. Likely secondary to recent puncture wound to the foot. Causative organism: MRSA, GBS, and GPC (pending identification). Podiatry consulted and following. 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 Bae. Operative note reviewed. Purulence noted intra-op. Planning for repeat washout today. Antibiotic recommendations as above. (4) Gas gangrene Current Visit: Yes Status: Acute (5) UTI (urinary tract infection) Current Visit: Yes Status: Acute Culture positive for E. coli and GBS. Antibiotic recommendations as above. Qualifiers: Urinary tract infection type: site unspecified Hematuria presence: with hematuria Qualified Code(s): N39.0 - Urinary tract infection, site not specif ied; R31.9 - Hematuria, unspecified (6) Non-insulin dependent type 2 diabetes mellitus Current Visit: No Status: Chronic (7) CAD (coronary artery disease) of artery bypass graft Current Visit: No Status: Chronic Qualifiers: Qualified Code(s): I25.810 - Atherosclerosis of coronary artery bypass graft(s) without angina pectoris - Subjective Interval history: Patient seen and examined. No acute events noted overnight. no chest pain no shortness of breath, no urinary symptoms. patient tells me that he hadnt had a bowel movement but feelsthat he will have one soon. VS noted labs reviewed CUltures noted. Infect Dis PN-Objective Data - Labs CBC & Chem 7: 05/24/18 07:46 05/23/18 09:51 Labs: Laboratory Results - last 24 hr 05/22/18 05/23/18 05/23/18 20:43 05:23 11:16 WBC RBC Hgb Hct MCV MCH MCHC RDW Plt Count MPV Immature Gran % Seg Neutrophils % Lymphocytes % Monocytes % Eosinophils % Basophils % Neutrophils # Lymphocytes # Monocytes # Eosinophils # Basophils # POC Glucose 307 H 143 H 124 H Vancomycin Trough 05/23/18 05/23/18 05/23/18 16:45 20:38 21:56 WBC RBC Hgb Hct MCV MCH MCHC RDW Plt Count MPV Immature Gran % Seg Neutrophils % Lymphocytes % Monocytes % Eosinophils % Basophils % Neutrophils # Lymphocytes # Monocytes # Eosinophils # Basophils # POC Glucose 105 H 250 H Vancomycin Trough 14 H 05/24/18 05/24/18 05/24/18 07:19 07:46 11:25 WBC 13.5 H RBC 3.47 L Hgb 10.3 L Hct 31.3 L MCV 90.2 MCH 29.7 MCHC 32.9 RDW 13.2 Plt Count 261 MPV 9.4 Immature Gran % 1.9 Seg Neutrophils % 63.9 Lymphocytes % 24.1 Monocytes % 7.5 Eosinophils % 2.1 Basophils % 0.5 Neutrophils # 8.6 Lymphocytes # 3.3 Monocytes # 1.0 Eosinophils # 0.3 Basophils # 0.1 POC Glucose 72 194 H Vancomycin Trough Cultures: Cultures 05/20/18 06:45 Wound Culture - Final Right Foot Strep agalactiae - (Group B) Methicillin Resistant S.aureus Streptococcus mitis/S.oralis 05/20/18 06:45 Surgical Biopsy Culture - Final Right Fourth Toe Strep agalactiae - (Group B) Methicillin Resistant S.aureus Streptococcus mitis/S.oralis 05/20/18 06:45 Surgical Biopsy Culture - Final Right Fourth Toe Strep agalactiae - (Group B) Methicillin Resistant S.aureus Streptococcus mitis/S.oralis 05/19/18 21:55 Blood Culture - Preliminary Peripheral Venipuncture Gram Positive Cocci 05/19/18 21:46 Blood Culture - Preliminary Peripheral Venipuncture Gram Positive Cocci 05/19/18 22:27 Urine Culture - Final Urine,Clean Catch Escherichia coli Strep agalactiae - (Group B) 05/21/18 15:21 Blood Culture - Preliminary Peripheral Venipuncture Culture is incubating and being continuously monitored for growth. Final report to follow. 05/21/18 15:24 Blood Culture - Preliminary Peripheral Venipuncture Culture is incubating and being continuously monitored for growth. Final report to follow. 05/20/18 06:45 Gram Stain - Final Right Foot Serology 05/19/18 05/19/18 Range/Units 22:27 21:46 Urine Color Yellow (Yellow) Urine Clarity Turbid A (Clear) Urine pH 5.5 (5.0-8.0) pH Units Ur Specific [place] 1.012 (1.010-1.025) Urine Protein 30 H (Neg-Trace) mg/dL Urine Glucose (UA) 100 H (Normal) mg/dL Urine Ketones Trace H (Negative) mg/dL Urine Blood Small H (Negative) Urine Nitrite Positive A (Negative) Urine Bilirubin Negative (Negative) Urine Urobilinogen Normal (Normal) mg/dL Ur Leukocyte Esterase Large H (Negative) Urine Microscopic RBC 5-15 H (0-3) per hpf Urine Microscopic WBC TNTC H (0-3) per hpf Ur Squamous Epith Cells Moderate H (None-Few) per lpf Urine Bacteria Many H (None-Few) per hpf Hyaline Casts None Seen (None-Few) per lpf Ur Culture Indicated? YES A (NO) A. baumannii (PCR) Not Detected (Not Detect) Clarissa albicans (PCR) Not Detected (Not Detect) C. glabrata (PCR) Not Detected (Not Detect) C. krusei (PCR) Not Detected (Not Detect) C. parapsilosis (PCR) Not Detected (Not Detect) C. tropicalis (PCR) Not Detected (Not Detect) Enterobacteriac sp PCR Not Detected (Not Detect) E. cloacae complex PCR Not Detected (Not Detect) Enterococcus sp PCR Not Detected (Not Detect) E. coli (PCR) Not Detected (Not Detect) H. influenzae (PCR) Not Detected (Not Detect) Klebsiella oxytoca PCR Not Detected (Not Detect) Klebsiella pneumoniae Not Detected (Not Detect) List. monocytogenes PCR Not Detected (Not Detect) N. meningitidis (PCR) Not Detected (Not Detect) Proteus species (PCR) Not Detected (Not Detect) Serratia marcescens PCR Not Detected (Not Detect) Staphylococcus sp PCR Not Detected (Not Detect) Staph aureus (PCR) Not Detected (Not Detect) mecA-Methicil Res Gene N/A (Not Detect) Streptococcus sp PCR Not Detected (Not Detect) Group A Strep DNA Not Detected (Not Detect) Group B Strep (PCR) Not Detected (Not Detect) Strep pneumoniae (PCR) Not Detected (Not Detect) P. aeruginosa (PCR) Not Detected (Not Detect) Catia/B-Vanco Res Genes N/A (Not Detect) KPC (blaKPC) Detect PCR N/A (Not Detect) - Impressions Impressions Chest X-Ray 05/24/18 14:31 IMPRESSION: No significant change identified. Right-sided PICC terminates in the SVC. No pneumothorax identified. D/ / Yifan Boyer MD / Yifan Boyer MD Interpreting Provider: Yifan Boyer MD Exam - Constitutional Vitals: Temp Pulse Resp BP Pulse Ox 97.8 F 69 18 95/48 94 05/24/18 14:32 05/24/18 14:32 05/24/18 14:32 05/24/18 14:32 05/24/18 14:32 General appearance: cooperative, no acute distress, no febrile - Respiratory Respiratory exam: Present: CTAB. Absent: wheezes - Cardiovascular Cardiovascular exam: Present: RRR, +S1, +S2 - GI/Abdominal GI/Abdominal exam: Present: distended, hypoactive bowel sounds. Absent: tenderness - Extremities Exam Additional comments: normal inspection. - Neurological Exam Neurological exam: Present: alert, oriented X3 Consult Discharge Plan - Plan Additional Instructions: Follow up with Dr. Bae in wound clinic 1 week post d/c. Referrals: Vargas Bae DPM [Partnered Physician] - Alison Nolasco CNP [Primary Care Provider] - Prescriptions: Vancomycin/0.9 % Sod Chloride [Vanco 1 Gram/250 ml-0.9% NaCl] 1 gm IV Q12H 38 Days #76 plast..bag
[2018-05-25] MEDS: Piperacillin/Tazobactam 3.375 GM in 0.9 % Sodium Chloride Mini Bag 100 ML IVPB SCH ×3 (03:19→20:24)
[2018-05-25 04:05] LABS: Basophils # 0.1 K/mcL (0.0-0.2); Basophils % 0.5 %; Eosinophils # 0.3 K/mcL (0.0-0.6); Hematocrit 36.3 % (37.5-50.1); Immature Granulocytes % 3.9 % (0-4); Lymphocytes # 3.9 K/mcL (0.6-4.6); Lymphocytes % 26.4 %; Mean Corpuscular HGB Conc 33.1 g/dL (31.6-35.5); Mean Corpuscular Volume 90.8 fL (83.0-100.0); Mean Platelet Volume 9.4 fL (9.4-12.4); Monocytes # 0.9 K/mcL (0.0-1.3); Platelet Count 299 K/mcL (140-400); Red Cell Distribution Width 13.2 % (11.5-14.5); Segmented Neutrophils % 61.2 %
[2018-05-25 04:09] LABS: Neutrophils # 8.9 K/mcL (1.6-8.9)
[2018-05-25 04:13] LABS: BUN/Creatinine Ratio 22 (6-26); Blood Urea Nitrogen 20 mg/dL (8-23); Calcium 8.9 mg/dL (8.6-10.3); Carbon Dioxide 27 mEq/L (23-29); Chloride 104 mEq/L (98-107); Glucose 128 mg/dL (70-105); Osmolality,Calculated 290 (280-300); Potassium 4.3 mEq/L (3.5-5.1); Sodium 138 mEq/L (136-145); eGFR For Non-African Americans > 60 (> 60)
[2018-05-25] MEDS: *HR* Enoxaparin 40 MG/0.4 ML SYRINGE SQ SCH (05:06)
[2018-05-25 05:36] LABS: Platelet Estimate Normal (Normal)
[2018-05-25 05:38] LABS: Reactive Lymphocytes Present (Not Present)
[2018-05-25] MEDS: Insulin LISPRO 300 UNITS/3 ML VIAL SQ SCH ×4 (08:13→21:14)
[2018-05-25] MEDS: Gabapentin 300 MG CAPSULE PO SCH ×2 (08:24→20:23)
[2018-05-25] MEDS: Insulin DETEMIR 100 UNIT/ML X5UNITS SQ SCH ×2 (08:24→21:14)
[2018-05-25] MEDS: Metoprolol XL (24 HR) Succ 50 MG TAB.ER.24H PO SCH (08:24)
[2018-05-25] MEDS: Aspirin Enteric Coated 81 MG Tablet PO SCH (08:24)
--- NOTE | 2018-05-25 11:26 | Internal Med Progress Note ---
Hospitalist Progress Note - Encounter Date of Encounter: 05/25/18 Time of Encounter: 08:50 - Subjective Interval History: Patient sitting up in bed. Eating breakfast. No new complaints at this time. Denies any pain in his right foot. No fevers or chills reported overnight. No nausea or vomiting. No abdominal pain. Denies any diarrhea. No dysuria. Does have chronic cough. No increased sputum production. - Exam Vitals: Temp Pulse Resp BP Pulse Ox 97.7 F 59 16 90/47 94 05/25/18 11:10 05/25/18 11:10 05/25/18 11:10 05/25/18 11:10 05/25/18 11:10 Exam: General: Patient is alert, no acute distress, oriented x 3 Respiratory: Good respiratory effort. Normal breath sounds. No wheezing or crackles. Cardiovascular: Regular rate and rhythm. s1 and s2 normal No clicks, rubs, gallops, or murmurs. No pedal edema Abdomen: Abdomen is soft, nontender. Bowel sounds are present Musculoskeletal: Normal range of motion., Right foot bandaged. Skin: warm, dry, intact. Neuro: Alert oriented x 3 normal cranial nerves, no focal deficits - Assessment and Plan (1) Diabetic foot infection Current Visit: Yes Status: Acute Assessment and Plan: Patient underwent repair of right foot wound along with washout and application of PRP on 05/23. Postop day 2. Doing well overall. Continue antibiotics per infectious disease recommendations. Podiatry also following. Moderate risk for complications. (2) Sepsis Current Visit: Yes Status: Resolved Assessment and Plan: Due to diabetic foot infection. 2 sets of initial blood cultures growing gram- positive cocci. Repeat cultures have been negative. Wound cultures growing strep agalactiae along with MRSA and Streptococcus mitis. Anaerobic cultures are also growing gram-positive cocci and gram-negative rods. Patient is currently on vancomycin and Zosyn due to multiple organisms involved. Does have elevation in his white count today compared to yesterday. At 14.6. He has not had any fevers or chills. No other symptoms reported. If this continues tomorrow, will repeat workup for sepsis. Otherwise, patient may be able to be discharged tomorrow per infectious disease antibiotic recommendations. (3) UTI (urinary tract infection) Current Visit: Yes Status: Acute Assessment and Plan: Positive for Escherichia coli and strep agalactiae. Patient has completed antibiotics for this. (4) Hypertension Current Visit: Yes Status: Chronic Assessment and Plan: Blood pressure is well controlled. Continue current medications (5) Hyperlipidemia Current Visit: No Status: Chronic Assessment and Plan: Continue Zocor (6) DVT prophylaxis Current Visit: No Status: Acute Assessment and Plan: On Lovenox subcutaneous (7) Non-insulin dependent type 2 diabetes mellitus Current Visit: No Status: Chronic Assessment and Plan: Continue current insulin regimen. Blood sugars appear to be improving overall. This morning blood sugar was 110. 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 Continue antibiotics. (10) Bacteremia due to Gram-positive bacteria Current Visit: Yes Status: Acute Assessment and Plan: Management as above (11) History of colon cancer Current Visit: Yes Status: Chronic - Time Spent with Patient Total time spent is greater than 50% in coordination of care (as documented) at patient's floor/unit and/or counseling patient: Internal Medicine: Result - Labs CBC & Chem 7: 05/25/18 03:20 05/25/18 03:20 Labs: Short CBC 05/25/18 Range/Units 03:20 WBC 14.6 H (4.3-11.1) K/mcL Hgb 12.0 L D (12.9-16.9) g/dL Hct 36.3 L (37.5-50.1) % Plt Count 299 (140-400) K/mcL Neutrophils # 8.9 (1.6-8.9) K/mcL BMP 05/25/18 03:20 Sodium 138 Potassium 4.3 Chloride 104 Carbon Dioxide 27 BUN 20 Creatinine 0.89 Glucose 128 H Calcium 8.9 - ABG Interpretation ABG results: PT/INR, D-dimer PT 14.6 Seconds (9.4-12.1) H 05/19/18 21:55 - Impressions Impressions Chest X-Ray 05/24/18 14:31 IMPRESSION: No significant change identified. Right-sided PICC terminates in the SVC. No pneumothorax identified. D/ / Yifan Boyer MD / Yifan Boyer MD Interpreting Provider: Yifan Boyer MD Consult Discharge Plan - Plan Additional Instructions: Follow up with Dr. Bae in wound clinic 1 week post d/c. Referrals: Vargas Bae DPM [Partnered Physician] - Alison Nolasco CNP [Primary Care Provider] - Prescriptions: Vancomycin/0.9 % Sod Chloride [Vanco 1 Gram/250 ml-0.9% NaCl] 1 gm IV Q12H 38 Days #76 plast..bag (2) Sepsis Qualifiers: Sepsis type: sepsis due to unspecified organism Qualified Code(s): A41.9 - Sepsis, unspecified organism (3) UTI (urinary tract infection) Qualifiers: Urinary tract infection type: site unspecified Hematuria presence: with hematuria Qualified Code(s): N39.0 - Urinary tract infection, site not specified; R31.9 - Hematuria, unspecified (4) Hypertension Qualifiers: Hypertension type: essential hypertension Qualified Code(s): I10 - Essential (primary) hypertension (5) Hyperlipidemia Qualifiers: Hyperlipidemia type: unspecified Qualified Code(s): E78.5 - Hyperlipidemia, unspecified (8) CAD (coronary artery disease) of artery bypass graft Qualifiers: Qualified Code(s): I25.810 - Atherosclerosis of coronary artery bypass graft(s) without angina pectoris
[2018-05-26 03:14] LABS: Basophils # 0.1 K/mcL (0.0-0.2); Basophils % 0.5 %; Eosinophils # 0.2 K/mcL (0.0-0.6); Eosinophils % 1.6 %; Hematocrit 34.2 % (37.5-50.1); Lymphocytes # 4.3 K/mcL (0.6-4.6); Mean Corpuscular HGB Conc 32.2 g/dL (31.6-35.5); Mean Corpuscular Hemoglobin 29.2 pg (28.0-33.3); Mean Corpuscular Volume 90.7 fL (83.0-100.0); Mean Platelet Volume 9.4 fL (9.4-12.4); Monocytes # 0.9 K/mcL (0.0-1.3); Monocytes % 5.9 %; Neutrophils # 9.4 K/mcL (1.6-8.9); Platelet Count 283 K/mcL (140-400); Red Blood Count 3.77 M/mcL (4.19-5.50); Red Cell Distribution Width 13.3 % (11.5-14.5)
[2018-05-26 03:41] LABS: BUN/Creatinine Ratio 26 (6-26); Blood Urea Nitrogen 24 mg/dL (8-23); Calcium 8.9 mg/dL (8.6-10.3); Carbon Dioxide 26 mEq/L (23-29); Chloride 105 mEq/L (98-107); Glucose 140 mg/dL (70-105); Osmolality,Calculated 288 (280-300); Sodium 136 mEq/L (136-145); eGFR For Non-African Americans > 60 (> 60)
[2018-05-26] MEDS: Piperacillin/Tazobactam 3.375 GM in 0.9 % Sodium Chloride Mini Bag 100 ML IVPB SCH ×3 (05:04→19:45)
[2018-05-26] MEDS: *HR* Enoxaparin 40 MG/0.4 ML SYRINGE SQ SCH (05:13)
[2018-05-26] MEDS: Insulin LISPRO 300 UNITS/3 ML VIAL SQ SCH ×3 (07:37→16:51)
[2018-05-26] MEDS: Metoprolol XL (24 HR) Succ 50 MG TAB.ER.24H PO SCH (09:02)
[2018-05-26] MEDS: Gabapentin 300 MG CAPSULE PO SCH ×2 (09:17→21:56)
[2018-05-26] MEDS: Aspirin Enteric Coated 81 MG Tablet PO SCH (09:17)
[2018-05-26] MEDS: Insulin DETEMIR 100 UNIT/ML X5UNITS SQ SCH (09:18)
[2018-05-26 10:35] LABS: Bilirubin,Urine Negative (Negative); Blood,Urine Negative (Negative); Clarity,Urine Clear (Clear); Color,Urine Yellow (Yellow); Glucose,Urine (UA) 100 mg/dL (Normal); Ketones,Urine Negative (Negative); Leukocyte Esterase,Urine Small (Negative); Nitrite,Urine Negative (Negative); Protein,Urine Negative (Neg-Trace); Specific Gravity,Urine 1.022 (1.010-1.025); Urobilinogen,Urine Normal (Normal)
[2018-05-26 10:37] LABS: Bacteria,Urine None Seen per hpf (None-Few); Hyaline Casts,Urine None Seen per lpf (None-Few); RBC,Urine 0-3 per hpf (0-3); Squamous Epithelial Cell,Urine Moderate per lpf (None-Few); WBC,Urine 0-3 per hpf (0-3)
--- NOTE | 2018-05-26 11:22 | Internal Med Progress Note ---
Hospitalist Progress Note - Encounter Date of Encounter: 05/26/18 Time of Encounter: 09:15 - Subjective Interval History: Patient is awake and alert. No new complaints at this time. Tolerating diet well. Does have cough and occasional sputum. No fevers or chills. Denies any abdominal pain. No burning micturition. No nausea or vomiting. - Exam Vitals: Temp Pulse Resp BP Pulse Ox 97.8 F 64 16 129/70 95 05/26/18 10:15 05/26/18 10:15 05/26/18 10:15 05/26/18 10:15 05/26/18 10:15 Exam: General: Patient is alert, no acute distress, oriented x 3 Respiratory: Good respiratory effort. Normal breath sounds. No wheezing or crackles. Cardiovascular: Regular rate and rhythm. s1 and s2 normal No clicks, rubs, gallops, or murmurs. No pedal edema Abdomen: Abdomen is soft, nontender. Bowel sounds are present Musculoskeletal: Right foot bandaged. Erythema resolved over his right lower leg. Skin: warm, dry, intact. Neuro: Alert oriented x 3 normal cranial nerves, no focal deficits - Assessment and Plan (1) Diabetic foot infection Current Visit: Yes Status: Acute Assessment and Plan: Wound culture is growing MRSA, group B strep and Streptococcus mitis. Also growing anaerobes. Patient is on vancomycin, Zosyn and Flagyl. WBC count slightly worse again today. Will obtain blood cultures, urinalysis and culture and chest x-ray. Follow up with infectious disease recommendations tomorrow. Podiatry following. Moderate risk for complications (2) Sepsis Current Visit: Yes Status: Resolved Assessment and Plan: Patient has worsening leukocytosis. We will work it up as above. No other signs of sepsis. (3) UTI (urinary tract infection) Current Visit: Yes Status: Acute Assessment and Plan: Patient has completed treatment with IV antibiotics. He continues to receive IV antibiotics for his wound infection. (4) Hypertension Current Visit: Yes Status: Chronic Assessment and Plan: blood pressure is better controlled. No changes at this time. (5) Hyperlipidemia Current Visit: No Status: Chronic Assessment and Plan: Continue simvastatin (6) DVT prophylaxis Current Visit: No Status: Acute Assessment and Plan: Continue Lovenox subcutaneous (7) Non-insulin dependent type 2 diabetes mellitus Current Visit: No Status: Chronic Assessment and Plan: Patient had a blood glucose of 77 this morning. Has been elevated otherwise. We will change insulin regimen. Decrease nighttime Levemir dosage to 20. Continue daytime dose to 30 units. Increase sliding scale to medium correctional. Continue diabetic diet. (8) CAD (coronary artery disease) of artery bypass graft Current Visit: Yes Status: Chronic Assessment and Plan: Continue aspirin, metoprolol and Zocor (9) Gas gangrene Current Visit: Yes Status: Acute Assessment and Plan: Treated with surgery. Podiatry following (10) Bacteremia due to Gram-positive bacteria Current Visit: Yes Status: Acute Assessment and Plan: Repeat blood cultures have been negative. (11) History of colon cancer Current Visit: Yes Status: Chronic DVT Prophylaxis: With subcutaneous Lovenox - Time Spent with Patient Total time spent is greater than 50% in coordination of care (as documented) at patient's floor/unit and/or counseling patient: Internal Medicine: Result - Labs CBC & Chem 7: 05/26/18 02:50 05/26/18 02:50 Labs: Short CBC 05/26/18 Range/Units 02:50 WBC 15.5 H (4.3-11.1) K/mcL Hgb 11.0 L (12.9-16.9) g/dL Hct 34.2 L (37.5-50.1) % Plt Count 283 (140-400) K/mcL Neutrophils # 9.4 H (1.6-8.9) K/mcL BMP 05/26/18 02:50 Sodium 136 Potassium 4.0 Chloride 105 Carbon Dioxide 26 BUN 24 H Creatinine 0.94 Glucose 140 H Calcium 8.9 Urine 05/26/18 Range/Units 10:20 Urine Color Yellow (Yellow) Urine Clarity Clear (Clear) Urine pH 5.0 (5.0-8.0) pH Units Ur Specific [place] 1.022 (1.010-1.025) Urine Protein Negative (Neg-Trace) mg/dL Urine Glucose (UA) 100 H (Normal) mg/dL - ABG Interpretation ABG results: PT/INR, D-dimer PT 14.6 Seconds (9.4-12.1) H 05/19/18 21:55 Consult Discharge Plan - Plan Additional Instructions: Follow up with Dr. Bea in wound clinic 1 week post d/c. Referrals: Vargas Bae DPM [Partnered Physician] - Alison Nolasco CNP [Primary Care Provider] - Prescriptions: Vancomycin/0.9 % Sod Chloride [Vanco 1 Gram/250 ml-0.9% NaCl] 1 gm IV Q12H 38 Days #76 plast..bag (2) Sepsis Qualifiers: Sepsis type: sepsis due to unspecified organism Qualified Code(s): A41.9 - Sepsis, unspecified organism (3) UTI (urinary tract infection) Qualifiers: Urinary tract infection type: site unspecified Hematuria presence: with hematuria Qualified Code(s): N39.0 - Urinary tract infection, site not specified; R31.9 - Hematuria, unspecified (4) Hypertension Qualifiers: Hypertension type: essential hypertension Qualified Code(s): I10 - Essential (primary) hypertension (5) Hyperlipidemia Qualifiers: Hyperlipidemia type: unspecified Qualified Code(s): E78.5 - Hyperlipidemia, unspecified (8) CAD (coronary artery disease) of artery bypass graft Qualifiers: Qualified Code(s): I25.810 - Atherosclerosis of coronary artery bypass graft(s) without angina pectoris
[2018-05-26] MEDS ORDERED: Insulin LISPRO 300 UNITS/3 ML VIAL SQ SCH (11:29)
[2018-05-26] MEDS ORDERED: Insulin DETEMIR 100 UNIT/ML X5UNITS SQ SCH (21:00)
[2018-05-27] MEDS: *HR* Enoxaparin 40 MG/0.4 ML SYRINGE SQ SCH (05:15)
[2018-05-27] MEDS: Piperacillin/Tazobactam 3.375 GM in 0.9 % Sodium Chloride Mini Bag 100 ML IVPB SCH ×2 (05:15→11:56)
[2018-05-27 05:40] LABS: Basophils # 0.1 K/mcL (0.0-0.2); Basophils % 0.4 %; Eosinophils # 0.2 K/mcL (0.0-0.6); Eosinophils % 1.9 %; Hematocrit 32.7 % (37.5-50.1); Hemoglobin 10.6 g/dL (12.9-16.9); Immature Granulocytes % 4.1 % (0-4); Lymphocytes # 3.7 K/mcL (0.6-4.6); Lymphocytes % 32.4 %; Mean Corpuscular HGB Conc 32.4 g/dL (31.6-35.5); Mean Corpuscular Hemoglobin 29.4 pg (28.0-33.3); Mean Corpuscular Volume 90.8 fL (83.0-100.0); Mean Platelet Volume 9.4 fL (9.4-12.4); Monocytes # 0.6 K/mcL (0.0-1.3); Monocytes % 5.3 %; Neutrophils # 6.3 K/mcL (1.6-8.9); Platelet Count 259 K/mcL (140-400); Red Cell Distribution Width 13.4 % (11.5-14.5); Segmented Neutrophils % 55.9 %
[2018-05-27 05:56] LABS: BUN/Creatinine Ratio 23 (6-26); Blood Urea Nitrogen 18 mg/dL (8-23); Calcium 8.6 mg/dL (8.6-10.3); Carbon Dioxide 27 mEq/L (23-29); Chloride 107 mEq/L (98-107); Glucose 91 mg/dL (70-105); Osmolality,Calculated 291 (280-300); Potassium 3.9 mEq/L (3.5-5.1); Sodium 140 mEq/L (136-145); eGFR For Non-African Americans > 60 (> 60)
[2018-05-27] MEDS: Insulin LISPRO 300 UNITS/3 ML VIAL SQ SCH ×2 (08:02→11:58)
[2018-05-27] MEDS: Metoprolol XL (24 HR) Succ 50 MG TAB.ER.24H PO SCH (08:15)
[2018-05-27] MEDS: Gabapentin 300 MG CAPSULE PO SCH (08:15)
[2018-05-27] MEDS: Aspirin Enteric Coated 81 MG Tablet PO SCH (08:16)
--- NOTE | 2018-05-27 13:57 | Discharge Summary ---
<Yelena Vargas P - Last Filed: 05/27/18 14:09> - NOTES TO OUTPATIENT PROVIDER Notes to Outpatient Provider: *Patient need to follow up with Infectious disease specialist([facility]) in 2wks. *Patient needs to do CBC , BMP,ESR, CRP and Vanco Trough weekly. * Patient needs to continue IV Vancomycin and oral Falgyl for 6 weeks. *Patient needs to follow up with PCP with in a week. *Patient needs to Follow up with Dr Shannon/ wound care in a week Orders not resulted at time of discharge: Pending orders 05/19/18 21:46 Culture,Blood [BC] Stat 05/20/18 06:45 Culture,Anaerobic [RM] Routine Culture,Anaerobic [RM] Routine 05/26/18 07:55 Culture,Blood [BC] Routine Date of Encounter: 05/27/18 Time of Encounter: 01:50 - Discharge Diagnosis (1) Diabetic foot infection Priority: Primary Status: Acute Assessment and Plan: Wound culture is growing MRSA, group B strep and Streptococcus mitis. Also growing anaerobes. Patient is on IV vancomycin, Zosyn for a week in hospital Dr shannon did right foot incision and drainage and partial ray amputation of fourth digit of right foot 05/20 Dr shannon did washout of right foot wound and repair on 05/23 The wound has been clinically better, he will get IV vancomycin and oral Flagyl for further six-weeks to cover MRSA, Streptococcus and anaerobes. He will follow-up with podiatric doctor/ wound care infectious disease doctor and primary care doctor. Continue wound care has been advised. (2) Sepsis Priority: Primary Status: Resolved Assessment and Plan: Patient has decreasing to trend of WBC, it was 14.6 before, a now came down to 11.4. He is afebrile for last more than 72 hours Blood pressure 131/76, pulse 66 / minutes , it is regular with good volume, Oxygen saturation 95% Now he does not have clinical symptoms suggestive of sepsis, it looks it has been resolved. Qualifiers: Sepsis type: sepsis due to unspecified organism Qualified Code(s): A41.9 - Sepsis, unspecified organism (3) UTI (urinary tract infection) Priority: Primary Status: Resolved Assessment and Plan: Patient has urine culture positive for Escherichia coli and group B streptococci, he was treated with IV Zosyn , piperacillin was sensitive for the organism found in urine culture completed treatment with IV antibiotics. He no longer has symptom of urinary tract infection. Qualifiers: Urinary tract infection type: site unspecified Hematuria presence: with h ematuria Qualified Code(s): N39.0 - Urinary tract infection, site not specified; R31.9 - Hematuria, unspecified (4) Hypertension Priority: Secondary Status: Chronic Assessment and Plan: blood pressure is better controlled. No changes at this time. He was on Toprol XI 50 and Prinzide 10-12.5 His latest blood pressure is 131/76 We have continued the same blood pressure medication Qualifiers: Hypertension type: essential hypertension Qualified Code(s): I10 - Essential (primary) hypertension (5) DVT prophylaxis Priority: Secondary Status: Acute Assessment and Plan: During hospital stay we used Lovenox subcutaneous is a DVT prophylaxis. (6) Bacteremia due to Gram-positive bacteria Priority: Primary Status: Acute Assessment and Plan: His initial blood culture was positive for gram-positive bacteria. We did echocardiography to see any vegetation in cardiac valves, but negative Repeat blood cultures have been negative. (7) Hyperlipidemia Priority: Secondary Status: Chronic Qualifiers: Hyperlipidemia type: unspecified Qualified Code(s): E78.5 - Hyperlipidemia, unspecified (8) Non-insulin dependent type 2 diabetes mellitus Priority: Secondary Status: Chronic Assessment and Plan: Patient has had fluctuating blood sugar level . During his hospital stay we did decrease nighttime Levemir dosage to 20. Continue daytime dose to 30 units. Continue diabetic diet. His latest blood sugar is 140. He will continue his home medication for diabetes after discharge from the hospital He will follow-up with his primary doctor and adjust diabetic medication as per his physician suggestion. (9) Gas gangrene Priority: Primary Status: Acute Assessment and Plan: Treated with surgery. Treated with IV antibiotic and revision surgery. Podiatry following in Out patient visit . (10) CAD (coronary artery disease) of artery bypass graft Priority: Secondary Status: Chronic Qualifiers: Qualified Code(s): I25.810 - Atherosclerosis of coronary artery bypass graft(s) without angina pectoris (11) History of colon cancer Priority: Secondary Status: Chronic Hospital course: Mr. Bedolla is a 77 year old male was admitted on 05/19/2018 for discharging right foot ulcer, he is patient of diabetes mellitus under Metformin and Glimiperide from long time. The podiatric doctor did partial ray amputation of right foot fourth digit on 05/20. The pus culture was positive for MRSA, group B streptococci, and anaerobic growth was also positive. His urine culture was positive for Escherichia coli and group B streptococci He has been put on Zosyn and vancomycin IV antibiotics. The patient has been getting IV antibiotics till discharge X [address] Shannon did revision surgery with washout of wound & intermediate repair of foot wound on 05/23.He has been discharged on IV vancomycin and oral Flagyl for 6 weeks. The patient has been advised to follow-up with infectious disease in 2 weeks and wound care in a week, he will also review with his primary care doctor in a week. During our final bedside visit today, patient was comfortable, hemodynamically stable, vitals : Blood pressure 131/76, pulse 66 regular, temperature 99.7 Fahrenheit, well oriented to time place and person. He described that the swelling and pain has been significantly less since admission. His latest lab results: Sodium 140, potassium 3.9, WBC 11.4 ( down from 14.6), hemoglobin 10.6, blood sugar 140, BUN 18, creatinine 0.78.We have planned discharging him on antibiotics and he is convinced to follow-up with Infectious disease, wound care and primary care doctor. - Time Spent with Patient Total time spent providing and/or coordinating discharge services: - Discharge Medications Prescriptions: Docusate [Colace] 100 mg PO BID #60 capsule metroNIDAZOLE [Flagyl] 500 mg PO TID #126 tablet Vancomycin/0.9 % Sod Chloride [Vanco 1 Gram/250 ml-0.9% NaCl] 1 gm IV Q12H 38 Days #76 plast..bag Home Medications: Aspirin Enteric Coated [Aspirin EC] 81 mg PO DAILY 11/15/16 [History] Gabapentin [Neurontin] 600 mg PO QAM 11/15/16 [History] Glimepiride [Amaryl] 4 mg PO BID 11/15/16 [History] [place]-3/Dha/Epa/Fish Oil [Fish Oil 1,000 mg Softgel] 1,000 mg PO TID 11/15/16 [History] Pravastatin Sodium 10 mg PO HS 11/15/16 [History] metFORMIN [Glucophage] 1,000 mg PO BIDWM 11/15/16 [History] Gabapentin [Neurontin] 300 mg PO HS 11/20/16 [History] Ibuprofen [Motrin] 200 - 600 mg PO Q6HR PRN 11/20/16 [History] Lisinopril/Hydrochlorothiazide [Zestoretic 20-25 mg Tablet] 1 tab PO DAILY 11/20/16 [History] Metoprolol XL (24 HR) Succ [Toprol Xl] 50 mg PO DAILY 11/20/16 [History] Vancomycin/0.9 % Sod Chloride [Vanco 1 Gram/250 ml-0.9% NaCl] 1 gm IV Q12H 38 Days #76 plast..bag 05/24/18 [Rx] Docusate [Colace] 100 mg PO BID #60 capsule 05/27/18 [Rx] metroNIDAZOLE [Flagyl] 500 mg PO TID #126 tablet 05/27/18 [Rx] Allergies/Adverse Reactions: Allergy/AdvReac Type Severity Reaction Status Date / Time codeine Allergy See Verified 10/31/17 11:48 [From Tylenol-Codeine #3] Comments Date of admission: 05/20/18 05:37 Primary care physician: Alison Nolasco CNP Consults: 05/20/18 04:16 Consult to Podiatry [CONS] Stat Consulting Provider: Podiatry [facility] Reason for Consult: Foot infection. Concern for necrotizing fasciitis Call Completed: Yes 05/20/18 09:34 Consult to Infectious Diseases [CONS] Routine Consulting Provider: Infectious Disease [place] [facility] Reason for Consult: Gas gangrene foot Call Completed: Yes 05/23/18 08:05 Consult to Occupational Therapy [CONS] Routine Comment: Evaluate, develop and implement POC Reason for Consult: recs regarding placement upon discharge Does patient have active BEDREST order?: No Is patient medically & hemodynamically stable?: Yes Consult to Physical Therapy [CONS] Routine Comment: Evaluate, develop and implement POC Reason for Consult: recs regarding rehab upon discharge Does patient have active BEDREST order?: No Is patient medically & hemodynamically stable?: Yes 05/23/18 16:58 Consult to Invasive Line Access Team [CONS] Routine Reason for Consult: Picc Line Insertion Line Type: PICC - Constitutional Vitals: Temp Pulse Resp BP Pulse Ox 97.7 F 66 15 131/76 95 05/27/18 11:51 12/03/18 11:51 05/27/18 11:51 05/27/18 11:51 05/27/18 11:51 General appearance: Present: A&O X 3, no acute distress, answers questions appropriately Exam: General: Patient is alert, no acute distress, oriented x 3 Respiratory: Good respiratory effort. Normal breath sounds. No wheezing or crackles. Cardiovascular: Regular rate and rhythm. s1 and s2 normal No clicks, rubs, gallops, or murmurs. No pedal edema Abdomen: Abdomen is soft, nontender. Bowel sounds are present Musculoskeletal: Right foot bandaged. Erythema resolved over his right lower leg. Mild to moderate swelling over right foot , Skin: warm, dry, intact. Neuro: Alert oriented x 3 normal cranial nerves, no focal deficits - Patient Status Disposition: Home Health Service Condition: Good Functional capacity at discharge: uses cane/walker Overall status at discharge: patient is progressing back to baseline - Ambulatory Orders Ambulatory Orders: Basic Metabolic Panel [CHEM] Time Frame: 1 Week, Facility: [facility], Location: Lab Basic Metabolic Panel [CHEM] Time Frame: 05/31/18, Facility: [facility], Location: Lab Basic Metabolic Panel [CHEM] Time Frame: 06/07/18, Facility: [facility], Location: Lab Basic Metabolic Panel [CHEM] Time Frame: 06/14/18, Facility: [facility], Location: Lab Basic Metabolic Panel [CHEM] Time Frame: 06/21/18, Facility: [facility], Location: Lab Basic Metabolic Panel [CHEM] Time Frame: 06/28/18, Facility: [facility], Location: Lab Basic Metabolic Panel [CHEM] Time Frame: 07/05/18, Facility: [facility], Location: Lab Complete Blood Count [HEME] Time Frame: 1 Week, Facility: [facility], Location: Lab Complete Blood Count [HEME] Time Frame: 05/31/18, Facility: [facility], Location: Lab Complete Blood Count [HEME] Time Frame: 06/07/18, Facility: [facility], Location: Lab Complete Blood Count [HEME] Time Frame: 06/14/18, Facility: [facility], Location: Lab Complete Blood Count [HEME] Time Frame: 06/21/18, Facility: [facility], Location: Lab Complete Blood Count [HEME] Time Frame: 06/28/18, Facility: [facility], Location: Lab Complete Blood Count [HEME] Time Frame: 07/05/18, Facility: [facility], Location: Lab C-Reactive Protein [CHEM] Time Frame: 1 Week, Facility: [facility], Location: Lab C-Reactive Protein [CHEM] Time Frame: 05/31/18, Facility: [facility], Location: Lab C-Reactive Protein [CHEM] Time Frame: 06/07/18, Facility: [facility], Location: Lab C-Reactive Protein [CHEM] Time Frame: 06/14/18, Facility: [facility], Location: Lab C-Reactive Protein [CHEM] Time Frame: 06/21/18, Facility: [facility], Location: Lab C-Reactive Protein [CHEM] Time Frame: 06/28/18, Facility: [facility], Location: Lab C-Reactive Protein [CHEM] Time Frame: 07/05/18, Facility: [facility], Location: Lab Erythrocyte Sedimentation Rate [HEME] Time Frame: 1 Week, Facility: [facility], Location: Lab Erythrocyte Sedimentation Rate [HEME] Time Frame: 05/31/18, Facility: [facility], Location: Lab Erythrocyte Sedimentation Rate [HEME] Time Frame: 06/07/18, Facility: [facility], Location: Lab Erythrocyte Sedimentation Rate [HEME] Time Frame: 06/14/18, Facility: [facility], Location: Lab Erythrocyte Sedimentation Rate [HEME] Time Frame: 06/21/18, Facility: [facility], Location: Lab Erythrocyte Sedimentation Rate [HEME] Time Frame: 06/28/18, Facility: [facility], Location: Lab Erythrocyte Sedimentation Rate [HEME] Time Frame: 07/05/18, Facility: [facility], Location: Lab Vancomycin,Trough [CHEM] Time Frame: 1 Week, Facility: [facility], Location: Lab Vancomycin,Trough [CHEM] Time Frame: 05/31/18, Facility: [facility], Location: Lab Vancomycin,Trough [CHEM] Time Frame: 06/07/18, Facility: [facility], Location: Lab Vancomycin,Trough [CHEM] Time Frame: 06/14/18, Facility: [facility], Location: Lab Vancomycin,Trough [CHEM] Time Frame: 06/21/18, Facility: [facility], Location: Lab Vancomycin,Trough [CHEM] Time Frame: 06/28/18, Facility: [facility], Location: Lab Vancomycin,Trough [CHEM] Time Frame: 07/05/18, Facility: [facility], Location: Lab - Discharge Instructions Instructions: Urinary Tract Infection in Men (DC), Diabetes Mellitus Type 2 in Adults (DC), Sepsis (DC) Follow Up With: Vargas Shannon DPM [Partnered Physician] - (1 week) Neo Cifuentes MD [Partnered Physician] - (2 weeks) Alison Nolasco CNP [Primary Care Provider] - (in 1 week) Forms: ED Satisfaction Letter Additional Instructions: Follow up with Dr. Shannon in wound clinic 1 week post d/c. - Diet and Activity Activity: resume usual activities as tolerated Diet: diabetic diet - Attending Attestation The patient is clinically improved significantly and he is hemodynamically stable. His clinical and lab findings show improvement. The patient has been counseled for follow-up visit with infectious disease in 2 weeks, wound care doctor/podiatric in a week and primary care doctor within a week. He will get IV vancomycin and oral Flagyl for further 6 weeks, he has already got IV antibiotics( Zosyn and vancomycin) for a week. He has been advised to do BMP, CRP, CBC , ESR and Vanco trough every week as per infectious disease physician recommendation. The patient is fully aware of that. <Jodi Yeager - Last Filed: 05/27/18 15:57> Orders not resulted at time of discharge: Pending orders 05/19/18 21:46 Culture,Blood [BC] Stat 05/20/18 06:45 Culture,Anaerobic [RM] Routine Culture,Anaerobic [RM] Routine 05/26/18 07:55 Culture,Blood [BC] Routine Date of Encounter: 05/27/18 Time of Encounter: 08:50 - Discharge Diagnosis (1) Diabetic foot infection Priority: Primary Status: Acute (2) Sepsis Status: Resolved Qualifiers: Sepsis type: sepsis due to unspecified organism Qualified Code(s): A41.9 - Sepsis, unspecified organism (3) UTI (urinary tract infection) Status: Resolved Qualifiers: Urinary tract infection type: site unspecified Hematuria presence: with hematuria Qualified Code(s): N39.0 - Urinary tract infection, site not specified; R31.9 - Hematuria, unspecified (4) Hypertension Status: Chronic Qualifiers: Hypertension type: essential hypertension Qualified Code(s): I10 - Essential (primary) hypertension (5) Hyperlipidemia Status: Chronic Qualifiers: Hyperlipidemia type: unspecified Qualified Code(s): E78.5 - Hyperlipidemia, unspecified (6) DVT prophylaxis Status: Acute (7) Non-insulin dependent type 2 diabetes mellitus Status: Chronic (8) CAD (coronary artery disease) of artery bypass graft Status: Chronic Qualifiers: Qualified Code(s): I25.810 - Atherosclerosis of coronary artery bypass graft(s) without angina pectoris (9) Gas gangrene Status: Acute (10) Bacteremia due to Gram-positive bacteria Status: Acute (11) History of colon cancer Status: Chronic Hospital course: Mr. Bedolla is a 77 year old male Discharge discussed with: patient, family consultant - Time Spent with Patient Total time spent providing and/or coordinating discharge services: Less than 30 minutes (20 min) Date of admission: 05/20/18 05:37 Primary care physician: Alison Nolasco CNP Consults: 05/20/18 04:16 Consult to Podiatry [CONS] Stat Consulting Provider: Podiatry [facility] Reason for Consult: Foot infection. Concern for necrotizing fasciitis Call Completed: Yes 05/20/18 09:34 Consult to Infectious Diseases [CONS] Routine Consulting Provider: Infectious [facility] [place] Reason for Consult: Gas gangrene foot Call Completed: Yes 05/23/18 08:05 Consult to Occupational Therapy [CONS] Routine Comment: Evaluate, develop and implement POC Reason for Consult: recs regarding placement upon discharge Does patient have active BEDREST order?: No Is patient medically & hemodynamically stable?: Yes Consult to Physical Therapy [CONS] Routine Comment: Evaluate, develop and implement POC Reason for Consult: recs regarding rehab upon discharge Does patient have active BEDREST order?: No Is patient medically & hemodynamically stable?: Yes 05/23/18 16:58 Consult to Invasive Line Access Team [CONS] Routine Reason for Consult: Picc Line Insertion Line Type: PICC Discharging clinician: Jodi Yeager Anticipated date of discharge: 05/27/18 - Constitutional Vitals: Temp Pulse Resp BP Pulse Ox 97.7 F 66 15 131/76 95 05/27/18 11:51 05/27/18 11:51 05/27/18 11:51 05/27/18 11:51 05/27/18 11:51 General appearance: Present: cooperative, pleasant, no acute distress - Respiratory Respiratory exam: Present: CTAB. Absent: accessory muscle use, rales, rhonchi, wheezes - Cardiovascular Cardiovascular exam: Present: RRR, +S1, +S2. Absent: diastolic murmur, gallop, rubs, systolic murmur - Extremities Exam Extremities exam: Present: warm, radial pulses palpable and symmetrical. Absent: calf tenderness, cyanotic, pedal edema Additional comments: Right foot bandaged. - Neurological Exam Neurological exam: Present: CN II-XII intact, oriented X3, no focal deficits. Absent: facial droop, speech deficit - Diet and Activity Activity: as per physical therapy - Attending Attestation I saw evaluated and examined this patient and my medical decision-making was reviewed with the Resident Physician, Yelena Vargas. I agree with the documented findings, disposition and treatment plan as described except to any changes set forth below. We independently had [id number] contact with the patient. Patient with a history of diabetes mellitus, coronary artery disease, hypertension and hyperlipidemia was hospitalized here with infection of his right foot along with gas gangrene. Patient underwent surgery and debridement initially on 05/20. He was started on IV antibiotics. Wound cultures are positive for strep group B, MRSA and Streptococcus mitis along with Prevotella. Initial sets of blood culture were also positive for gram-positive cocci. They have not yet been finalized. Urine culture was positive for Escherichia coli and group B strep. Infectious disease was consulted and they managed antibiotics. Patient has been on vancomycin and Zosyn. Patient underwent revision surgery on 05/23 with washout and application of platelet rich plasma. His repeat wound cultures were again positive for the same bacteria. Repeat blood cultures have been negative. At this time, patient is cleared for discharge from medical standpoint. He will follow up with podiatry and infectious disease. Vision to be placed on 6 weeks of IV vancomycin and will also be on oral Flagyl for the same duration. He will follow up with podiatry and infectious disease has outpatient. Patient did receive insulin here for his blood sugars but will be discharged on his usual medication regimen of metformin and glimepiride. He is advised to have close follow-up with his PCP for better management of his diabetes. Patient will have home health arranged to manage his IV antibiotics and wound.
--- NOTE | 2018-05-27 15:49 | Physician Discharge Referral ---
Home Health/Hosp Referral Info Transfer to: Home Health Provider in Charge Post Discharge: PCP - Diagnosis (1) Diabetic foot infection Priority: Primary Status: Acute (2) Sepsis Priority: Secondary Status: Resolved (3) UTI (urinary tract infection) Priority: Secondary Status: Resolved (4) Hypertension Priority: Secondary Status: Chronic (5) DVT prophylaxis Priority: Secondary Status: Acute (6) Bacteremia due to Gram-positive bacteria Priority: Secondary Status: Acute (7) Hyperlipidemia Priority: Secondary Status: Chronic (8) Non-insulin dependent type 2 diabetes mellitus Priority: Secondary Status: Chronic (9) Gas gangrene Priority: Secondary Status: Acute (10) CAD (coronary artery disease) of artery bypass graft Priority: Secondary Status: Chronic (11) History of colon cancer Priority: Secondary Status: Chronic - Respiratory Orders Smoking Cessation: Smoking cessation has been advised. For more information, call the [place] Tobacco Quit Line at 3-038-QZIY-NOW. - Diet/Nutrition Diet/Nutrition Orders: Cardiac, No Concentrated Sweets (Diabetes) - Activity Activity Orders: Ambulate (With Boot) - Services Needed Following services are medically necessary services: Nursing, Physical Therapy, Occupational Therapy, Home Infusion Home Care Orders: Patient needs to do CBC , BMP,ESR, CRP and Vanco Trough weekly . The patient is on IV antibiotics IV vancomycin and oral Flagyl . He would take antibiotics for further 6weeks. Please visit Dr Cifuentes/infectious disease physician in 2 weeks with lab results. Foot care: Dressing has been hanged today,elevate foot and minimal weight bearing. Follow up with Dr Bae clinic Sunday or Sunday of next week. - Transfer Medications Prescriptions: Docusate [Colace] 100 mg PO BID #60 capsule metroNIDAZOLE [Flagyl] 500 mg PO TID #126 tablet Vancomycin/0.9 % Sod Chloride [Vanco 1 Gram/250 ml-0.9% NaCl] 1 gm IV Q12H 38 Days #76 plast..bag Home Medications: Aspirin Enteric Coated [Aspirin EC] 81 mg PO DAILY 11/15/16 [History] Gabapentin [Neurontin] 600 mg PO QAM 11/15/16 [History] Glimepiride [Amaryl] 4 mg PO BID 11/15/16 [History] [place]-3/Dha/Epa/Fish Oil [Fish Oil 1,000 mg Softgel] 1,000 mg PO TID 11/15/16 [History] Pravastatin Sodium 10 mg PO HS 11/15/16 [History] metFORMIN [Glucophage] 1,000 mg PO BIDWM 11/15/16 [History] Gabapentin [Neurontin] 300 mg PO HS 11/20/16 [History] Ibuprofen [Motrin] 200 - 600 mg PO Q6HR PRN 11/20/16 [History] Lisinopril/Hydrochlorothiazide [Zestoretic 20-25 mg Tablet] 1 tab PO DAILY 11/20/16 [History] Metoprolol XL (24 HR) Succ [Toprol Xl] 50 mg PO DAILY 11/20/16 [History] Vancomycin/0.9 % Sod Chloride [Vanco 1 Gram/250 ml-0.9% NaCl] 1 gm IV Q12H 38 Days #76 plast..bag 05/24/18 [Rx] Docusate [Colace] 100 mg PO BID #60 capsule 05/27/18 [Rx] metroNIDAZOLE [Flagyl] 500 mg PO TID #126 tablet 05/27/18 [Rx] Allergies/Adverse Reactions: Allergy/AdvReac Type Severity Reaction Status Date / Time codeine Allergy See Verified 10/31/17 11:48 [From Tylenol-Codeine #3] Comments Certification: Further, I certify that my clinical findings support that this patient is homebound (i.e. absences from home require considerable and taxing effort and are for medical reasons or christian services or infrequently or short duration when for other reasons) because: Homebound Reason: Patient requires assistance of a person or device to safely leave home (Patient needs Home IV antibiotics for 6 weeks .) Attestation: My signature below is to certify that this patient is under my care and that I, or nurse practitioner, or a physician's hotel assistant manager working with me, has a face-to -face encounter with this patient.
[2018-05-27] MEDS ORDERED: Vancomycin 500 MG in 0.9 % Sodium Chloride Mini Bag 100 ML IVPB ONE (16:00)
[2018-05-27 16:03] VITALS: BP 117/66
--- NOTE | 2018-05-27 16:37 | Podiatry Progress Note ---
Date of Encounter: 05/27/18 Time of Encounter: 17:00 - Assessment and Plan (1) Diabetic foot infection Status: Acute s/p Dressing changed today at bedside flushed with saline repacked with mesalt- applied adaptic, kerlix and MARCELINA Patient to keep CDI until next visit Elevate and minimal weight bearing Make appointment for patient to be seen in clinic Sunday or Sunday of next week Antibiotics per ID Call with any fevers, chills, n/v or fls May discharge when medically stable and all antibiotics have been set up Discussed with family at bedside, denies any questions or concerns at this time (2) Gas gangrene Status: Acute Subjective Interval history: POD #4 s/p 2nd washout- Incision and drainage right foot with partial closure right 4th partial ray amputation per Patient resting comfortably in bed on arrival. Family at bedside Denies any pain- patient is neuropathic Denies any fevers, chills, n/v or fls Dressing to LLE CDI Patient denies any calf pain or sob Dressing CDI and is pending discharge at this time Objective - Vital Signs Vital Signs: Vital Signs Temp Pulse Resp BP Pulse Ox 05/27/18 16:03 98.0 F 62 14 117/66 96 05/27/18 11:51 97.7 F 66 15 131/76 95 05/27/18 08:28 94 05/27/18 07:52 97.6 F 68 18 132/66 94 05/27/18 03:46 97.7 F 68 121/57 97 05/26/18 19:15 97.6 F 71 15 127/69 95 Intake and Output 05/27/18 05/27/18 05/27/18 07:59 15:59 23:59 Intake Total 350 / 350 940 / 940 Output Total 1300 / 1300 100 / 100 Balance -950 / -950 840 / 840 Intake: IV Fluids 350 / 350 100 / 100 Zosyn 3.375 GM In 0.9 % Sodium 100 / 100 100 / 100 Chloride (Mini-Bag +) 100 ML @ 25 mls/hr IVPB Q8H [facility] Rx#: [id number] Vancocin 1,000 MG In 0.9 % 250 / 250 Sodium Chloride 250 ML @ 167 mls/hr IVPB Q12H [facility] Rx#: [id number] Oral 840 / 840 Output: Urine 1300 / 1300 100 / 100 Other: Meal Lunch Percent of Meal Consumed 100% Blood Glucose* 78 200 - Exam Exam: awake alert and oriented VASCULAR: pulses palpable DP/PT cap refill <3 seconds Warm toes to tibia Mild non pitting edema noted No calf pain with manual compression Neurovascular: Profound neuropathy with LOPS. MUSCULOSKELETAL: muscle strength 5/5 and equal bilaterally s/p I&D of right foot with partial closure INcision line noted along dosal foot between toes #3 and #5 right with amputation of toe #4. Incision line well approximated with surgically created opening at the base of toe #4 amputation. No drainage noted at this time. Minimal surrounding edema, warmth or tenderness There is appearance of DTI to the dorsal aspect of the foot near the ankle. This has been present x1 week since first surgical intervention. Skin intact. Dark purple discoloration. Non blanching. Improvement in appearance is noted. 4cmx1.5cm without depth. No fluctuance. - Lab Result Diagrams: 05/27/18 05:00 05/27/18 05:00 Labs: Abnormal lab results WBC 11.4 K/mcL (4.3-11.1) H 05/27/18 05:00 RBC 3.60 M/mcL (4.19-5.50) L 05/27/18 05:00 Hgb 10.6 g/dL (12.9-16.9) L 05/27/18 05:00 Hct 32.7 % (37.5-50.1) L 05/27/18 05:00 Immature Gran % 4.1 % (0-4) H 05/27/18 05:00 Reactive Lymphocytes Present (Not Present) A 05/25/18 03:20 ESR 106 mm/hr (0-10) H 05/23/18 09:51 PT 14.6 Seconds (9.4-12.1) H 05/19/18 21:55 POC Glucose 174 mg/dL (70-99) H 05/26/18 20:40 Phosphorus 1.6 mg/dL (2.7-4.5) L 05/19/18 21:55 Magnesium 1.4 mg/dL (1.6-2.6) L 05/19/18 21:55 AST 11 Units/L (13-39) L 05/19/18 21:55 C-Reactive Protein 99 mg/L (Less than 10) H 05/23/18 09:51 Globulin 3.6 g/dL (2.4-3.5) H 05/19/18 21:55 Urine Glucose (UA) 100 mg/dL (Normal) H 05/26/18 10:20 Ur Leukocyte Esterase Small (Negative) H 05/26/18 10:20 Ur Squamous Epith Cells Moderate per lpf (None-Few) H 05/26/18 10:20 Ur Culture Indicated? YES (NO) A 05/26/18 10:20 Vancomycin Trough 15 mcg/mL (5-10) H 05/25/18 22:11 Microbiology, Last 48 Hours 05/26/18 10:20 Urine Culture - Final Urine,Clean Catch No significant growth. 05/20/18 06:45 Anaerobic Culture - Preliminary Right Fourth Toe Anaerobic Gram Positive Cocci Prevotella bivia 05/20/18 06:45 Anaerobic Culture - Preliminary Right Fourth Toe Anaerobic Gram Positive Cocci Prevotella bivia 05/21/18 15:24 Blood Culture - Final Peripheral Venipuncture No growth. Final report. 05/21/18 15:21 Blood Culture - Final Peripheral Venipuncture No growth. Final report. 05/20/18 06:45 Anaerobic Culture - Final Right Foot Prevotella bivia 05/26/18 07:55 Blood Culture - Preliminary Peripheral Venipuncture Culture is incubating and being continuously monitored for growth. Final report to follow. Consult Discharge Plan - Plan Instructions: Urinary Tract Infection in Men (DC), Diabetes Mellitus Type 2 in Adults (DC), Sepsis (DC) Additional Instructions: Follow up with Dr. Bae in wound clinic 1 week post d/c. Referrals: woundcare clinic [Other] (appointment 2017 @ 2:30 PM) Vargas Bae DPM [Partnered Physician] - (1 week) Alison Nolasco, JACKSPOOLER [Primary Care Provider] - (in 1 week Patient has to make appointment) Neo Cifuentes MD [Partnered Physician] - (2 weeks Web request entered. Office will call with appointment) Prescriptions: RX: Docusate [Colace] 100 mg PO BID #60 capsule metroNIDAZOLE [Flagyl] 500 mg PO TID #126 tablet RX: Vancomycin/0.9 % Sod Chloride [Vanco 1 Gram/250 ml-0.9% NaCl] 1 gm IV Q12H 38 Days #76 plast..bag
[2018-05-27] MEDS ORDERED: Aminoglycoside Consult 1 EACH MC ONE (18:38)
[2018-05-27] MEDS ORDERED: Insulin DETEMIR 100 UNIT/ML X5UNITS SQ SCH (21:00)
== END 2018-05-27 18:39 | disposition home health service (06) | DRG 853 ==
LOC: 3ANU 21:25 → EMEROOARM 21:25 → 3ANU 05-20 05:28 → SUATTDRO 05-20 05:37
PROVIDERS: ADMIT Internal Medicine; ATTEND Internal Medicine